=== PATIENT | male | born 1980 | race Caucasian/White ===

== ENCOUNTER 2019-08-25 11:15 | Outpatient (RCR) | payer BC, SELFPAY ==
--- NOTE | 2017-10-22 15:09 | PT.OTN ---
On October 22, 2017 our therapy services consisting of Speech, Occupational, and Physical therapy transitioned from [employer] electronic documentation system to a new [employer] electronic system. All documentation prior to October 22 can be found under [employer] saved data. From October 22 forward, all medical record documentation will be in [employer] 6[employer]1.
--- NOTE | 2017-10-22 15:48 | PT.OTN ---
Physical Therapy Treatment Note PT-OP-A Visit Information Start: 10/22/17 15:21 Freq: Status: Active Protocol: Activity Type Activity Date Activity User E-Sign Co-Sign Detail Recorded Client Recorded Date Recorded By Document 10/22/17 15:23 AMB [email or web address] 10/22/17 15:48 AMB 10/22/17 15:23 Out-Patient Physical Therapy Visit Information [Visit Information] -Visit Type Treatment Note -Visit Note POC ends 11/27/17 -Visit Start Time 14:45 -Visit Stop Time 15:15 -Total Visit Minutes 30 -Visit Number 25 [Evaluation Information] -Evaluation Date 06/25/17 PT-OP-C Subjective Start: 10/22/17 15:21 Freq: Status: Active Protocol: Activity Type Activity Date Activity User E-Sign Co-Sign Detail Recorded Client Recorded Date Recorded By Document 10/22/17 15:23 AMB [email or web address] 10/22/17 15:48 AMB 10/22/17 15:23 OP-PT Subjective [Patient Comments] -Patient Comments Pt reports he noted burning during iontophoresis, so he had his take it off when he got home. He has been using his elliptical at home but has been stopping at 24 minutes because of pain in his left scapula. PT-OP-Q Treatments Start: 10/22/17 15:21 Freq: Status: Active Protocol: Activity Type Activity Date Activity User E-Sign Co-Sign Detail Recorded Client Recorded Date Recorded By Document 10/22/17 15:23 AMB [email or web address] 10/22/17 15:48 AMB 10/22/17 15:23 Therapeutic Exercises [Prone Exercises] 2 -Prone Exercise Name jerry pose -Reps/Minutes 30 sec x 2 1 -Prone Exercise Name I, Y, T -Side left -Resistance AROM -Reps/Minutes 1x10 each direction [Standing Exercises] 2 -Standing Exercise Name Cross body stretch -Side left -Reps/Minutes 30 sec x 2 1 -Standing Exercise Name Wall posture -Side bilateral -Reps/Minutes 5 minutes Manual Therapy Treatment [Soft Tissue Mobilization] 1 -Body Location Left scapula -Mobilization Type Myofascial Release Rolling -Intensity/Depth Moderate -Body Position Prone [Joint Mobilizations] 1 -Joint T1-5 -Direction PA -Grade III -Body Position Prone -Reps/Duration 5 minutes PT-OP-T Assessment and Plan Start: 10/22/17 15:21 Freq: Status: Active Protocol: Activity Type Activity Date Activity User E-Sign Co-Sign Detail Recorded Client Recorded Date Recorded By Document 10/22/17 15:23 AMB [email or web address] 10/22/17 15:48 AMB 10/22/17 15:23 Physical Therapy Assessment [Assessment Summary] -Assessment The patient continues to use upper traps to substitute for scapular muscles. Fatigues quickly with wall posture and Is/Ts/Ys. Physical Therapy Plan [Next Visit Focus/Plan] -Next Visit Plan Progress posture and resistance exercises. Current Diagnoses Pain in left shoulder (10/22/17) Low back pain (10/22/17)
--- NOTE | 2017-11-06 08:02 | PT.OTN ---
Current Diagnoses Pain in left shoulder (11/05/17) Low back pain (11/05/17) Physical Therapy Treatment Note PT-OP-A Visit Information Start: 10/22/17 15:21 Freq: Status: Active Protocol: Document 11/05/17 14:30 AMB (Rec: 11/06/17 08:01 AMB [email or web address]) Out-Patient Physical Therapy Visit Information Visit Information Visit Type Treatment Note Visit Note POC ends 11/27/17 Visit Start Time 14:35 Visit Stop Time 15:15 Total Visit Minutes 45 Visit Number 26 PT-OP-C Subjective Start: 10/22/17 15:21 Freq: Status: Active Protocol: Document 11/05/17 14:30 AMB (Rec: 11/06/17 08:01 AMB [email or web address]) OP-PT Subjective Patient Comments Patient Comments Pt notes overall he has been feeling better. Although he strained to catch ball in T ball practice last Saturday and has been feeling increased pain from his scapula into his neck since then. PT-OP-Q Treatments Start: 10/22/17 15:21 Freq: Status: Active Protocol: Document 11/05/17 14:30 AMB (Rec: 11/06/17 08:01 AMB [email or web address]) Therapeutic Exercises Prone Exercises 2 Prone Exercise Name jerry pose Reps/Minutes 30 sec x 2 Standing Exercises 1 Standing Exercise Name Wall posture Side bilateral Reps/Minutes 5 minutes Manual Therapy Treatment Soft Tissue Mobilization 3 Body Location Levator scap Mobilization Type Strumming Intensity/Depth Moderate Body Position Prone 2 Body Location Left paraspinals Mobilization Type Strumming Intensity/Depth Moderate Body Position Prone 1 Body Location Left scapula Mobilization Type Myofascial Release Rolling Intensity/Depth Moderate Body Position Prone Joint Mobilizations 1 Joint T1-5 Direction PA Grade III Body Position Prone Reps/Duration 5 minutes PT-OP-T Assessment and Plan Start: 10/22/17 15:21 Freq: Status: Active Protocol: Document 11/05/17 14:30 AMB (Rec: 11/06/17 08:01 AMB [email or web address]) Physical Therapy Assessment Assessment Summary Assessment Pt continues with impaired posture, need to work more on postural stabilization Physical Therapy Plan Next Visit Focus/Plan Next Visit Plan Progress scapular stabilization
--- NOTE | 2017-11-12 15:39 | PT.OTN ---
Current Diagnoses Pain in left shoulder (11/12/17) Low back pain (11/12/17) Physical Therapy Treatment Note PT-OP-A Visit Information Start: 10/22/17 15:21 Freq: Status: Active Protocol: Document 11/12/17 15:30 AMB (Rec: 11/12/17 15:38 AMB [email or web address]) Out-Patient Physical Therapy Visit Information Visit Information Visit Type Treatment Note Visit Note POC ends 11/27/17 Visit Start Time 14:30 Visit Stop Time 15:15 Total Visit Minutes 45 Visit Number 27 Evaluation Information Evaluation Date 06/25/17 PT-OP-C Subjective Start: 10/22/17 15:21 Freq: Status: Active Protocol: Document 11/12/17 15:30 AMB (Rec: 11/12/17 15:38 AMB [email or web address]) OP-PT Subjective Patient Comments Patient Comments Pt has been practicing [employer] with his son and felt better after his last appointment, but after yesterday's practice he is more flared up. He has been stretching and that helped his low back, but he has a headache and scapular pain still. PT-OP-Q Treatments Start: 10/22/17 15:21 Freq: Status: Active Protocol: Document 11/12/17 15:30 AMB (Rec: 11/12/17 15:38 AMB [email or web address]) Manual Therapy Treatment Soft Tissue Mobilization 3 Body Location TrP release with shoulder abd. Mobilization Type Trigger Point Release Intensity/Depth Moderate Body Position Prone 2 Body Location Left paraspinals Mobilization Type Strumming Intensity/Depth Moderate Body Position Prone 1 Body Location Left scapula Mobilization Type Myofascial Release Rolling Intensity/Depth Moderate Body Position Prone Joint Mobilizations 1 Joint T1-5 Direction PA Grade III Body Position Prone Reps/Duration 5 minutes Manual Traction Cervical Body Position Supine PT-OP-T Assessment and Plan Start: 10/22/17 15:21 Freq: Status: Active Protocol: Document 11/12/17 15:30 AMB (Rec: 11/12/17 15:38 AMB [email or web address]) Physical Therapy Assessment Assessment Summary Assessment Difficult to progress pt's postural stabilization today due to headache, forward head continues. Physical Therapy Plan Next Visit Focus/Plan Next Visit Plan Progress postural awareness. Please Sign and Return: I have reviewed this Plan of Care and certify that the skilled therapy services above are required to meet the patient???s needs. Physician Signature Date Printed Name and Credentials Clinical Instructor Signature Printed Name and Credentials
--- NOTE | 2017-11-21 15:57 | PT.OTN ---
Current Diagnoses Pain in left shoulder (11/21/17) Low back pain (11/21/17) Physical Therapy Treatment Note PT-OP-A Visit Information Start: 10/22/17 15:21 Freq: Status: Active Protocol: Document 11/21/17 14:30 AMB (Rec: 11/21/17 14:34 AMB [id number]) Out-Patient Physical Therapy Visit Information Visit Information Visit Type Treatment Note Visit Note POC ends 11/27/17 Visit Start Time 14:30 Visit Stop Time 15:15 Total Visit Minutes 45 Visit Number 28 Evaluation Information Evaluation Date 06/25/17 PT-OP-C Subjective Start: 10/22/17 15:21 Freq: Status: Active Protocol: Document 11/21/17 14:30 AMB (Rec: 11/21/17 15:49 AMB [email or web address]) OP-PT Subjective Patient Comments Patient Comments Pt over extended his arm yesterday during T ball practice and has been feeling pain since then. PT-OP-Q Treatments Start: 10/22/17 15:21 Freq: Status: Active Protocol: Document 11/21/17 14:30 AMB (Rec: 11/21/17 15:49 AMB [email or web address]) Therapeutic Exercises Prone Exercises 5 Prone Exercise Name plank Comments kneeling and on forearms 4 Prone Exercise Name cat/cow Reps/Minutes 15 3 Prone Exercise Name rows Side left Resistance 5# Reps/Minutes 1 x 10 2 Prone Exercise Name jerry pose Reps/Minutes 30 sec x 2 1 Prone Exercise Name I, Y, T Side left Resistance 5# Reps/Minutes 1x10 each direction Comments 5# Manual Therapy Treatment Soft Tissue Mobilization 2 Body Location Left paraspinals Mobilization Type Strumming Intensity/Depth Moderate Body Position Prone 1 Body Location Left scapula Mobilization Type Myofascial Release Rolling Intensity/Depth Moderate Body Position Prone PT-OP-R Modalities Start: 11/21/17 15:49 Freq: Status: Active Protocol: Document 11/21/17 14:30 AMB (Rec: 11/21/17 15:56 AMB [email or web address]) Ultrasound Therapy Treatment Left Upper Back Treatment Duration (minutes) 7 Patient Position Prone Coupling Medium Ultrasound Gel Frequency Setting (mHz) 1 Mode Setting Continuous Intensity Setting (w/cm2) 1.5 PT-OP-T Assessment and Plan Start: 10/22/17 15:21 Freq: Status: Active Protocol: Document 11/21/17 14:30 AMB (Rec: 11/21/17 15:56 AMB [email or web address]) Physical Therapy Assessment Assessment Summary Assessment Pt presents with continued L thoracic/ scapular pain. Less tightness in infraspinatus, but more soreness in lats and rhomboids. Physical Therapy Plan Next Visit Focus/Plan Next Note Type Progress Note Next Visit Plan Progress scapular stabilization Please Sign and Return: I have reviewed this Plan of Care and certify that the skilled therapy services above are required to meet the patient?s needs. Physician Signature Date Printed Name and Credentials Clinical Instructor Signature Printed Name and Credentials
--- NOTE | 2017-12-03 07:52 | PT.OTN ---
Current Diagnoses Pain in left shoulder (12/02/17) Low back pain (12/02/17) Physical Therapy Treatment Note PT-OP-A Visit Information Start: 10/22/17 15:21 Freq: Status: Active Protocol: Document 12/02/17 13:45 AMB (Rec: 12/03/17 07:49 AMB [email or web address]) Out-Patient Physical Therapy Visit Information Visit Information Visit Type Treatment Note Visit Start Time 14:00 Visit Stop Time 14:30 Total Visit Minutes 30 Visit Number 29 Evaluation Information Evaluation Date 06/25/17 PT-OP-C Subjective Start: 10/22/17 15:21 Freq: Status: Active Protocol: Document 12/02/17 13:45 AMB (Rec: 12/03/17 07:49 AMB [email or web address]) OP-PT Subjective Patient Comments Patient Comments Pt reports flare up of sx over the past 3 days. Patient Questionnaires Oswestry Low Back Index Oswestry Score 44 Oswestry Impairment 40 to 59% Impaired (Score 40- 59) PT-OP-K Range of Motion Start: 12/03/17 07:05 Freq: Status: Active Protocol: Document 12/02/17 13:45 AMB (Rec: 12/03/17 07:47 AMB [email or web address]) Cervical Spine Range of Motion Cervical Spine Active Degrees Testing Position Sitting Flexion 60 Extension 50 Rotation Left 60 Rotation Right 55 ROM Limitations Soft Tissue Tightness Lumbar Spine Range of Motion Lumbar Spine Active Degrees Testing Position standing Flexion 10 Extension 35 Lateral Flexion Left 15 Lateral Flexion Right 15 ROM Limitations Pain PT-OP-M Strength Start: 12/03/17 07:05 Freq: Status: Active Protocol: Document 12/02/17 13:45 AMB (Rec: 12/03/17 07:47 AMB [email or web address]) Scapula Strength Scapula Manual Muscle Testing Left Comments Scapular protraction 3+/5 with pain Shoulder Strength Shoulder Manual Muscle Testing Right Reason Not Measured WFL Left Flexion 4+ Good+ Abduction (C5) 4 Good External Rotation 4 Good Internal Rotation 4+ Good+ PT-OP-Q Treatments Start: 10/22/17 15:21 Freq: Status: Active Protocol: Document 12/02/17 13:45 AMB (Rec: 12/03/17 07:51 AMB [email or web address]) Therapeutic Exercises Standing Exercises 2 Standing Exercise Name Cross body stretch Side left Reps/Minutes 30 sec x 2 Manual Therapy Treatment Soft Tissue Mobilization 3 Body Location TrP release with shoulder abd. Mobilization Type Trigger Point Release Intensity/Depth Moderate Body Position Prone 1 Body Location Left scapula Mobilization Type Myofascial Release Rolling Intensity/Depth Moderate Body Position Prone PT-OP-R Modalities Start: 11/21/17 15:49 Freq: Status: Active Protocol: Document 11/21/17 14:30 AMB (Rec: 11/21/17 15:56 AMB [email or web address]) Ultrasound Therapy Treatment Left Upper Back Treatment Duration (minutes) 7 Patient Position Prone Coupling Medium Ultrasound Gel Frequency Setting (mHz) 1 Mode Setting Continuous Intensity Setting (w/cm2) 1.5 PT-OP-T Assessment and Plan Start: 10/22/17 15:21 Freq: Status: Active Protocol: Document 12/02/17 13:45 AMB (Rec: 12/03/17 07:30 AMB [email or web address]) Physical Therapy Assessment Rehab Potential Rehabilitation Potential Good Impairments Impairments Activity Tolerance Pain Posture ROM Soft Tissue Mobility Strength Goals 4 Impairment Sleep Short Term Goal (STG) The patient will sleep for 5 hours using pillow props. STG Duration 6 weeks Office Support Goal (LTG) The patient will be independent with a core and scapular stabilization HEP to reduce his pain overall. LTG Duration 12 weeks 3 Impairment Lifting/carrying Short Term Goal (STG) The patient will lift his youngest child into her carseat with good body mechanics and pain of 2/10 or less. STG Duration 6 weeks Retirement Goal (LTG) The patient will lift dishes overhead to put them in a tall cabinet without an increase in pain. LTG Duration 12 weeks 2 Impairment Posture Short Term Goal (STG) The patient will sit with appropriate posture for 45 minutes with 2/10 pain. STG Duration 6 weeks Office Support Goal (LTG) The patient will stand for 10 minutes with good posture without an increase in baseline pain. 1 Impairment ROM Short Term Goal (STG) The patient will improve his lumbar AROM to Extension: 20 degrees, Flexion 50 derees, Sidebending bilateral: 25 degrees without an increase in pain. STG Duration 6 weeks Office Support Goal (LTG) The patient will increase his left shoulder AROM to abduction 160 degrees of flexion and abduction. LTG Duration 12 weeks Assessment Summary Assessment The patient states that about 3 days ago his pain worsened significantly. He is unsure why. The pain continues to be the worst at the medial border of his left scapula. He continues to have poor posture, and poor strength. Stretching does help the pain. He has attended 28 visits of PT over the last 6 months. Previous to this most recent flare, he felt that he was about 40% improved, but now he is not sure. He is hoping to be able to be consistent with PT over the next few months while his kids are on summer break, so that we can really work hard to improve his scapular stability. 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 He will benefit from continued PT to promote good posture, strength, and reduce his pain. Physical Therapy Plan Frequency and Duration Frequency of Treatment 3x/Week Duration of Treatment 12 weeks Plan of Care Start Date 12/02/17 Plan of Care End Date 02/24/18 Therapeutic Interventions Therapeutic Interventions Aquatic Therapy Home Exercise Program Joint Mobilizations Manual Therapy Neuromuscular Re-education Self-Care/Home Management Soft Tissue Mobilization Taping Therapeutic Activities Therapeutic Exercises Modalities Cold Pack/Ice Massage Electric Stimulation Hot Packs Iontophoresis Ultrasound Next Visit Focus/Plan Next Note Type Treatment Note Next Visit Plan Reassess pain flare Please Sign and Return: I have reviewed this Plan of Care and certify that the skilled therapy services above are required to meet the patient?s needs. Physician Signature Date Printed Name and Credentials Clinical Instructor Signature Printed Name and Credentials
--- NOTE | 2017-12-06 14:47 | PT.OTN ---
Current Diagnoses Pain in left shoulder (12/06/17) Low back pain (12/06/17) Physical Therapy Treatment Note PT-OP-A Visit Information Start: 10/22/17 15:21 Freq: Status: Active Protocol: Document 12/06/17 13:45 AMB (Rec: 12/06/17 14:33 AMB [email or web address]) Out-Patient Physical Therapy Visit Information Visit Information Visit Type Treatment Note Visit Note POC ends 02/24 Visit Start Time 13:50 Visit Stop Time 14:30 Total Visit Minutes 40 Visit Number 30 Evaluation Information Evaluation Date 06/25/17 PT-OP-C Subjective Start: 10/22/17 15:21 Freq: Status: Active Protocol: Document 12/06/17 13:45 AMB (Rec: 12/06/17 14:33 AMB [id number]) OP-PT Subjective Patient Comments Patient Comments Pt reports he is doing better than last week. PT-OP-K Range of Motion Start: 12/03/17 07:05 Freq: Status: Active Protocol: Document 12/02/17 13:45 AMB (Rec: 12/03/17 07:47 AMB [email or web address]) Cervical Spine Range of Motion Cervical Spine Active Degrees Testing Position Sitting Flexion 60 Extension 50 Rotation Left 60 Rotation Right 55 ROM Limitations Soft Tissue Tightness Lumbar Spine Range of Motion Lumbar Spine Active Degrees Testing Position standing Flexion 10 Extension 35 Lateral Flexion Left 15 Lateral Flexion Right 15 ROM Limitations Pain PT-OP-M Strength Start: 12/03/17 07:05 Freq: Status: Active Protocol: Document 12/02/17 13:45 AMB (Rec: 12/03/17 07:47 AMB [email or web address]) Scapula Strength Scapula Manual Muscle Testing Left Comments Scapular protraction 3+/5 with pain Shoulder Strength Shoulder Manual Muscle Testing Right Reason Not Measured WFL Left Flexion 4+ Good+ Abduction (C5) 4 Good External Rotation 4 Good Internal Rotation 4+ Good+ PT-OP-Q Treatments Start: 10/22/17 15:21 Freq: Status: Active Protocol: Document 12/06/17 14:30 AMB (Rec: 12/06/17 14:46 AMB [email or web address]) Gym Equipment Cable Column (Body Solid) Lat Pull Down Resistance 2 plates Reps/Time 3x10 Therapeutic Exercises Prone Exercises 1 Prone Exercise Name I, Y, T Side left Resistance #3 Reps/Minutes 1x10 each direction Comments 3# Standing Exercises 4 Standing Exercise Name rows Resistance #2 t band 3 Standing Exercise Name GH ER Resistance #2 tband Manual Therapy Treatment Soft Tissue Mobilization 3 Body Location TrP release with shoulder abd. Mobilization Type Trigger Point Release Intensity/Depth Moderate Body Position Prone 1 Body Location Left scapula Mobilization Type Myofascial Release Rolling Intensity/Depth Moderate Body Position Prone Joint Mobilizations 1 Joint T1-5 Direction PA Grade III Body Position Prone Reps/Duration 5 minutes PT-OP-R Modalities Start: 11/21/17 15:49 Freq: Status: Active Protocol: Document 11/21/17 14:30 AMB (Rec: 11/21/17 15:56 AMB [email or web address]) Ultrasound Therapy Treatment Left Upper Back Treatment Duration (minutes) 7 Patient Position Prone Coupling Medium Ultrasound Gel Frequency Setting (mHz) 1 Mode Setting Continuous Intensity Setting (w/cm2) 1.5 PT-OP-T Assessment and Plan Start: 10/22/17 15:21 Freq: Status: Active Protocol: Document 12/06/17 13:45 AMB (Rec: 12/06/17 14:33 AMB [id number]) Physical Therapy Assessment Assessment Summary Assessment The patient continues to have medial border scapular winging at midrange shoulder flexion. Physical Therapy Plan Next Visit Focus/Plan Next Note Type Treatment Note Next Visit Plan Progress scapular stability Please Sign and Return: I have reviewed this Plan of Care and certify that the skilled therapy services above are required to meet the patient?s needs. Physician Signature Date Printed Name and Credentials Clinical Instructor Signature Printed Name and Credentials
--- NOTE | 2017-12-11 08:47 | PT.OTN ---
Current Diagnoses Pain in left shoulder (12/10/17) Low back pain (12/10/17) Physical Therapy Treatment Note PT-OP-A Visit Information Start: 10/22/17 15:21 Freq: Status: Active Protocol: Document 12/10/17 13:45 AMB (Rec: 12/11/17 07:31 AMB [email or web address]) Out-Patient Physical Therapy Visit Information Visit Information Visit Type Treatment Note Visit Note POC ends 02/24 Visit Start Time 13:50 Visit Stop Time 14:30 Total Visit Minutes 40 Visit Number 31 Evaluation Information Evaluation Date 06/25/17 PT-OP-C Subjective Start: 10/22/17 15:21 Freq: Status: Active Protocol: Document 12/10/17 13:45 AMB (Rec: 12/11/17 07:31 AMB [email or web address]) OP-PT Subjective Patient Comments Patient Comments Pt was quite sore yesterday after unpacking boxes. PT-OP-K Range of Motion Start: 12/03/17 07:05 Freq: Status: Active Protocol: Document 12/02/17 13:45 AMB (Rec: 12/03/17 07:47 AMB [email or web address]) Cervical Spine Range of Motion Cervical Spine Active Degrees Testing Position Sitting Flexion 60 Extension 50 Rotation Left 60 Rotation Right 55 ROM Limitations Soft Tissue Tightness Lumbar Spine Range of Motion Lumbar Spine Active Degrees Testing Position standing Flexion 10 Extension 35 Lateral Flexion Left 15 Lateral Flexion Right 15 ROM Limitations Pain PT-OP-M Strength Start: 12/03/17 07:05 Freq: Status: Active Protocol: Document 12/02/17 13:45 AMB (Rec: 12/03/17 07:47 AMB [email or web address]) Scapula Strength Scapula Manual Muscle Testing Left Comments Scapular protraction 3+/5 with pain Shoulder Strength Shoulder Manual Muscle Testing Right Reason Not Measured WFL Left Flexion 4+ Good+ Abduction (C5) 4 Good External Rotation 4 Good Internal Rotation 4+ Good+ PT-OP-Q Treatments Start: 10/22/17 15:21 Freq: Status: Active Protocol: Document 12/10/17 13:45 AMB (Rec: 12/11/17 08:46 AMB [email or web address]) Gym Equipment Cable Column (Body Solid) Lat Pull Down Resistance 2 plates Reps/Time 3x10 Therapeutic Exercises Standing Exercises 4 Standing Exercise Name rows Resistance #2 t band 3 Standing Exercise Name GH ER Resistance #2 tband Manual Therapy Treatment Soft Tissue Mobilization 3 Body Location TrP release with shoulder abd. Mobilization Type Trigger Point Release Intensity/Depth Moderate Body Position Prone 1 Body Location Left scapula Mobilization Type Myofascial Release Rolling Intensity/Depth Moderate Body Position Prone PT-OP-R Modalities Start: 11/21/17 15:49 Freq: Status: Active Protocol: Document 11/21/17 14:30 AMB (Rec: 11/21/17 15:56 AMB [email or web address]) Ultrasound Therapy Treatment Left Upper Back Treatment Duration (minutes) 7 Patient Position Prone Coupling Medium Ultrasound Gel Frequency Setting (mHz) 1 Mode Setting Continuous Intensity Setting (w/cm2) 1.5 PT-OP-T Assessment and Plan Start: 10/22/17 15:21 Freq: Status: Active Protocol: Document 12/10/17 13:45 AMB (Rec: 12/11/17 08:46 AMB [email or web address]) Physical Therapy Assessment Goals 4 Impairment Sleep Short Term Goal (STG) The patient will sleep for 5 hours using pillow props. STG Duration 6 weeks Farm Hand Goal (LTG) The patient will be independent with a core and scapular stabilization HEP to reduce his pain overall. LTG Duration 12 weeks 3 Impairment Lifting/carrying Short Term Goal (STG) The patient will lift his youngest child into her carseat with good body mechanics and pain of 2/10 or less. STG Duration 6 weeks Farm Hand Goal (LTG) The patient will lift dishes overhead to put them in a tall cabinet without an increase in pain. LTG Duration 12 weeks 2 Impairment Posture Short Term Goal (STG) The patient will sit with appropriate posture for 45 minutes with 2/10 pain. STG Duration 6 weeks Farm Hand Goal (LTG) The patient will stand for 10 minutes with good posture without an increase in baseline pain. 1 Impairment ROM Short Term Goal (STG) The patient will improve his lumbar AROM to Extension: 20 degrees, Flexion 50 derees, Sidebending bilateral: 25 degrees without an increase in pain. STG Duration 6 weeks Group Home Goal (LTG) The patient will increase his left shoulder AROM to abduction 160 degrees of flexion and abduction. LTG Duration 12 weeks Assessment Summary Assessment pain increases with strengthening exercises but improves with manual therapy Physical Therapy Plan Frequency and Duration Frequency of Treatment 3x/Week Duration of Treatment 12 weeks Plan of Care Start Date 12/02/17 Plan of Care End Date 02/24/18 Next Visit Focus/Plan Next Note Type Treatment Note Next Visit Plan Progress scapular stability, reassess GH joint
--- NOTE | 2017-12-12 14:56 | PT.OTN ---
Current Diagnoses Pain in left shoulder (12/12/17) Low back pain (12/12/17) Physical Therapy Treatment Note PT-OP-A Visit Information Start: 10/22/17 15:21 Freq: Status: Active Protocol: Document 12/12/17 13:45 AMB (Rec: 12/12/17 14:55 AMB [email or web address]) Out-Patient Physical Therapy Visit Information Visit Information Visit Type Treatment Note Visit Note POC ends 02/24 Visit Start Time 13:50 Visit Stop Time 14:30 Total Visit Minutes 40 Visit Number 32 Evaluation Information Evaluation Date 06/25/17 PT-OP-C Subjective Start: 10/22/17 15:21 Freq: Status: Active Protocol: Document 12/12/17 13:45 AMB (Rec: 12/12/17 14:55 AMB [email or web address]) OP-PT Subjective Patient Comments Patient Comments Pt reports he felt better after last appointment, that lasted the rest of the day, but then the pain returned 7-8 /10 pain currently. PT-OP-K Range of Motion Start: 12/03/17 07:05 Freq: Status: Active Protocol: Document 12/02/17 13:45 AMB (Rec: 12/03/17 07:47 AMB [email or web address]) Cervical Spine Range of Motion Cervical Spine Active Degrees Testing Position Sitting Flexion 60 Extension 50 Rotation Left 60 Rotation Right 55 ROM Limitations Soft Tissue Tightness Lumbar Spine Range of Motion Lumbar Spine Active Degrees Testing Position standing Flexion 10 Extension 35 Lateral Flexion Left 15 Lateral Flexion Right 15 ROM Limitations Pain PT-OP-M Strength Start: 12/03/17 07:05 Freq: Status: Active Protocol: Document 12/02/17 13:45 AMB (Rec: 12/03/17 07:47 AMB [email or web address]) Scapula Strength Scapula Manual Muscle Testing Left Comments Scapular protraction 3+/5 with pain Shoulder Strength Shoulder Manual Muscle Testing Right Reason Not Measured WFL Left Flexion 4+ Good+ Abduction (C5) 4 Good External Rotation 4 Good Internal Rotation 4+ Good+ PT-OP-Q Treatments Start: 10/22/17 15:21 Freq: Status: Active Protocol: Document 12/12/17 13:45 AMB (Rec: 12/12/17 14:55 AMB [email or web address]) Therapeutic Exercises Supine Exercises 1 Supine Exercise Name passive lat stretch Reps/Minutes 30x2 Sitting Exercises 2 Sitting Exercise Name shoulder IR isometric Side left Reps/Minutes 5x5 1 Sitting Exercise Name GH IR AROM Side left Resistance #1 t band Reps/Minutes 2x10 Manual Therapy Treatment Soft Tissue Mobilization 3 Body Location TrP release with shoulder abd. Mobilization Type Trigger Point Release Intensity/Depth Moderate Body Position Prone 1 Body Location Left scapula Mobilization Type Myofascial Release Rolling Intensity/Depth Moderate Body Position Sidelying Comments focus on infraspinatus PT-OP-R Modalities Start: 11/21/17 15:49 Freq: Status: Active Protocol: Document 11/21/17 14:30 AMB (Rec: 11/21/17 15:56 AMB [email or web address]) Ultrasound Therapy Treatment Left Upper Back Treatment Duration (minutes) 7 Patient Position Prone Coupling Medium Ultrasound Gel Frequency Setting (mHz) 1 Mode Setting Continuous Intensity Setting (w/cm2) 1.5 PT-OP-T Assessment and Plan Start: 10/22/17 15:21 Freq: Status: Active Protocol: Document 12/12/17 13:45 AMB (Rec: 12/12/17 14:55 AMB [email or web address]) Physical Therapy Assessment Assessment Summary Assessment Pt with continued pain flare interfering with sleep. Encouraged in isometrics, strengthening. Resisted internal rotation exacerbates pain. Physical Therapy Plan Frequency and Duration Frequency of Treatment 3x/Week Duration of Treatment 12 weeks Plan of Care Start Date 12/02/17 Plan of Care End Date 02/24/18 Next Visit Focus/Plan Next Note Type Treatment Note Next Visit Plan Progress GH ROM
--- NOTE | 2017-12-16 14:30 | PT.OTN ---
Current Diagnoses Pain in left shoulder (12/16/17) Low back pain (12/16/17) Physical Therapy Treatment Note PT-OP-A Visit Information Start: 10/22/17 15:21 Freq: Status: Active Protocol: Document 12/16/17 14:30 AMB (Rec: 12/17/17 16:32 AMB [email or web address]) Out-Patient Physical Therapy Visit Information Visit Information Visit Type Treatment Note Visit Note POC ends 02/24 Visit Start Time 14:45 Visit Stop Time 15:15 Total Visit Minutes 30 Visit Number 33 Number of COAT OPERATOR Visits 0 Evaluation Information Evaluation Date 06/25/17 PT-OP-C Subjective Start: 10/22/17 15:21 Freq: Status: Active Protocol: Document 12/16/17 14:30 AMB (Rec: 12/17/17 16:32 AMB [email or web address]) OP-PT Subjective Patient Comments Patient Comments Pt has continued unpacking boxes, so his pain continues in the left scap. PT-OP-K Range of Motion Start: 12/03/17 07:05 Freq: Status: Active Protocol: Document 12/02/17 13:45 AMB (Rec: 12/03/17 07:47 AMB [email or web address]) Cervical Spine Range of Motion Cervical Spine Active Degrees Testing Position Sitting Flexion 60 Extension 50 Rotation Left 60 Rotation Right 55 ROM Limitations Soft Tissue Tightness Lumbar Spine Range of Motion Lumbar Spine Active Degrees Testing Position standing Flexion 10 Extension 35 Lateral Flexion Left 15 Lateral Flexion Right 15 ROM Limitations Pain PT-OP-M Strength Start: 12/03/17 07:05 Freq: Status: Active Protocol: Document 12/02/17 13:45 AMB (Rec: 12/03/17 07:47 AMB [email or web address]) Scapula Strength Scapula Manual Muscle Testing Left Comments Scapular protraction 3+/5 with pain Shoulder Strength Shoulder Manual Muscle Testing Right Reason Not Measured WFL Left Flexion 4+ Good+ Abduction (C5) 4 Good External Rotation 4 Good Internal Rotation 4+ Good+ PT-OP-Q Treatments Start: 10/22/17 15:21 Freq: Status: Active Protocol: Document 12/16/17 14:30 AMB (Rec: 12/17/17 16:32 AMB [email or web address]) Therapeutic Exercises Sitting Exercises 3 Sitting Exercise Name GH ER tband Resistance #2 t band Reps/Minutes 2x10 2 Sitting Exercise Name shoulder IR isometric Side left Reps/Minutes 5x5 1 Sitting Exercise Name GH IR tband Side left Resistance #1 t band Reps/Minutes 2x10 Manual Therapy Treatment Soft Tissue Mobilization 3 Body Location TrP release with shoulder abd. Mobilization Type Trigger Point Release Intensity/Depth Moderate Body Position Prone 1 Body Location Left scapula Mobilization Type Myofascial Release Rolling Intensity/Depth Moderate Body Position Sidelying Comments focus on infraspinatus PT-OP-R Modalities Start: 11/21/17 15:49 Freq: Status: Active Protocol: Document 11/21/17 14:30 AMB (Rec: 11/21/17 15:56 AMB [email or web address]) Ultrasound Therapy Treatment Left Upper Back Treatment Duration (minutes) 7 Patient Position Prone Coupling Medium Ultrasound Gel Frequency Setting (mHz) 1 Mode Setting Continuous Intensity Setting (w/cm2) 1.5 PT-OP-T Assessment and Plan Start: 10/22/17 15:21 Freq: Status: Active Protocol: Document 12/16/17 14:30 AMB (Rec: 12/17/17 16:32 AMB [email or web address]) Physical Therapy Assessment Assessment Summary Assessment The patient continued to have pain more with lower trap today. Physical Therapy Plan Next Visit Focus/Plan Next Note Type Treatment Note Next Visit Plan Progress GH ROM
--- NOTE | 2017-12-19 15:45 | PT.OTN ---
Current Diagnoses Pain in left shoulder (12/19/17) Low back pain (12/19/17) Physical Therapy Treatment Note PT-OP-A Visit Information Start: 10/22/17 15:21 Freq: Status: Active Protocol: Document 12/19/17 13:45 AMB (Rec: 12/19/17 14:07 AMB [email or web address]) Out-Patient Physical Therapy Visit Information Visit Information Visit Type Treatment Note Visit Note POC ends 02/24 Visit Start Time 13:55 Visit Stop Time 14:30 Total Visit Minutes 35 Visit Number 34 Number of BUSINESS SUPERVISOR Visits 0 Evaluation Information Evaluation Date 06/25/17 PT-OP-C Subjective Start: 10/22/17 15:21 Freq: Status: Active Protocol: Document 12/19/17 13:45 AMB (Rec: 12/19/17 14:07 AMB [id number]) OP-PT Subjective Patient Comments Patient Comments Pt reports he has been feeling more low back pain with the unpacking of boxes. PT-OP-K Range of Motion Start: 12/03/17 07:05 Freq: Status: Active Protocol: Document 12/02/17 13:45 AMB (Rec: 12/03/17 07:47 AMB [email or web address]) Cervical Spine Range of Motion Cervical Spine Active Degrees Testing Position Sitting Flexion 60 Extension 50 Rotation Left 60 Rotation Right 55 ROM Limitations Soft Tissue Tightness Lumbar Spine Range of Motion Lumbar Spine Active Degrees Testing Position standing Flexion 10 Extension 35 Lateral Flexion Left 15 Lateral Flexion Right 15 ROM Limitations Pain PT-OP-M Strength Start: 12/03/17 07:05 Freq: Status: Active Protocol: Document 12/02/17 13:45 AMB (Rec: 12/03/17 07:47 AMB [email or web address]) Scapula Strength Scapula Manual Muscle Testing Left Comments Scapular protraction 3+/5 with pain Shoulder Strength Shoulder Manual Muscle Testing Right Reason Not Measured WFL Left Flexion 4+ Good+ Abduction (C5) 4 Good External Rotation 4 Good Internal Rotation 4+ Good+ PT-OP-Q Treatments Start: 10/22/17 15:21 Freq: Status: Active Protocol: Document 12/19/17 13:45 AMB (Rec: 12/19/17 15:44 AMB [email or web address]) Therapeutic Exercises Supine Exercises 2 Supine Exercise Name shoulder IR Resistance 2# Reps/Minutes 10 Sidelying Exercises 1 Sidelying Exercise Name glenohumeral ER Resistance 2# Comments 2x10 Manual Therapy Treatment Soft Tissue Mobilization 2 Body Location Left lateral shoulder Mobilization Type Cross-Friction Body Position Sidelying 1 Body Location Left scapula Mobilization Type Myofascial Release Rolling Intensity/Depth Moderate Body Position Sidelying Comments focus on infraspinatus PT-OP-R Modalities Start: 11/21/17 15:49 Freq: Status: Active Protocol: Document 11/21/17 14:30 AMB (Rec: 11/21/17 15:56 AMB [email or web address]) Ultrasound Therapy Treatment Left Upper Back Treatment Duration (minutes) 7 Patient Position Prone Coupling Medium Ultrasound Gel Frequency Setting (mHz) 1 Mode Setting Continuous Intensity Setting (w/cm2) 1.5 PT-OP-T Assessment and Plan Start: 10/22/17 15:21 Freq: Status: Active Protocol: Document 12/19/17 13:45 AMB (Rec: 12/19/17 15:44 AMB [email or web address]) Physical Therapy Assessment Goals 4 Impairment Sleep Short Term Goal (STG) The patient will sleep for 5 hours using pillow props. STG Duration 6 weeks Assisted Goal (LTG) The patient will be independent with a core and scapular stabilization HEP to reduce his pain overall. LTG Duration 12 weeks 3 Impairment Lifting/carrying Short Term Goal (STG) The patient will lift his youngest child into her carseat with good body mechanics and pain of 2/10 or less. STG Duration 6 weeks Sox Analyst Goal (LTG) The patient will lift dishes overhead to put them in a tall cabinet without an increase in pain. LTG Duration 12 weeks 2 Impairment Posture Short Term Goal (STG) The patient will sit with appropriate posture for 45 minutes with 2/10 pain. STG Duration 6 weeks Assisted Goal (LTG) The patient will stand for 10 minutes with good posture without an increase in baseline pain. 1 Impairment ROM Short Term Goal (STG) The patient will improve his lumbar AROM to Extension: 20 degrees, Flexion 50 derees, Sidebending bilateral: 25 degrees without an increase in pain. STG Duration 6 weeks Assisted Goal (LTG) The patient will increase his left shoulder AROM to abduction 160 degrees of flexion and abduction. LTG Duration 12 weeks Assessment Summary Assessment The patient states he has always had the habit of leaning on his left arm when sitting. Physical Therapy Plan Frequency and Duration Frequency of Treatment 3x/Week Duration of Treatment 12 weeks Plan of Care Start Date 12/02/17 Plan of Care End Date 02/24/18 Next Visit Focus/Plan Next Note Type Treatment Note Next Visit Plan Progress scapular stability, GH stability
--- NOTE | 2017-12-23 15:54 | PT.OTN ---
Current Diagnoses Pain in left shoulder (12/23/17) Low back pain (12/23/17) Physical Therapy Treatment Note PT-OP-A Visit Information Start: 10/22/17 15:21 Freq: Status: Active Protocol: Document 12/23/17 14:35 AMB (Rec: 12/23/17 15:53 AMB [email or web address]) Out-Patient Physical Therapy Visit Information Visit Information Visit Type Treatment Note Visit Note POC ends 02/24 Visit Start Time 14:35 Visit Stop Time 15:20 Total Visit Minutes 45 Visit Number 35 Number of TRUCK DRIVER HEAVY Visits 0 Evaluation Information Evaluation Date 06/25/17 PT-OP-C Subjective Start: 10/22/17 15:21 Freq: Status: Active Protocol: Document 12/23/17 14:35 AMB (Rec: 12/23/17 15:53 AMB [email or web address]) OP-PT Subjective Patient Comments Patient Comments Laundry increasing mid back pain PT-OP-K Range of Motion Start: 12/03/17 07:05 Freq: Status: Active Protocol: Document 12/02/17 13:45 AMB (Rec: 12/03/17 07:47 AMB [email or web address]) Cervical Spine Range of Motion Cervical Spine Active Degrees Testing Position Sitting Flexion 60 Extension 50 Rotation Left 60 Rotation Right 55 ROM Limitations Soft Tissue Tightness Lumbar Spine Range of Motion Lumbar Spine Active Degrees Testing Position standing Flexion 10 Extension 35 Lateral Flexion Left 15 Lateral Flexion Right 15 ROM Limitations Pain PT-OP-M Strength Start: 12/03/17 07:05 Freq: Status: Active Protocol: Document 12/02/17 13:45 AMB (Rec: 12/03/17 07:47 AMB [email or web address]) Scapula Strength Scapula Manual Muscle Testing Left Comments Scapular protraction 3+/5 with pain Shoulder Strength Shoulder Manual Muscle Testing Right Reason Not Measured WFL Left Flexion 4+ Good+ Abduction (C5) 4 Good External Rotation 4 Good Internal Rotation 4+ Good+ PT-OP-Q Treatments Start: 10/22/17 15:21 Freq: Status: Active Protocol: Document 12/23/17 14:35 AMB (Rec: 12/23/17 15:53 AMB [email or web address]) Manual Therapy Treatment Soft Tissue Mobilization 3 Body Location TrP release with shoulder abd. Mobilization Type Trigger Point Release Intensity/Depth Moderate Body Position Prone 1 Body Location Left scapula Mobilization Type Myofascial Release Rolling Intensity/Depth Moderate Body Position Sidelying Comments focus on infraspinatus Joint Mobilizations 2 Joint scapulothoracic Direction all planes 1 Joint T1-5 Direction PA Grade III Body Position Prone Reps/Duration 5 minutes PT-OP-R Modalities Start: 11/21/17 15:49 Freq: Status: Active Protocol: Document 11/21/17 14:30 AMB (Rec: 11/21/17 15:56 AMB [email or web address]) Ultrasound Therapy Treatment Left Upper Back Treatment Duration (minutes) 7 Patient Position Prone Coupling Medium Ultrasound Gel Frequency Setting (mHz) 1 Mode Setting Continuous Intensity Setting (w/cm2) 1.5 PT-OP-T Assessment and Plan Start: 10/22/17 15:21 Freq: Status: Active Protocol: Document 12/23/17 14:35 AMB (Rec: 12/23/17 15:53 AMB [email or web address]) Physical Therapy Assessment Assessment Summary Assessment pt continues to have pain at rhomboids, but with palpation, pain is more severe at infraspinatus. Physical Therapy Plan Frequency and Duration Frequency of Treatment 3x/Week Duration of Treatment 12 weeks Plan of Care Start Date 12/02/17 Plan of Care End Date 02/24/18 Next Visit Focus/Plan Next Note Type Treatment Note Next Visit Plan Progress scapular stability, GH stability
--- NOTE | 2017-12-26 16:02 | PT.OTN ---
Current Diagnoses Pain in left shoulder (12/26/17) Low back pain (12/26/17) Physical Therapy Treatment Note PT-OP-A Visit Information Start: 10/22/17 15:21 Freq: Status: Active Protocol: Document 12/26/17 14:30 AMB (Rec: 12/26/17 16:01 AMB [email or web address]) Out-Patient Physical Therapy Visit Information Visit Information Visit Type Treatment Note Visit Note POC ends 02/24 Visit Start Time 14:35 Visit Stop Time 15:15 Total Visit Minutes 40 Visit Number 36 Number of ELECTRONIC COMMERCE SPECIALIST Visits 0 Evaluation Information Evaluation Date 06/25/17 PT-OP-C Subjective Start: 10/22/17 15:21 Freq: Status: Active Protocol: Document 12/26/17 14:30 AMB (Rec: 12/26/17 16:01 AMB [email or web address]) OP-PT Subjective Patient Comments Patient Comments Pt continues to feel pain in his scapula that radiates into his back by the end of the day. PT-OP-K Range of Motion Start: 12/03/17 07:05 Freq: Status: Active Protocol: Document 12/02/17 13:45 AMB (Rec: 12/03/17 07:47 AMB [email or web address]) Cervical Spine Range of Motion Cervical Spine Active Degrees Testing Position Sitting Flexion 60 Extension 50 Rotation Left 60 Rotation Right 55 ROM Limitations Soft Tissue Tightness Lumbar Spine Range of Motion Lumbar Spine Active Degrees Testing Position standing Flexion 10 Extension 35 Lateral Flexion Left 15 Lateral Flexion Right 15 ROM Limitations Pain PT-OP-M Strength Start: 12/03/17 07:05 Freq: Status: Active Protocol: Document 12/02/17 13:45 AMB (Rec: 12/03/17 07:47 AMB [email or web address]) Scapula Strength Scapula Manual Muscle Testing Left Comments Scapular protraction 3+/5 with pain Shoulder Strength Shoulder Manual Muscle Testing Right Reason Not Measured WFL Left Flexion 4+ Good+ Abduction (C5) 4 Good External Rotation 4 Good Internal Rotation 4+ Good+ PT-OP-Q Treatments Start: 10/22/17 15:21 Freq: Status: Active Protocol: Document 12/26/17 14:30 AMB (Rec: 12/26/17 16:01 AMB [email or web address]) Therapeutic Exercises Supine Exercises 2 Supine Exercise Name shoulder IR Resistance 2# Reps/Minutes 2x10 Sidelying Exercises 1 Sidelying Exercise Name glenohumeral ER Resistance 2# Comments 2x10 Manual Therapy Treatment Soft Tissue Mobilization 3 Body Location TrP release with shoulder abd. Mobilization Type Trigger Point Release Intensity/Depth Moderate Body Position Prone 1 Body Location Left scapula Mobilization Type Myofascial Release Rolling Intensity/Depth Moderate Body Position Sidelying Comments focus on infraspinatus, subscapularis Joint Mobilizations 2 Joint scapulothoracic Direction all planes PT-OP-R Modalities Start: 11/21/17 15:49 Freq: Status: Active Protocol: Document 11/21/17 14:30 AMB (Rec: 11/21/17 15:56 AMB [email or web address]) Ultrasound Therapy Treatment Left Upper Back Treatment Duration (minutes) 7 Patient Position Prone Coupling Medium Ultrasound Gel Frequency Setting (mHz) 1 Mode Setting Continuous Intensity Setting (w/cm2) 1.5 PT-OP-T Assessment and Plan Start: 10/22/17 15:21 Freq: Status: Active Protocol: Document 12/26/17 14:30 AMB (Rec: 12/26/17 16:01 AMB [email or web address]) Physical Therapy Assessment Assessment Summary Assessment Pt with continued weakness and pain in scapula, denies painful arc (pain increases at end range) Physical Therapy Plan Frequency and Duration Frequency of Treatment 3x/Week Duration of Treatment 12 weeks Plan of Care Start Date 12/02/17 Plan of Care End Date 02/24/18 Next Visit Focus/Plan Next Note Type Treatment Note Next Visit Plan Progress scapular stability, GH stability
--- NOTE | 2018-01-02 16:42 | PT.OTN ---
Current Diagnoses Pain in left shoulder (01/02/18) Low back pain (01/02/18) Physical Therapy Treatment Note PT-OP-A Visit Information Start: 10/22/17 15:21 Freq: Status: Active Protocol: Document 01/02/18 11:15 AMB (Rec: 01/02/18 12:59 AMB [email or web address]) Out-Patient Physical Therapy Visit Information Visit Information Visit Type Treatment Note Visit Start Time 11:25 Visit Stop Time 12:00 Total Visit Minutes 35 Visit Number 37 Evaluation Information Evaluation Date 06/25/17 PT-OP-C Subjective Start: 10/22/17 15:21 Freq: Status: Active Protocol: Document 01/02/18 11:15 AMB (Rec: 01/02/18 12:59 AMB [email or web address]) OP-PT Subjective Patient Comments Patient Comments Pt notes pain has been radiating into his armpit more lately, he feels the pain is worst with movement. PT-OP-K Range of Motion Start: 12/03/17 07:05 Freq: Status: Active Protocol: Document 12/02/17 13:45 AMB (Rec: 12/03/17 07:47 AMB [email or web address]) Cervical Spine Range of Motion Cervical Spine Active Degrees Testing Position Sitting Flexion 60 Extension 50 Rotation Left 60 Rotation Right 55 ROM Limitations Soft Tissue Tightness Lumbar Spine Range of Motion Lumbar Spine Active Degrees Testing Position standing Flexion 10 Extension 35 Lateral Flexion Left 15 Lateral Flexion Right 15 ROM Limitations Pain PT-OP-M Strength Start: 12/03/17 07:05 Freq: Status: Active Protocol: Document 12/02/17 13:45 AMB (Rec: 12/03/17 07:47 AMB [email or web address]) Scapula Strength Scapula Manual Muscle Testing Left Comments Scapular protraction 3+/5 with pain Shoulder Strength Shoulder Manual Muscle Testing Right Reason Not Measured WFL Left Flexion 4+ Good+ Abduction (C5) 4 Good External Rotation 4 Good Internal Rotation 4+ Good+ PT-OP-Q Treatments Start: 10/22/17 15:21 Freq: Status: Active Protocol: Document 01/02/18 11:15 AMB (Rec: 01/02/18 16:41 AMB [email or web address]) Therapeutic Exercises Supine Exercises 1 Supine Exercise Name scap protract Reps/Minutes 2# Sitting Exercises 3 Sitting Exercise Name GH ER tband Resistance #2 t band Reps/Minutes 2x10 Manual Therapy Treatment Soft Tissue Mobilization 3 Body Location TrP release with shoulder abd. Mobilization Type Trigger Point Release Intensity/Depth Moderate Body Position Prone 2 Body Location Left lateral shoulder Mobilization Type Cross-Friction Body Position Sidelying 1 Body Location Left scapula Mobilization Type Myofascial Release Rolling Intensity/Depth Moderate Body Position Sidelying Comments focus on infraspinatus, subscapularis Joint Mobilizations 2 Joint scapulothoracic Direction all planes PT-OP-R Modalities Start: 11/21/17 15:49 Freq: Status: Active Protocol: Document 11/21/17 14:30 AMB (Rec: 11/21/17 15:56 AMB [email or web address]) Ultrasound Therapy Treatment Left Upper Back Treatment Duration (minutes) 7 Patient Position Prone Coupling Medium Ultrasound Gel Frequency Setting (mHz) 1 Mode Setting Continuous Intensity Setting (w/cm2) 1.5 PT-OP-T Assessment and Plan Start: 10/22/17 15:21 Freq: Status: Active Protocol: Document 01/02/18 11:15 AMB (Rec: 01/02/18 12:59 AMB [email or web address]) Physical Therapy Assessment Assessment Summary Assessment Pt continues to have pain with GH and scapular movement. Physical Therapy Plan Next Visit Focus/Plan Next Note Type Treatment Note Next Visit Plan Reassess pain at subscap
--- NOTE | 2018-01-06 17:34 | PT.OTN ---
Current Diagnoses Pain in left shoulder (01/06/18) Low back pain (01/06/18) Physical Therapy Treatment Note PT-OP-A Visit Information Start: 10/22/17 15:21 Freq: Status: Active Protocol: Document 01/06/18 15:30 AMB (Rec: 01/06/18 15:40 AMB [id number]) Out-Patient Physical Therapy Visit Information Visit Information Visit Type Treatment Note Visit Start Time 11:25 Visit Stop Time 12:00 Total Visit Minutes 40 Visit Number 38 Evaluation Information Evaluation Date 06/25/17 PT-OP-C Subjective Start: 10/22/17 15:21 Freq: Status: Active Protocol: Document 01/06/18 15:30 AMB (Rec: 01/06/18 15:40 AMB [id number]) OP-PT Subjective Patient Comments Patient Comments Pt feels pain may be improving slightly PT-OP-K Range of Motion Start: 12/03/17 07:05 Freq: Status: Active Protocol: Document 12/02/17 13:45 AMB (Rec: 12/03/17 07:47 AMB [email or web address]) Cervical Spine Range of Motion Cervical Spine Active Degrees Testing Position Sitting Flexion 60 Extension 50 Rotation Left 60 Rotation Right 55 ROM Limitations Soft Tissue Tightness Lumbar Spine Range of Motion Lumbar Spine Active Degrees Testing Position standing Flexion 10 Extension 35 Lateral Flexion Left 15 Lateral Flexion Right 15 ROM Limitations Pain PT-OP-M Strength Start: 12/03/17 07:05 Freq: Status: Active Protocol: Document 12/02/17 13:45 AMB (Rec: 12/03/17 07:47 AMB [email or web address]) Scapula Strength Scapula Manual Muscle Testing Left Comments Scapular protraction 3+/5 with pain Shoulder Strength Shoulder Manual Muscle Testing Right Reason Not Measured WFL Left Flexion 4+ Good+ Abduction (C5) 4 Good External Rotation 4 Good Internal Rotation 4+ Good+ PT-OP-Q Treatments Start: 10/22/17 15:21 Freq: Status: Active Protocol: Document 01/06/18 15:30 AMB (Rec: 01/06/18 17:33 AMB [email or web address]) Therapeutic Exercises Sitting Exercises 2 Sitting Exercise Name isometrics Reps/Minutes 5 min Comments ER and IR Manual Therapy Treatment Soft Tissue Mobilization 3 Body Location TrP release with shoulder abd. Mobilization Type Trigger Point Release Intensity/Depth Moderate Body Position Prone 2 Body Location Left lateral shoulder Mobilization Type Cross-Friction Body Position Sidelying 1 Body Location Left scapula Mobilization Type Myofascial Release Rolling Intensity/Depth Moderate Body Position Sidelying Comments focus on infraspinatus, subscapularis Joint Mobilizations 2 Joint scapulothoracic Direction all planes PT-OP-R Modalities Start: 11/21/17 15:49 Freq: Status: Active Protocol: Document 11/21/17 14:30 AMB (Rec: 11/21/17 15:56 AMB [email or web address]) Ultrasound Therapy Treatment Left Upper Back Treatment Duration (minutes) 7 Patient Position Prone Coupling Medium Ultrasound Gel Frequency Setting (mHz) 1 Mode Setting Continuous Intensity Setting (w/cm2) 1.5 PT-OP-T Assessment and Plan Start: 10/22/17 15:21 Freq: Status: Active Protocol: Document 01/06/18 15:30 AMB (Rec: 01/06/18 17:33 AMB [email or web address]) Physical Therapy Assessment Assessment Summary Assessment Pt tolerated isometrics well. Physical Therapy Plan Next Visit Focus/Plan Next Note Type Treatment Note Next Visit Plan Progress isometric tolerance
--- NOTE | 2018-01-08 16:32 | PT.OTN ---
Current Diagnoses Pain in left shoulder (01/08/18) Low back pain (01/08/18) Physical Therapy Treatment Note PT-OP-A Visit Information Start: 10/22/17 15:21 Freq: Status: Active Protocol: Document 01/08/18 15:30 AMB (Rec: 01/08/18 15:49 AMB [id number]) Out-Patient Physical Therapy Visit Information Visit Information Visit Type Treatment Note Visit Start Time 15:40 Visit Stop Time 16:15 Total Visit Minutes 35 Visit Number 39 Evaluation Information Evaluation Date 06/25/17 PT-OP-C Subjective Start: 10/22/17 15:21 Freq: Status: Active Protocol: Document 01/08/18 15:30 AMB (Rec: 01/08/18 15:49 AMB [email or web address]) OP-PT Subjective Patient Comments Patient Comments Pain flare is getting better but continues to be worse than his baseline. PT-OP-K Range of Motion Start: 12/03/17 07:05 Freq: Status: Active Protocol: Document 12/02/17 13:45 AMB (Rec: 12/03/17 07:47 AMB [email or web address]) Cervical Spine Range of Motion Cervical Spine Active Degrees Testing Position Sitting Flexion 60 Extension 50 Rotation Left 60 Rotation Right 55 ROM Limitations Soft Tissue Tightness Lumbar Spine Range of Motion Lumbar Spine Active Degrees Testing Position standing Flexion 10 Extension 35 Lateral Flexion Left 15 Lateral Flexion Right 15 ROM Limitations Pain PT-OP-M Strength Start: 12/03/17 07:05 Freq: Status: Active Protocol: Document 12/02/17 13:45 AMB (Rec: 12/03/17 07:47 AMB [email or web address]) Scapula Strength Scapula Manual Muscle Testing Left Comments Scapular protraction 3+/5 with pain Shoulder Strength Shoulder Manual Muscle Testing Right Reason Not Measured WFL Left Flexion 4+ Good+ Abduction (C5) 4 Good External Rotation 4 Good Internal Rotation 4+ Good+ PT-OP-Q Treatments Start: 10/22/17 15:21 Freq: Status: Active Protocol: Document 01/08/18 15:30 AMB (Rec: 01/08/18 16:31 AMB [id number]) Therapeutic Exercises Sitting Exercises 2 Sitting Exercise Name isometrics Reps/Minutes 5 min Comments ER and IR 1 Sitting Exercise Name ER/IR AROM with 90 flex Reps/Minutes 10 Manual Therapy Treatment Soft Tissue Mobilization 3 Body Location TrP release with shoulder abd. Mobilization Type Trigger Point Release Intensity/Depth Moderate Body Position Prone 2 Body Location Left lateral shoulder Mobilization Type Cross-Friction Body Position Sidelying Joint Mobilizations 2 Joint scapulothoracic Direction all planes PT-OP-R Modalities Start: 11/21/17 15:49 Freq: Status: Active Protocol: Document 11/21/17 14:30 AMB (Rec: 11/21/17 15:56 AMB [email or web address]) Ultrasound Therapy Treatment Left Upper Back Treatment Duration (minutes) 7 Patient Position Prone Coupling Medium Ultrasound Gel Frequency Setting (mHz) 1 Mode Setting Continuous Intensity Setting (w/cm2) 1.5 PT-OP-T Assessment and Plan Start: 10/22/17 15:21 Freq: Status: Active Protocol: Document 01/08/18 15:30 AMB (Rec: 01/08/18 16:31 AMB [id number]) Physical Therapy Assessment Assessment Summary Assessment Pt continues to have pain over medial and inferior border of scapula, no significant pain over lateral aspect of shoulder. Physical Therapy Plan Next Visit Focus/Plan Next Note Type Treatment Note Next Visit Plan Progress rotation AROM
--- NOTE | 2018-01-10 16:42 | PT.OTN ---
Current Diagnoses Pain in left shoulder (01/10/18) Low back pain (01/10/18) Physical Therapy Treatment Note PT-OP-A Visit Information Start: 10/22/17 15:21 Freq: Status: Active Protocol: Document 01/10/18 14:30 AMB (Rec: 01/10/18 16:41 AMB [email or web address]) Out-Patient Physical Therapy Visit Information Visit Information Visit Type Treatment Note Visit Start Time 14:30 Visit Stop Time 15:15 Total Visit Minutes 35 Visit Number 40 Evaluation Information Evaluation Date 06/25/17 PT-OP-C Subjective Start: 10/22/17 15:21 Freq: Status: Active Protocol: Document 01/10/18 14:30 AMB (Rec: 01/10/18 16:41 AMB [email or web address]) OP-PT Subjective Patient Comments Patient Comments Pt states he is very fatigued from the pain, but the pain may be a bit better. PT-OP-K Range of Motion Start: 12/03/17 07:05 Freq: Status: Active Protocol: Document 12/02/17 13:45 AMB (Rec: 12/03/17 07:47 AMB [email or web address]) Cervical Spine Range of Motion Cervical Spine Active Degrees Testing Position Sitting Flexion 60 Extension 50 Rotation Left 60 Rotation Right 55 ROM Limitations Soft Tissue Tightness Lumbar Spine Range of Motion Lumbar Spine Active Degrees Testing Position standing Flexion 10 Extension 35 Lateral Flexion Left 15 Lateral Flexion Right 15 ROM Limitations Pain PT-OP-M Strength Start: 12/03/17 07:05 Freq: Status: Active Protocol: Document 12/02/17 13:45 AMB (Rec: 12/03/17 07:47 AMB [email or web address]) Scapula Strength Scapula Manual Muscle Testing Left Comments Scapular protraction 3+/5 with pain Shoulder Strength Shoulder Manual Muscle Testing Right Reason Not Measured WFL Left Flexion 4+ Good+ Abduction (C5) 4 Good External Rotation 4 Good Internal Rotation 4+ Good+ PT-OP-Q Treatments Start: 10/22/17 15:21 Freq: Status: Active Protocol: Document 01/10/18 14:30 AMB (Rec: 01/10/18 16:41 AMB [email or web address]) Therapeutic Exercises Sitting Exercises 2 Sitting Exercise Name isometrics Reps/Minutes 5 min Comments ER and IR 1 Sitting Exercise Name ER/IR AROM with 90 flex Reps/Minutes 10 Standing Exercises 1 Standing Exercise Name pelvic tilt Comments difficult Manual Therapy Treatment Soft Tissue Mobilization 3 Body Location TrP release with shoulder abd. Mobilization Type Trigger Point Release Intensity/Depth Moderate Body Position Prone 2 Body Location Left lateral shoulder Mobilization Type Cross-Friction Body Position Sidelying Joint Mobilizations 2 Joint scapulothoracic Direction all planes PT-OP-R Modalities Start: 11/21/17 15:49 Freq: Status: Active Protocol: Document 11/21/17 14:30 AMB (Rec: 11/21/17 15:56 AMB [email or web address]) Ultrasound Therapy Treatment Left Upper Back Treatment Duration (minutes) 7 Patient Position Prone Coupling Medium Ultrasound Gel Frequency Setting (mHz) 1 Mode Setting Continuous Intensity Setting (w/cm2) 1.5 PT-OP-T Assessment and Plan Start: 10/22/17 15:21 Freq: Status: Active Protocol: Document 01/10/18 14:30 AMB (Rec: 01/10/18 16:41 AMB [email or web address]) Physical Therapy Assessment Assessment Summary Assessment lateral scapular pain improving, but posture and medial scapular pain remain poor. Physical Therapy Plan Frequency and Duration Frequency of Treatment 3x/Week Duration of Treatment 12 weeks Plan of Care Start Date 12/02/17 Plan of Care End Date 02/24/18 Next Visit Focus/Plan Next Note Type Treatment Note Next Visit Plan Progress posture, reassess pelvic tilt
--- NOTE | 2018-01-14 15:39 | PT.OTN ---
Current Diagnoses Pain in left shoulder (01/14/18) Low back pain (01/14/18) Physical Therapy Treatment Note PT-OP-A Visit Information Start: 10/22/17 15:21 Freq: Status: Active Protocol: Document 01/14/18 14:30 AMB (Rec: 01/14/18 15:36 AMB [email or web address]) Out-Patient Physical Therapy Visit Information Visit Information Visit Type Treatment Note Visit Start Time 14:30 Visit Stop Time 15:15 Total Visit Minutes 35 Visit Number 41 Evaluation Information Evaluation Date 06/25/17 PT-OP-C Subjective Start: 10/22/17 15:21 Freq: Status: Active Protocol: Document 01/14/18 14:30 AMB (Rec: 01/14/18 15:36 AMB [email or web address]) OP-PT Subjective Patient Comments Patient Comments Pt states his pain is getting better, he has been doing his stretches more (a bit more sore over t-spine today). PT-OP-K Range of Motion Start: 12/03/17 07:05 Freq: Status: Active Protocol: Document 12/02/17 13:45 AMB (Rec: 12/03/17 07:47 AMB [email or web address]) Cervical Spine Range of Motion Cervical Spine Active Degrees Testing Position Sitting Flexion 60 Extension 50 Rotation Left 60 Rotation Right 55 ROM Limitations Soft Tissue Tightness Lumbar Spine Range of Motion Lumbar Spine Active Degrees Testing Position standing Flexion 10 Extension 35 Lateral Flexion Left 15 Lateral Flexion Right 15 ROM Limitations Pain PT-OP-M Strength Start: 12/03/17 07:05 Freq: Status: Active Protocol: Document 12/02/17 13:45 AMB (Rec: 12/03/17 07:47 AMB [email or web address]) Scapula Strength Scapula Manual Muscle Testing Left Comments Scapular protraction 3+/5 with pain Shoulder Strength Shoulder Manual Muscle Testing Right Reason Not Measured WFL Left Flexion 4+ Good+ Abduction (C5) 4 Good External Rotation 4 Good Internal Rotation 4+ Good+ PT-OP-Q Treatments Start: 10/22/17 15:21 Freq: Status: Active Protocol: Document 01/14/18 14:30 AMB (Rec: 01/14/18 15:36 AMB [email or web address]) Therapeutic Exercises Sitting Exercises 2 Sitting Exercise Name isometrics Reps/Minutes 5 min Comments ER and IR 1 Sitting Exercise Name ER/IR AROM with 90 flex Reps/Minutes 10 Manual Therapy Treatment Soft Tissue Mobilization 3 Body Location TrP release with shoulder abd. Mobilization Type Trigger Point Release Intensity/Depth Moderate Body Position Prone 1 Body Location Left scapula Mobilization Type Myofascial Release Rolling Intensity/Depth Moderate Body Position Sidelying Comments focus on infraspinatus, subscapularis Joint Mobilizations 2 Joint scapulothoracic Direction all planes Manual Techniques 1 Type UE distraction Comments with shoulder flexion in prone PT-OP-R Modalities Start: 11/21/17 15:49 Freq: Status: Active Protocol: Document 11/21/17 14:30 AMB (Rec: 11/21/17 15:56 AMB [email or web address]) Ultrasound Therapy Treatment Left Upper Back Treatment Duration (minutes) 7 Patient Position Prone Coupling Medium Ultrasound Gel Frequency Setting (mHz) 1 Mode Setting Continuous Intensity Setting (w/cm2) 1.5 PT-OP-T Assessment and Plan Start: 10/22/17 15:21 Freq: Status: Active Protocol: Document 01/14/18 14:30 AMB (Rec: 01/14/18 15:36 AMB [email or web address]) Physical Therapy Assessment Assessment Summary Assessment Pt tolerated exercises more today, although extrenal rotation continues to be painful. Physical Therapy Plan Next Visit Focus/Plan Next Note Type Treatment Note Next Visit Plan Progress posture, reassess pelvic tilt
--- NOTE | 2018-01-16 16:08 | PT.OTN ---
Current Diagnoses Pain in left shoulder (01/16/18) Low back pain (01/16/18) Physical Therapy Treatment Note PT-OP-A Visit Information Start: 10/22/17 15:21 Freq: Status: Active Protocol: Document 01/16/18 14:30 AMB (Rec: 01/16/18 16:06 AMB [email or web address]) Out-Patient Physical Therapy Visit Information Visit Information Visit Type Treatment Note Visit Start Time 14:45 Visit Stop Time 15:15 Total Visit Minutes 30 Visit Number 42 Evaluation Information Evaluation Date 06/25/17 PT-OP-C Subjective Start: 10/22/17 15:21 Freq: Status: Active Protocol: Document 01/16/18 14:30 AMB (Rec: 01/16/18 16:06 AMB [email or web address]) OP-PT Subjective Patient Comments Patient Comments Pt lifted a heavy desk for his son into his van yesterday and his right side is hurting today similar to his left. (1 -3/10 pain on right, 5/10 on left). PT-OP-K Range of Motion Start: 12/03/17 07:05 Freq: Status: Active Protocol: Document 12/02/17 13:45 AMB (Rec: 12/03/17 07:47 AMB [email or web address]) Cervical Spine Range of Motion Cervical Spine Active Degrees Testing Position Sitting Flexion 60 Extension 50 Rotation Left 60 Rotation Right 55 ROM Limitations Soft Tissue Tightness Lumbar Spine Range of Motion Lumbar Spine Active Degrees Testing Position standing Flexion 10 Extension 35 Lateral Flexion Left 15 Lateral Flexion Right 15 ROM Limitations Pain PT-OP-M Strength Start: 12/03/17 07:05 Freq: Status: Active Protocol: Document 12/02/17 13:45 AMB (Rec: 12/03/17 07:47 AMB [email or web address]) Scapula Strength Scapula Manual Muscle Testing Left Comments Scapular protraction 3+/5 with pain Shoulder Strength Shoulder Manual Muscle Testing Right Reason Not Measured WFL Left Flexion 4+ Good+ Abduction (C5) 4 Good External Rotation 4 Good Internal Rotation 4+ Good+ PT-OP-Q Treatments Start: 10/22/17 15:21 Freq: Status: Active Protocol: Document 01/16/18 14:30 AMB (Rec: 01/16/18 16:06 AMB [email or web address]) Therapeutic Exercises Prone Exercises 5 Prone Exercise Name jerry pose 4 Prone Exercise Name scap protract Comments in quadruped Manual Therapy Treatment Soft Tissue Mobilization 3 Body Location TrP release with shoulder abd. Mobilization Type Trigger Point Release Intensity/Depth Moderate Body Position Prone 1 Body Location Bilat scapula Mobilization Type Myofascial Release Rolling Intensity/Depth Moderate Body Position Sidelying Comments focus on infraspinatus, subscapularis Joint Mobilizations 2 Joint scapulothoracic Direction all planes Manual Techniques 2 Type Foam roll PT-OP-R Modalities Start: 11/21/17 15:49 Freq: Status: Active Protocol: Document 11/21/17 14:30 AMB (Rec: 11/21/17 15:56 AMB [email or web address]) Ultrasound Therapy Treatment Left Upper Back Treatment Duration (minutes) 7 Patient Position Prone Coupling Medium Ultrasound Gel Frequency Setting (mHz) 1 Mode Setting Continuous Intensity Setting (w/cm2) 1.5 PT-OP-T Assessment and Plan Start: 10/22/17 15:21 Freq: Status: Active Protocol: Document 01/16/18 14:30 AMB (Rec: 01/16/18 16:07 AMB [email or web address]) Physical Therapy Assessment Assessment Summary Assessment The patient had increased pain on the right today, but that should heal quickly. Would recommend continued foam roll use. Physical Therapy Plan Next Visit Focus/Plan Next Visit Plan Follow up on posture, pelvic tilt.
--- NOTE | 2018-01-20 13:01 | PT.OTN ---
Current Diagnoses Pain in left shoulder (01/20/18) Low back pain (01/20/18) Physical Therapy Treatment Note PT-OP-A Visit Information Start: 10/22/17 15:21 Freq: Status: Active Protocol: Document 01/20/18 11:30 AMB (Rec: 01/20/18 13:00 AMB [email or web address]) Out-Patient Physical Therapy Visit Information Visit Information Visit Type Treatment Note Visit Note Pt arrived 15 min late Visit Start Time 11:30 Visit Stop Time 12:00 Total Visit Minutes 30 Visit Number 43 Evaluation Information Evaluation Date 06/25/17 PT-OP-C Subjective Start: 10/22/17 15:21 Freq: Status: Active Protocol: Document 01/20/18 11:30 AMB (Rec: 01/20/18 13:00 AMB [email or web address]) OP-PT Subjective Patient Comments Patient Comments Pt continues to be flared up after lifting desk. R sided pain is improving, but L is not. PT-OP-K Range of Motion Start: 12/03/17 07:05 Freq: Status: Active Protocol: Document 12/02/17 13:45 AMB (Rec: 12/03/17 07:47 AMB [email or web address]) Cervical Spine Range of Motion Cervical Spine Active Degrees Testing Position Sitting Flexion 60 Extension 50 Rotation Left 60 Rotation Right 55 ROM Limitations Soft Tissue Tightness Lumbar Spine Range of Motion Lumbar Spine Active Degrees Testing Position standing Flexion 10 Extension 35 Lateral Flexion Left 15 Lateral Flexion Right 15 ROM Limitations Pain PT-OP-M Strength Start: 12/03/17 07:05 Freq: Status: Active Protocol: Document 12/02/17 13:45 AMB (Rec: 12/03/17 07:47 AMB [email or web address]) Scapula Strength Scapula Manual Muscle Testing Left Comments Scapular protraction 3+/5 with pain Shoulder Strength Shoulder Manual Muscle Testing Right Reason Not Measured WFL Left Flexion 4+ Good+ Abduction (C5) 4 Good External Rotation 4 Good Internal Rotation 4+ Good+ PT-OP-Q Treatments Start: 10/22/17 15:21 Freq: Status: Active Protocol: Document 01/20/18 11:30 AMB (Rec: 01/20/18 13:00 AMB [email or web address]) Gym Equipment Cable Column (Body Solid) Rows Resistance 2 plates Reps/Time 1 x 15 Lat Pull Down Resistance 2 plates Reps/Time 2 x10 Therapeutic Exercises Sitting Exercises 4 Sitting Exercise Name cross body stretch Reps/Minutes with manual scap stabilization Comments 30x4 Manual Therapy Treatment Soft Tissue Mobilization 3 Body Location TrP release with shoulder abd. Mobilization Type Trigger Point Release Intensity/Depth Moderate Body Position Prone 1 Body Location Bilat scapula Mobilization Type Myofascial Release Rolling Intensity/Depth Moderate Body Position Sidelying Comments focus on infraspinatus, subscapularis Manual Techniques 2 Type Foam roll PT-OP-R Modalities Start: 11/21/17 15:49 Freq: Status: Active Protocol: Document 11/21/17 14:30 AMB (Rec: 11/21/17 15:56 AMB [email or web address]) Ultrasound Therapy Treatment Left Upper Back Treatment Duration (minutes) 7 Patient Position Prone Coupling Medium Ultrasound Gel Frequency Setting (mHz) 1 Mode Setting Continuous Intensity Setting (w/cm2) 1.5 PT-OP-T Assessment and Plan Start: 10/22/17 15:21 Freq: Status: Active Protocol: Document 01/20/18 11:30 AMB (Rec: 01/20/18 13:00 AMB [email or web address]) Physical Therapy Assessment Assessment Summary Assessment R sided pain is healing appropriately, encouraged cross body stretching. L medial scapular border pain continues. Physical Therapy Plan Next Visit Focus/Plan Next Note Type Treatment Note Next Visit Plan Follow up on posture, pelvic tilt.
--- NOTE | 2018-01-22 16:09 | PT.OTN ---
Current Diagnoses Pain in left shoulder (01/22/18) Low back pain (01/22/18) Physical Therapy Treatment Note PT-OP-A Visit Information Start: 10/22/17 15:21 Freq: Status: Active Protocol: Document 01/22/18 11:30 AMB (Rec: 01/22/18 11:41 AMB [email or web address]) Out-Patient Physical Therapy Visit Information Visit Information Visit Type Treatment Note Visit Note Pt arrived 15 min late Visit Start Time 11:30 Visit Stop Time 12:00 Total Visit Minutes 30 Visit Number 44 Evaluation Information Evaluation Date 06/25/17 PT-OP-C Subjective Start: 10/22/17 15:21 Freq: Status: Active Protocol: Document 01/22/18 11:30 AMB (Rec: 01/22/18 11:41 AMB [id number]) OP-PT Subjective Patient Comments Patient Comments Pt was working on a ladder yesterday and felt like he over did it. PT-OP-K Range of Motion Start: 12/03/17 07:05 Freq: Status: Active Protocol: Document 12/02/17 13:45 AMB (Rec: 12/03/17 07:47 AMB [email or web address]) Cervical Spine Range of Motion Cervical Spine Active Degrees Testing Position Sitting Flexion 60 Extension 50 Rotation Left 60 Rotation Right 55 ROM Limitations Soft Tissue Tightness Lumbar Spine Range of Motion Lumbar Spine Active Degrees Testing Position standing Flexion 10 Extension 35 Lateral Flexion Left 15 Lateral Flexion Right 15 ROM Limitations Pain PT-OP-M Strength Start: 12/03/17 07:05 Freq: Status: Active Protocol: Document 12/02/17 13:45 AMB (Rec: 12/03/17 07:47 AMB [email or web address]) Scapula Strength Scapula Manual Muscle Testing Left Comments Scapular protraction 3+/5 with pain Shoulder Strength Shoulder Manual Muscle Testing Right Reason Not Measured WFL Left Flexion 4+ Good+ Abduction (C5) 4 Good External Rotation 4 Good Internal Rotation 4+ Good+ PT-OP-Q Treatments Start: 10/22/17 15:21 Freq: Status: Active Protocol: Document 01/22/18 11:15 AMB (Rec: 01/22/18 16:09 AMB [email or web address]) Therapeutic Exercises Supine Exercises 2 Supine Exercise Name 90 degrees flexion circles Resistance 2# Sitting Exercises 3 Sitting Exercise Name pelvic tilt on ball Comments 65cm ball 2 Sitting Exercise Name ER isometric Reps/Minutes 5X10 1 Sitting Exercise Name IR isometric Reps/Minutes 5x10 Manual Therapy Treatment Soft Tissue Mobilization 3 Body Location TrP release with shoulder abd. Mobilization Type Trigger Point Release Intensity/Depth Moderate Body Position Prone 1 Body Location Bilat scapula Mobilization Type Myofascial Release Rolling Intensity/Depth Moderate Body Position Sidelying Comments focus on infraspinatus, subscapularis PT-OP-R Modalities Start: 11/21/17 15:49 Freq: Status: Active Protocol: Document 11/21/17 14:30 AMB (Rec: 11/21/17 15:56 AMB [email or web address]) Ultrasound Therapy Treatment Left Upper Back Treatment Duration (minutes) 7 Patient Position Prone Coupling Medium Ultrasound Gel Frequency Setting (mHz) 1 Mode Setting Continuous Intensity Setting (w/cm2) 1.5 PT-OP-T Assessment and Plan Start: 10/22/17 15:21 Freq: Status: Active Protocol: Document 01/22/18 11:15 AMB (Rec: 01/22/18 16:09 AMB [email or web address]) Physical Therapy Assessment Assessment Summary Assessment 4/10 pain in L scapula after manual. Pt able to get into better posture, but difficult to maintain Physical Therapy Plan Next Visit Focus/Plan Next Note Type Treatment Note Next Visit Plan Follow up on posture, pelvic tilt.
--- NOTE | 2018-01-24 16:11 | PT.OTN ---
Current Diagnoses Pain in left shoulder (01/24/18) Low back pain (01/24/18) Physical Therapy Treatment Note PT-OP-A Visit Information Start: 10/22/17 15:21 Freq: Status: Active Protocol: Document 01/24/18 13:45 AMB (Rec: 01/24/18 16:09 AMB [email or web address]) Out-Patient Physical Therapy Visit Information Visit Information Visit Type Treatment Note Visit Start Time 13:45 Visit Stop Time 14:30 Total Visit Minutes 45 Visit Number 45 Evaluation Information Evaluation Date 06/25/17 PT-OP-C Subjective Start: 10/22/17 15:21 Freq: Status: Active Protocol: Document 01/24/18 13:45 AMB (Rec: 01/24/18 16:09 AMB [email or web address]) OP-PT Subjective Patient Comments Patient Comments Pt is feeling antonio,r but the right side is still lingering on. PT-OP-K Range of Motion Start: 12/03/17 07:05 Freq: Status: Active Protocol: Document 12/02/17 13:45 AMB (Rec: 12/03/17 07:47 AMB [email or web address]) Cervical Spine Range of Motion Cervical Spine Active Degrees Testing Position Sitting Flexion 60 Extension 50 Rotation Left 60 Rotation Right 55 ROM Limitations Soft Tissue Tightness Lumbar Spine Range of Motion Lumbar Spine Active Degrees Testing Position standing Flexion 10 Extension 35 Lateral Flexion Left 15 Lateral Flexion Right 15 ROM Limitations Pain PT-OP-M Strength Start: 12/03/17 07:05 Freq: Status: Active Protocol: Document 12/02/17 13:45 AMB (Rec: 12/03/17 07:47 AMB [email or web address]) Scapula Strength Scapula Manual Muscle Testing Left Comments Scapular protraction 3+/5 with pain Shoulder Strength Shoulder Manual Muscle Testing Right Reason Not Measured WFL Left Flexion 4+ Good+ Abduction (C5) 4 Good External Rotation 4 Good Internal Rotation 4+ Good+ PT-OP-Q Treatments Start: 10/22/17 15:21 Freq: Status: Active Protocol: Document 01/24/18 13:45 AMB (Rec: 01/24/18 16:09 AMB [email or web address]) Gym Equipment Cable Column (Body Solid) Rows Resistance 2 plates Reps/Time 2x15 Lat Pull Down Resistance 2 plates Reps/Time 2x10 Therapeutic Exercises Sitting Exercises 4 Sitting Exercise Name cross body stretch Reps/Minutes with manual scap stabilization Comments 30x4 Manual Therapy Treatment Soft Tissue Mobilization 3 Body Location TrP release with shoulder abd. Mobilization Type Trigger Point Release Intensity/Depth Moderate Body Position Prone 1 Body Location Bilat scapula Mobilization Type Myofascial Release Rolling Intensity/Depth Moderate Body Position Sidelying Comments focus on infraspinatus, subscapularis PT-OP-R Modalities Start: 11/21/17 15:49 Freq: Status: Active Protocol: Document 11/21/17 14:30 AMB (Rec: 11/21/17 15:56 AMB [email or web address]) Ultrasound Therapy Treatment Left Upper Back Treatment Duration (minutes) 7 Patient Position Prone Coupling Medium Ultrasound Gel Frequency Setting (mHz) 1 Mode Setting Continuous Intensity Setting (w/cm2) 1.5 PT-OP-T Assessment and Plan Start: 10/22/17 15:21 Freq: Status: Active Protocol: Document 01/24/18 13:45 AMB (Rec: 01/24/18 16:09 AMB [email or web address]) Physical Therapy Assessment Assessment Summary Assessment Pt's R shoulder pain is improving, but posture remains problematic Physical Therapy Plan Next Visit Focus/Plan Next Note Type Treatment Note Next Visit Plan Follow up on HEP.
--- NOTE | 2018-01-29 15:38 | PT.OTN ---
Current Diagnoses Pain in left shoulder (01/29/18) Low back pain (01/29/18) Physical Therapy Treatment Note PT-OP-A Visit Information Start: 10/22/17 15:21 Freq: Status: Active Protocol: Document 01/29/18 14:30 AMB (Rec: 01/29/18 15:37 AMB [email or web address]) Out-Patient Physical Therapy Visit Information Visit Information Visit Type Treatment Note Visit Start Time 14:45 Visit Stop Time 15:15 Total Visit Minutes 30 Visit Number 46 Evaluation Information Evaluation Date 06/25/17 PT-OP-C Subjective Start: 10/22/17 15:21 Freq: Status: Active Protocol: Document 01/29/18 14:30 AMB (Rec: 01/29/18 15:37 AMB [email or web address]) OP-PT Subjective Patient Comments Patient Comments Right side is much better, L side 5-6/10 pain at beginning of session PT-OP-K Range of Motion Start: 12/03/17 07:05 Freq: Status: Active Protocol: Document 12/02/17 13:45 AMB (Rec: 12/03/17 07:47 AMB [email or web address]) Cervical Spine Range of Motion Cervical Spine Active Degrees Testing Position Sitting Flexion 60 Extension 50 Rotation Left 60 Rotation Right 55 ROM Limitations Soft Tissue Tightness Lumbar Spine Range of Motion Lumbar Spine Active Degrees Testing Position standing Flexion 10 Extension 35 Lateral Flexion Left 15 Lateral Flexion Right 15 ROM Limitations Pain PT-OP-M Strength Start: 12/03/17 07:05 Freq: Status: Active Protocol: Document 12/02/17 13:45 AMB (Rec: 12/03/17 07:47 AMB [email or web address]) Scapula Strength Scapula Manual Muscle Testing Left Comments Scapular protraction 3+/5 with pain Shoulder Strength Shoulder Manual Muscle Testing Right Reason Not Measured WFL Left Flexion 4+ Good+ Abduction (C5) 4 Good External Rotation 4 Good Internal Rotation 4+ Good+ PT-OP-Q Treatments Start: 10/22/17 15:21 Freq: Status: Active Protocol: Document 01/29/18 14:30 AMB (Rec: 01/29/18 15:37 AMB [email or web address]) Therapeutic Exercises Standing Exercises 4 Standing Exercise Name shoulder ER Resistance #2 t band Reps/Minutes 1x10 ea side 3 Standing Exercise Name shoulder IR Resistance #2 t band Reps/Minutes 1x10 each side 2 Standing Exercise Name UT stretch Reps/Minutes 30x2 Manual Therapy Treatment Soft Tissue Mobilization 3 Body Location TrP release with shoulder abd. Mobilization Type Trigger Point Release Intensity/Depth Moderate Body Position Prone Comments levator scap, infraspinatus 1 Body Location Bilat scapula Mobilization Type Myofascial Release Rolling Intensity/Depth Moderate Body Position Sidelying Comments focus on infraspinatus, subscapularis PT-OP-R Modalities Start: 11/21/17 15:49 Freq: Status: Active Protocol: Document 11/21/17 14:30 AMB (Rec: 11/21/17 15:56 AMB [email or web address]) Ultrasound Therapy Treatment Left Upper Back Treatment Duration (minutes) 7 Patient Position Prone Coupling Medium Ultrasound Gel Frequency Setting (mHz) 1 Mode Setting Continuous Intensity Setting (w/cm2) 1.5 PT-OP-T Assessment and Plan Start: 10/22/17 15:21 Freq: Status: Active Protocol: Document 01/29/18 14:30 AMB (Rec: 01/29/18 15:37 AMB [email or web address]) Physical Therapy Assessment Assessment Summary Assessment Good improvement in R shoulder pain, L shoulder responded well (3/10 pain at end of session) Physical Therapy Plan Next Visit Focus/Plan Next Note Type Treatment Note Next Visit Plan Progress scap stability, posture
--- NOTE | 2018-01-31 16:13 | PT.OTN ---
Current Diagnoses Pain in left shoulder (01/31/18) Low back pain (01/31/18) Physical Therapy Treatment Note PT-OP-A Visit Information Start: 10/22/17 15:21 Freq: Status: Active Protocol: Document 01/31/18 14:30 AMB (Rec: 01/31/18 16:12 AMB [email or web address]) Out-Patient Physical Therapy Visit Information Visit Information Visit Type Treatment Note Visit Start Time 14:30 Visit Stop Time 15:15 Total Visit Minutes 45 Visit Number 47 Evaluation Information Evaluation Date 06/25/17 PT-OP-C Subjective Start: 10/22/17 15:21 Freq: Status: Active Protocol: Document 01/31/18 14:30 AMB (Rec: 01/31/18 16:12 AMB [email or web address]) OP-PT Subjective Patient Comments Patient Comments L side is painful, but better than earlier in the week PT-OP-K Range of Motion Start: 12/03/17 07:05 Freq: Status: Active Protocol: Document 12/02/17 13:45 AMB (Rec: 12/03/17 07:47 AMB [email or web address]) Cervical Spine Range of Motion Cervical Spine Active Degrees Testing Position Sitting Flexion 60 Extension 50 Rotation Left 60 Rotation Right 55 ROM Limitations Soft Tissue Tightness Lumbar Spine Range of Motion Lumbar Spine Active Degrees Testing Position standing Flexion 10 Extension 35 Lateral Flexion Left 15 Lateral Flexion Right 15 ROM Limitations Pain PT-OP-M Strength Start: 12/03/17 07:05 Freq: Status: Active Protocol: Document 12/02/17 13:45 AMB (Rec: 12/03/17 07:47 AMB [email or web address]) Scapula Strength Scapula Manual Muscle Testing Left Comments Scapular protraction 3+/5 with pain Shoulder Strength Shoulder Manual Muscle Testing Right Reason Not Measured WFL Left Flexion 4+ Good+ Abduction (C5) 4 Good External Rotation 4 Good Internal Rotation 4+ Good+ PT-OP-Q Treatments Start: 10/22/17 15:21 Freq: Status: Active Protocol: Document 01/31/18 14:30 AMB (Rec: 01/31/18 16:12 AMB [email or web address]) Gym Equipment Cable Column (Body Solid) Rows Resistance 2 plates Reps/Time 2x15 Lat Pull Down Resistance 3 plates Reps/Time 2x10 Therapeutic Exercises Standing Exercises 4 Standing Exercise Name shoulder ER Resistance #2 t band Reps/Minutes 1x10 ea side 3 Standing Exercise Name shoulder IR Resistance #2 t band Reps/Minutes 1x10 each side 2 Standing Exercise Name UT stretch Reps/Minutes 30x2 Manual Therapy Treatment Soft Tissue Mobilization 3 Body Location TrP release with shoulder abd. Mobilization Type Trigger Point Release Intensity/Depth Moderate Body Position Prone Comments levator scap, infraspinatus 1 Body Location Bilat scapula Mobilization Type Myofascial Release Rolling Intensity/Depth Moderate Body Position Sidelying Comments focus on infraspinatus, subscapularis PT-OP-R Modalities Start: 11/21/17 15:49 Freq: Status: Active Protocol: Document 11/21/17 14:30 AMB (Rec: 11/21/17 15:56 AMB [email or web address]) Ultrasound Therapy Treatment Left Upper Back Treatment Duration (minutes) 7 Patient Position Prone Coupling Medium Ultrasound Gel Frequency Setting (mHz) 1 Mode Setting Continuous Intensity Setting (w/cm2) 1.5 PT-OP-T Assessment and Plan Start: 10/22/17 15:21 Freq: Status: Active Protocol: Document 01/31/18 14:30 AMB (Rec: 01/31/18 16:12 AMB [email or web address]) Physical Therapy Assessment Assessment Summary Assessment Pain at L scapula appears to be centralizing, but pt continues to need vc for postural stability. Physical Therapy Plan Next Visit Focus/Plan Next Note Type Treatment Note Next Visit Plan Progress scap stability, posture
--- NOTE | 2018-02-03 15:32 | PT.OTN ---
Current Diagnoses Pain in left shoulder (02/03/18) Low back pain (02/03/18) Physical Therapy Treatment Note PT-OP-A Visit Information Start: 10/22/17 15:21 Freq: Status: Active Protocol: Document 02/03/18 14:30 AMB (Rec: 02/03/18 15:30 AMB [id number]) Out-Patient Physical Therapy Visit Information Visit Information Visit Type Treatment Note Visit Start Time 14:40 Visit Stop Time 15:20 Total Visit Minutes 40 Visit Number 48 Evaluation Information Evaluation Date 06/25/17 PT-OP-C Subjective Start: 10/22/17 15:21 Freq: Status: Active Protocol: Document 02/03/18 14:30 AMB (Rec: 02/03/18 15:30 AMB [id number]) OP-PT Subjective Patient Comments Patient Comments 4/10 pain today PT-OP-K Range of Motion Start: 12/03/17 07:05 Freq: Status: Active Protocol: Document 12/02/17 13:45 AMB (Rec: 12/03/17 07:47 AMB [email or web address]) Cervical Spine Range of Motion Cervical Spine Active Degrees Testing Position Sitting Flexion 60 Extension 50 Rotation Left 60 Rotation Right 55 ROM Limitations Soft Tissue Tightness Lumbar Spine Range of Motion Lumbar Spine Active Degrees Testing Position standing Flexion 10 Extension 35 Lateral Flexion Left 15 Lateral Flexion Right 15 ROM Limitations Pain PT-OP-M Strength Start: 12/03/17 07:05 Freq: Status: Active Protocol: Document 12/02/17 13:45 AMB (Rec: 12/03/17 07:47 AMB [email or web address]) Scapula Strength Scapula Manual Muscle Testing Left Comments Scapular protraction 3+/5 with pain Shoulder Strength Shoulder Manual Muscle Testing Right Reason Not Measured WFL Left Flexion 4+ Good+ Abduction (C5) 4 Good External Rotation 4 Good Internal Rotation 4+ Good+ PT-OP-Q Treatments Start: 10/22/17 15:21 Freq: Status: Active Protocol: Document 02/03/18 14:30 AMB (Rec: 02/03/18 15:30 AMB [id number]) Gym Equipment Cable Column (Body Solid) Rows Resistance 3 plates Reps/Time 2x15 Lat Pull Down Resistance 3 plates Reps/Time 2x10 Manual Therapy Treatment Soft Tissue Mobilization 3 Body Location TrP release with shoulder abd. Mobilization Type Trigger Point Release Intensity/Depth Moderate Body Position Prone Comments levator scap, infraspinatus 1 Body Location Bilat scapula Mobilization Type Myofascial Release Rolling Intensity/Depth Moderate Body Position Sidelying Comments focus on infraspinatus, subscapularis PT-OP-R Modalities Start: 11/21/17 15:49 Freq: Status: Active Protocol: Document 11/21/17 14:30 AMB (Rec: 11/21/17 15:56 AMB [email or web address]) Ultrasound Therapy Treatment Left Upper Back Treatment Duration (minutes) 7 Patient Position Prone Coupling Medium Ultrasound Gel Frequency Setting (mHz) 1 Mode Setting Continuous Intensity Setting (w/cm2) 1.5 PT-OP-T Assessment and Plan Start: 10/22/17 15:21 Freq: Status: Active Protocol: Document 02/03/18 14:30 AMB (Rec: 02/03/18 15:30 AMB [id number]) Physical Therapy Assessment Assessment Summary Assessment Pain at infraspinatus today. Physical Therapy Plan Next Visit Focus/Plan Next Note Type Treatment Note Next Visit Plan Progress scap stability, posture
--- NOTE | 2018-02-07 16:52 | PT.OTN ---
Current Diagnoses Pain in left shoulder (02/07/18) Low back pain (02/07/18) Physical Therapy Treatment Note PT-OP-A Visit Information Start: 10/22/17 15:21 Freq: Status: Active Protocol: Document 02/07/18 14:30 AMB (Rec: 02/07/18 16:52 AMB [email or web address]) Out-Patient Physical Therapy Visit Information Visit Information Visit Type Treatment Note Visit Start Time 14:40 Visit Stop Time 15:20 Total Visit Minutes 40 Visit Number 49 Evaluation Information Evaluation Date 06/25/17 PT-OP-C Subjective Start: 10/22/17 15:21 Freq: Status: Active Protocol: Document 02/07/18 14:30 AMB (Rec: 02/07/18 16:52 AMB [email or web address]) OP-PT Subjective Patient Comments Patient Comments Pt overextended his right arm while reaching yesterday and has increased right sided pain . PT-OP-K Range of Motion Start: 12/03/17 07:05 Freq: Status: Active Protocol: Document 12/02/17 13:45 AMB (Rec: 12/03/17 07:47 AMB [email or web address]) Cervical Spine Range of Motion Cervical Spine Active Degrees Testing Position Sitting Flexion 60 Extension 50 Rotation Left 60 Rotation Right 55 ROM Limitations Soft Tissue Tightness Lumbar Spine Range of Motion Lumbar Spine Active Degrees Testing Position standing Flexion 10 Extension 35 Lateral Flexion Left 15 Lateral Flexion Right 15 ROM Limitations Pain PT-OP-M Strength Start: 12/03/17 07:05 Freq: Status: Active Protocol: Document 12/02/17 13:45 AMB (Rec: 12/03/17 07:47 AMB [email or web address]) Scapula Strength Scapula Manual Muscle Testing Left Comments Scapular protraction 3+/5 with pain Shoulder Strength Shoulder Manual Muscle Testing Right Reason Not Measured WFL Left Flexion 4+ Good+ Abduction (C5) 4 Good External Rotation 4 Good Internal Rotation 4+ Good+ PT-OP-Q Treatments Start: 10/22/17 15:21 Freq: Status: Active Protocol: Document 02/07/18 14:30 AMB (Rec: 02/07/18 16:52 AMB [email or web address]) Manual Therapy Treatment Soft Tissue Mobilization 3 Body Location TrP release with shoulder abd. Mobilization Type Trigger Point Release Intensity/Depth Moderate Body Position Prone Comments levator scap, infraspinatus 1 Body Location Bilat scapula Mobilization Type Myofascial Release Rolling Intensity/Depth Moderate Body Position Sidelying Comments focus on infraspinatus, subscapularis PT-OP-R Modalities Start: 11/21/17 15:49 Freq: Status: Active Protocol: Document 11/21/17 14:30 AMB (Rec: 11/21/17 15:56 AMB [email or web address]) Ultrasound Therapy Treatment Left Upper Back Treatment Duration (minutes) 7 Patient Position Prone Coupling Medium Ultrasound Gel Frequency Setting (mHz) 1 Mode Setting Continuous Intensity Setting (w/cm2) 1.5 PT-OP-T Assessment and Plan Start: 10/22/17 15:21 Freq: Status: Active Protocol: Document 02/07/18 14:30 AMB (Rec: 02/07/18 16:52 AMB [email or web address]) Physical Therapy Assessment Assessment Summary Assessment Pain 0/10 at right, 3/10 at left after treatment. Physical Therapy Plan Next Visit Focus/Plan Next Note Type Treatment Note Next Visit Plan Progress scap stability, posture
--- NOTE | 2018-02-10 16:05 | PT.OTN ---
Current Diagnoses Pain in left shoulder (02/10/18) Low back pain (02/10/18) Physical Therapy Treatment Note PT-OP-A Visit Information Start: 10/22/17 15:21 Freq: Status: Active Protocol: Document 02/10/18 14:30 AMB (Rec: 02/10/18 16:05 AMB [email or web address]) Out-Patient Physical Therapy Visit Information Visit Information Visit Type Treatment Note Visit Start Time 14:35 Visit Stop Time 15:20 Total Visit Minutes 45 Visit Number 50 Evaluation Information Evaluation Date 06/25/17 PT-OP-C Subjective Start: 10/22/17 15:21 Freq: Status: Active Protocol: Document 02/10/18 14:30 AMB (Rec: 02/10/18 16:05 AMB [email or web address]) OP-PT Subjective Patient Comments Patient Comments Pt reports his right side is feeling weird, he had a busy weekend with his kids . PT-OP-K Range of Motion Start: 12/03/17 07:05 Freq: Status: Active Protocol: Document 12/02/17 13:45 AMB (Rec: 12/03/17 07:47 AMB [email or web address]) Cervical Spine Range of Motion Cervical Spine Active Degrees Testing Position Sitting Flexion 60 Extension 50 Rotation Left 60 Rotation Right 55 ROM Limitations Soft Tissue Tightness Lumbar Spine Range of Motion Lumbar Spine Active Degrees Testing Position standing Flexion 10 Extension 35 Lateral Flexion Left 15 Lateral Flexion Right 15 ROM Limitations Pain PT-OP-M Strength Start: 12/03/17 07:05 Freq: Status: Active Protocol: Document 12/02/17 13:45 AMB (Rec: 12/03/17 07:47 AMB [email or web address]) Scapula Strength Scapula Manual Muscle Testing Left Comments Scapular protraction 3+/5 with pain Shoulder Strength Shoulder Manual Muscle Testing Right Reason Not Measured WFL Left Flexion 4+ Good+ Abduction (C5) 4 Good External Rotation 4 Good Internal Rotation 4+ Good+ PT-OP-Q Treatments Start: 10/22/17 15:21 Freq: Status: Active Protocol: Document 02/10/18 14:30 AMB (Rec: 02/10/18 16:05 AMB [email or web address]) Therapeutic Exercises Supine Exercises 1 Supine Exercise Name supine pec stretch Reps/Minutes 30x2 Standing Exercises 1 Standing Exercise Name doorway pec stretch Reps/Minutes modified to 30 deg abduction Manual Therapy Treatment Soft Tissue Mobilization 3 Body Location TrP release with shoulder abd. Mobilization Type Trigger Point Release Intensity/Depth Moderate Body Position Prone Comments levator scap, infraspinatus 1 Body Location Bilat scapula Mobilization Type Myofascial Release Rolling Intensity/Depth Moderate Body Position Sidelying Comments focus on infraspinatus, subscapularis Joint Mobilizations 2 Joint GH Direction AP Grade IV Body Position Supine Reps/Duration 30x2 PT-OP-R Modalities Start: 11/21/17 15:49 Freq: Status: Active Protocol: Document 11/21/17 14:30 AMB (Rec: 11/21/17 15:56 AMB [email or web address]) Ultrasound Therapy Treatment Left Upper Back Treatment Duration (minutes) 7 Patient Position Prone Coupling Medium Ultrasound Gel Frequency Setting (mHz) 1 Mode Setting Continuous Intensity Setting (w/cm2) 1.5 PT-OP-T Assessment and Plan Start: 10/22/17 15:21 Freq: Status: Active Protocol: Document 02/10/18 14:30 AMB (Rec: 02/10/18 16:05 AMB [email or web address]) Physical Therapy Assessment Assessment Summary Assessment Pain increased discomfort at R infraspinatus today. Physical Therapy Plan Next Visit Focus/Plan Next Note Type Treatment Note Next Visit Plan Progress scap stability, posture
--- NOTE | 2018-02-17 15:35 | PT.OTN ---
Current Diagnoses Pain in left shoulder (02/17/18) Low back pain (02/17/18) Physical Therapy Treatment Note PT-OP-A Visit Information Start: 10/22/17 15:21 Freq: Status: Active Protocol: Document 02/17/18 14:30 AMB (Rec: 02/17/18 15:34 AMB [email or web address]) Out-Patient Physical Therapy Visit Information Visit Information Visit Type Treatment Note Visit Start Time 14:35 Visit Stop Time 15:20 Total Visit Minutes 45 Visit Number 51 Evaluation Information Evaluation Date 06/25/17 PT-OP-C Subjective Start: 10/22/17 15:21 Freq: Status: Active Protocol: Document 02/17/18 14:30 AMB (Rec: 02/17/18 15:34 AMB [email or web address]) OP-PT Subjective Patient Comments Patient Comments Pt is reporting L sided pain with walking today. R side is tight, but not necessarily painful. PT-OP-K Range of Motion Start: 12/03/17 07:05 Freq: Status: Active Protocol: Document 12/02/17 13:45 AMB (Rec: 12/03/17 07:47 AMB [email or web address]) Cervical Spine Range of Motion Cervical Spine Active Degrees Testing Position Sitting Flexion 60 Extension 50 Rotation Left 60 Rotation Right 55 ROM Limitations Soft Tissue Tightness Lumbar Spine Range of Motion Lumbar Spine Active Degrees Testing Position standing Flexion 10 Extension 35 Lateral Flexion Left 15 Lateral Flexion Right 15 ROM Limitations Pain PT-OP-M Strength Start: 12/03/17 07:05 Freq: Status: Active Protocol: Document 12/02/17 13:45 AMB (Rec: 12/03/17 07:47 AMB [email or web address]) Scapula Strength Scapula Manual Muscle Testing Left Comments Scapular protraction 3+/5 with pain Shoulder Strength Shoulder Manual Muscle Testing Right Reason Not Measured WFL Left Flexion 4+ Good+ Abduction (C5) 4 Good External Rotation 4 Good Internal Rotation 4+ Good+ PT-OP-Q Treatments Start: 10/22/17 15:21 Freq: Status: Active Protocol: Document 02/17/18 14:30 AMB (Rec: 02/17/18 15:34 AMB [email or web address]) Gym Equipment Cable Column (Body Solid) Rows Resistance 3 plates Reps/Time 2x15 Therapeutic Exercises Standing Exercises 4 Standing Exercise Name shoulder ER Resistance #2 t band Reps/Minutes 1x10 ea side Manual Therapy Treatment Soft Tissue Mobilization 3 Body Location TrP release with shoulder abd. Mobilization Type Trigger Point Release Intensity/Depth Moderate Body Position Prone Comments levator scap, infraspinatus 1 Body Location Bilat scapula Mobilization Type Myofascial Release Rolling Intensity/Depth Moderate Body Position Sidelying Comments focus on infraspinatus, subscapularis Joint Mobilizations 1 Joint T-spine Direction PA Grade IV Body Position Prone PT-OP-R Modalities Start: 11/21/17 15:49 Freq: Status: Active Protocol: Document 11/21/17 14:30 AMB (Rec: 11/21/17 15:56 AMB [email or web address]) Ultrasound Therapy Treatment Left Upper Back Treatment Duration (minutes) 7 Patient Position Prone Coupling Medium Ultrasound Gel Frequency Setting (mHz) 1 Mode Setting Continuous Intensity Setting (w/cm2) 1.5 PT-OP-T Assessment and Plan Start: 10/22/17 15:21 Freq: Status: Active Protocol: Document 02/17/18 14:30 AMB (Rec: 02/17/18 15:34 AMB [email or web address]) Physical Therapy Assessment Assessment Summary Assessment 10/01 at end of session, increased pain with ther ex today. Physical Therapy Plan Next Visit Focus/Plan Next Note Type Treatment Note Next Visit Plan Progress scap stability, posture
--- NOTE | 2018-06-19 15:53 | PT.OTRE ---
Current Diagnoses Pain in left shoulder (06/19/18) Low back pain (06/19/18) Past Medical History (Last Updated 12/31/17 @ 10:50 by Reny Jung) IBS (irritable bowel syndrome) (Chronic 2005) Chicken pox (Resolved 1985) Hemorrhoids (Resolved 2002) Surgical History (Last Updated 12/31/17 @ 10:50 by Reny Jung) Anesthesia (Resolved) Status post appendectomy (Resolved 2000) Provider Visit Care Team Role Provider Type Dorina Jin MD Attending Provider Physician Family Provider Primary Care Provider Specialty: Family Practice Address: [address] [place] [address] Email: [email or web address] Physical Therapy Re-Evaluation PT-OP-A Visit Information Start: 10/22/17 15:21 Freq: Status: Active Protocol: Document 06/19/18 11:15 AMB (Rec: 06/20/18 07:28 AMB [email or web address]) Out-Patient Physical Therapy Visit Information Visit Information Visit Type Re-Evaluation Visit Start Time 11:15 Visit Stop Time 12:00 Total Visit Minutes 45 Visit Number 52 Evaluation Information Evaluation Date 06/25/17 PT-OP-B Current Condition Start: 06/19/18 16:23 Freq: Status: Active Protocol: Document 06/19/18 11:15 AMB (Rec: 06/20/18 07:28 AMB [email or web address]) Current Condition History of Current Condition Onset Date chronic Current Complaints L scapular pain, neck pain, back pain History of Current Condition The patient reports years of pain, worse with caring for his 3 young children. 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 He returns to physical therapy with a new script from his PCP for the above impairments. 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 PT-OP-F Manual Assessment Start: 06/19/18 16:23 Freq: Status: Active Protocol: Document 06/19/18 11:15 AMB (Rec: 06/20/18 07:28 AMB [email or web address]) Manual Assessments Joint Mobility Assessment Joint Mobility Assessment Stiffness with PAs throughout thoracic spine, more mobility in lumbar spine. Stiffness in scapulothoracic joint L>R. Stiffness at GH joint at end range flexion. PT-OP-J Posture/Palpation/Skin Start: 06/19/18 16:23 Freq: Status: Active Protocol: Document 06/19/18 11:15 AMB (Rec: 06/20/18 07:28 AMB [email or web address]) Posture Evaluation Comments Posture Comments Pt stands with excessive lumbar lordosis, increased thoracic kyphosis with forward shoulders, tends to stand on one leg or the other and hang on Y ligaments. Palpation Assessment Location One Palpation Findings Soft Tissue Tightness Spasm Muscle Guarding Tenderness Trigger Point Palpation Details lower trapezius, subscapularis , infraspinatus all with active trigger points. PT-OP-K Range of Motion Start: 12/03/17 07:05 Freq: Status: Active Protocol: Document 06/19/18 11:15 AMB (Rec: 06/20/18 12:57 AMB [email or web address]) Lumbar Spine Range of Motion Lumbar Spine Active Degrees Testing Position Standing Flexion 50 Extension 10 PT-OP-M Strength Start: 12/03/17 07:05 Freq: Status: Active Protocol: Document 06/19/18 11:15 AMB (Rec: 06/20/18 15:52 AMB [email or web address]) Shoulder Strength Shoulder Manual Muscle Testing Right Flexion 4 Good Extension 4 Good Abduction (C5) 4+ Good+ External Rotation 4+ Good+ Internal Rotation 4+ Good+ Left Flexion 4 Good Extension 3 Fair Abduction (C5) 4 Good External Rotation 4 Good Internal Rotation 4 Good PT-OP-Q Treatments Start: 10/22/17 15:21 Freq: Status: Active Protocol: Document 06/19/18 11:15 AMB (Rec: 06/20/18 15:52 AMB [email or web address]) Manual Therapy Treatment Soft Tissue Mobilization 3 Body Location TrP release with shoulder abd. Mobilization Type Trigger Point Release Intensity/Depth Moderate Body Position Prone Comments lower trap, infraspinatus 1 Body Location Left scapula Mobilization Type Myofascial Release Rolling Intensity/Depth Moderate Body Position Sidelying Comments focus on infraspinatus, subscapularis Joint Mobilizations 1 Joint T-spine Direction PA Grade IV Body Position Prone PT-OP-R Modalities Start: 11/21/17 15:49 Freq: Status: Active Protocol: Document 11/21/17 14:30 AMB (Rec: 11/21/17 15:56 AMB [email or web address]) Ultrasound Therapy Treatment Left Upper Back Treatment Duration (minutes) 7 Patient Position Prone Coupling Medium Ultrasound Gel Frequency Setting (mHz) 1 Mode Setting Continuous Intensity Setting (w/cm2) 1.5 PT-OP-T Assessment and Plan Start: 10/22/17 15:21 Freq: Status: Active Protocol: Document 06/19/18 11:15 AMB (Rec: 06/20/18 15:52 AMB [email or web address]) Physical Therapy Assessment Goals 4 Impairment Sleep Short Term Goal (STG) The patient will sleep for 5 hours using pillow props. NOT MET STG Duration 6 weeks Coal Dumping Equipment Operator Goal (LTG) The patient will be independent with a core and scapular stabilization HEP to reduce his pain overall. NOT MET LTG Duration 12 weeks 3 Impairment Lifting/carrying Short Term Goal (STG) The patient will lift his youngest child into her carseat with good body mechanics and pain of 2/10 or less. NOT MET STG Duration 6 weeks Shelter Goal (LTG) The patient will lift dishes overhead to put them in a tall cabinet without an increase in pain. INTERMITENTLY MET LTG Duration 12 weeks 2 Impairment Posture Short Term Goal (STG) The patient will sit with appropriate posture for 45 minutes with 2/10 pain. NOT MET STG Duration 6 weeks Shelter Goal (LTG) The patient will stand for 10 minutes with good posture without an increase in baseline pain. NOT MET LTG Duration 12 weeks 1 Impairment ROM Short Term Goal (STG) The patient will improve his lumbar AROM to Extension: 20 degrees, Flexion 50 derees, Sidebending bilateral: 25 degrees without an increase in pain. 06/20: NOT MET STG Duration 6 weeks Coal Dumping Equipment Operator Goal (LTG) The patient will increase his left shoulder AROM to 160 degrees of flexion and abduction. 06/20 MET but with pain LTG Duration 12 weeks Assessment Summary Assessment The patient returns to PT after 4 months off. Overall his pain is slightly better. Rated at 3/10 currently, 8/10 at worst. His posture continues to be a major contributing factor to his pain and dysfunction. He does continue to have pain at his scapular muscles that makes it difficult for him to be active, stand, sleep. He has kept up with his stretching exercises well but has not kept up with his strengthening exercises. He will benefit from PT to improve his form with and consistency with both scapular stabilization and postural re-education. Physical Therapy Plan Frequency and Duration Frequency of Treatment 2x/Week Duration of Treatment 12 weeks Plan of Care Start Date 06/19/18 Plan of Care End Date 09/11/18 Therapeutic Interventions Therapeutic Interventions Aquatic Therapy Home Exercise Program Joint Mobilizations Manual Therapy Neuromuscular Re-education Self-Care/Home Management Soft Tissue Mobilization Taping Therapeutic Activities Therapeutic Exercises Modalities Cold Pack/Ice Massage Electric Stimulation Hot Packs Iontophoresis Ultrasound Next Visit Focus/Plan Next Note Type Treatment Note Next Visit Plan Progress lower trap strength, scapulothoracic mobility.
--- NOTE | 2018-06-20 15:54 | PT.OPPOC ---
Current Diagnoses Pain in left shoulder (06/19/18) Low back pain (06/19/18) Provider Visit Care Team Role Provider Type Dorina Jin MD Attending Provider Physician Family Provider Primary Care Provider Specialty: Family Practice Address: [address] [place] [address], [facility] Email: [email or web address] Plan Of Care PT-OP-T Assessment and Plan Start: 10/22/17 15:21 Freq: Status: Active Protocol: Document 06/19/18 11:15 AMB (Rec: 06/20/18 15:52 AMB [email or web address]) Physical Therapy Assessment Goals 4 Impairment Sleep Short Term Goal (STG) The patient will sleep for 5 hours using pillow props. NOT MET STG Duration 6 weeks Rock Worker Goal (LTG) The patient will be independent with a core and scapular stabilization HEP to reduce his pain overall. NOT MET LTG Duration 12 weeks 3 Impairment Lifting/carrying Short Term Goal (STG) The patient will lift his youngest child into her carseat with good body mechanics and pain of 2/10 or less. NOT MET STG Duration 6 weeks Fdc Goal (LTG) The patient will lift dishes overhead to put them in a tall cabinet without an increase in pain. INTERMITENTLY MET LTG Duration 12 weeks 2 Impairment Posture Short Term Goal (STG) The patient will sit with appropriate posture for 45 minutes with 2/10 pain. NOT MET STG Duration 6 weeks Fdc Goal (LTG) The patient will stand for 10 minutes with good posture without an increase in baseline pain. NOT MET LTG Duration 12 weeks 1 Impairment ROM Short Term Goal (STG) The patient will improve his lumbar AROM to Extension: 20 degrees, Flexion 50 derees, Sidebending bilateral: 25 degrees without an increase in pain. 06/20: NOT MET STG Duration 6 weeks Rock Worker Goal (LTG) The patient will increase his left shoulder AROM to 160 degrees of flexion and abduction. 06/20 MET but with pain LTG Duration 12 weeks Assessment Summary Assessment The patient returns to PT after 4 months off. Overall his pain is slightly better. Rated at 3/10 currently, 8/10 at worst. His posture contintues to be a major contributing factor to his pain and dysfunction. He does continue to have pain at his scapular muscles that makes it difficult for him to be active, stand, sleep. He has kept up with his stretching exercises well but has not kept up with his strengthening exercises. He will benefit from PT to improve his form with and consistency with both scapular stabilization and postural re-education. Physical Therapy Plan Frequency and Duration Frequency of Treatment 2x/Week Duration of Treatment 12 weeks Plan of Care Start Date 06/19/18 Plan of Care End Date 09/11/18 Therapeutic Interventions Therapeutic Interventions Aquatic Therapy Home Exercise Program Joint Mobilizations Manual Therapy Neuromuscular Re-education Self-Care/Home Management Soft Tissue Mobilization Taping Therapeutic Activities Therapeutic Exercises Modalities Cold Pack/Ice Massage Electric Stimulation Hot Packs Iontophoresis Ultrasound Next Visit Focus/Plan Next Note Type Treatment Note Next Visit Plan Progress lower trap strength, scapulothoracic mobility. Plan of Care Dates Plan of Care Start Date 06/19/18 Plan of Care End Date 09/11/18 Please Sign and Return: I have reviewed this Plan of Care and certify that the skilled therapy services above are required to meet the patient?s needs. Physician Signature Date Printed Name and Credentials Clinical Instructor Signature Printed Name and Credentials
--- NOTE | 2018-06-23 16:57 | PT.OTN ---
Current Diagnoses Pain in left shoulder (06/23/18) Low back pain (06/23/18) Physical Therapy Treatment Note PT-OP-A Visit Information Start: 10/22/17 15:21 Freq: Status: Active Protocol: Document 06/23/18 13:00 AMB (Rec: 06/23/18 13:15 AMB [email or web address]) Out-Patient Physical Therapy Visit Information Visit Information Visit Type Treatment Note Visit Start Time 13:00 Visit Stop Time 13:45 Total Visit Minutes 45 Visit Number 53 PT-OP-B Current Condition Start: 06/19/18 16:23 Freq: Status: Active Protocol: Document 06/19/18 11:15 AMB (Rec: 06/20/18 07:28 AMB [email or web address]) Current Condition History of Current Condition Onset Date chronic Current Complaints L scapular pain, neck pain, back pain History of Current Condition The patient reports years of pain, worse with caring for his 3 young children. 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 He returns to physical therapy with a new script from his PCP for the above impairments. 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 PT-OP-F Manual Assessment Start: 06/19/18 16:23 Freq: Status: Active Protocol: Document 06/19/18 11:15 AMB (Rec: 06/20/18 07:28 AMB [email or web address]) Manual Assessments Joint Mobility Assessment Joint Mobility Assessment Stiffness with PAs throughout thoracic spine, more mobility in lumbar spine. Stiffness in scapulothoracic joint L>R. Stiffness at GH joint at end range flexion. PT-OP-J Posture/Palpation/Skin Start: 06/19/18 16:23 Freq: Status: Active Protocol: Document 06/19/18 11:15 AMB (Rec: 06/20/18 07:28 AMB [email or web address]) Posture Evaluation Comments Posture Comments Pt stands with excessive lumbar lordosis, increased thoracic kyphosis with forward shoulders, tends to stand on one leg or the other and hang on Y ligaments. Palpation Assessment Location One Palpation Findings Soft Tissue Tightness Spasm Muscle Guarding Tenderness Trigger Point Palpation Details lower trapezius, subscapularis , infraspinatus all with active trigger points. PT-OP-K Range of Motion Start: 12/03/17 07:05 Freq: Status: Active Protocol: Document 06/19/18 11:15 AMB (Rec: 06/20/18 12:57 AMB [email or web address]) Lumbar Spine Range of Motion Lumbar Spine Active Degrees Testing Position Standing Flexion 50 Extension 10 PT-OP-M Strength Start: 12/03/17 07:05 Freq: Status: Active Protocol: Document 06/19/18 11:15 AMB (Rec: 06/20/18 15:52 AMB [email or web address]) Shoulder Strength Shoulder Manual Muscle Testing Right Flexion 4 Good Extension 4 Good Abduction (C5) 4+ Good+ External Rotation 4+ Good+ Internal Rotation 4+ Good+ Left Flexion 4 Good Extension 3 Fair Abduction (C5) 4 Good External Rotation 4 Good Internal Rotation 4 Good PT-OP-Q Treatments Start: 10/22/17 15:21 Freq: Status: Active Protocol: Document 06/23/18 13:00 AMB (Rec: 06/23/18 16:57 AMB [email or web address]) Therapeutic Exercises Standing Exercises 4 Standing Exercise Name shoulder ER Resistance #2 t band Reps/Minutes 1x10 ea side 3 Standing Exercise Name shoulder scaption Equipment Used 10 Reps/Minutes #2 Comments shoulder height only 2 Standing Exercise Name low rows Resistance #3 tband Reps/Minutes 2x10 Manual Therapy Treatment Soft Tissue Mobilization 1 Body Location Bilat scapula Mobilization Type Myofascial Release Rolling Intensity/Depth Moderate Body Position Sidelying Comments focus on infraspinatus, subscapularis Joint Mobilizations 1 Joint T-spine Direction PA Grade IV Body Position Prone PT-OP-R Modalities Start: 11/21/17 15:49 Freq: Status: Active Protocol: Document 11/21/17 14:30 AMB (Rec: 11/21/17 15:56 AMB [email or web address]) Ultrasound Therapy Treatment Left Upper Back Treatment Duration (minutes) 7 Patient Position Prone Coupling Medium Ultrasound Gel Frequency Setting (mHz) 1 Mode Setting Continuous Intensity Setting (w/cm2) 1.5 PT-OP-T Assessment and Plan Start: 10/22/17 15:21 Freq: Status: Active Protocol: Document 06/23/18 13:00 AMB (Rec: 06/23/18 16:57 AMB [email or web address]) Physical Therapy Assessment Assessment Summary Assessment Pt with soreness with even low levels of repetitions, continue to work on lower trap strengthening. Physical Therapy Plan Next Visit Focus/Plan Next Note Type Treatment Note Next Visit Plan Progress lower trap strength, scapulothoracic mobility.
--- NOTE | 2018-07-01 15:56 | PT.OTN ---
Current Diagnoses Pain in left shoulder (07/01/18) Low back pain (07/01/18) Physical Therapy Treatment Note PT-OP-A Visit Information Start: 10/22/17 15:21 Freq: Status: Active Protocol: Document 07/01/18 13:00 AMB (Rec: 07/01/18 13:46 AMB [email or web address]) Out-Patient Physical Therapy Visit Information Visit Information Visit Type Treatment Note Visit Start Time 13:00 Visit Stop Time 13:45 Total Visit Minutes 45 Visit Number 4 PT-OP-B Current Condition Start: 06/19/18 16:23 Freq: Status: Active Protocol: Document 06/19/18 11:15 AMB (Rec: 06/20/18 07:28 AMB [email or web address]) Current Condition History of Current Condition Onset Date chronic Current Complaints L scapular pain, neck pain, back pain History of Current Condition The patient reports years of pain, worse with caring for his 3 young children. 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 He returns to physical therapy with a new script from his PCP for the above impairments. 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 He was trying to push a 75# object with his left arm only and now he has UT and lower trap/ rhomboid pain 01/31. PT-OP-F Manual Assessment Start: 06/19/18 16:23 Freq: Status: Active Protocol: Document 06/19/18 11:15 AMB (Rec: 06/20/18 07:28 AMB [email or web address]) Manual Assessments Joint Mobility Assessment Joint Mobility Assessment Stiffness with PAs throughout thoracic spine, more mobility in lumbar spine. Stiffness in scapulothoracic joint L>R. Stiffness at GH joint at end range flexion. PT-OP-J Posture/Palpation/Skin Start: 06/19/18 16:23 Freq: Status: Active Protocol: Document 06/19/18 11:15 AMB (Rec: 06/20/18 07:28 AMB [email or web address]) Posture Evaluation Comments Posture Comments Pt stands with excessive lumbar lordosis, increased thoracic kyphosis with forward shoulders, tends to stand on one leg or the other and hang on Y ligaments. Palpation Assessment Location One Palpation Findings Soft Tissue Tightness Spasm Muscle Guarding Tenderness Trigger Point Palpation Details lower trapezius, subscapularis , infraspinatus all with active trigger points. PT-OP-K Range of Motion Start: 12/03/17 07:05 Freq: Status: Active Protocol: Document 06/19/18 11:15 AMB (Rec: 06/20/18 12:57 AMB [email or web address]) Lumbar Spine Range of Motion Lumbar Spine Active Degrees Testing Position Standing Flexion 50 Extension 10 PT-OP-M Strength Start: 12/03/17 07:05 Freq: Status: Active Protocol: Document 06/19/18 11:15 AMB (Rec: 06/20/18 15:52 AMB [email or web address]) Shoulder Strength Shoulder Manual Muscle Testing Right Flexion 4 Good Extension 4 Good Abduction (C5) 4+ Good+ External Rotation 4+ Good+ Internal Rotation 4+ Good+ Left Flexion 4 Good Extension 3 Fair Abduction (C5) 4 Good External Rotation 4 Good Internal Rotation 4 Good PT-OP-Q Treatments Start: 10/22/17 15:21 Freq: Status: Active Protocol: Document 07/01/18 13:00 AMB (Rec: 07/01/18 15:56 AMB [email or web address]) Manual Therapy Treatment Soft Tissue Mobilization 3 Body Location TrP release with shoulder abd. Mobilization Type Trigger Point Release Intensity/Depth Moderate Body Position Prone Comments lower trap, infraspinatus 1 Body Location Left scapula Mobilization Type Myofascial Release Rolling Intensity/Depth Moderate Body Position Sidelying Comments focus on infraspinatus, subscapularis Joint Mobilizations 3 Joint scapulothoracic Direction all planes Grade II PT-OP-R Modalities Start: 11/21/17 15:49 Freq: Status: Active Protocol: Document 11/21/17 14:30 AMB (Rec: 11/21/17 15:56 AMB [email or web address]) Ultrasound Therapy Treatment Left Upper Back Treatment Duration (minutes) 7 Patient Position Prone Coupling Medium Ultrasound Gel Frequency Setting (mHz) 1 Mode Setting Continuous Intensity Setting (w/cm2) 1.5 PT-OP-T Assessment and Plan Start: 10/22/17 15:21 Freq: Status: Active Protocol: Document 07/01/18 13:00 AMB (Rec: 07/01/18 15:56 AMB [email or web address]) Physical Therapy Assessment Assessment Summary Assessment Pt with increased soreness today after improper lifting technique just before PT. Decreased pain following manual but continued, postural , body mechanics, and strengthening to prevent future injury. Physical Therapy Plan Next Visit Focus/Plan Next Note Type Treatment Note Next Visit Plan Progress lower trap strength, scapulothoracic mobility.
--- NOTE | 2018-07-08 16:02 | PT.OTN ---
Current Diagnoses Pain in left shoulder (07/08/18) Low back pain (07/08/18) Physical Therapy Treatment Note PT-OP-A Visit Information Start: 10/22/17 15:21 Freq: Status: Active Protocol: Document 07/08/18 13:00 AMB (Rec: 07/08/18 13:07 AMB [email or web address]) Out-Patient Physical Therapy Visit Information Visit Information Visit Type Treatment Note Visit Start Time 13:00 Visit Stop Time 13:45 Total Visit Minutes 45 Visit Number 55 PT-OP-B Current Condition Start: 06/19/18 16:23 Freq: Status: Active Protocol: Document 06/19/18 11:15 AMB (Rec: 06/20/18 07:28 AMB [email or web address]) Current Condition History of Current Condition Onset Date chronic Current Complaints L scapular pain, neck pain, back pain History of Current Condition The patient reports years of pain, worse with caring for his 3 young children. 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 He returns to physical therapy with a new script from his PCP for the above impairments. 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 PT-OP-F Manual Assessment Start: 06/19/18 16:23 Freq: Status: Active Protocol: Document 06/19/18 11:15 AMB (Rec: 06/20/18 07:28 AMB [email or web address]) Manual Assessments Joint Mobility Assessment Joint Mobility Assessment Stiffness with PAs throughout thoracic spine, more mobility in lumbar spine. Stiffness in scapulothoracic joint L>R. Stiffness at GH joint at end range flexion. PT-OP-J Posture/Palpation/Skin Start: 06/19/18 16:23 Freq: Status: Active Protocol: Document 06/19/18 11:15 AMB (Rec: 06/20/18 07:28 AMB [email or web address]) Posture Evaluation Comments Posture Comments Pt stands with excessive lumbar lordosis, increased thoracic kyphosis with forward shoulders, tends to stand on one leg or the other and hang on Y ligaments. Palpation Assessment Location One Palpation Findings Soft Tissue Tightness Spasm Muscle Guarding Tenderness Trigger Point Palpation Details lower trapezius, subscapularis , infraspinatus all with active trigger points. PT-OP-K Range of Motion Start: 12/03/17 07:05 Freq: Status: Active Protocol: Document 06/19/18 11:15 AMB (Rec: 06/20/18 12:57 AMB [email or web address]) Lumbar Spine Range of Motion Lumbar Spine Active Degrees Testing Position Standing Flexion 50 Extension 10 PT-OP-M Strength Start: 12/03/17 07:05 Freq: Status: Active Protocol: Document 06/19/18 11:15 AMB (Rec: 06/20/18 15:52 AMB [email or web address]) Shoulder Strength Shoulder Manual Muscle Testing Right Flexion 4 Good Extension 4 Good Abduction (C5) 4+ Good+ External Rotation 4+ Good+ Internal Rotation 4+ Good+ Left Flexion 4 Good Extension 3 Fair Abduction (C5) 4 Good External Rotation 4 Good Internal Rotation 4 Good PT-OP-Q Treatments Start: 10/22/17 15:21 Freq: Status: Active Protocol: Document 07/08/18 13:45 AMB (Rec: 07/08/18 16:02 AMB [email or web address]) Therapeutic Exercises Other Exercises 2 Other Exercise Name jerry pose Comments 30x2 1 Other Exercise Name cat cow Comments 10 Manual Therapy Treatment Soft Tissue Mobilization 3 Body Location TrP release with shoulder abd. Mobilization Type Trigger Point Release Intensity/Depth Moderate Body Position Prone Comments lower trap, infraspinatus 1 Body Location Bilat scapula Mobilization Type Myofascial Release Rolling Intensity/Depth Moderate Body Position Sidelying Comments focus on infraspinatus, subscapularis Joint Mobilizations 3 Joint scapulothoracic Direction all planes Grade II Comments sidelying 1 Joint T-spine Direction PA Grade IV Body Position Prone PT-OP-R Modalities Start: 11/21/17 15:49 Freq: Status: Active Protocol: Document 11/21/17 14:30 AMB (Rec: 11/21/17 15:56 AMB [email or web address]) Ultrasound Therapy Treatment Left Upper Back Treatment Duration (minutes) 7 Patient Position Prone Coupling Medium Ultrasound Gel Frequency Setting (mHz) 1 Mode Setting Continuous Intensity Setting (w/cm2) 1.5 PT-OP-T Assessment and Plan Start: 10/22/17 15:21 Freq: Status: Active Protocol: Document 07/08/18 13:45 AMB (Rec: 07/08/18 16:02 AMB [email or web address]) Physical Therapy Assessment Assessment Summary Assessment Pt with more R sided scapular pain today. Physical Therapy Plan Next Visit Focus/Plan Next Note Type Treatment Note Next Visit Plan Progress lower trap strength, scapulothoracic mobility.
--- NOTE | 2018-07-10 15:34 | PT.OTN ---
Current Diagnoses Pain in left shoulder (07/10/18) Low back pain (07/10/18) Physical Therapy Treatment Note PT-OP-A Visit Information Start: 10/22/17 15:21 Freq: Status: Active Protocol: Document 07/10/18 13:00 AMB (Rec: 07/10/18 15:34 AMB [email or web address]) Out-Patient Physical Therapy Visit Information Visit Information Visit Type Treatment Note Visit Start Time 13:00 Visit Stop Time 13:45 Total Visit Minutes 45 Visit Number 56 PT-OP-B Current Condition Start: 06/19/18 16:23 Freq: Status: Active Protocol: Document 06/19/18 11:15 AMB (Rec: 06/20/18 07:28 AMB [email or web address]) Current Condition History of Current Condition Onset Date chronic Current Complaints L scapular pain, neck pain, back pain History of Current Condition The patient reports years of pain, worse with caring for his 3 young children. 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 He returns to physical therapy with a new script from his PCP for the above impairments. 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 PT-OP-F Manual Assessment Start: 06/19/18 16:23 Freq: Status: Active Protocol: Document 06/19/18 11:15 AMB (Rec: 06/20/18 07:28 AMB [email or web address]) Manual Assessments Joint Mobility Assessment Joint Mobility Assessment Stiffness with PAs throughout thoracic spine, more mobility in lumbar spine. Stiffness in scapulothoracic joint L>R. Stiffness at GH joint at end range flexion. PT-OP-J Posture/Palpation/Skin Start: 06/19/18 16:23 Freq: Status: Active Protocol: Document 06/19/18 11:15 AMB (Rec: 06/20/18 07:28 AMB [email or web address]) Posture Evaluation Comments Posture Comments Pt stands with excessive lumbar lordosis, increased thoracic kyphosis with forward shoulders, tends to stand on one leg or the other and hang on Y ligaments. Palpation Assessment Location One Palpation Findings Soft Tissue Tightness Spasm Muscle Guarding Tenderness Trigger Point Palpation Details lower trapezius, subscapularis , infraspinatus all with active trigger points. PT-OP-K Range of Motion Start: 12/03/17 07:05 Freq: Status: Active Protocol: Document 06/19/18 11:15 AMB (Rec: 06/20/18 12:57 AMB [email or web address]) Lumbar Spine Range of Motion Lumbar Spine Active Degrees Testing Position Standing Flexion 50 Extension 10 PT-OP-M Strength Start: 12/03/17 07:05 Freq: Status: Active Protocol: Document 06/19/18 11:15 AMB (Rec: 06/20/18 15:52 AMB [email or web address]) Shoulder Strength Shoulder Manual Muscle Testing Right Flexion 4 Good Extension 4 Good Abduction (C5) 4+ Good+ External Rotation 4+ Good+ Internal Rotation 4+ Good+ Left Flexion 4 Good Extension 3 Fair Abduction (C5) 4 Good External Rotation 4 Good Internal Rotation 4 Good PT-OP-Q Treatments Start: 10/22/17 15:21 Freq: Status: Active Protocol: Document 07/10/18 13:00 AMB (Rec: 07/10/18 15:34 AMB [email or web address]) Therapeutic Exercises Standing Exercises 5 Standing Exercise Name body blade Comments 0-90 flexion 4 Standing Exercise Name shoulder ER Resistance #2 t band Reps/Minutes 1x10 ea side 1 Standing Exercise Name abduction Side bilateral Comments with back against wall Manual Therapy Treatment Soft Tissue Mobilization 3 Body Location TrP release with shoulder abd. Mobilization Type Trigger Point Release Intensity/Depth Moderate Body Position Prone Comments lower trap, infraspinatus Joint Mobilizations 4 Joint GH into ER Comments with scapular stabilization 3 Joint scapulothoracic Direction all planes Grade II Comments sidelying PT-OP-R Modalities Start: 11/21/17 15:49 Freq: Status: Active Protocol: Document 11/21/17 14:30 AMB (Rec: 11/21/17 15:56 AMB [email or web address]) Ultrasound Therapy Treatment Left Upper Back Treatment Duration (minutes) 7 Patient Position Prone Coupling Medium Ultrasound Gel Frequency Setting (mHz) 1 Mode Setting Continuous Intensity Setting (w/cm2) 1.5 PT-OP-T Assessment and Plan Start: 10/22/17 15:21 Freq: Status: Active Protocol: Document 07/10/18 13:00 AMB (Rec: 07/10/18 15:34 AMB [email or web address]) Physical Therapy Assessment Assessment Summary Assessment Pt's posture continues to be poor. Discussed posture at his desk at home and encouraged to use back rest to avoid forward shoulder sitting. ER restricted L>R. Physical Therapy Plan Next Visit Focus/Plan Next Note Type Treatment Note Next Visit Plan Progress lower trap strength, scapulothoracic mobility.
--- NOTE | 2018-07-15 15:45 | PT.OTN ---
Current Diagnoses Pain in left shoulder (07/15/18) Low back pain (07/15/18) Physical Therapy Treatment Note PT-OP-A Visit Information Start: 10/22/17 15:21 Freq: Status: Active Protocol: Document 07/15/18 13:00 AMB (Rec: 07/15/18 13:09 AMB [id number]) Out-Patient Physical Therapy Visit Information Visit Information Visit Type Treatment Note Visit Start Time 13:00 Visit Stop Time 13:45 Total Visit Minutes 45 Visit Number 57 PT-OP-B Current Condition Start: 06/19/18 16:23 Freq: Status: Active Protocol: Document 06/19/18 11:15 AMB (Rec: 06/20/18 07:28 AMB [email or web address]) Current Condition History of Current Condition Onset Date chronic Current Complaints L scapular pain, neck pain, back pain History of Current Condition The patient reports years of pain, worse with caring for his 3 young children. 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 He returns to physical therapy with a new script from his PCP for the above impairments. 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 PT-OP-F Manual Assessment Start: 06/19/18 16:23 Freq: Status: Active Protocol: Document 06/19/18 11:15 AMB (Rec: 06/20/18 07:28 AMB [email or web address]) Manual Assessments Joint Mobility Assessment Joint Mobility Assessment Stiffness with PAs throughout thoracic spine, more mobility in lumbar spine. Stiffness in scapulothoracic joint L>R. Stiffness at GH joint at end range flexion. PT-OP-J Posture/Palpation/Skin Start: 06/19/18 16:23 Freq: Status: Active Protocol: Document 06/19/18 11:15 AMB (Rec: 06/20/18 07:28 AMB [email or web address]) Posture Evaluation Comments Posture Comments Pt stands with excessive lumbar lordosis, increased thoracic kyphosis with forward shoulders, tends to stand on one leg or the other and hang on Y ligaments. Palpation Assessment Location One Palpation Findings Soft Tissue Tightness Spasm Muscle Guarding Tenderness Trigger Point Palpation Details lower trapezius, subscapularis , infraspinatus all with active trigger points. PT-OP-K Range of Motion Start: 12/03/17 07:05 Freq: Status: Active Protocol: Document 06/19/18 11:15 AMB (Rec: 06/20/18 12:57 AMB [email or web address]) Lumbar Spine Range of Motion Lumbar Spine Active Degrees Testing Position Standing Flexion 50 Extension 10 PT-OP-M Strength Start: 12/03/17 07:05 Freq: Status: Active Protocol: Document 06/19/18 11:15 AMB (Rec: 06/20/18 15:52 AMB [email or web address]) Shoulder Strength Shoulder Manual Muscle Testing Right Flexion 4 Good Extension 4 Good Abduction (C5) 4+ Good+ External Rotation 4+ Good+ Internal Rotation 4+ Good+ Left Flexion 4 Good Extension 3 Fair Abduction (C5) 4 Good External Rotation 4 Good Internal Rotation 4 Good PT-OP-Q Treatments Start: 10/22/17 15:21 Freq: Status: Active Protocol: Document 07/15/18 15:36 AMB (Rec: 07/15/18 15:42 AMB [email or web address]) Gym Equipment Cable Column (Body Solid) Lat Pull Down Resistance 10 Reps/Time 2x10 Therapeutic Exercises Supine Exercises 2 Supine Exercise Name half foam roll Comments shoulder flexion, horiz abduct Manual Therapy Treatment Soft Tissue Mobilization 3 Body Location TrP release with shoulder abd. Mobilization Type Trigger Point Release Intensity/Depth Moderate Body Position Prone Comments lower trap, infraspinatus 1 Body Location Bilat scapula Mobilization Type Myofascial Release Rolling Intensity/Depth Moderate Body Position Sidelying Comments focus on infraspinatus, subscapularis Joint Mobilizations 3 Joint scapulothoracic Direction all planes Grade II Comments sidelying 1 Joint T-spine Direction PA Grade IV Body Position Prone PT-OP-R Modalities Start: 11/21/17 15:49 Freq: Status: Active Protocol: Document 11/21/17 14:30 AMB (Rec: 11/21/17 15:56 AMB [email or web address]) Ultrasound Therapy Treatment Left Upper Back Treatment Duration (minutes) 7 Patient Position Prone Coupling Medium Ultrasound Gel Frequency Setting (mHz) 1 Mode Setting Continuous Intensity Setting (w/cm2) 1.5 PT-OP-T Assessment and Plan Start: 10/22/17 15:21 Freq: Status: Active Protocol: Document 07/15/18 15:36 AMB (Rec: 07/15/18 15:42 AMB [email or web address]) Physical Therapy Assessment Assessment Summary Assessment T-spine and R levator scap more of an issue. Problem solved getting kids into car and out of car, avoiding twisting to get seatbelts on. Physical Therapy Plan Next Visit Focus/Plan Next Note Type Treatment Note Next Visit Plan Progress lower trap strength, scapulothoracic mobility.
--- NOTE | 2018-07-22 15:20 | PT.OTN ---
Current Diagnoses Pain in left shoulder (07/22/18) Low back pain (07/22/18) Physical Therapy Treatment Note PT-OP-A Visit Information Start: 10/22/17 15:21 Freq: Status: Active Protocol: Document 07/22/18 13:00 AMB (Rec: 07/22/18 13:13 AMB [id number]) Out-Patient Physical Therapy Visit Information Visit Information Visit Type Treatment Note Visit Start Time 13:00 Visit Stop Time 13:45 Total Visit Minutes 45 Visit Number 58 PT-OP-B Current Condition Start: 06/19/18 16:23 Freq: Status: Active Protocol: Document 06/19/18 11:15 AMB (Rec: 06/20/18 07:28 AMB [email or web address]) Current Condition History of Current Condition Onset Date chronic Current Complaints L scapular pain, neck pain, back pain History of Current Condition The patient reports years of pain, worse with caring for his 3 young children. 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 He returns to physical therapy with a new script from his PCP for the above impairments. 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 PT-OP-F Manual Assessment Start: 06/19/18 16:23 Freq: Status: Active Protocol: Document 06/19/18 11:15 AMB (Rec: 06/20/18 07:28 AMB [email or web address]) Manual Assessments Joint Mobility Assessment Joint Mobility Assessment Stiffness with PAs throughout thoracic spine, more mobility in lumbar spine. Stiffness in scapulothoracic joint L>R. Stiffness at GH joint at end range flexion. PT-OP-J Posture/Palpation/Skin Start: 06/19/18 16:23 Freq: Status: Active Protocol: Document 06/19/18 11:15 AMB (Rec: 06/20/18 07:28 AMB [email or web address]) Posture Evaluation Comments Posture Comments Pt stands with excessive lumbar lordosis, increased thoracic kyphosis with forward shoulders, tends to stand on one leg or the other and hang on Y ligaments. Palpation Assessment Location One Palpation Findings Soft Tissue Tightness Spasm Muscle Guarding Tenderness Trigger Point Palpation Details lower trapezius, subscapularis , infraspinatus all with active trigger points. PT-OP-K Range of Motion Start: 12/03/17 07:05 Freq: Status: Active Protocol: Document 06/19/18 11:15 AMB (Rec: 06/20/18 12:57 AMB [email or web address]) Lumbar Spine Range of Motion Lumbar Spine Active Degrees Testing Position Standing Flexion 50 Extension 10 PT-OP-M Strength Start: 12/03/17 07:05 Freq: Status: Active Protocol: Document 06/19/18 11:15 AMB (Rec: 06/20/18 15:52 AMB [email or web address]) Shoulder Strength Shoulder Manual Muscle Testing Right Flexion 4 Good Extension 4 Good Abduction (C5) 4+ Good+ External Rotation 4+ Good+ Internal Rotation 4+ Good+ Left Flexion 4 Good Extension 3 Fair Abduction (C5) 4 Good External Rotation 4 Good Internal Rotation 4 Good PT-OP-Q Treatments Start: 10/22/17 15:21 Freq: Status: Active Protocol: Document 07/22/18 13:00 AMB (Rec: 07/22/18 15:20 AMB [email or web address]) Gym Equipment Cable Column (Body Solid) Lat Pull Down Resistance 10 Reps/Time 2x10 Therapeutic Exercises Supine Exercises 2 Supine Exercise Name half foam roll Comments shoulder flexion, horiz abduct Standing Exercises 4 Standing Exercise Name shoulder ER Resistance #2 t band Reps/Minutes 1x10 ea side 1 Standing Exercise Name abduction Side bilateral Comments with back against wall Other Exercises 2 Other Exercise Name jerry pose Reps/Minutes 30x2 Comments with adduction (thread needle) 1 Other Exercise Name cat cow Comments 10 Manual Therapy Treatment Soft Tissue Mobilization 3 Body Location TrP release with shoulder abd. Mobilization Type Trigger Point Release Intensity/Depth Moderate Body Position Prone Comments lower trap, infraspinatus 1 Body Location Bilat scapula Mobilization Type Myofascial Release Rolling Intensity/Depth Moderate Body Position Sidelying Comments focus on infraspinatus, subscapularis Joint Mobilizations 4 Joint GH into ER Comments with scapular stabilization 3 Joint scapulothoracic Direction all planes Grade II Comments sidelying 1 Joint T-spine Direction PA Grade IV Body Position Prone PT-OP-R Modalities Start: 11/21/17 15:49 Freq: Status: Active Protocol: Document 11/21/17 14:30 AMB (Rec: 11/21/17 15:56 AMB [email or web address]) Ultrasound Therapy Treatment Left Upper Back Treatment Duration (minutes) 7 Patient Position Prone Coupling Medium Ultrasound Gel Frequency Setting (mHz) 1 Mode Setting Continuous Intensity Setting (w/cm2) 1.5 PT-OP-T Assessment and Plan Start: 10/22/17 15:21 Freq: Status: Active Protocol: Document 07/22/18 13:00 AMB (Rec: 07/22/18 15:20 AMB [email or web address]) Physical Therapy Assessment Assessment Summary Assessment R scap and T spine better today, but L scap remained painful and weak. Physical Therapy Plan Next Visit Focus/Plan Next Note Type Treatment Note Next Visit Plan Progress lower trap strength, scapulothoracic mobility, try to increase lat pull down resistance.
--- NOTE | 2018-07-24 14:51 | PT.OTN ---
Current Diagnoses Pain in left shoulder (07/24/18) Low back pain (07/24/18) Physical Therapy Treatment Note PT-OP-A Visit Information Start: 10/22/17 15:21 Freq: Status: Active Protocol: Document 07/24/18 13:00 AMB (Rec: 07/24/18 13:23 AMB [id number]) Out-Patient Physical Therapy Visit Information Visit Information Visit Type Treatment Note Visit Start Time 13:00 Visit Stop Time 13:45 Total Visit Minutes 45 Visit Number 59 PT-OP-B Current Condition Start: 06/19/18 16:23 Freq: Status: Active Protocol: Document 06/19/18 11:15 AMB (Rec: 06/20/18 07:28 AMB [email or web address]) Current Condition History of Current Condition Onset Date chronic Current Complaints L scapular pain, neck pain, back pain History of Current Condition The patient reports years of pain, worse with caring for his 3 young children. 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 He returns to physical therapy with a new script from his PCP for the above impairments. 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 PT-OP-F Manual Assessment Start: 06/19/18 16:23 Freq: Status: Active Protocol: Document 06/19/18 11:15 AMB (Rec: 06/20/18 07:28 AMB [email or web address]) Manual Assessments Joint Mobility Assessment Joint Mobility Assessment Stiffness with PAs throughout thoracic spine, more mobility in lumbar spine. Stiffness in scapulothoracic joint L>R. Stiffness at GH joint at end range flexion. PT-OP-J Posture/Palpation/Skin Start: 06/19/18 16:23 Freq: Status: Active Protocol: Document 06/19/18 11:15 AMB (Rec: 06/20/18 07:28 AMB [email or web address]) Posture Evaluation Comments Posture Comments Pt stands with excessive lumbar lordosis, increased thoracic kyphosis with forward shoulders, tends to stand on one leg or the other and hang on Y ligaments. Palpation Assessment Location One Palpation Findings Soft Tissue Tightness Spasm Muscle Guarding Tenderness Trigger Point Palpation Details lower trapezius, subscapularis , infraspinatus all with active trigger points. PT-OP-K Range of Motion Start: 12/03/17 07:05 Freq: Status: Active Protocol: Document 06/19/18 11:15 AMB (Rec: 06/20/18 12:57 AMB [email or web address]) Lumbar Spine Range of Motion Lumbar Spine Active Degrees Testing Position Standing Flexion 50 Extension 10 PT-OP-M Strength Start: 12/03/17 07:05 Freq: Status: Active Protocol: Document 06/19/18 11:15 AMB (Rec: 06/20/18 15:52 AMB [email or web address]) Shoulder Strength Shoulder Manual Muscle Testing Right Flexion 4 Good Extension 4 Good Abduction (C5) 4+ Good+ External Rotation 4+ Good+ Internal Rotation 4+ Good+ Left Flexion 4 Good Extension 3 Fair Abduction (C5) 4 Good External Rotation 4 Good Internal Rotation 4 Good PT-OP-Q Treatments Start: 10/22/17 15:21 Freq: Status: Active Protocol: Document 07/24/18 13:00 AMB (Rec: 07/24/18 14:51 AMB [email or web address]) Gym Equipment Cable Column (Body Solid) Lat Pull Down Resistance 20 Reps/Time 2x10 Therapeutic Exercises Supine Exercises 1 Supine Exercise Name shoulder flexion stretch Comments passive Prone Exercises 1 Prone Exercise Name Ws Resistance AROM only Standing Exercises 3 Standing Exercise Name wall walk on forearms Resistance yellow tband Manual Therapy Treatment Soft Tissue Mobilization 3 Body Location TrP release with shoulder abd. Mobilization Type Trigger Point Release Intensity/Depth Moderate Body Position Prone Comments lower trap, infraspinatus 1 Body Location Bilat scapula Mobilization Type Myofascial Release Rolling Intensity/Depth Moderate Body Position Sidelying Comments focus on infraspinatus, subscapularis Joint Mobilizations 3 Joint scapulothoracic Direction all planes Grade II Comments sidelying PT-OP-R Modalities Start: 11/21/17 15:49 Freq: Status: Active Protocol: Document 11/21/17 14:30 AMB (Rec: 05/31/18 15:56 AMB [email or web address]) Ultrasound Therapy Treatment Left Upper Back Treatment Duration (minutes) 7 Patient Position Prone Coupling Medium Ultrasound Gel Frequency Setting (mHz) 1 Mode Setting Continuous Intensity Setting (w/cm2) 1.5 PT-OP-T Assessment and Plan Start: 10/22/17 15:21 Freq: Status: Active Protocol: Document 07/24/18 13:00 AMB (Rec: 07/24/18 14:51 AMB [email or web address]) Physical Therapy Assessment Assessment Summary Assessment Pt continue to have weak lower trap, but is tolerating increased resistance. Physical Therapy Plan Next Visit Focus/Plan Next Note Type Treatment Note Next Visit Plan Progress lower trap strength, scapulothoracic mobility, try to increase lat pull down resistance.
--- NOTE | 2018-07-29 15:56 | PT.OTN ---
Current Diagnoses Pain in left shoulder (07/29/18) Low back pain (07/29/18) Physical Therapy Treatment Note PT-OP-A Visit Information Start: 10/22/17 15:21 Freq: Status: Active Protocol: Document 07/29/18 13:00 AMB (Rec: 07/29/18 15:55 AMB [email or web address]) Out-Patient Physical Therapy Visit Information Visit Information Visit Type Treatment Note Visit Start Time 13:00 Visit Stop Time 13:45 Total Visit Minutes 45 Visit Number 60 PT-OP-B Current Condition Start: 06/19/18 16:23 Freq: Status: Active Protocol: Document 06/19/18 11:15 AMB (Rec: 06/20/18 07:28 AMB [email or web address]) Current Condition History of Current Condition Onset Date chronic Current Complaints L scapular pain, neck pain, back pain History of Current Condition The patient reports years of pain, worse with caring for his 3 young children. 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 He returns to physical therapy with a new script from his PCP for the above impairments. 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 12/01 currently. PT-OP-F Manual Assessment Start: 06/19/18 16:23 Freq: Status: Active Protocol: Document 06/19/18 11:15 AMB (Rec: 06/20/18 07:28 AMB [email or web address]) Manual Assessments Joint Mobility Assessment Joint Mobility Assessment Stiffness with PAs throughout thoracic spine, more mobility in lumbar spine. Stiffness in scapulothoracic joint L>R. Stiffness at GH joint at end range flexion. PT-OP-J Posture/Palpation/Skin Start: 06/19/18 16:23 Freq: Status: Active Protocol: Document 06/19/18 11:15 AMB (Rec: 06/20/18 07:28 AMB [email or web address]) Posture Evaluation Comments Posture Comments Pt stands with excessive lumbar lordosis, increased thoracic kyphosis with forward shoulders, tends to stand on one leg or the other and hang on Y ligaments. Palpation Assessment Location One Palpation Findings Soft Tissue Tightness Spasm Muscle Guarding Tenderness Trigger Point Palpation Details lower trapezius, subscapularis , infraspinatus all with active trigger points. PT-OP-K Range of Motion Start: 12/03/17 07:05 Freq: Status: Active Protocol: Document 06/19/18 11:15 AMB (Rec: 06/20/18 12:57 AMB [email or web address]) Lumbar Spine Range of Motion Lumbar Spine Active Degrees Testing Position Standing Flexion 50 Extension 10 PT-OP-M Strength Start: 12/03/17 07:05 Freq: Status: Active Protocol: Document 06/19/18 11:15 AMB (Rec: 06/20/18 15:52 AMB [email or web address]) Shoulder Strength Shoulder Manual Muscle Testing Right Flexion 4 Good Extension 4 Good Abduction (C5) 4+ Good+ External Rotation 4+ Good+ Internal Rotation 4+ Good+ Left Flexion 4 Good Extension 3 Fair Abduction (C5) 4 Good External Rotation 4 Good Internal Rotation 4 Good PT-OP-Q Treatments Start: 10/22/17 15:21 Freq: Status: Active Protocol: Document 07/29/18 13:00 AMB (Rec: 07/29/18 15:55 AMB [email or web address]) Therapeutic Exercises Supine Exercises 2 Supine Exercise Name half foam roll Comments shoulder flexion, horiz abduct 1 Supine Exercise Name shoulder flexion stretch Comments passive Manual Therapy Treatment Soft Tissue Mobilization 2 Body Location pectoralis major Comments intercostals, subclavius (R) Joint Mobilizations 3 Joint scapulothoracic Direction all planes Grade II Comments sidelying PT-OP-R Modalities Start: 11/21/17 15:49 Freq: Status: Active Protocol: Document 11/21/17 14:30 AMB (Rec: 11/21/17 15:56 AMB [email or web address]) Ultrasound Therapy Treatment Left Upper Back Treatment Duration (minutes) 7 Patient Position Prone Coupling Medium Ultrasound Gel Frequency Setting (mHz) 1 Mode Setting Continuous Intensity Setting (w/cm2) 1.5 PT-OP-T Assessment and Plan Start: 10/22/17 15:21 Freq: Status: Active Protocol: Document 07/29/18 13:00 AMB (Rec: 07/29/18 15:55 AMB [email or web address]) Physical Therapy Assessment Assessment Summary Assessment Pt with more rihgt sided pain today. [place] that pain was likely from resisted ER against wall, but not sure how he was compensating to use pecs to do that exercise. after manual therapy. Physical Therapy Plan Next Visit Focus/Plan Next Note Type Treatment Note Next Visit Plan Progress lower trap strength, scapulothoracic mobility, try to increase lat pull down resistance.
--- NOTE | 2018-07-31 16:10 | PT.OTN ---
Current Diagnoses Pain in left shoulder (07/31/18) Low back pain (07/31/18) Physical Therapy Treatment Note PT-OP-A Visit Information Start: 10/22/17 15:21 Freq: Status: Active Protocol: Document 07/31/18 13:00 AMB (Rec: 07/31/18 13:11 AMB [id number]) Out-Patient Physical Therapy Visit Information Visit Information Visit Type Treatment Note Visit Start Time 13:00 Visit Stop Time 13:45 Total Visit Minutes 45 Visit Number 61 PT-OP-B Current Condition Start: 06/19/18 16:23 Freq: Status: Active Protocol: Document 06/19/18 11:15 AMB (Rec: 06/20/18 07:28 AMB [email or web address]) Current Condition History of Current Condition Onset Date chronic Current Complaints L scapular pain, neck pain, back pain History of Current Condition The patient reports years of pain, worse with caring for his 3 young children. 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 He returns to physical therapy with a new script from his PCP for the above impairments. 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 PT-OP-F Manual Assessment Start: 06/19/18 16:23 Freq: Status: Active Protocol: Document 06/19/18 11:15 AMB (Rec: 06/20/18 07:28 AMB [email or web address]) Manual Assessments Joint Mobility Assessment Joint Mobility Assessment Stiffness with PAs throughout thoracic spine, more mobility in lumbar spine. Stiffness in scapulothoracic joint L>R. Stiffness at GH joint at end range flexion. PT-OP-J Posture/Palpation/Skin Start: 06/19/18 16:23 Freq: Status: Active Protocol: Document 06/19/18 11:15 AMB (Rec: 06/20/18 07:28 AMB [email or web address]) Posture Evaluation Comments Posture Comments Pt stands with excessive lumbar lordosis, increased thoracic kyphosis with forward shoulders, tends to stand on one leg or the other and hang on Y ligaments. Palpation Assessment Location One Palpation Findings Soft Tissue Tightness Spasm Muscle Guarding Tenderness Trigger Point Palpation Details lower trapezius, subscapularis , infraspinatus all with active trigger points. PT-OP-K Range of Motion Start: 12/03/17 07:05 Freq: Status: Active Protocol: Document 06/19/18 11:15 AMB (Rec: 06/20/18 12:57 AMB [email or web address]) Lumbar Spine Range of Motion Lumbar Spine Active Degrees Testing Position Standing Flexion 50 Extension 10 PT-OP-M Strength Start: 12/03/17 07:05 Freq: Status: Active Protocol: Document 06/19/18 11:15 AMB (Rec: 06/20/18 15:52 AMB [email or web address]) Shoulder Strength Shoulder Manual Muscle Testing Right Flexion 4 Good Extension 4 Good Abduction (C5) 4+ Good+ External Rotation 4+ Good+ Internal Rotation 4+ Good+ Left Flexion 4 Good Extension 3 Fair Abduction (C5) 4 Good External Rotation 4 Good Internal Rotation 4 Good PT-OP-Q Treatments Start: 10/22/17 15:21 Freq: Status: Active Protocol: Document 07/31/18 13:00 AMB (Rec: 07/31/18 16:09 AMB [email or web address]) Therapeutic Exercises Supine Exercises 2 Supine Exercise Name half foam roll Comments shoulder flexion, horiz abduct 1 Supine Exercise Name shoulder flexion stretch Comments passive Manual Therapy Treatment Soft Tissue Mobilization 3 Body Location TrP release with shoulder abd. Mobilization Type Trigger Point Release Intensity/Depth Moderate Body Position Prone Comments lower trap, infraspinatus 1 Body Location Bilat scapula Mobilization Type Myofascial Release Rolling Intensity/Depth Moderate Body Position Sidelying Comments focus on infraspinatus, subscapularis Joint Mobilizations 3 Joint scapulothoracic Direction all planes Grade II Comments sidelying PT-OP-R Modalities Start: 11/21/17 15:49 Freq: Status: Active Protocol: Document 11/21/17 14:30 AMB (Rec: 11/21/17 15:56 AMB [email or web address]) Ultrasound Therapy Treatment Left Upper Back Treatment Duration (minutes) 7 Patient Position Prone Coupling Medium Ultrasound Gel Frequency Setting (mHz) 1 Mode Setting Continuous Intensity Setting (w/cm2) 1.5 PT-OP-T Assessment and Plan Start: 10/22/17 15:21 Freq: Status: Active Protocol: Document 07/31/18 13:00 AMB (Rec: 07/31/18 16:09 AMB [email or web address]) Physical Therapy Assessment Assessment Summary Assessment levator scap and UT overactive on L today. Pt's posture continues to exacerbate pain symptoms. Physical Therapy Plan Next Visit Focus/Plan Next Note Type Treatment Note Next Visit Plan Progress lower trap strength, scapulothoracic mobility, try to increase lat pull down resistance.
--- NOTE | 2018-08-07 14:00 | PT.OTN ---
Current Diagnoses Pain in left shoulder (08/07/18) Low back pain (08/07/18) Physical Therapy Treatment Note PT-OP-A Visit Information Start: 10/22/17 15:21 Freq: Status: Active Protocol: Document 08/07/18 13:45 AMB (Rec: 08/07/18 13:59 AMB [id number]) Out-Patient Physical Therapy Visit Information Visit Information Visit Type Treatment Note Visit Start Time 13:00 Visit Stop Time 13:45 Total Visit Minutes 45 Visit Number 62 PT-OP-B Current Condition Start: 06/19/18 16:23 Freq: Status: Active Protocol: Document 06/19/18 11:15 AMB (Rec: 06/20/18 07:28 AMB [email or web address]) Current Condition History of Current Condition Onset Date chronic Current Complaints L scapular pain, neck pain, back pain History of Current Condition The patient reports years of pain, worse with caring for his 3 young children. 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 He returns to physical therapy with a new script from his PCP for the above impairments. 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 PT-OP-F Manual Assessment Start: 06/19/18 16:23 Freq: Status: Active Protocol: Document 06/19/18 11:15 AMB (Rec: 06/20/18 07:28 AMB [email or web address]) Manual Assessments Joint Mobility Assessment Joint Mobility Assessment Stiffness with PAs throughout thoracic spine, more mobility in lumbar spine. Stiffness in scapulothoracic joint L>R. Stiffness at GH joint at end range flexion. PT-OP-J Posture/Palpation/Skin Start: 06/19/18 16:23 Freq: Status: Active Protocol: Document 06/19/18 11:15 AMB (Rec: 06/20/18 07:28 AMB [email or web address]) Posture Evaluation Comments Posture Comments Pt stands with excessive lumbar lordosis, increased thoracic kyphosis with forward shoulders, tends to stand on one leg or the other and hang on Y ligaments. Palpation Assessment Location One Palpation Findings Soft Tissue Tightness Spasm Muscle Guarding Tenderness Trigger Point Palpation Details lower trapezius, subscapularis , infraspinatus all with active trigger points. PT-OP-K Range of Motion Start: 12/03/17 07:05 Freq: Status: Active Protocol: Document 06/19/18 11:15 AMB (Rec: 06/20/18 12:57 AMB [email or web address]) Lumbar Spine Range of Motion Lumbar Spine Active Degrees Testing Position Standing Flexion 50 Extension 10 PT-OP-M Strength Start: 12/03/17 07:05 Freq: Status: Active Protocol: Document 06/19/18 11:15 AMB (Rec: 06/20/18 15:52 AMB [email or web address]) Shoulder Strength Shoulder Manual Muscle Testing Right Flexion 4 Good Extension 4 Good Abduction (C5) 4+ Good+ External Rotation 4+ Good+ Internal Rotation 4+ Good+ Left Flexion 4 Good Extension 3 Fair Abduction (C5) 4 Good External Rotation 4 Good Internal Rotation 4 Good PT-OP-Q Treatments Start: 10/22/17 15:21 Freq: Status: Active Protocol: Document 08/07/18 13:45 AMB (Rec: 08/07/18 13:59 AMB [id number]) Manual Therapy Treatment Soft Tissue Mobilization 3 Body Location TrP release with shoulder abd. Mobilization Type Trigger Point Release Intensity/Depth Moderate Body Position Prone Comments lower trap, infraspinatus 1 Body Location Bilat scapula Mobilization Type Myofascial Release Rolling Intensity/Depth Moderate Body Position Sidelying Comments focus on infraspinatus, subscapularis Joint Mobilizations 3 Joint scapulothoracic Direction all planes Grade II Comments sidelying 1 Joint T-spine Direction PA Grade IV Body Position Prone PT-OP-R Modalities Start: 11/21/17 15:49 Freq: Status: Active Protocol: Document 11/21/17 14:30 AMB (Rec: 11/21/17 15:56 AMB [email or web address]) Ultrasound Therapy Treatment Left Upper Back Treatment Duration (minutes) 7 Patient Position Prone Coupling Medium Ultrasound Gel Frequency Setting (mHz) 1 Mode Setting Continuous Intensity Setting (w/cm2) 1.5 PT-OP-T Assessment and Plan Start: 10/22/17 15:21 Freq: Status: Active Protocol: Document 08/07/18 13:45 AMB (Rec: 08/07/18 13:59 AMB [id number]) Physical Therapy Assessment Assessment Summary Assessment Pt with pain in R paraspinals today, likely due to his extended shoveling. Overall pt continues to feel much better than he used to, where the left parascapular muscles are the main issues instead of everything from his low back to his neck, as it used to be. Physical Therapy Plan Next Visit Focus/Plan Next Note Type Treatment Note Next Visit Plan Progress lower trap strength, scapulothoracic mobility, try to increase lat pull down resistance.
--- NOTE | 2018-08-13 10:03 | PT.OTN ---
Current Diagnoses Pain in left shoulder (08/12/18) Low back pain (08/12/18) Physical Therapy Treatment Note PT-OP-A Visit Information Start: 10/22/17 15:21 Freq: Status: Active Protocol: Document 08/12/18 13:00 AMB (Rec: 08/13/18 10:03 AMB [email or web address]) Out-Patient Physical Therapy Visit Information Visit Information Visit Type Treatment Note Visit Start Time 13:00 Visit Stop Time 13:45 Total Visit Minutes 45 Visit Number 63 PT-OP-B Current Condition Start: 06/19/18 16:23 Freq: Status: Active Protocol: Document 06/19/18 11:15 AMB (Rec: 06/20/18 07:28 AMB [email or web address]) Current Condition History of Current Condition Onset Date chronic Current Complaints L scapular pain, neck pain, back pain History of Current Condition The patient reports years of pain, worse with caring for his 3 young children. 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 He returns to physical therapy with a new script from his PCP for the above impairments. 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 PT-OP-F Manual Assessment Start: 06/19/18 16:23 Freq: Status: Active Protocol: Document 06/19/18 11:15 AMB (Rec: 06/20/18 07:28 AMB [email or web address]) Manual Assessments Joint Mobility Assessment Joint Mobility Assessment Stiffness with PAs throughout thoracic spine, more mobility in lumbar spine. Stiffness in scapulothoracic joint L>R. Stiffness at GH joint at end range flexion. PT-OP-J Posture/Palpation/Skin Start: 06/19/18 16:23 Freq: Status: Active Protocol: Document 06/19/18 11:15 AMB (Rec: 06/20/18 07:28 AMB [email or web address]) Posture Evaluation Comments Posture Comments Pt stands with excessive lumbar lordosis, increased thoracic kyphosis with forward shoulders, tends to stand on one leg or the other and hang on Y ligaments. Palpation Assessment Location One Palpation Findings Soft Tissue Tightness Spasm Muscle Guarding Tenderness Trigger Point Palpation Details lower trapezius, subscapularis , infraspinatus all with active trigger points. PT-OP-K Range of Motion Start: 12/03/17 07:05 Freq: Status: Active Protocol: Document 06/19/18 11:15 AMB (Rec: 06/20/18 12:57 AMB [email or web address]) Lumbar Spine Range of Motion Lumbar Spine Active Degrees Testing Position Standing Flexion 50 Extension 10 PT-OP-M Strength Start: 12/03/17 07:05 Freq: Status: Active Protocol: Document 06/19/18 11:15 AMB (Rec: 06/20/18 15:52 AMB [email or web address]) Shoulder Strength Shoulder Manual Muscle Testing Right Flexion 4 Good Extension 4 Good Abduction (C5) 4+ Good+ External Rotation 4+ Good+ Internal Rotation 4+ Good+ Left Flexion 4 Good Extension 3 Fair Abduction (C5) 4 Good External Rotation 4 Good Internal Rotation 4 Good PT-OP-Q Treatments Start: 10/22/17 15:21 Freq: Status: Active Protocol: Document 08/12/18 13:00 AMB (Rec: 08/13/18 10:03 AMB [email or web address]) Gym Equipment Cable Column (Body Solid) Rows Resistance 20 Reps/Time 2x10 Lat Pull Down Resistance 20 Reps/Time 2x10 Therapeutic Exercises Supine Exercises 2 Supine Exercise Name half foam roll Comments shoulder flexion, horiz abduct 1 Supine Exercise Name shoulder flexion stretch Comments passive Manual Therapy Treatment Soft Tissue Mobilization 3 Body Location TrP release with shoulder abd. Mobilization Type Trigger Point Release Intensity/Depth Moderate Body Position Prone Comments lower trap, infraspinatus 1 Body Location Bilat scapula Mobilization Type Myofascial Release Rolling Intensity/Depth Moderate Body Position Sidelying Comments focus on infraspinatus, subscapularis Joint Mobilizations 3 Joint scapulothoracic Direction all planes Grade II Comments sidelying 1 Joint T-spine Direction PA Grade IV Body Position Prone PT-OP-R Modalities Start: 11/21/17 15:49 Freq: Status: Active Protocol: Document 11/21/17 14:30 AMB (Rec: 11/21/17 15:56 AMB [email or web address]) Ultrasound Therapy Treatment Left Upper Back Treatment Duration (minutes) 7 Patient Position Prone Coupling Medium Ultrasound Gel Frequency Setting (mHz) 1 Mode Setting Continuous Intensity Setting (w/cm2) 1.5 PT-OP-T Assessment and Plan Start: 10/22/17 15:21 Freq: Status: Active Protocol: Document 08/12/18 13:00 AMB (Rec: 08/13/18 10:03 AMB [email or web address]) Physical Therapy Assessment Assessment Summary Assessment Pt tolerated increased reps well. 3/10 pain after manual. Physical Therapy Plan Next Visit Focus/Plan Next Note Type Treatment Note Next Visit Plan Progress lower trap strength, scapulothoracic mobility, try to increase lat pull down resistance.
--- NOTE | 2018-08-14 15:55 | PT.OTN ---
Current Diagnoses Pain in left shoulder (08/14/18) Low back pain (08/14/18) Physical Therapy Treatment Note PT-OP-A Visit Information Start: 10/22/17 15:21 Freq: Status: Active Protocol: Document 08/14/18 13:00 AMB (Rec: 08/14/18 13:46 AMB [id number]) Out-Patient Physical Therapy Visit Information Visit Information Visit Type Treatment Note Visit Start Time 13:00 Visit Stop Time 13:45 Total Visit Minutes 45 Visit Number 64 PT-OP-B Current Condition Start: 06/19/18 16:23 Freq: Status: Active Protocol: Document 06/19/18 11:15 AMB (Rec: 06/20/18 07:28 AMB [email or web address]) Current Condition History of Current Condition Onset Date chronic Current Complaints L scapular pain, neck pain, back pain History of Current Condition The patient reports years of pain, worse with caring for his 3 young children. 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 He returns to physical therapy with a new script from his PCP for the above impairments. 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 [employer] tryouts are tonight. PT-OP-F Manual Assessment Start: 06/19/18 16:23 Freq: Status: Active Protocol: Document 06/19/18 11:15 AMB (Rec: 06/20/18 07:28 AMB [email or web address]) Manual Assessments Joint Mobility Assessment Joint Mobility Assessment Stiffness with PAs throughout thoracic spine, more mobility in lumbar spine. Stiffness in scapulothoracic joint L>R. Stiffness at GH joint at end range flexion. PT-OP-J Posture/Palpation/Skin Start: 06/19/18 16:23 Freq: Status: Active Protocol: Document 06/19/18 11:15 AMB (Rec: 06/20/18 07:28 AMB [email or web address]) Posture Evaluation Comments Posture Comments Pt stands with excessive lumbar lordosis, increased thoracic kyphosis with forward shoulders, tends to stand on one leg or the other and hang on Y ligaments. Palpation Assessment Location One Palpation Findings Soft Tissue Tightness Spasm Muscle Guarding Tenderness Trigger Point Palpation Details lower trapezius, subscapularis , infraspinatus all with active trigger points. PT-OP-K Range of Motion Start: 12/03/17 07:05 Freq: Status: Active Protocol: Document 06/19/18 11:15 AMB (Rec: 06/20/18 12:57 AMB [email or web address]) Lumbar Spine Range of Motion Lumbar Spine Active Degrees Testing Position Standing Flexion 50 Extension 10 PT-OP-M Strength Start: 12/03/17 07:05 Freq: Status: Active Protocol: Document 06/19/18 11:15 AMB (Rec: 06/20/18 15:52 AMB [email or web address]) Shoulder Strength Shoulder Manual Muscle Testing Right Flexion 4 Good Extension 4 Good Abduction (C5) 4+ Good+ External Rotation 4+ Good+ Internal Rotation 4+ Good+ Left Flexion 4 Good Extension 3 Fair Abduction (C5) 4 Good External Rotation 4 Good Internal Rotation 4 Good PT-OP-Q Treatments Start: 10/22/17 15:21 Freq: Status: Active Protocol: Document 08/14/18 13:00 AMB (Rec: 08/14/18 15:53 AMB [email or web address]) Gym Equipment Cable Column (Body Solid) Rows Resistance 20 Reps/Time 1x10 Lat Pull Down Resistance 20 Reps/Time 2x10 Therapeutic Exercises Supine Exercises 2 Supine Exercise Name full foam roll Comments shoulder flexion, horiz abduct 1 Supine Exercise Name shoulder flexion stretch Comments passive Sidelying Exercises 2 Sidelying Exercise Name [id number] with manual resistance 1 Sidelying Exercise Name ER with manual resistance Manual Therapy Treatment Soft Tissue Mobilization 3 Body Location TrP release with shoulder abd. Mobilization Type Trigger Point Release Intensity/Depth Moderate Body Position Prone Comments lower trap, infraspinatus 1 Body Location Bilat scapula Mobilization Type Myofascial Release Rolling Intensity/Depth Moderate Body Position Sidelying Comments focus on infraspinatus, subscapularis Joint Mobilizations 3 Joint scapulothoracic Direction all planes Grade II Comments sidelying PT-OP-R Modalities Start: 11/21/17 15:49 Freq: Status: Active Protocol: Document 11/21/17 14:30 AMB (Rec: 11/21/17 15:56 AMB [email or web address]) Ultrasound Therapy Treatment Left Upper Back Treatment Duration (minutes) 7 Patient Position Prone Coupling Medium Ultrasound Gel Frequency Setting (mHz) 1 Mode Setting Continuous Intensity Setting (w/cm2) 1.5 PT-OP-T Assessment and Plan Start: 10/22/17 15:21 Freq: Status: Active Protocol: Document 08/14/18 13:00 AMB (Rec: 08/14/18 15:54 AMB [email or web address]) Physical Therapy Assessment Assessment Summary Assessment Pt is tolerating exercises well, although will have to recheck after [employer] tryouts. Physical Therapy Plan Next Visit Focus/Plan Next Note Type Treatment Note Next Visit Plan Progress lower trap strength, scapulothoracic mobility, try to increase lat pull down resistance.
--- NOTE | 2018-08-20 15:34 | PT.OTN ---
Current Diagnoses Pain in left shoulder (08/19/18) Low back pain (08/19/18) Physical Therapy Treatment Note PT-OP-A Visit Information Start: 10/22/17 15:21 Freq: Status: Active Protocol: Document 08/19/18 13:00 AMB (Rec: 08/19/18 13:13 AMB [id number]) Out-Patient Physical Therapy Visit Information Visit Information Visit Type Treatment Note Visit Start Time 13:00 Visit Stop Time 13:45 Total Visit Minutes 45 Visit Number 65 PT-OP-B Current Condition Start: 06/19/18 16:23 Freq: Status: Active Protocol: Document 06/19/18 11:15 AMB (Rec: 06/20/18 07:28 AMB [email or web address]) Current Condition History of Current Condition Onset Date chronic Current Complaints L scapular pain, neck pain, back pain History of Current Condition The patient reports years of pain, worse with caring for his 3 young children. 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 He returns to physical therapy with a new script from his PCP for the above impairments. 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 PT-OP-F Manual Assessment Start: 06/19/18 16:23 Freq: Status: Active Protocol: Document 06/19/18 11:15 AMB (Rec: 06/20/18 07:28 AMB [email or web address]) Manual Assessments Joint Mobility Assessment Joint Mobility Assessment Stiffness with PAs throughout thoracic spine, more mobility in lumbar spine. Stiffness in scapulothoracic joint L>R. Stiffness at GH joint at end range flexion. PT-OP-J Posture/Palpation/Skin Start: 06/19/18 16:23 Freq: Status: Active Protocol: Document 06/19/18 11:15 AMB (Rec: 06/20/18 07:28 AMB [email or web address]) Posture Evaluation Comments Posture Comments Pt stands with excessive lumbar lordosis, increased thoracic kyphosis with forward shoulders, tends to stand on one leg or the other and hang on Y ligaments. Palpation Assessment Location One Palpation Findings Soft Tissue Tightness Spasm Muscle Guarding Tenderness Trigger Point Palpation Details lower trapezius, subscapularis , infraspinatus all with active trigger points. PT-OP-K Range of Motion Start: 12/03/17 07:05 Freq: Status: Active Protocol: Document 06/19/18 11:15 AMB (Rec: 06/20/18 12:57 AMB [email or web address]) Lumbar Spine Range of Motion Lumbar Spine Active Degrees Testing Position Standing Flexion 50 Extension 10 PT-OP-M Strength Start: 12/03/17 07:05 Freq: Status: Active Protocol: Document 06/19/18 11:15 AMB (Rec: 06/20/18 15:52 AMB [email or web address]) Shoulder Strength Shoulder Manual Muscle Testing Right Flexion 4 Good Extension 4 Good Abduction (C5) 4+ Good+ External Rotation 4+ Good+ Internal Rotation 4+ Good+ Left Flexion 4 Good Extension 3 Fair Abduction (C5) 4 Good External Rotation 4 Good Internal Rotation 4 Good PT-OP-Q Treatments Start: 10/22/17 15:21 Freq: Status: Active Protocol: Document 08/19/18 13:00 AMB (Rec: 08/20/18 15:32 AMB [email or web address]) Gym Equipment Cable Column (Body Solid) Rows Resistance 20 Reps/Time 1x10 Lat Pull Down Resistance 20 Reps/Time 2x10 Therapeutic Exercises Supine Exercises 1 Supine Exercise Name shoulder flexion stretch Comments passive Sidelying Exercises 2 Sidelying Exercise Name [id number] with manual resistance 1 Sidelying Exercise Name ER with manual resistance Manual Therapy Treatment Soft Tissue Mobilization 3 Body Location TrP release with shoulder abd. Mobilization Type Trigger Point Release Intensity/Depth Moderate Body Position Prone Comments lower trap, infraspinatus 1 Body Location Bilat scapula Mobilization Type Myofascial Release Rolling Intensity/Depth Moderate Body Position Sidelying Comments focus on infraspinatus, subscapularis Joint Mobilizations 3 Joint scapulothoracic Direction all planes Grade II Comments sidelying 1 Joint T-spine Direction PA Grade IV Body Position Prone PT-OP-R Modalities Start: 11/21/17 15:49 Freq: Status: Active Protocol: Document 11/21/17 14:30 AMB (Rec: 11/21/17 15:56 AMB [email or web address]) Ultrasound Therapy Treatment Left Upper Back Treatment Duration (minutes) 7 Patient Position Prone Coupling Medium Ultrasound Gel Frequency Setting (mHz) 1 Mode Setting Continuous Intensity Setting (w/cm2) 1.5 PT-OP-T Assessment and Plan Start: 10/22/17 15:21 Freq: Status: Active Protocol: Document 08/19/18 13:00 AMB (Rec: 08/20/18 15:32 AMB [email or web address]) Physical Therapy Assessment Assessment Summary Assessment Pt tolerated exercises well today. Physical Therapy Plan Next Visit Focus/Plan Next Note Type Treatment Note Next Visit Plan Progress lower trap strength, scapulothoracic mobility, try to increase lat pull down resistance.
--- NOTE | 2018-08-26 16:19 | PT.OTN ---
Current Diagnoses Pain in left shoulder (08/26/18) Low back pain (08/26/18) Physical Therapy Treatment Note PT-OP-A Visit Information Start: 10/22/17 15:21 Freq: Status: Active Protocol: Document 08/26/18 13:00 AMB (Rec: 08/26/18 16:19 AMB [email or web address]) Out-Patient Physical Therapy Visit Information Visit Information Visit Type Treatment Note Visit Start Time 13:00 Visit Stop Time 13:45 Total Visit Minutes 45 Visit Number 66 PT-OP-B Current Condition Start: 06/19/18 16:23 Freq: Status: Active Protocol: Document 06/19/18 11:15 AMB (Rec: 06/20/18 07:28 AMB [email or web address]) Current Condition History of Current Condition Onset Date chronic Current Complaints L scapular pain, neck pain, back pain History of Current Condition The patient reports years of pain, worse with caring for his 3 young children. 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 He returns to physical therapy with a new script from his PCP for the above impairments. 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 He is doing about the same. PT-OP-F Manual Assessment Start: 06/19/18 16:23 Freq: Status: Active Protocol: Document 06/19/18 11:15 AMB (Rec: 06/20/18 07:28 AMB [email or web address]) Manual Assessments Joint Mobility Assessment Joint Mobility Assessment Stiffness with PAs throughout thoracic spine, more mobility in lumbar spine. Stiffness in scapulothoracic joint L>R. Stiffness at GH joint at end range flexion. PT-OP-J Posture/Palpation/Skin Start: 06/19/18 16:23 Freq: Status: Active Protocol: Document 06/19/18 11:15 AMB (Rec: 06/20/18 07:28 AMB [email or web address]) Posture Evaluation Comments Posture Comments Pt stands with excessive lumbar lordosis, increased thoracic kyphosis with forward shoulders, tends to stand on one leg or the other and hang on Y ligaments. Palpation Assessment Location One Palpation Findings Soft Tissue Tightness Spasm Muscle Guarding Tenderness Trigger Point Palpation Details lower trapezius, subscapularis , infraspinatus all with active trigger points. PT-OP-K Range of Motion Start: 12/03/17 07:05 Freq: Status: Active Protocol: Document 06/19/18 11:15 AMB (Rec: 06/20/18 12:57 AMB [email or web address]) Lumbar Spine Range of Motion Lumbar Spine Active Degrees Testing Position Standing Flexion 50 Extension 10 PT-OP-M Strength Start: 12/03/17 07:05 Freq: Status: Active Protocol: Document 06/19/18 11:15 AMB (Rec: 06/20/18 15:52 AMB [email or web address]) Shoulder Strength Shoulder Manual Muscle Testing Right Flexion 4 Good Extension 4 Good Abduction (C5) 4+ Good+ External Rotation 4+ Good+ Internal Rotation 4+ Good+ Left Flexion 4 Good Extension 3 Fair Abduction (C5) 4 Good External Rotation 4 Good Internal Rotation 4 Good PT-OP-Q Treatments Start: 10/22/17 15:21 Freq: Status: Active Protocol: Document 08/26/18 13:00 AMB (Rec: 08/26/18 16:19 AMB [email or web address]) Therapeutic Exercises Supine Exercises 2 Supine Exercise Name full foam roll Comments shoulder flexion, horiz abduct Prone Exercises 5 Prone Exercise Name W, Y Reps/Minutes 10 ea Sidelying Exercises 3 Sidelying Exercise Name scap protract/retract with manual resistance 1 Sidelying Exercise Name ER with manual resistance Manual Therapy Treatment Soft Tissue Mobilization 3 Body Location TrP release with shoulder abd. Mobilization Type Trigger Point Release Intensity/Depth Moderate Body Position Prone Comments lower trap, infraspinatus 1 Body Location Bilat scapula Mobilization Type Myofascial Release Rolling Intensity/Depth Moderate Body Position Sidelying Comments focus on infraspinatus, subscapularis Joint Mobilizations 3 Joint scapulothoracic Direction all planes Grade II Comments sidelying PT-OP-R Modalities Start: 11/21/17 15:49 Freq: Status: Active Protocol: Document 11/21/17 14:30 AMB (Rec: 11/21/17 15:56 AMB [email or web address]) Ultrasound Therapy Treatment Left Upper Back Treatment Duration (minutes) 7 Patient Position Prone Coupling Medium Ultrasound Gel Frequency Setting (mHz) 1 Mode Setting Continuous Intensity Setting (w/cm2) 1.5 PT-OP-T Assessment and Plan Start: 10/22/17 15:21 Freq: Status: Active Protocol: Document 08/26/18 13:00 AMB (Rec: 08/26/18 16:19 AMB [email or web address]) Physical Therapy Assessment Assessment Summary Assessment Posture continues to show increased kyphosis, but pt with better awareness. Physical Therapy Plan Next Visit Focus/Plan Next Note Type Treatment Note Next Visit Plan Progress lower trap strength, scapulothoracic mobility, try to increase lat pull down resistance.
--- NOTE | 2018-08-28 15:04 | PT.OTN ---
Current Diagnoses Pain in left shoulder (08/28/18) Low back pain (08/28/18) Physical Therapy Treatment Note PT-OP-A Visit Information Start: 10/22/17 15:21 Freq: Status: Active Protocol: Document 08/28/18 13:00 AMB (Rec: 08/28/18 13:46 AMB [email or web address]) Out-Patient Physical Therapy Visit Information Visit Information Visit Type Treatment Note Visit Start Time 13:10 Visit Stop Time 13:45 Total Visit Minutes 35 Visit Number [id number] PT-OP-B Current Condition Start: 06/19/18 16:23 Freq: Status: Active Protocol: Document 06/19/18 11:15 AMB (Rec: 06/20/18 07:28 AMB [email or web address]) Current Condition History of Current Condition Onset Date chronic Current Complaints L scapular pain, neck pain, back pain History of Current Condition The patient reports years of pain, worse with caring for his 3 young children. 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 He returns to physical therapy with a new script from his PCP for the above impairments. 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 PT-OP-F Manual Assessment Start: 06/19/18 16:23 Freq: Status: Active Protocol: Document 06/19/18 11:15 AMB (Rec: 06/20/18 07:28 AMB [email or web address]) Manual Assessments Joint Mobility Assessment Joint Mobility Assessment Stiffness with PAs throughout thoracic spine, more mobility in lumbar spine. Stiffness in scapulothoracic joint L>R. Stiffness at GH joint at end range flexion. PT-OP-J Posture/Palpation/Skin Start: 06/19/18 16:23 Freq: Status: Active Protocol: Document 06/19/18 11:15 AMB (Rec: 06/20/18 07:28 AMB [email or web address]) Posture Evaluation Comments Posture Comments Pt stands with excessive lumbar lordosis, increased thoracic kyphosis with forward shoulders, tends to stand on one leg or the other and hang on Y ligaments. Palpation Assessment Location One Palpation Findings Soft Tissue Tightness Spasm Muscle Guarding Tenderness Trigger Point Palpation Details lower trapezius, subscapularis , infraspinatus all with active trigger points. PT-OP-K Range of Motion Start: 12/03/17 07:05 Freq: Status: Active Protocol: Document 06/19/18 11:15 AMB (Rec: 06/20/18 12:57 AMB [email or web address]) Lumbar Spine Range of Motion Lumbar Spine Active Degrees Testing Position Standing Flexion 50 Extension 10 PT-OP-M Strength Start: 12/03/17 07:05 Freq: Status: Active Protocol: Document 06/19/18 11:15 AMB (Rec: 06/20/18 15:52 AMB [email or web address]) Shoulder Strength Shoulder Manual Muscle Testing Right Flexion 4 Good Extension 4 Good Abduction (C5) 4+ Good+ External Rotation 4+ Good+ Internal Rotation 4+ Good+ Left Flexion 4 Good Extension 3 Fair Abduction (C5) 4 Good External Rotation 4 Good Internal Rotation 4 Good PT-OP-Q Treatments Start: 10/22/17 15:21 Freq: Status: Active Protocol: Document 08/28/18 13:00 AMB (Rec: 08/28/18 15:04 AMB [email or web address]) Gym Equipment Cable Column (Body Solid) Rows Resistance 20 Reps/Time 2x10 Lat Pull Down Resistance 20 Reps/Time 2x10 Therapeutic Exercises Sidelying Exercises 4 Sidelying Exercise Name shoulder abd Resistance AROM Reps/Minutes 1x10 1 Sidelying Exercise Name ER with manual resistance Reps/Minutes 2x10 Manual Therapy Treatment Soft Tissue Mobilization 3 Body Location TrP release with shoulder abd. Mobilization Type Trigger Point Release Intensity/Depth Moderate Body Position Prone Comments lower trap, infraspinatus 1 Body Location Bilat scapula Mobilization Type Myofascial Release Rolling Intensity/Depth Moderate Body Position Sidelying Comments focus on infraspinatus, subscapularis Joint Mobilizations 3 Joint scapulothoracic Direction all planes Grade II Comments sidelying PT-OP-R Modalities Start: 11/21/17 15:49 Freq: Status: Active Protocol: Document 11/21/17 14:30 AMB (Rec: 11/21/17 15:56 AMB [email or web address]) Ultrasound Therapy Treatment Left Upper Back Treatment Duration (minutes) 7 Patient Position Prone Coupling Medium Ultrasound Gel Frequency Setting (mHz) 1 Mode Setting Continuous Intensity Setting (w/cm2) 1.5 PT-OP-T Assessment and Plan Start: 10/22/17 15:21 Freq: Status: Active Protocol: Document 08/28/18 13:00 AMB (Rec: 08/28/18 15:04 AMB [email or web address]) Physical Therapy Assessment Assessment Summary Assessment Pt's overall pain is improving , but continues to over utilize upper trap with lifting Physical Therapy Plan Next Visit Focus/Plan Next Note Type Treatment Note Next Visit Plan Progress lower trap strength, scapulothoracic mobility, try to increase lat pull down resistance.
--- NOTE | 2018-09-04 15:16 | PT.OTN ---
Current Diagnoses Pain in left shoulder (09/04/18) Low back pain (09/04/18) Physical Therapy Treatment Note PT-OP-A Visit Information Start: 10/22/17 15:21 Freq: Status: Active Protocol: Document 09/04/18 13:00 AMB (Rec: 09/04/18 15:12 AMB [email or web address]) Out-Patient Physical Therapy Visit Information Visit Information Visit Type Treatment Note Visit Start Time 13:00 Visit Stop Time 13:45 Total Visit Minutes 45 Visit Number 68 PT-OP-B Current Condition Start: 06/19/18 16:23 Freq: Status: Active Protocol: Document 06/19/18 11:15 AMB (Rec: 06/20/18 07:28 AMB [email or web address]) Current Condition History of Current Condition Onset Date chronic Current Complaints L scapular pain, neck pain, back pain History of Current Condition The patient reports years of pain, worse with caring for his 3 young children. 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 He returns to physical therapy with a new script from his PCP for the above impairments. 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 PT-OP-F Manual Assessment Start: 06/19/18 16:23 Freq: Status: Active Protocol: Document 06/19/18 11:15 AMB (Rec: 06/20/18 07:28 AMB [email or web address]) Manual Assessments Joint Mobility Assessment Joint Mobility Assessment Stiffness with PAs throughout thoracic spine, more mobility in lumbar spine. Stiffness in scapulothoracic joint L>R. Stiffness at GH joint at end range flexion. PT-OP-J Posture/Palpation/Skin Start: 06/19/18 16:23 Freq: Status: Active Protocol: Document 06/19/18 11:15 AMB (Rec: 06/20/18 07:28 AMB [email or web address]) Posture Evaluation Comments Posture Comments Pt stands with excessive lumbar lordosis, increased thoracic kyphosis with forward shoulders, tends to stand on one leg or the other and hang on Y ligaments. Palpation Assessment Location One Palpation Findings Soft Tissue Tightness Spasm Muscle Guarding Tenderness Trigger Point Palpation Details lower trapezius, subscapularis , infraspinatus all with active trigger points. PT-OP-K Range of Motion Start: 12/03/17 07:05 Freq: Status: Active Protocol: Document 06/19/18 11:15 AMB (Rec: 06/20/18 12:57 AMB [email or web address]) Lumbar Spine Range of Motion Lumbar Spine Active Degrees Testing Position Standing Flexion 50 Extension 10 PT-OP-M Strength Start: 12/03/17 07:05 Freq: Status: Active Protocol: Document 06/19/18 11:15 AMB (Rec: 06/20/18 15:52 AMB [email or web address]) Shoulder Strength Shoulder Manual Muscle Testing Right Flexion 4 Good Extension 4 Good Abduction (C5) 4+ Good+ External Rotation 4+ Good+ Internal Rotation 4+ Good+ Left Flexion 4 Good Extension 3 Fair Abduction (C5) 4 Good External Rotation 4 Good Internal Rotation 4 Good PT-OP-Q Treatments Start: 10/22/17 15:21 Freq: Status: Active Protocol: Document 09/04/18 13:00 AMB (Rec: 09/04/18 15:12 AMB [email or web address]) Therapeutic Exercises Supine Exercises 2 Supine Exercise Name full foam roll Comments shoulder flexion, horiz abduct Sidelying Exercises 4 Sidelying Exercise Name shoulder abd Resistance AROM Reps/Minutes 1x10 1 Sidelying Exercise Name ER with manual resistance Reps/Minutes 2x10 Manual Therapy Treatment Soft Tissue Mobilization 3 Body Location TrP release with shoulder abd. Mobilization Type Trigger Point Release Intensity/Depth Moderate Body Position Prone Comments lower trap, infraspinatus 1 Body Location Bilat scapula Mobilization Type Myofascial Release Rolling Intensity/Depth Moderate Body Position Sidelying Comments focus on infraspinatus, subscapularis Joint Mobilizations 3 Joint scapulothoracic Direction all planes Grade II Comments sidelying PT-OP-R Modalities Start: 11/21/17 15:49 Freq: Status: Active Protocol: Document 11/21/17 14:30 AMB (Rec: 11/21/17 15:56 AMB [email or web address]) Ultrasound Therapy Treatment Left Upper Back Treatment Duration (minutes) 7 Patient Position Prone Coupling Medium Ultrasound Gel Frequency Setting (mHz) 1 Mode Setting Continuous Intensity Setting (w/cm2) 1.5 PT-OP-T Assessment and Plan Start: 10/22/17 15:21 Freq: Status: Active Protocol: Document 09/04/18 13:00 AMB (Rec: 09/04/18 15:12 AMB [email or web address]) Physical Therapy Assessment Assessment Summary Assessment Pt's pain continues to improve , but postural habits tend to flare pain between visits. Physical Therapy Plan Next Visit Focus/Plan Next Note Type Progress Note Next Visit Plan Progress lower trap strength, scapulothoracic mobility, try to increase lat pull down resistance.
--- NOTE | 2018-09-09 15:13 | PT.OPPOC ---
Current Diagnoses Pain in left shoulder (09/09/18) Low back pain (09/09/18) Provider Visit Care Team Role Provider Type Dorina Jin MD Attending Provider Physician Family Provider Primary Care Provider Specialty: Family Practice Address: [address] [place] [address], [facility] Email: [email or web address] Plan Of Care PT-OP-T Assessment and Plan Start: 10/22/17 15:21 Freq: Status: Active Protocol: Document 09/09/18 13:13 BS (Rec: 09/09/18 14:43 BS [email or web address]) Physical Therapy Assessment Goals 4 Impairment Sleep Short Term Goal (STG) The patient will sleep for 5 hours using pillow props. NOT MET STG Duration 6 weeks Guidance Adviser Goal (LTG) The patient will be independent with a core and scapular stabilization HEP to reduce his pain overall. Progressing Toward. LTG Duration 12 weeks 3 Impairment Lifting/carrying Short Term Goal (STG) The patient will lift his youngest child into her carseat with good body mechanics and pain of 2/10 or less. Progressing toward. STG Duration 6 weeks Residential Goal (LTG) The patient will lift dishes overhead to put them in a tall cabinet without an increase in pain. INTERMITENTLY MET LTG Duration 12 weeks 2 Impairment Posture Short Term Goal (STG) The patient will sit with appropriate posture for 45 minutes with 2/10 pain. NOT MET STG Duration 6 weeks Guidance Adviser Goal (LTG) The patient will stand for 10 minutes with good posture without an increase in baseline pain. NOT MET LTG Duration 12 weeks 1 Impairment ROM Short Term Goal (STG) The patient will improve his lumbar AROM to Extension: 20 degrees, Flexion 50 derees, Sidebending bilateral: 25 degrees without an increase in pain. Not assessed. STG Duration 6 weeks Residential Goal (LTG) The patient will increase his left shoulder AROM to 160 degrees of flexion and abduction. Intermittently Met. LTG Duration 12 weeks Assessment Summary Assessment Pt continues to report slight improvements in L periscapular pain. Pt notes increased symptoms following prolonged time typing on computer. Educated pt on ergonomics and avoiding leaning on L shoulder when sitting at desk. Physical Therapy Plan Frequency and Duration Frequency of Treatment 2x/Week Duration of Treatment 8 weeks Plan of Care Start Date 09/09/18 Plan of Care End Date 11/05/18 Therapeutic Interventions Therapeutic Interventions Aquatic Therapy Home Exercise Program Joint Mobilizations Manual Therapy Neuromuscular Re-education Self-Care/Home Management Soft Tissue Mobilization Taping Therapeutic Activities Therapeutic Exercises Modalities Cold Pack/Ice Massage Hot Packs Next Visit Focus/Plan Next Visit Plan Progress scapular strengthening and scapulothoracic mechanics as tolerated. Continue to work on correct form with prone Gloria RiosT . Plan of Care Dates Plan of Care Start Date 09/09/18 Plan of Care End Date 11/05/18 Please Sign and Return: I have reviewed this Plan of Care and certify that the skilled therapy services above are required to meet the patient?s needs. Physician Signature Date Printed Name and Credentials Clinical Instructor Signature Printed Name and Credentials
--- NOTE | 2018-09-09 15:14 | PT.OTN ---
Current Diagnoses Pain in left shoulder (09/09/18) Low back pain (09/09/18) Physical Therapy Treatment Note PT-OP-A Visit Information Start: 10/22/17 15:21 Freq: Status: Active Protocol: Document 09/09/18 13:13 BS (Rec: 09/09/18 14:43 BS [email or web address]) Out-Patient Physical Therapy Visit Information Visit Information Visit Start Time 13:00 Visit Stop Time 13:43 Total Visit Minutes 43 Visit Number 69 PT-OP-B Current Condition Start: 06/19/18 16:23 Freq: Status: Active Protocol: Document 06/19/18 11:15 AMB (Rec: 06/20/18 07:28 AMB [email or web address]) Current Condition History of Current Condition Onset Date chronic Current Complaints L scapular pain, neck pain, back pain History of Current Condition The patient reports years of pain, worse with caring for his 3 young children. 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 He returns to physical therapy with a new script from his PCP for the above impairments. 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 Has spent more time on the computer recently which has contributed to more L shoulder blade pain. PT-OP-F Manual Assessment Start: 06/19/18 16:23 Freq: Status: Active Protocol: Document 06/19/18 11:15 AMB (Rec: 06/20/18 07:28 AMB [email or web address]) Manual Assessments Joint Mobility Assessment Joint Mobility Assessment Stiffness with PAs throughout thoracic spine, more mobility in lumbar spine. Stiffness in scapulothoracic joint L>R. Stiffness at GH joint at end range flexion. PT-OP-J Posture/Palpation/Skin Start: 06/19/18 16:23 Freq: Status: Active Protocol: Document 06/19/18 11:15 AMB (Rec: 06/20/18 07:28 AMB [email or web address]) Posture Evaluation Comments Posture Comments Pt stands with excessive lumbar lordosis, increased thoracic kyphosis with forward shoulders, tends to stand on one leg or the other and hang on Y ligaments. Palpation Assessment Location One Palpation Findings Soft Tissue Tightness Spasm Muscle Guarding Tenderness Trigger Point Palpation Details lower trapezius, subscapularis , infraspinatus all with active trigger points. PT-OP-K Range of Motion Start: 12/03/17 07:05 Freq: Status: Active Protocol: Document 09/09/18 13:13 AMB (Rec: 09/09/18 13:15 AMB [id number]) Shoulder Goniometric Range of Motion Shoulder Measured in Degrees Right Shoulder ROM WFL Yes Flexion 160 External Rotation at 90 degrees 55 Abduction Left Active Flexion 145 External Rotation at 0 degrees Abduction 60 PT-OP-M Strength Start: 12/03/17 07:05 Freq: Status: Active Protocol: Document 09/09/18 13:13 AMB (Rec: 09/09/18 13:17 AMB [id number]) Shoulder Strength Shoulder Manual Muscle Testing Left Flexion 4+ Good+ Extension 5 Normal Abduction (C5) 4 Good External Rotation 4- Good- Internal Rotation 4+ Good+ Comments L pericscapular pain with L ER MMT PT-OP-Q Treatments Start: 10/22/17 15:21 Freq: Status: Active Protocol: Document 09/09/18 13:13 BS (Rec: 09/09/18 14:43 BS [email or web address]) Gym Equipment Cable Column (Body Solid) Rows Resistance 20 Reps/Time 2x10 Lat Pull Down Resistance 20 Reps/Time 2x10 Therapeutic Exercises Supine Exercises 1 Supine Exercise Name Rythmic Stabilization, flexion /abd/add Side left Resistance manual Reps/Minutes x20 each Prone Exercises 1 Prone Exercise Name I, Y, T Side left Reps/Minutes x10 each Comments poor scapular mechanics Sidelying Exercises 4 Sidelying Exercise Name shoulder abd Resistance AROM Reps/Minutes 1x10 1 Sidelying Exercise Name ER with manual resistance Reps/Minutes x10 Manual Therapy Treatment Soft Tissue Mobilization 3 Body Location Trigger point release Mobilization Type Trigger Point Release Intensity/Depth Moderate Body Position Prone Comments infraspinatus 1 Body Location L Periscapula Mobilization Type Myofascial Release Intensity/Depth Moderate Body Position Prone Comments subscapularis, infraspinatus Joint Mobilizations 1 Joint Scapulothoracic mobilization with movement Direction upward rotation, retraction Grade III Body Position R sidelyin Comments Scapular mobilizations/upward rotation with sidelying L shoulder abduction, ER PT-OP-R Modalities Start: 11/21/17 15:49 Freq: Status: Active Protocol: Document 11/21/17 14:30 AMB (Rec: 11/21/17 15:56 AMB [email or web address]) Ultrasound Therapy Treatment Left Upper Back Treatment Duration (minutes) 7 Patient Position Prone Coupling Medium Ultrasound Gel Frequency Setting (mHz) 1 Mode Setting Continuous Intensity Setting (w/cm2) 1.5 PT-OP-T Assessment and Plan Start: 10/22/17 15:21 Freq: Status: Active Protocol: Document 09/09/18 13:13 BS (Rec: 09/09/18 14:43 BS [email or web address]) Physical Therapy Assessment Goals 4 Impairment Sleep Short Term Goal (STG) The patient will sleep for 5 hours using pillow props. NOT MET STG Duration 6 weeks Skilled Nursing Goal (LTG) The patient will be independent with a core and scapular stabilization HEP to reduce his pain overall. Progressing Toward. LTG Duration 12 weeks 3 Impairment Lifting/carrying Short Term Goal (STG) The patient will lift his youngest child into her carseat with good body mechanics and pain of 2/10 or less. Progressing toward. STG Duration 6 weeks Skilled Nursing Goal (LTG) The patient will lift dishes overhead to put them in a tall cabinet without an increase in pain. INTERMITENTLY MET LTG Duration 12 weeks 2 Impairment Posture Short Term Goal (STG) The patient will sit with appropriate posture for 45 minutes with 2/10 pain. NOT MET STG Duration 6 weeks Skilled Nursing Goal (LTG) The patient will stand for 10 minutes with good posture without an increase in baseline pain. NOT MET LTG Duration 12 weeks 1 Impairment ROM Short Term Goal (STG) The patient will improve his lumbar AROM to Extension: 20 degrees, Flexion 50 derees, Sidebending bilateral: 25 degrees without an increase in pain. Not assessed. STG Duration 6 weeks Skilled Nursing Goal (LTG) The patient will increase his left shoulder AROM to 160 degrees of flexion and abduction. Intermittently Met. LTG Duration 12 weeks Assessment Summary Assessment Pt continues to report slight improvements in L periscapular pain. Pt notes increased symptoms following prolonged time typing on computer. Educated pt on ergonomics and avoiding leaning on L shoulder when sitting at desk. Physical Therapy Plan Frequency and Duration Frequency of Treatment 2x/Week Duration of Treatment 8 weeks Plan of Care Start Date 09/09/18 Plan of Care End Date 11/05/18 Therapeutic Interventions Therapeutic Interventions Aquatic Therapy Home Exercise Program Joint Mobilizations Manual Therapy Neuromuscular Re-education Self-Care/Home Management Soft Tissue Mobilization Taping Therapeutic Activities Therapeutic Exercises Modalities Cold Pack/Ice Massage Hot Packs Next Visit Focus/Plan Next Visit Plan Progress scapular strengthening and scapulothoracic mechanics as tolerated. Continue to work on correct form with prone IY,T .
--- NOTE | 2018-09-16 16:00 | PT.OTN ---
Current Diagnoses Pain in left shoulder (09/16/18) Low back pain (09/16/18) Physical Therapy Treatment Note PT-OP-A Visit Information Start: 10/22/17 15:21 Freq: Status: Active Protocol: Document 09/16/18 13:00 AMB (Rec: 09/16/18 16:44 AMB [email or web address]) Out-Patient Physical Therapy Visit Information Visit Information Visit Type Treatment Note Visit Start Time 13:00 Visit Stop Time 13:45 Total Visit Minutes 45 Visit Number 70 PT-OP-B Current Condition Start: 06/19/18 16:23 Freq: Status: Active Protocol: Document 06/19/18 11:15 AMB (Rec: 06/20/18 07:28 AMB [email or web address]) Current Condition History of Current Condition Onset Date chronic Current Complaints L scapular pain, neck pain, back pain History of Current Condition The patient reports years of pain, worse with caring for his 3 young children. 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 He returns to physical therapy with a new script from his PCP for the above impairments. 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 PT-OP-F Manual Assessment Start: 06/19/18 16:23 Freq: Status: Active Protocol: Document 06/19/18 11:15 AMB (Rec: 06/20/18 07:28 AMB [email or web address]) Manual Assessments Joint Mobility Assessment Joint Mobility Assessment Stiffness with PAs throughout thoracic spine, more mobility in lumbar spine. Stiffness in scapulothoracic joint L>R. Stiffness at GH joint at end range flexion. PT-OP-J Posture/Palpation/Skin Start: 06/19/18 16:23 Freq: Status: Active Protocol: Document 06/19/18 11:15 AMB (Rec: 06/20/18 07:28 AMB [email or web address]) Posture Evaluation Comments Posture Comments Pt stands with excessive lumbar lordosis, increased thoracic kyphosis with forward shoulders, tends to stand on one leg or the other and hang on Y ligaments. Palpation Assessment Location One Palpation Findings Soft Tissue Tightness Spasm Muscle Guarding Tenderness Trigger Point Palpation Details lower trapezius, subscapularis , infraspinatus all with active trigger points. PT-OP-K Range of Motion Start: 12/03/17 07:05 Freq: Status: Active Protocol: Document 09/09/18 13:13 AMB (Rec: 09/09/18 13:15 AMB [id number]) Shoulder Goniometric Range of Motion Shoulder Measured in Degrees Right Shoulder ROM WFL Yes Flexion 160 External Rotation at 90 degrees 55 Abduction Left Active Flexion 145 External Rotation at 0 degrees Abduction 60 PT-OP-M Strength Start: 12/03/17 07:05 Freq: Status: Active Protocol: Document 09/09/18 13:13 AMB (Rec: 09/09/18 13:17 AMB [id number]) Shoulder Strength Shoulder Manual Muscle Testing Left Flexion 4+ Good+ Extension 5 Normal Abduction (C5) 4 Good External Rotation 4- Good- Internal Rotation 4+ Good+ Comments L pericscapular pain with L ER MMT PT-OP-Q Treatments Start: 10/22/17 15:21 Freq: Status: Active Protocol: Document 09/16/18 13:00 AMB (Rec: 09/17/18 07:29 AMB [email or web address]) Gym Equipment Cable Column (Body Solid) Rows Resistance 20 Reps/Time 2x10 Lat Pull Down Resistance 20 Reps/Time 2x10 Therapeutic Exercises Supine Exercises 2 Supine Exercise Name full foam roll Comments shoulder flexion, horiz abduct Sidelying Exercises 4 Sidelying Exercise Name shoulder abd Resistance AROM Reps/Minutes 1x10 Manual Therapy Treatment Soft Tissue Mobilization 3 Body Location Trigger point release Mobilization Type Trigger Point Release Intensity/Depth Moderate Body Position Prone Comments infraspinatus 1 Body Location L Periscapula Mobilization Type Myofascial Release Intensity/Depth Moderate Body Position Prone Comments subscapularis, infraspinatus Joint Mobilizations 1 Joint Scapulothoracic mobilization with movement Direction upward rotation, retraction Grade III Body Position R sidelyin Comments Scapular mobilizations/upward rotation with sidelying L shoulder abduction, ER PT-OP-R Modalities Start: 11/21/17 15:49 Freq: Status: Active Protocol: Document 11/21/17 14:30 AMB (Rec: 11/21/17 15:56 AMB [email or web address]) Ultrasound Therapy Treatment Left Upper Back Treatment Duration (minutes) 7 Patient Position Prone Coupling Medium Ultrasound Gel Frequency Setting (mHz) 1 Mode Setting Continuous Intensity Setting (w/cm2) 1.5 PT-OP-T Assessment and Plan Start: 10/22/17 15:21 Freq: Status: Active Protocol: Document 09/16/18 13:00 AMB (Rec: 09/17/18 07:29 AMB [email or web address]) Physical Therapy Assessment Assessment Summary Assessment Pt more painful today due to poor posture while working at computer for extended period of time, despite extensive education in ways to avoid this. Physical Therapy Plan Next Visit Focus/Plan Next Note Type Treatment Note Next Visit Plan Progress scapular strengthening and scapulothoracic mechanics as tolerated. Continue to work on correct form with prone I,Y,T .
--- NOTE | 2018-09-18 15:57 | PT.OTN ---
Current Diagnoses Pain in left shoulder (09/18/18) Low back pain (09/18/18) Physical Therapy Treatment Note PT-OP-A Visit Information Start: 10/22/17 15:21 Freq: Status: Active Protocol: Document 09/18/18 12:59 BS (Rec: 09/18/18 13:49 BS [id number]) Out-Patient Physical Therapy Visit Information Visit Information Visit Type Treatment Note Visit Start Time 13:00 Visit Stop Time 13:38 Total Visit Minutes 38 Visit Number 71 PT-OP-B Current Condition Start: 06/19/18 16:23 Freq: Status: Active Protocol: Document 06/19/18 11:15 AMB (Rec: 06/20/18 07:28 AMB [email or web address]) Current Condition History of Current Condition Onset Date chronic Current Complaints L scapular pain, neck pain, back pain History of Current Condition The patient reports years of pain, worse with caring for his 3 young children. 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 He returns to physical therapy with a new script from his PCP for the above impairments. 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 He will be moving boxes this upcoming . PT-OP-F Manual Assessment Start: 06/19/18 16:23 Freq: Status: Active Protocol: Document 06/19/18 11:15 AMB (Rec: 06/20/18 07:28 AMB [email or web address]) Manual Assessments Joint Mobility Assessment Joint Mobility Assessment Stiffness with PAs throughout thoracic spine, more mobility in lumbar spine. Stiffness in scapulothoracic joint L>R. Stiffness at GH joint at end range flexion. PT-OP-J Posture/Palpation/Skin Start: 06/19/18 16:23 Freq: Status: Active Protocol: Document 06/19/18 11:15 AMB (Rec: 06/20/18 07:28 AMB [email or web address]) Posture Evaluation Comments Posture Comments Pt stands with excessive lumbar lordosis, increased thoracic kyphosis with forward shoulders, tends to stand on one leg or the other and hang on Y ligaments. Palpation Assessment Location One Palpation Findings Soft Tissue Tightness Spasm Muscle Guarding Tenderness Trigger Point Palpation Details lower trapezius, subscapularis , infraspinatus all with active trigger points. PT-OP-K Range of Motion Start: 12/03/17 07:05 Freq: Status: Active Protocol: Document 09/09/18 13:13 AMB (Rec: 09/09/18 13:15 AMB [id number]) Shoulder Goniometric Range of Motion Shoulder Measured in Degrees Right Shoulder ROM WFL Yes Flexion 160 External Rotation at 90 degrees 55 Abduction Left Active Flexion 145 External Rotation at 0 degrees Abduction 60 PT-OP-M Strength Start: 12/03/17 07:05 Freq: Status: Active Protocol: Document 09/09/18 13:13 AMB (Rec: 09/09/18 13:17 AMB [id number]) Shoulder Strength Shoulder Manual Muscle Testing Left Flexion 4+ Good+ Extension 5 Normal Abduction (C5) 4 Good External Rotation 4- Good- Internal Rotation 4+ Good+ Comments L pericscapular pain with L ER MMT PT-OP-Q Treatments Start: 10/22/17 15:21 Freq: Status: Active Protocol: Document 09/18/18 12:59 BS (Rec: 09/18/18 13:49 BS [id number]) Gym Equipment Cable Column (Body Solid) Rows Resistance 20 Reps/Time x25 Lat Pull Down Resistance 20 Reps/Time x25 Therapeutic Exercises Supine Exercises 2 Supine Exercise Name full foam roll Reps/Minutes 2x45 stretch, x10 reps Comments pec stretch, B shoulder abduction Prone Exercises 5 Prone Exercise Name Cat/Cow Reps/Minutes x15 Comments VCs thoracic extension 4 Prone Exercise Name Thread the needle Side bilateral Reps/Minutes x12 each Comments L scapular pain w/ LUE weightbearing 2 Prone Exercise Name prone rows Side bilateral Resistance 3# Reps/Minutes 2x8 Comments VCs for form 1 Prone Exercise Name I, Y, T Side bilateral Reps/Minutes x12 each Comments VCs for scapular activation Sidelying Exercises 4 Sidelying Exercise Name shoulder abd Side left Resistance AROM Reps/Minutes 2x8 Standing Exercises 1 Standing Exercise Name wall pushups Reps/Minutes 2x8 Comments 2nd set w/ pushup plus Manual Therapy Treatment Soft Tissue Mobilization 3 Body Location Trigger point release Mobilization Type Trigger Point Release Intensity/Depth Moderate Body Position Prone Comments infraspinatus, subscapularis 1 Body Location L Periscapula Mobilization Type Myofascial Release Intensity/Depth Moderate Body Position R Sidelying Comments teres major/minor Joint Mobilizations 1 Joint Scapulothoracic mobilization with movement Direction upward rotation Grade III Body Position RSidelying Comments Scapular mobilizations/upward rotation with sidelying L shoulder abduction PT-OP-R Modalities Start: 11/21/17 15:49 Freq: Status: Active Protocol: Document 11/21/17 14:30 AMB (Rec: 11/21/17 15:56 AMB [email or web address]) Ultrasound Therapy Treatment Left Upper Back Treatment Duration (minutes) 7 Patient Position Prone Coupling Medium Ultrasound Gel Frequency Setting (mHz) 1 Mode Setting Continuous Intensity Setting (w/cm2) 1.5 PT-OP-T Assessment and Plan Start: 10/22/17 15:21 Freq: Status: Active Protocol: Document 09/18/18 12:59 BS (Rec: 09/18/18 15:35 BS [email or web address]) Physical Therapy Assessment Assessment Summary Assessment Slight progression of scapular strengthening today, which was tolerated well by pt. Physical Therapy Plan Next Visit Focus/Plan Next Note Type Treatment Note Next Visit Plan Progress scapular strengthening as tolerated by pt. Trial scapular clocks with tband.
--- NOTE | 2018-09-23 14:11 | PT.OTN ---
Current Diagnoses Pain in left shoulder (09/23/18) Low back pain (09/23/18) Physical Therapy Treatment Note PT-OP-A Visit Information Start: 10/22/17 15:21 Freq: Status: Active Protocol: Document 09/23/18 13:48 BS (Rec: 09/23/18 13:53 BS [email or web address]) Out-Patient Physical Therapy Visit Information Visit Information Visit Type Treatment Note Visit Start Time 13:00 Visit Stop Time 13:43 Total Visit Minutes 43 Visit Number 72 PT-OP-B Current Condition Start: 06/19/18 16:23 Freq: Status: Active Protocol: Document 06/19/18 11:15 AMB (Rec: 06/20/18 07:28 AMB [email or web address]) Current Condition History of Current Condition Onset Date chronic Current Complaints L scapular pain, neck pain, back pain History of Current Condition The patient reports years of pain, worse with caring for his 3 young children. 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 He returns to physical therapy with a new script from his PCP for the above impairments. 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 PT-OP-F Manual Assessment Start: 06/19/18 16:23 Freq: Status: Active Protocol: Document 06/19/18 11:15 AMB (Rec: 06/20/18 07:28 AMB [email or web address]) Manual Assessments Joint Mobility Assessment Joint Mobility Assessment Stiffness with PAs throughout thoracic spine, more mobility in lumbar spine. Stiffness in scapulothoracic joint L>R. Stiffness at GH joint at end range flexion. PT-OP-J Posture/Palpation/Skin Start: 06/19/18 16:23 Freq: Status: Active Protocol: Document 06/19/18 11:15 AMB (Rec: 06/20/18 07:28 AMB [email or web address]) Posture Evaluation Comments Posture Comments Pt stands with excessive lumbar lordosis, increased thoracic kyphosis with forward shoulders, tends to stand on one leg or the other and hang on Y ligaments. Palpation Assessment Location One Palpation Findings Soft Tissue Tightness Spasm Muscle Guarding Tenderness Trigger Point Palpation Details lower trapezius, subscapularis , infraspinatus all with active trigger points. PT-OP-K Range of Motion Start: 12/03/17 07:05 Freq: Status: Active Protocol: Document 09/09/18 13:13 AMB (Rec: 09/09/18 13:15 AMB [id number]) Shoulder Goniometric Range of Motion Shoulder Measured in Degrees Right Shoulder ROM WFL Yes Flexion 160 External Rotation at 90 degrees 55 Abduction Left Active Flexion 145 External Rotation at 0 degrees Abduction 60 PT-OP-M Strength Start: 12/03/17 07:05 Freq: Status: Active Protocol: Document 09/09/18 13:13 AMB (Rec: 09/09/18 13:17 AMB [id number]) Shoulder Strength Shoulder Manual Muscle Testing Left Flexion 4+ Good+ Extension 5 Normal Abduction (C5) 4 Good External Rotation 4- Good- Internal Rotation 4+ Good+ Comments L pericscapular pain with L ER MMT PT-OP-Q Treatments Start: 10/22/17 15:21 Freq: Status: Active Protocol: Document 09/23/18 13:48 BS (Rec: 09/23/18 13:53 BS [email or web address]) Gym Equipment Cable Column (Body Solid) Rows Resistance 30 Reps/Time 2x10 Lat Pull Down Resistance 30 Reps/Time 2x10 Therapeutic Exercises Supine Exercises 2 Supine Exercise Name full foam roll vertical Reps/Minutes 2x45 stretch, x10 reps Comments pec stretch, B shoulder abduction Prone Exercises 5 Prone Exercise Name Cat/Cow Reps/Minutes x10 Comments TCs for thoracic extension 2 Prone Exercise Name prone rows Side bilateral Resistance 5# Reps/Minutes x12 each 1 Prone Exercise Name I, Y Side bilateral Reps/Minutes x15 each Comments poor scapular mechanics L>R Sidelying Exercises 4 Sidelying Exercise Name shoulder abd Side left Resistance AROM Reps/Minutes x12 Comments with scapular upward rotation mobilization 3 Sidelying Exercise Name Thoracic Rotation Side bilateral Reps/Minutes x12 each direction Manual Therapy Treatment Soft Tissue Mobilization 3 Body Location Trigger point release Mobilization Type Cross-Friction Trigger Point Release Intensity/Depth Moderate Body Position Prone Comments infraspinatus, rhomboids, subscapularis 1 Body Location L Periscapula Mobilization Type Myofascial Release Intensity/Depth Moderate Body Position R Sidelying Comments teres major/minor Joint Mobilizations 5 Joint Thoracic Mobilizations Direction Central PAs Grade III Body Position RSidelying Comments T1-T7 hypomobility noted. 1 Joint Scapulothoracic mobilization with movement Direction upward rotation Grade III Body Position RSidelying Comments Scapular mobilizations/upward rotation with sidelying L shoulder abd PT-OP-R Modalities Start: 11/21/17 15:49 Freq: Status: Active Protocol: Document 11/21/17 14:30 AMB (Rec: 11/21/17 15:56 AMB [email or web address]) Ultrasound Therapy Treatment Left Upper Back Treatment Duration (minutes) 7 Patient Position Prone Coupling Medium Ultrasound Gel Frequency Setting (mHz) 1 Mode Setting Continuous Intensity Setting (w/cm2) 1.5 PT-OP-T Assessment and Plan Start: 10/22/17 15:21 Freq: Status: Active Protocol: Document 09/23/18 13:48 BS (Rec: 09/23/18 13:53 BS [email or web address]) Physical Therapy Assessment Assessment Summary Assessment Pt tolerated increased resistance with lat pulldowns and rows but continues to demo poor posture and periscapular weakness. Physical Therapy Plan Next Visit Focus/Plan Next Note Type Treatment Note Next Visit Plan Trial scapular clocks with Tband if pt is not flared up. Thoracic mobilizations with horizontal foam roller.
--- NOTE | 2018-09-30 15:37 | PT.OTN ---
Current Diagnoses Pain in left shoulder (09/30/18) Low back pain (09/30/18) Physical Therapy Treatment Note PT-OP-A Visit Information Start: 10/22/17 15:21 Freq: Status: Active Protocol: Document 09/30/18 13:00 AMB (Rec: 09/30/18 13:06 AMB [id number]) Out-Patient Physical Therapy Visit Information Visit Information Visit Type Treatment Note Visit Start Time 13:00 Visit Stop Time 13:43 Total Visit Minutes 43 Visit Number 74 PT-OP-B Current Condition Start: 06/19/18 16:23 Freq: Status: Active Protocol: Document 06/19/18 11:15 AMB (Rec: 06/20/18 07:28 AMB [email or web address]) Current Condition History of Current Condition Onset Date chronic Current Complaints L scapular pain, neck pain, back pain History of Current Condition The patient reports years of pain, worse with caring for his 3 young children. 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 He returns to physical therapy with a new script from his PCP for the above impairments. 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 PT-OP-F Manual Assessment Start: 06/19/18 16:23 Freq: Status: Active Protocol: Document 06/19/18 11:15 AMB (Rec: 06/20/18 07:28 AMB [email or web address]) Manual Assessments Joint Mobility Assessment Joint Mobility Assessment Stiffness with PAs throughout thoracic spine, more mobility in lumbar spine. Stiffness in scapulothoracic joint L>R. Stiffness at GH joint at end range flexion. PT-OP-J Posture/Palpation/Skin Start: 06/19/18 16:23 Freq: Status: Active Protocol: Document 06/19/18 11:15 AMB (Rec: 06/20/18 07:28 AMB [email or web address]) Posture Evaluation Comments Posture Comments Pt stands with excessive lumbar lordosis, increased thoracic kyphosis with forward shoulders, tends to stand on one leg or the other and hang on Y ligaments. Palpation Assessment Location One Palpation Findings Soft Tissue Tightness Spasm Muscle Guarding Tenderness Trigger Point Palpation Details lower trapezius, subscapularis , infraspinatus all with active trigger points. PT-OP-K Range of Motion Start: 12/03/17 07:05 Freq: Status: Active Protocol: Document 09/09/18 13:13 AMB (Rec: 09/09/18 13:15 AMB [id number]) Shoulder Goniometric Range of Motion Shoulder Measured in Degrees Right Shoulder ROM WFL Yes Flexion 160 External Rotation at 90 degrees 55 Abduction Left Active Flexion 145 External Rotation at 0 degrees Abduction 60 PT-OP-M Strength Start: 12/03/17 07:05 Freq: Status: Active Protocol: Document 09/09/18 13:13 AMB (Rec: 09/09/18 13:17 AMB [id number]) Shoulder Strength Shoulder Manual Muscle Testing Left Flexion 4+ Good+ Extension 5 Normal Abduction (C5) 4 Good External Rotation 4- Good- Internal Rotation 4+ Good+ Comments L pericscapular pain with L ER MMT PT-OP-Q Treatments Start: 10/22/17 15:21 Freq: Status: Active Protocol: Document 09/30/18 13:00 AMB (Rec: 09/30/18 15:36 AMB [id number]) Gym Equipment Cable Column (Body Solid) Rows Resistance 30 Reps/Time 2x10 Lat Pull Down Resistance 30 Reps/Time 2x10 Therapeutic Exercises Supine Exercises 2 Supine Exercise Name full foam roll vertical Reps/Minutes 2x45 stretch, x10 reps Comments pec stretch, B shoulder abduction Prone Exercises 1 Prone Exercise Name I, Y Side bilateral Reps/Minutes x15 each Comments poor scapular mechanics L>R Sidelying Exercises 4 Sidelying Exercise Name shoulder abd Side left Resistance 2# Reps/Minutes x12 Comments with scapular upward rotation mobilization 2 Sidelying Exercise Name ER Side left Resistance 2# Manual Therapy Treatment Soft Tissue Mobilization 3 Body Location Trigger point release Mobilization Type Cross-Friction Trigger Point Release Intensity/Depth Moderate Body Position Prone Comments infraspinatus, rhomboids, subscapularis 1 Body Location L Periscapula Mobilization Type Myofascial Release Intensity/Depth Moderate Body Position R Sidelying Comments rhomboids Joint Mobilizations 5 Joint Thoracic Mobilizations Direction Central PAs Grade IV Body Position Prone Comments T1-T7 hypomobility noted. 1 Joint Scapulothoracic mobilization with movement Direction upward rotation Grade III Body Position RSidelying Comments Scapular mobilizations/upward rotation with sidelying L shoulder abd PT-OP-R Modalities Start: 11/21/17 15:49 Freq: Status: Active Protocol: Document 11/21/17 14:30 AMB (Rec: 11/21/17 15:56 AMB [email or web address]) Ultrasound Therapy Treatment Left Upper Back Treatment Duration (minutes) 7 Patient Position Prone Coupling Medium Ultrasound Gel Frequency Setting (mHz) 1 Mode Setting Continuous Intensity Setting (w/cm2) 1.5 PT-OP-T Assessment and Plan Start: 10/22/17 15:21 Freq: Status: Active Protocol: Document 09/30/18 13:00 AMB (Rec: 09/30/18 15:36 AMB [id number]) Physical Therapy Assessment Assessment Summary Assessment Pt with weakness into ER today , will need to continue to work on scap stabilization with GH strengthening. Physical Therapy Plan Next Visit Focus/Plan Next Note Type Treatment Note Next Visit Plan Can try scapular clocks with manual resistance, progressing to tband resistance
--- NOTE | 2018-10-09 15:04 | PT.OTN ---
Current Diagnoses Pain in left shoulder (10/09/18) Low back pain (10/09/18) Physical Therapy Treatment Note PT-OP-A Visit Information Start: 10/22/17 15:21 Freq: Status: Active Protocol: Document 10/09/18 13:00 AMB (Rec: 10/09/18 15:04 AMB [id number]) Out-Patient Physical Therapy Visit Information Visit Information Visit Type Treatment Note Visit Start Time 13:00 Visit Stop Time 13:43 Total Visit Minutes 43 Visit Number 75 PT-OP-B Current Condition Start: 06/19/18 16:23 Freq: Status: Active Protocol: Document 06/19/18 11:15 AMB (Rec: 06/20/18 07:28 AMB [email or web address]) Current Condition History of Current Condition Onset Date chronic Current Complaints L scapular pain, neck pain, back pain History of Current Condition The patient reports years of pain, worse with caring for his 3 young children. 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 He returns to physical therapy with a new script from his PCP for the above impairments. 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 Has been busy with tball. PT-OP-F Manual Assessment Start: 06/19/18 16:23 Freq: Status: Active Protocol: Document 06/19/18 11:15 AMB (Rec: 06/20/18 07:28 AMB [email or web address]) Manual Assessments Joint Mobility Assessment Joint Mobility Assessment Stiffness with PAs throughout thoracic spine, more mobility in lumbar spine. Stiffness in scapulothoracic joint L>R. Stiffness at GH joint at end range flexion. PT-OP-J Posture/Palpation/Skin Start: 06/19/18 16:23 Freq: Status: Active Protocol: Document 06/19/18 11:15 AMB (Rec: 06/20/18 07:28 AMB [email or web address]) Posture Evaluation Comments Posture Comments Pt stands with excessive lumbar lordosis, increased thoracic kyphosis with forward shoulders, tends to stand on one leg or the other and hang on Y ligaments. Palpation Assessment Location One Palpation Findings Soft Tissue Tightness Spasm Muscle Guarding Tenderness Trigger Point Palpation Details lower trapezius, subscapularis , infraspinatus all with active trigger points. PT-OP-K Range of Motion Start: 12/03/17 07:05 Freq: Status: Active Protocol: Document 09/09/18 13:13 AMB (Rec: 09/09/18 13:15 AMB [id number]) Shoulder Goniometric Range of Motion Shoulder Measured in Degrees Right Shoulder ROM WFL Yes Flexion 160 External Rotation at 90 degrees 55 Abduction Left Active Flexion 145 External Rotation at 0 degrees Abduction 60 PT-OP-M Strength Start: 12/03/17 07:05 Freq: Status: Active Protocol: Document 09/09/18 13:13 AMB (Rec: 09/09/18 13:17 AMB [id number]) Shoulder Strength Shoulder Manual Muscle Testing Left Flexion 4+ Good+ Extension 5 Normal Abduction (C5) 4 Good External Rotation 4- Good- Internal Rotation 4+ Good+ Comments L pericscapular pain with L ER MMT PT-OP-Q Treatments Start: 10/22/17 15:21 Freq: Status: Active Protocol: Document 10/09/18 13:00 AMB (Rec: 10/09/18 15:04 AMB [id number]) Gym Equipment Cable Column (Body Solid) Rows Resistance 30 Reps/Time 2x10 Lat Pull Down Resistance 30 Reps/Time 2x10 Therapeutic Exercises Supine Exercises 2 Supine Exercise Name full foam roll vertical Reps/Minutes 2x10 Comments 2# flexion/ aduction Sidelying Exercises 4 Sidelying Exercise Name shoulder abd Side left Resistance AROM Reps/Minutes x12 Comments with scapular upward rotation mobilization Manual Therapy Treatment Soft Tissue Mobilization 3 Body Location Trigger point release Mobilization Type Cross-Friction Trigger Point Release Intensity/Depth Moderate Body Position Prone Comments infraspinatus, rhomboids, subscapularis 1 Body Location L Periscapula Mobilization Type Myofascial Release Intensity/Depth Moderate Body Position R Sidelying Comments rhomboids Joint Mobilizations 5 Joint Thoracic Mobilizations Direction Central PAs Grade IV Body Position Prone Comments T1-T7 hypomobility noted. 1 Joint Scapulothoracic mobilization with movement Direction upward rotation Grade III Body Position RSidelying Comments Scapular mobilizations/upward rotation with sidelying L shoulder abd PT-OP-R Modalities Start: 11/21/17 15:49 Freq: Status: Active Protocol: Document 11/21/17 14:30 AMB (Rec: 11/21/17 15:56 AMB [email or web address]) Ultrasound Therapy Treatment Left Upper Back Treatment Duration (minutes) 7 Patient Position Prone Coupling Medium Ultrasound Gel Frequency Setting (mHz) 1 Mode Setting Continuous Intensity Setting (w/cm2) 1.5 PT-OP-T Assessment and Plan Start: 10/22/17 15:21 Freq: Status: Active Protocol: Document 10/09/18 13:00 AMB (Rec: 10/09/18 15:04 AMB [id number]) Physical Therapy Assessment Assessment Summary Assessment Pt continues to have weakness into ER, tolerateing lat pull downs more, with better form. Physical Therapy Plan Next Visit Focus/Plan Next Note Type Treatment Note Next Visit Plan Can try scapular clocks with manual resistance, progressing to tband resistance
--- NOTE | 2018-10-14 13:54 | PT.OTN ---
Current Diagnoses Pain in left shoulder (10/14/18) Low back pain (10/14/18) Physical Therapy Treatment Note PT-OP-A Visit Information Start: 10/22/17 15:21 Freq: Status: Active Protocol: Document 10/14/18 13:00 AMB (Rec: 10/14/18 13:54 AMB [email or web address]) Out-Patient Physical Therapy Visit Information Visit Information Visit Type Treatment Note Visit Start Time 13:00 Visit Stop Time 13:43 Total Visit Minutes 43 Visit Number 76 PT-OP-B Current Condition Start: 06/19/18 16:23 Freq: Status: Active Protocol: Document 06/19/18 11:15 AMB (Rec: 06/20/18 07:28 AMB [email or web address]) Current Condition History of Current Condition Onset Date chronic Current Complaints L scapular pain, neck pain, back pain History of Current Condition The patient reports years of pain, worse with caring for his 3 young children. 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 He returns to physical therapy with a new script from his PCP for the above impairments. 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 PT-OP-F Manual Assessment Start: 06/19/18 16:23 Freq: Status: Active Protocol: Document 06/19/18 11:15 AMB (Rec: 06/20/18 07:28 AMB [email or web address]) Manual Assessments Joint Mobility Assessment Joint Mobility Assessment Stiffness with PAs throughout thoracic spine, more mobility in lumbar spine. Stiffness in scapulothoracic joint L>R. Stiffness at GH joint at end range flexion. PT-OP-J Posture/Palpation/Skin Start: 06/19/18 16:23 Freq: Status: Active Protocol: Document 06/19/18 11:15 AMB (Rec: 06/20/18 07:28 AMB [email or web address]) Posture Evaluation Comments Posture Comments Pt stands with excessive lumbar lordosis, increased thoracic kyphosis with forward shoulders, tends to stand on one leg or the other and hang on Y ligaments. Palpation Assessment Location One Palpation Findings Soft Tissue Tightness Spasm Muscle Guarding Tenderness Trigger Point Palpation Details lower trapezius, subscapularis , infraspinatus all with active trigger points. PT-OP-K Range of Motion Start: 12/03/17 07:05 Freq: Status: Active Protocol: Document 09/09/18 13:13 AMB (Rec: 09/09/18 13:15 AMB [id number]) Shoulder Goniometric Range of Motion Shoulder Measured in Degrees Right Shoulder ROM WFL Yes Flexion 160 External Rotation at 90 degrees 55 Abduction Left Active Flexion 145 External Rotation at 0 degrees Abduction 60 PT-OP-M Strength Start: 12/03/17 07:05 Freq: Status: Active Protocol: Document 09/09/18 13:13 AMB (Rec: 09/09/18 13:17 AMB [id number]) Shoulder Strength Shoulder Manual Muscle Testing Left Flexion 4+ Good+ Extension 5 Normal Abduction (C5) 4 Good External Rotation 4- Good- Internal Rotation 4+ Good+ Comments L pericscapular pain with L ER MMT PT-OP-Q Treatments Start: 10/22/17 15:21 Freq: Status: Active Protocol: Document 10/14/18 13:00 AMB (Rec: 10/14/18 13:54 AMB [email or web address]) Gym Equipment Cable Column (Body Solid) Rows Resistance 30 Reps/Time 1x10 Lat Pull Down Resistance 30 Reps/Time 1x10 Therapeutic Exercises Sidelying Exercises 4 Sidelying Exercise Name shoulder abd Side left Resistance AROM Reps/Minutes x12 Comments with scapular upward rotation mobilization 2 Sidelying Exercise Name ER Side left Resistance 2# Manual Therapy Treatment Soft Tissue Mobilization 3 Body Location Trigger point release Mobilization Type Cross-Friction Trigger Point Release Intensity/Depth Moderate Body Position Prone Comments infraspinatus, rhomboids, subscapularis 1 Body Location L Periscapula Mobilization Type Myofascial Release Intensity/Depth Moderate Body Position R Sidelying Comments rhomboids Joint Mobilizations 1 Joint Scapulothoracic mobilization with movement Direction upward rotation Grade III Body Position RSidelying Comments Scapular mobilizations/upward rotation with sidelying L shoulder abd PT-OP-R Modalities Start: 11/21/17 15:49 Freq: Status: Active Protocol: Document 11/21/17 14:30 AMB (Rec: 11/21/17 15:56 AMB [email or web address]) Ultrasound Therapy Treatment Left Upper Back Treatment Duration (minutes) 7 Patient Position Prone Coupling Medium Ultrasound Gel Frequency Setting (mHz) 1 Mode Setting Continuous Intensity Setting (w/cm2) 1.5 PT-OP-T Assessment and Plan Start: 10/22/17 15:21 Freq: Status: Active Protocol: Document 10/14/18 13:00 AMB (Rec: 10/14/18 13:54 AMB [email or web address]) Physical Therapy Assessment Assessment Summary Assessment Pt continues to have tenderness and weakness in scapular stabilizers. Physical Therapy Plan Next Visit Focus/Plan Next Note Type Treatment Note Next Visit Plan Can try scapular clocks with manual resistance, progressing to tband resistance
--- NOTE | 2018-10-16 15:22 | PT.OTN ---
Current Diagnoses Pain in left shoulder (10/16/18) Low back pain (10/16/18) Physical Therapy Treatment Note PT-OP-A Visit Information Start: 10/22/17 15:21 Freq: Status: Active Protocol: Document 10/16/18 13:00 AMB (Rec: 10/16/18 15:17 AMB [email or web address]) Out-Patient Physical Therapy Visit Information Visit Information Visit Type Treatment Note Visit Start Time 13:00 Visit Stop Time 13:45 Total Visit Minutes 45 Visit Number 77 PT-OP-B Current Condition Start: 06/19/18 16:23 Freq: Status: Active Protocol: Document 06/19/18 11:15 AMB (Rec: 06/20/18 07:28 AMB [email or web address]) Current Condition History of Current Condition Onset Date chronic Current Complaints L scapular pain, neck pain, back pain History of Current Condition The patient reports years of pain, worse with caring for his 3 young children. 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 He returns to physical therapy with a new script from his PCP for the above impairments. 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 PT-OP-F Manual Assessment Start: 06/19/18 16:23 Freq: Status: Active Protocol: Document 06/19/18 11:15 AMB (Rec: 06/20/18 07:28 AMB [email or web address]) Manual Assessments Joint Mobility Assessment Joint Mobility Assessment Stiffness with PAs throughout thoracic spine, more mobility in lumbar spine. Stiffness in scapulothoracic joint L>R. Stiffness at GH joint at end range flexion. PT-OP-J Posture/Palpation/Skin Start: 06/19/18 16:23 Freq: Status: Active Protocol: Document 10/16/18 13:00 AMB (Rec: 10/16/18 15:22 AMB [email or web address]) Posture Evaluation Comments Posture Comments Pt stands with excessive lumbar lordosis, increased thoracic kyphosis with forward shoulders, tends to stand on one leg or the other and hang on Y ligaments. PT-OP-K Range of Motion Start: 12/03/17 07:05 Freq: Status: Active Protocol: Document 10/16/18 13:00 AMB (Rec: 10/16/18 15:22 AMB [email or web address]) Shoulder Goniometric Range of Motion Shoulder Measured in Degrees Left Active Flexion 140 Abduction 160 Shoulder ROM Limitations Comments Pain begins at 110 degrees of flexion, and 100 degrees of abduction, gets worse with more ROM, no painful arc. PT-OP-M Strength Start: 12/03/17 07:05 Freq: Status: Active Protocol: Document 10/16/18 13:00 AMB (Rec: 10/16/18 15:22 AMB [email or web address]) Shoulder Strength Shoulder Manual Muscle Testing Left Flexion 4 Good Extension 4 Good Abduction (C5) 4 Good External Rotation 4- Good- Internal Rotation 4+ Good+ PT-OP-Q Treatments Start: 10/22/17 15:21 Freq: Status: Active Protocol: Document 10/16/18 13:00 AMB (Rec: 10/16/18 15:17 AMB [email or web address]) Therapeutic Exercises Supine Exercises 1 Supine Exercise Name shoulder flexion stretch Reps/Minutes 30x2 Sidelying Exercises 4 Sidelying Exercise Name shoulder abd Side left Resistance AROM Reps/Minutes x12 Comments with scapular upward rotation mobilization 2 Sidelying Exercise Name ER Side left Resistance 2# Manual Therapy Treatment Soft Tissue Mobilization 3 Body Location Trigger point release Mobilization Type Cross-Friction Trigger Point Release Intensity/Depth Moderate Body Position Prone Comments infraspinatus, rhomboids, subscapularis 1 Body Location L Periscapula Mobilization Type Myofascial Release Intensity/Depth Moderate Body Position R Sidelying Comments rhomboids Joint Mobilizations 1 Joint Scapulothoracic mobilization with movement Direction upward rotation Grade III Body Position RSidelying Comments Scapular mobilizations/upward rotation with sidelying L shoulder abd PT-OP-R Modalities Start: 11/21/17 15:49 Freq: Status: Active Protocol: Document 11/21/17 14:30 AMB (Rec: 11/21/17 15:56 AMB [email or web address]) Ultrasound Therapy Treatment Left Upper Back Treatment Duration (minutes) 7 Patient Position Prone Coupling Medium Ultrasound Gel Frequency Setting (mHz) 1 Mode Setting Continuous Intensity Setting (w/cm2) 1.5 PT-OP-T Assessment and Plan Start: 10/22/17 15:21 Freq: Status: Active Protocol: Document 10/16/18 13:00 AMB (Rec: 10/16/18 15:17 AMB [email or web address]) Physical Therapy Assessment Goals 4 Impairment Sleep Short Term Goal (STG) The patient will sleep for 5 hours using pillow props. NOT MET STG Duration 6 weeks Half-Way Goal (LTG) The patient will be independent with a core and scapular stabilization HEP to reduce his pain overall. Progressing Toward. LTG Duration 12 weeks 3 Impairment Lifting/carrying Short Term Goal (STG) The patient will lift his youngest child into her carseat with good body mechanics and pain of 2/10 or less. Progressing toward. STG Duration 6 weeks Half-Way Goal (LTG) The patient will lift dishes overhead to put them in a tall cabinet without an increase in pain. INTERMITENTLY MET LTG Duration 12 weeks 2 Impairment Posture Short Term Goal (STG) The patient will sit with appropriate posture for 45 minutes with 2/10 pain. NOT MET STG Duration 6 weeks Half-Way Goal (LTG) The patient will stand for 10 minutes with good posture without an increase in baseline pain. NOT MET LTG Duration 12 weeks 1 Impairment ROM Short Term Goal (STG) The patient will improve his lumbar AROM to Extension: 20 degrees, Flexion 50 derees, Sidebending bilateral: 25 degrees without an increase in pain. Not assessed. STG Duration 6 weeks Half-Way Goal (LTG) The patient will increase his left shoulder AROM to 160 degrees of flexion and abduction. 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 He continues to need to strengthen his scapular muscles more for a seo specialist improvement in his symptoms. He is hopeful that continued PT will help. He will need to be more consistent with a strengthening program, but we are willing to work on it. Physical Therapy Plan Frequency and Duration Frequency of Treatment 2x/Week Duration of Treatment 12 weeks Plan of Care Start Date 10/16/18 Plan of Care End Date 01/09/19 Therapeutic Interventions Therapeutic Interventions Aquatic Therapy Home Exercise Program Joint Mobilizations Manual Therapy Neuromuscular Re-education Self-Care/Home Management Soft Tissue Mobilization Taping Therapeutic Activities Therapeutic Exercises Modalities Cold Pack/Ice Massage Hot Packs Next Visit Focus/Plan Next Note Type Treatment Note Next Visit Plan Focus on scapular stabilization
--- NOTE | 2018-10-16 15:29 | PT.OPPOC ---
Current Diagnoses Pain in left shoulder (10/16/18) Low back pain (10/16/18) Provider Visit Care Team Role Provider Type Dorina Jin MD Attending Provider Physician Family Provider Primary Care Provider Specialty: Family Practice Address: [address] [place] [address], [id number] Email: [email or web address] Plan Of Care PT-OP-T Assessment and Plan Start: 10/22/17 15:21 Freq: Status: Active Protocol: Document 10/16/18 13:00 AMB (Rec: 10/16/18 15:17 AMB [email or web address]) Physical Therapy Assessment Goals 4 Impairment Sleep Short Term Goal (STG) The patient will sleep for 5 hours using pillow props. NOT MET STG Duration 6 weeks Field Cane Scaler Goal (LTG) The patient will be independent with a core and scapular stabilization HEP to reduce his pain overall. Progressing Toward. LTG Duration 12 weeks 3 Impairment Lifting/carrying Short Term Goal (STG) The patient will lift his youngest child into her carseat with good body mechanics and pain of 2/10 or less. Progressing toward. STG Duration 6 weeks Shelter Goal (LTG) The patient will lift dishes overhead to put them in a tall cabinet without an increase in pain. INTERMITENTLY MET LTG Duration 12 weeks 2 Impairment Posture Short Term Goal (STG) The patient will sit with appropriate posture for 45 minutes with 2/10 pain. NOT MET STG Duration 6 weeks Shelter Goal (LTG) The patient will stand for 10 minutes with good posture without an increase in baseline pain. NOT MET LTG Duration 12 weeks 1 Impairment ROM Short Term Goal (STG) The patient will improve his lumbar AROM to Extension: 20 degrees, Flexion 50 derees, Sidebending bilateral: 25 degrees without an increase in pain. Not assessed. STG Duration 6 weeks Field Cane Scaler Goal (LTG) The patient will increase his left shoulder AROM to 160 degrees of flexion and abduction. 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 He continues to need to strengthen his scapular muscles more for a long-term improvement in his symptoms. He is hopeful that continued PT will help. He will need to be more consistent with a strengthening program, but we are willing to work on it. Physical Therapy Plan Frequency and Duration Frequency of Treatment 2x/Week Duration of Treatment 12 weeks Plan of Care Start Date 10/16/18 Plan of Care End Date 01/09/19 Therapeutic Interventions Therapeutic Interventions Aquatic Therapy Home Exercise Program Joint Mobilizations Manual Therapy Neuromuscular Re-education Self-Care/Home Management Soft Tissue Mobilization Taping Therapeutic Activities Therapeutic Exercises Modalities Cold Pack/Ice Massage Hot Packs Next Visit Focus/Plan Next Note Type Treatment Note Next Visit Plan Focus on scapular stabilization Plan of Care Dates Plan of Care Start Date 10/16/18 Plan of Care End Date 01/09/19 Please Sign and Return: I have reviewed this Plan of Care and certify that the skilled therapy services above are required to meet the patient?s needs. Physician Signature Date Printed Name and Credentials Clinical Instructor Signature Printed Name and Credentials
--- NOTE | 2018-10-21 16:13 | PT.OTN ---
Current Diagnoses Pain in left shoulder (10/21/18) Low back pain (10/21/18) Physical Therapy Treatment Note PT-OP-A Visit Information Start: 10/22/17 15:21 Freq: Status: Active Protocol: Document 10/21/18 13:00 AMB (Rec: 10/21/18 16:13 AMB [email or web address]) Out-Patient Physical Therapy Visit Information Visit Information Visit Type Treatment Note Visit Start Time 13:00 Visit Stop Time 13:45 Total Visit Minutes 45 Visit Number [id number] PT-OP-B Current Condition Start: 06/19/18 16:23 Freq: Status: Active Protocol: Document 06/19/18 11:15 AMB (Rec: 06/20/18 07:28 AMB [email or web address]) Current Condition History of Current Condition Onset Date chronic Current Complaints L scapular pain, neck pain, back pain History of Current Condition The patient reports years of pain, worse with caring for his 3 young children. 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 He returns to physical therapy with a new script from his PCP for the above impairments. 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 PT-OP-F Manual Assessment Start: 06/19/18 16:23 Freq: Status: Active Protocol: Document 06/19/18 11:15 AMB (Rec: 06/20/18 07:28 AMB [email or web address]) Manual Assessments Joint Mobility Assessment Joint Mobility Assessment Stiffness with PAs throughout thoracic spine, more mobility in lumbar spine. Stiffness in scapulothoracic joint L>R. Stiffness at GH joint at end range flexion. PT-OP-J Posture/Palpation/Skin Start: 06/19/18 16:23 Freq: Status: Active Protocol: Document 10/16/18 13:00 AMB (Rec: 10/16/18 15:22 AMB [email or web address]) Posture Evaluation Comments Posture Comments Pt stands with excessive lumbar lordosis, increased thoracic kyphosis with forward shoulders, tends to stand on one leg or the other and hang on Y ligaments. PT-OP-K Range of Motion Start: 12/03/17 07:05 Freq: Status: Active Protocol: Document 10/16/18 13:00 AMB (Rec: 10/16/18 15:22 AMB [email or web address]) Shoulder Goniometric Range of Motion Shoulder Measured in Degrees Left Active Flexion 140 Abduction 160 Shoulder ROM Limitations Comments Pain begins at 110 degrees of flexion, and 100 degrees of abduction, gets worse with more ROM, no painful arc. PT-OP-M Strength Start: 12/03/17 07:05 Freq: Status: Active Protocol: Document 10/16/18 13:00 AMB (Rec: 10/16/18 15:22 AMB [email or web address]) Shoulder Strength Shoulder Manual Muscle Testing Left Flexion 4 Good Extension 4 Good Abduction (C5) 4 Good External Rotation 4- Good- Internal Rotation 4+ Good+ PT-OP-Q Treatments Start: 10/22/17 15:21 Freq: Status: Active Protocol: Document 10/21/18 13:00 AMB (Rec: 10/21/18 16:13 AMB [email or web address]) Gym Equipment Cable Column (Body Solid) Rows Resistance 30 Reps/Time 2x10 Lat Pull Down Resistance 30 Reps/Time 2x10 Therapeutic Exercises Supine Exercises 3 Supine Exercise Name foam roll march with TrA stab Reps/Minutes 10 2 Supine Exercise Name full foam roll vertical Reps/Minutes 2x10 Comments 2# flexion/ aduction 1 Supine Exercise Name shoulder flexion stretch Reps/Minutes 30x2 Sidelying Exercises 4 Sidelying Exercise Name shoulder abd Side left Resistance AROM Reps/Minutes x12 Comments with scapular upward rotation mobilization 3 Sidelying Exercise Name scapular clock isometric Comments against manual resistance 2 Sidelying Exercise Name ER Side left Resistance AROM Manual Therapy Treatment Soft Tissue Mobilization 3 Body Location Trigger point release Mobilization Type Cross-Friction Trigger Point Release Intensity/Depth Moderate Body Position Prone Comments infraspinatus, rhomboids, subscapularis 1 Body Location L Periscapula Mobilization Type Myofascial Release Intensity/Depth Moderate Body Position R Sidelying Comments rhomboids Joint Mobilizations 1 Joint Scapulothoracic mobilization with movement Direction upward rotation Grade III Body Position RSidelying Comments Scapular mobilizations/upward rotation with sidelying L shoulder abd PT-OP-R Modalities Start: 11/21/17 15:49 Freq: Status: Active Protocol: Document 11/21/17 14:30 AMB (Rec: 11/21/17 15:56 AMB [email or web address]) Ultrasound Therapy Treatment Left Upper Back Treatment Duration (minutes) 7 Patient Position Prone Coupling Medium Ultrasound Gel Frequency Setting (mHz) 1 Mode Setting Continuous Intensity Setting (w/cm2) 1.5 PT-OP-T Assessment and Plan Start: 10/22/17 15:21 Freq: Status: Active Protocol: Document 10/21/18 13:00 AMB (Rec: 10/21/18 16:13 AMB [email or web address]) Physical Therapy Assessment Assessment Summary Assessment Pt continues to have pain flare from throwing. Added in core stabilization. May look at mechanics of throwing/ catching. Physical Therapy Plan Next Visit Focus/Plan Next Note Type Treatment Note Next Visit Plan Focus on scapular stabilization
--- NOTE | 2018-10-23 14:22 | PT.OTN ---
Current Diagnoses Pain in left shoulder (10/23/18) Low back pain (10/23/18) Physical Therapy Treatment Note PT-OP-A Visit Information Start: 10/22/17 15:21 Freq: Status: Active Protocol: Document 10/23/18 13:00 AMB (Rec: 10/23/18 14:21 AMB [email or web address]) Out-Patient Physical Therapy Visit Information Visit Information Visit Type Treatment Note Visit Start Time 13:00 Visit Stop Time 13:45 Total Visit Minutes 45 Visit Number 79 PT-OP-B Current Condition Start: 06/19/18 16:23 Freq: Status: Active Protocol: Document 06/19/18 11:15 AMB (Rec: 06/20/18 07:28 AMB [email or web address]) Current Condition History of Current Condition Onset Date chronic Current Complaints L scapular pain, neck pain, back pain History of Current Condition The patient reports years of pain, worse with caring for his 3 young children. 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 He returns to physical therapy with a new script from his PCP for the above impairments. 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 PT-OP-F Manual Assessment Start: 06/19/18 16:23 Freq: Status: Active Protocol: Document 06/19/18 11:15 AMB (Rec: 06/20/18 07:28 AMB [email or web address]) Manual Assessments Joint Mobility Assessment Joint Mobility Assessment Stiffness with PAs throughout thoracic spine, more mobility in lumbar spine. Stiffness in scapulothoracic joint L>R. Stiffness at GH joint at end range flexion. PT-OP-J Posture/Palpation/Skin Start: 06/19/18 16:23 Freq: Status: Active Protocol: Document 10/16/18 13:00 AMB (Rec: 10/16/18 15:22 AMB [email or web address]) Posture Evaluation Comments Posture Comments Pt stands with excessive lumbar lordosis, increased thoracic kyphosis with forward shoulders, tends to stand on one leg or the other and hang on Y ligaments. PT-OP-K Range of Motion Start: 12/03/17 07:05 Freq: Status: Active Protocol: Document 10/16/18 13:00 AMB (Rec: 10/16/18 15:22 AMB [email or web address]) Shoulder Goniometric Range of Motion Shoulder Measured in Degrees Left Active Flexion 140 Abduction 160 Shoulder ROM Limitations Comments Pain begins at 110 degrees of flexion, and 100 degrees of abduction, gets worse with more ROM, no painful arc. PT-OP-M Strength Start: 12/03/17 07:05 Freq: Status: Active Protocol: Document 10/16/18 13:00 AMB (Rec: 10/16/18 15:22 AMB [email or web address]) Shoulder Strength Shoulder Manual Muscle Testing Left Flexion 4 Good Extension 4 Good Abduction (C5) 4 Good External Rotation 4- Good- Internal Rotation 4+ Good+ PT-OP-Q Treatments Start: 10/22/17 15:21 Freq: Status: Active Protocol: Document 10/23/18 13:00 AMB (Rec: 10/23/18 14:21 AMB [email or web address]) Therapeutic Exercises Supine Exercises 2 Supine Exercise Name full foam roll vertical Reps/Minutes 2x10 Comments 2# flexion/ aduction 1 Supine Exercise Name shoulder flexion stretch Reps/Minutes 30x2 Sidelying Exercises 2 Sidelying Exercise Name ER Side left Resistance AROM Reps/Minutes 2x12 1 Sidelying Exercise Name D2 flexion Resistance manual resistance Reps/Minutes 2x8 Standing Exercises 1 Standing Exercise Name PNF D2 flexion Resistance AROM Manual Therapy Treatment Soft Tissue Mobilization 3 Body Location Trigger point release Mobilization Type Cross-Friction Trigger Point Release Intensity/Depth Moderate Body Position Prone Comments infraspinatus, rhomboids, subscapularis 1 Body Location L Periscapula Mobilization Type Myofascial Release Intensity/Depth Moderate Body Position R Sidelying Comments rhomboids Joint Mobilizations 1 Joint Scapulothoracic mobilization with movement Direction upward rotation Grade III Body Position RSidelying Comments Scapular mobilizations/upward rotation with sidelying L shoulder abd PT-OP-R Modalities Start: 11/21/17 15:49 Freq: Status: Active Protocol: Document 11/21/17 14:30 AMB (Rec: 11/21/17 15:56 AMB [email or web address]) Ultrasound Therapy Treatment Left Upper Back Treatment Duration (minutes) 7 Patient Position Prone Coupling Medium Ultrasound Gel Frequency Setting (mHz) 1 Mode Setting Continuous Intensity Setting (w/cm2) 1.5 PT-OP-T Assessment and Plan Start: 10/22/17 15:21 Freq: Status: Active Protocol: Document 10/23/18 13:00 AMB (Rec: 10/23/18 14:21 AMB [email or web address]) Physical Therapy Assessment Assessment Summary Assessment Pt continues to over utilize upper trap due to weakness at lower trap. Began discussion of throwing/catching mechanics . Physical Therapy Plan Next Visit Focus/Plan Next Note Type Treatment Note Next Visit Plan Focus on scapular stabilization, address mechanics of throw/catching for coaching
--- NOTE | 2018-10-27 14:18 | PT.OTN ---
Current Diagnoses Pain in left shoulder (10/27/18) Low back pain (10/27/18) Physical Therapy Treatment Note PT-OP-A Visit Information Start: 10/22/17 15:21 Freq: Status: Active Protocol: Document 10/27/18 13:00 AMB (Rec: 10/27/18 14:18 AMB [email or web address]) Out-Patient Physical Therapy Visit Information Visit Information Visit Type Treatment Note Visit Start Time 13:00 Visit Stop Time 13:45 Total Visit Minutes 45 Visit Number 80 PT-OP-B Current Condition Start: 06/19/18 16:23 Freq: Status: Active Protocol: Document 06/19/18 11:15 AMB (Rec: 06/20/18 07:28 AMB [email or web address]) Current Condition History of Current Condition Onset Date chronic Current Complaints L scapular pain, neck pain, back pain History of Current Condition The patient reports years of pain, worse with caring for his 3 young children. 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 He returns to physical therapy with a new script from his PCP for the above impairments. 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 Started last Saturday, has been trying to stretch it out. PT-OP-F Manual Assessment Start: 06/19/18 16:23 Freq: Status: Active Protocol: Document 06/19/18 11:15 AMB (Rec: 06/20/18 07:28 AMB [email or web address]) Manual Assessments Joint Mobility Assessment Joint Mobility Assessment Stiffness with PAs throughout thoracic spine, more mobility in lumbar spine. Stiffness in scapulothoracic joint L>R. Stiffness at GH joint at end range flexion. PT-OP-J Posture/Palpation/Skin Start: 06/19/18 16:23 Freq: Status: Active Protocol: Document 10/16/18 13:00 AMB (Rec: 10/16/18 15:22 AMB [email or web address]) Posture Evaluation Comments Posture Comments Pt stands with excessive lumbar lordosis, increased thoracic kyphosis with forward shoulders, tends to stand on one leg or the other and hang on Y ligaments. PT-OP-K Range of Motion Start: 12/03/17 07:05 Freq: Status: Active Protocol: Document 10/16/18 13:00 AMB (Rec: 10/16/18 15:22 AMB [email or web address]) Shoulder Goniometric Range of Motion Shoulder Measured in Degrees Left Active Flexion 140 Abduction 160 Shoulder ROM Limitations Comments Pain begins at 110 degrees of flexion, and 100 degrees of abduction, gets worse with more ROM, no painful arc. PT-OP-M Strength Start: 12/03/17 07:05 Freq: Status: Active Protocol: Document 10/16/18 13:00 AMB (Rec: 10/16/18 15:22 AMB [email or web address]) Shoulder Strength Shoulder Manual Muscle Testing Left Flexion 4 Good Extension 4 Good Abduction (C5) 4 Good External Rotation 4- Good- Internal Rotation 4+ Good+ PT-OP-Q Treatments Start: 10/22/17 15:21 Freq: Status: Active Protocol: Document 10/27/18 13:00 AMB (Rec: 10/27/18 14:18 AMB [email or web address]) Gym Equipment Cable Column (Body Solid) Rows Resistance 20 Reps/Time 10 Lat Pull Down Resistance 20 Reps/Time 2x10 Therapeutic Exercises Supine Exercises 4 Supine Exercise Name pec stretches Reps/Minutes 30x2 2 Supine Exercise Name full foam roll vertical Reps/Minutes 2x10 Comments AROM 1 Supine Exercise Name shoulder flexion stretch Reps/Minutes 30x2 Manual Therapy Treatment Soft Tissue Mobilization 3 Body Location Trigger point release Mobilization Type Cross-Friction Trigger Point Release Intensity/Depth Moderate Body Position Prone Comments infraspinatus, rhomboids, subscapularis 2 Body Location L QL Mobilization Type Myofascial Release Intensity/Depth Deep Body Position Sidelying 1 Body Location L/R Periscapula Mobilization Type Myofascial Release Intensity/Depth Moderate Body Position R Sidelying Comments rhomboids Joint Mobilizations 1 Joint Scapulothoracic mobilization with movement Direction upward rotation Grade III Body Position RSidelying Comments Scapular mobilizations/upward rotation with sidelying L shoulder abd PT-OP-R Modalities Start: 11/21/17 15:49 Freq: Status: Active Protocol: Document 11/21/17 14:30 AMB (Rec: 11/21/17 15:56 AMB [email or web address]) Ultrasound Therapy Treatment Left Upper Back Treatment Duration (minutes) 7 Patient Position Prone Coupling Medium Ultrasound Gel Frequency Setting (mHz) 1 Mode Setting Continuous Intensity Setting (w/cm2) 1.5 PT-OP-T Assessment and Plan Start: 10/22/17 15:21 Freq: Status: Active Protocol: Document 10/27/18 13:00 AMB (Rec: 10/27/18 14:18 AMB [email or web address]) Physical Therapy Assessment Assessment Summary Assessment Pt with radiating sx into R UE today, exacerbated by pec minor and subclavius palpation , not cervical ROM or scalenes . Educated on continued postural changes. Physical Therapy Plan Next Visit Focus/Plan Next Note Type Treatment Note Next Visit Plan Progress pec stretches as tolerated for R UE, scap stabilization on L.
--- NOTE | 2018-11-03 15:23 | PT.OTN ---
Current Diagnoses Pain in left shoulder (10/27/18) Low back pain (10/27/18) Physical Therapy Treatment Note PT-OP-A Visit Information Start: 10/22/17 15:21 Freq: Status: Active Protocol: Document 11/03/18 13:00 AMB (Rec: 11/03/18 14:31 AMB [email or web address]) Out-Patient Physical Therapy Visit Information Visit Information Visit Type Treatment Note Visit Start Time 13:00 Visit Stop Time 13:45 Total Visit Minutes 45 Visit Number 81 PT-OP-B Current Condition Start: 06/19/18 16:23 Freq: Status: Active Protocol: Document 06/19/18 11:15 AMB (Rec: 06/20/18 07:28 AMB [email or web address]) Current Condition History of Current Condition Onset Date chronic Current Complaints L scapular pain, neck pain, back pain History of Current Condition The patient reports years of pain, worse with caring for his 3 young children. 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 He returns to physical therapy with a new script from his PCP for the above impairments. 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 PT-OP-F Manual Assessment Start: 06/19/18 16:23 Freq: Status: Active Protocol: Document 06/19/18 11:15 AMB (Rec: 06/20/18 07:28 AMB [email or web address]) Manual Assessments Joint Mobility Assessment Joint Mobility Assessment Stiffness with PAs throughout thoracic spine, more mobility in lumbar spine. Stiffness in scapulothoracic joint L>R. Stiffness at GH joint at end range flexion. PT-OP-J Posture/Palpation/Skin Start: 06/19/18 16:23 Freq: Status: Active Protocol: Document 10/16/18 13:00 AMB (Rec: 10/16/18 15:22 AMB [email or web address]) Posture Evaluation Comments Posture Comments Pt stands with excessive lumbar lordosis, increased thoracic kyphosis with forward shoulders, tends to stand on one leg or the other and hang on Y ligaments. PT-OP-K Range of Motion Start: 12/03/17 07:05 Freq: Status: Active Protocol: Document 10/16/18 13:00 AMB (Rec: 10/16/18 15:22 AMB [email or web address]) Shoulder Goniometric Range of Motion Shoulder Measured in Degrees Left Active Flexion 140 Abduction 160 Shoulder ROM Limitations Comments Pain begins at 110 degrees of flexion, and 100 degrees of abduction, gets worse with more ROM, no painful arc. PT-OP-M Strength Start: 12/03/17 07:05 Freq: Status: Active Protocol: Document 10/16/18 13:00 AMB (Rec: 10/16/18 15:22 AMB [email or web address]) Shoulder Strength Shoulder Manual Muscle Testing Left Flexion 4 Good Extension 4 Good Abduction (C5) 4 Good External Rotation 4- Good- Internal Rotation 4+ Good+ PT-OP-Q Treatments Start: 10/22/17 15:21 Freq: Status: Active Protocol: Document 11/03/18 13:00 AMB (Rec: 11/03/18 15:22 AMB [email or web address]) Therapeutic Exercises Supine Exercises 4 Supine Exercise Name pec stretches Reps/Minutes 30x2 2 Supine Exercise Name full foam roll vertical Reps/Minutes 2x10 Comments 2# flexion/ abduction 1 Supine Exercise Name shoulder flexion stretch Reps/Minutes 30x2 Sidelying Exercises 2 Sidelying Exercise Name ER Side left Resistance AROM Reps/Minutes 2x12 Manual Therapy Treatment Soft Tissue Mobilization 3 Body Location Trigger point release Mobilization Type Cross-Friction Trigger Point Release Intensity/Depth Moderate Body Position Prone Comments infraspinatus, rhomboids, subscapularis 1 Body Location L/R Periscapula Mobilization Type Myofascial Release Intensity/Depth Moderate Body Position R Sidelying Comments rhomboids Joint Mobilizations 1 Joint Scapulothoracic mobilization with movement Direction upward rotation Grade III Body Position RSidelying Comments Scapular mobilizations/upward rotation with sidelying L shoulder abd PT-OP-R Modalities Start: 11/21/17 15:49 Freq: Status: Active Protocol: Document 11/21/17 14:30 AMB (Rec: 05/31/18 15:56 AMB [email or web address]) Ultrasound Therapy Treatment Left Upper Back Treatment Duration (minutes) 7 Patient Position Prone Coupling Medium Ultrasound Gel Frequency Setting (mHz) 1 Mode Setting Continuous Intensity Setting (w/cm2) 1.5 PT-OP-T Assessment and Plan Start: 10/22/17 15:21 Freq: Status: Active Protocol: Document 11/03/18 13:00 AMB (Rec: 11/03/18 14:31 AMB [email or web address]) Physical Therapy Assessment Assessment Summary Assessment Pt continues to have weakness/ pain with shoulder ER bilaterally. Continue to work on scapular stabilization, but more difficulty with pt's pain flare up. Elbow pain consistent with tennis elbow, encouraged pt to ice, and get brace if necessary. Physical Therapy Plan Next Visit Focus/Plan Next Note Type Treatment Note Next Visit Plan Reinforce gentle strengthening as tolerated.
--- NOTE | 2018-11-25 16:03 | PT.OTN ---
Current Diagnoses Pain in left shoulder (11/25/18) Low back pain (11/25/18) Physical Therapy Treatment Note PT-OP-A Visit Information Start: 10/22/17 15:21 Freq: Status: Active Protocol: Document 11/25/18 13:00 AMB (Rec: 11/25/18 16:03 AMB [email or web address]) Out-Patient Physical Therapy Visit Information Visit Information Visit Type Treatment Note Visit Start Time 13:00 Visit Stop Time 13:45 Total Visit Minutes 45 Visit Number 82 PT-OP-B Current Condition Start: 06/19/18 16:23 Freq: Status: Active Protocol: Document 06/19/18 11:15 AMB (Rec: 06/20/18 07:28 AMB [email or web address]) Current Condition History of Current Condition Onset Date chronic Current Complaints L scapular pain, neck pain, back pain History of Current Condition The patient reports years of pain, worse with caring for his 3 young children. 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 He returns to physical therapy with a new script from his PCP for the above impairments. 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 He has not really been doing his strengthening exercises, but has been stretching. PT-OP-F Manual Assessment Start: 06/19/18 16:23 Freq: Status: Active Protocol: Document 06/19/18 11:15 AMB (Rec: 06/20/18 07:28 AMB [email or web address]) Manual Assessments Joint Mobility Assessment Joint Mobility Assessment Stiffness with PAs throughout thoracic spine, more mobility in lumbar spine. Stiffness in scapulothoracic joint L>R. Stiffness at GH joint at end range flexion. PT-OP-J Posture/Palpation/Skin Start: 06/19/18 16:23 Freq: Status: Active Protocol: Document 10/16/18 13:00 AMB (Rec: 10/16/18 15:22 AMB [email or web address]) Posture Evaluation Comments Posture Comments Pt stands with excessive lumbar lordosis, increased thoracic kyphosis with forward shoulders, tends to stand on one leg or the other and hang on Y ligaments. PT-OP-K Range of Motion Start: 12/03/17 07:05 Freq: Status: Active Protocol: Document 10/16/18 13:00 AMB (Rec: 10/16/18 15:22 AMB [email or web address]) Shoulder Goniometric Range of Motion Shoulder Measured in Degrees Left Active Flexion 140 Abduction 160 Shoulder ROM Limitations Comments Pain begins at 110 degrees of flexion, and 100 degrees of abduction, gets worse with more ROM, no painful arc. PT-OP-M Strength Start: 12/03/17 07:05 Freq: Status: Active Protocol: Document 10/16/18 13:00 AMB (Rec: 10/16/18 15:22 AMB [email or web address]) Shoulder Strength Shoulder Manual Muscle Testing Left Flexion 4 Good Extension 4 Good Abduction (C5) 4 Good External Rotation 4- Good- Internal Rotation 4+ Good+ PT-OP-Q Treatments Start: 10/22/17 15:21 Freq: Status: Active Protocol: Document 11/25/18 13:00 AMB (Rec: 11/25/18 16:03 AMB [email or web address]) Therapeutic Exercises Supine Exercises 4 Supine Exercise Name pec stretches Reps/Minutes 30x2 1 Supine Exercise Name shoulder flexion stretch Reps/Minutes 30x2 Sidelying Exercises 2 Sidelying Exercise Name ER Side left Resistance AROM Reps/Minutes 2x12 Manual Therapy Treatment Soft Tissue Mobilization 3 Body Location Trigger point release Mobilization Type Cross-Friction Trigger Point Release Intensity/Depth Moderate Body Position Prone Comments infraspinatus, rhomboids, subscapularis 1 Body Location L/R Periscapula Mobilization Type Myofascial Release Intensity/Depth Moderate Body Position R Sidelying Comments rhomboids Joint Mobilizations 1 Joint Scapulothoracic mobilization with movement Direction upward rotation Grade III Body Position RSidelying Comments Scapular mobilizations/upward rotation with sidelying L shoulder abd PT-OP-R Modalities Start: 11/21/17 15:49 Freq: Status: Active Protocol: Document 11/21/17 14:30 AMB (Rec: 11/21/17 15:56 AMB [email or web address]) Ultrasound Therapy Treatment Left Upper Back Treatment Duration (minutes) 7 Patient Position Prone Coupling Medium Ultrasound Gel Frequency Setting (mHz) 1 Mode Setting Continuous Intensity Setting (w/cm2) 1.5 PT-OP-T Assessment and Plan Start: 10/22/17 15:21 Freq: Status: Active Protocol: Document 11/25/18 13:00 AMB (Rec: 11/25/18 16:03 AMB [email or web address]) Physical Therapy Assessment Assessment Summary Assessment Pt with pain throughout L scapula today, will need to continue to strengthen. Physical Therapy Plan Next Visit Focus/Plan Next Note Type Treatment Note Next Visit Plan Reinforce gentle strengthening as tolerated.
--- NOTE | 2018-11-27 13:54 | PT.OTN ---
Current Diagnoses Pain in left shoulder (11/27/18) Low back pain (11/27/18) Physical Therapy Treatment Note PT-OP-A Visit Information Start: 10/22/17 15:21 Freq: Status: Active Protocol: Document 11/27/18 13:00 AMB (Rec: 11/27/18 13:46 AMB [email or web address]) Out-Patient Physical Therapy Visit Information Visit Information Visit Type Treatment Note Visit Start Time 13:00 Visit Stop Time 13:45 Total Visit Minutes 45 Visit Number 83 PT-OP-B Current Condition Start: 06/19/18 16:23 Freq: Status: Active Protocol: Document 06/19/18 11:15 AMB (Rec: 06/20/18 07:28 AMB [email or web address]) Current Condition History of Current Condition Onset Date chronic Current Complaints L scapular pain, neck pain, back pain History of Current Condition The patient reports years of pain, worse with caring for his 3 young children. 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 He returns to physical therapy with a new script from his PCP for the above impairments. 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 He then woke up the next day and felt that he was stuck in forward flexion. PT-OP-F Manual Assessment Start: 06/19/18 16:23 Freq: Status: Active Protocol: Document 06/19/18 11:15 AMB (Rec: 06/20/18 07:28 AMB [email or web address]) Manual Assessments Joint Mobility Assessment Joint Mobility Assessment Stiffness with PAs throughout thoracic spine, more mobility in lumbar spine. Stiffness in scapulothoracic joint L>R. Stiffness at GH joint at end range flexion. PT-OP-J Posture/Palpation/Skin Start: 06/19/18 16:23 Freq: Status: Active Protocol: Document 10/16/18 13:00 AMB (Rec: 10/16/18 15:22 AMB [email or web address]) Posture Evaluation Comments Posture Comments Pt stands with excessive lumbar lordosis, increased thoracic kyphosis with forward shoulders, tends to stand on one leg or the other and hang on Y ligaments. PT-OP-K Range of Motion Start: 12/03/17 07:05 Freq: Status: Active Protocol: Document 10/16/18 13:00 AMB (Rec: 10/16/18 15:22 AMB [email or web address]) Shoulder Goniometric Range of Motion Shoulder Measured in Degrees Left Active Flexion 140 Abduction 160 Shoulder ROM Limitations Comments Pain begins at 110 degrees of flexion, and 100 degrees of abduction, gets worse with more ROM, no painful arc. PT-OP-M Strength Start: 12/03/17 07:05 Freq: Status: Active Protocol: Document 10/16/18 13:00 AMB (Rec: 10/16/18 15:22 AMB [email or web address]) Shoulder Strength Shoulder Manual Muscle Testing Left Flexion 4 Good Extension 4 Good Abduction (C5) 4 Good External Rotation 4- Good- Internal Rotation 4+ Good+ PT-OP-Q Treatments Start: 10/22/17 15:21 Freq: Status: Active Protocol: Document 11/27/18 13:00 AMB (Rec: 11/27/18 13:54 AMB [email or web address]) Therapeutic Exercises Supine Exercises 4 Supine Exercise Name pec stretches Reps/Minutes 30x2 Prone Exercises 5 Prone Exercise Name prone press up Reps/Minutes 10 Comments forearms Manual Therapy Treatment Soft Tissue Mobilization 3 Body Location Trigger point release Mobilization Type Cross-Friction Trigger Point Release Intensity/Depth Moderate Body Position Prone Comments infraspinatus, rhomboids, subscapularis Joint Mobilizations 5 Joint lumbar/ thoracic Direction PAs Comments prone PT-OP-R Modalities Start: 11/21/17 15:49 Freq: Status: Active Protocol: Document 11/21/17 14:30 AMB (Rec: 11/21/17 15:56 AMB [email or web address]) Ultrasound Therapy Treatment Left Upper Back Treatment Duration (minutes) 7 Patient Position Prone Coupling Medium Ultrasound Gel Frequency Setting (mHz) 1 Mode Setting Continuous Intensity Setting (w/cm2) 1.5 PT-OP-T Assessment and Plan Start: 10/22/17 15:21 Freq: Status: Active Protocol: Document 11/27/18 13:00 AMB (Rec: 11/27/18 13:48 AMB [email or web address]) Physical Therapy Assessment Assessment Summary Assessment Pt had difficulty with prone on elbows with L scapular winging, but did improve in lumbar extension after manual therapy. Physical Therapy Plan Next Visit Focus/Plan Next Note Type Treatment Note Next Visit Plan Reinforce gentle strengthening as tolerated.
--- NOTE | 2018-12-02 15:34 | PT.OTN ---
Current Diagnoses Pain in left shoulder (12/02/18) Low back pain (12/02/18) Physical Therapy Treatment Note PT-OP-A Visit Information Start: 10/22/17 15:21 Freq: Status: Active Protocol: Document 12/02/18 13:45 AMB (Rec: 12/02/18 13:48 AMB [email or web address]) Out-Patient Physical Therapy Visit Information Visit Information Visit Type Treatment Note Visit Start Time 13:00 Visit Stop Time 13:45 Total Visit Minutes 45 Visit Number 84 PT-OP-B Current Condition Start: 06/19/18 16:23 Freq: Status: Active Protocol: Document 06/19/18 11:15 AMB (Rec: 06/20/18 07:28 AMB [email or web address]) Current Condition History of Current Condition Onset Date chronic Current Complaints L scapular pain, neck pain, back pain History of Current Condition The patient reports years of pain, worse with caring for his 3 young children. 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 He returns to physical therapy with a new script from his PCP for the above impairments. 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 PT-OP-F Manual Assessment Start: 06/19/18 16:23 Freq: Status: Active Protocol: Document 06/19/18 11:15 AMB (Rec: 06/20/18 07:28 AMB [email or web address]) Manual Assessments Joint Mobility Assessment Joint Mobility Assessment Stiffness with PAs throughout thoracic spine, more mobility in lumbar spine. Stiffness in scapulothoracic joint L>R. Stiffness at GH joint at end range flexion. PT-OP-J Posture/Palpation/Skin Start: 06/19/18 16:23 Freq: Status: Active Protocol: Document 10/16/18 13:00 AMB (Rec: 10/16/18 15:22 AMB [email or web address]) Posture Evaluation Comments Posture Comments Pt stands with excessive lumbar lordosis, increased thoracic kyphosis with forward shoulders, tends to stand on one leg or the other and hang on Y ligaments. PT-OP-K Range of Motion Start: 12/03/17 07:05 Freq: Status: Active Protocol: Document 10/16/18 13:00 AMB (Rec: 10/16/18 15:22 AMB [email or web address]) Shoulder Goniometric Range of Motion Shoulder Measured in Degrees Left Active Flexion 140 Abduction 160 Shoulder ROM Limitations Comments Pain begins at 110 degrees of flexion, and 100 degrees of abduction, gets worse with more ROM, no painful arc. PT-OP-M Strength Start: 12/03/17 07:05 Freq: Status: Active Protocol: Document 10/16/18 13:00 AMB (Rec: 10/16/18 15:22 AMB [email or web address]) Shoulder Strength Shoulder Manual Muscle Testing Left Flexion 4 Good Extension 4 Good Abduction (C5) 4 Good External Rotation 4- Good- Internal Rotation 4+ Good+ PT-OP-Q Treatments Start: 10/22/17 15:21 Freq: Status: Active Protocol: Document 12/02/18 13:00 AMB (Rec: 12/02/18 15:34 AMB [email or web address]) Gym Equipment Cable Column (Body Solid) Rows Resistance 20 Reps/Time 2x10 Lat Pull Down Resistance 20 Reps/Time 2x10 Therapeutic Exercises Supine Exercises 4 Supine Exercise Name pec stretches Reps/Minutes 30x2 2 Supine Exercise Name full foam roll vertical Reps/Minutes 2x10 Comments 2# flexion/ abduction 1 Supine Exercise Name shoulder flexion stretch Reps/Minutes 30x2 Prone Exercises 5 Prone Exercise Name prone press up Reps/Minutes 10 Comments forearms Sidelying Exercises 2 Sidelying Exercise Name ER Side left Resistance AROM Reps/Minutes 2x12 Manual Therapy Treatment Soft Tissue Mobilization 3 Body Location Trigger point release Mobilization Type Cross-Friction Trigger Point Release Intensity/Depth Moderate Body Position Prone Comments infraspinatus, rhomboids, subscapularis 1 Body Location L/R Periscapula Mobilization Type Myofascial Release Intensity/Depth Moderate Body Position R Sidelying Comments rhomboids Joint Mobilizations 1 Joint Scapulothoracic mobilization with movement Direction upward rotation Grade III Body Position RSidelying Comments Scapular mobilizations/upward rotation with sidelying L shoulder abd PT-OP-R Modalities Start: 11/21/17 15:49 Freq: Status: Active Protocol: Document 11/21/17 14:30 AMB (Rec: 11/21/17 15:56 AMB [email or web address]) Ultrasound Therapy Treatment Left Upper Back Treatment Duration (minutes) 7 Patient Position Prone Coupling Medium Ultrasound Gel Frequency Setting (mHz) 1 Mode Setting Continuous Intensity Setting (w/cm2) 1.5 PT-OP-T Assessment and Plan Start: 10/22/17 15:21 Freq: Status: Active Protocol: Document 12/02/18 13:00 AMB (Rec: 12/02/18 15:34 AMB [email or web address]) Physical Therapy Assessment Assessment Summary Assessment Pt is continuing to display poor posture increased kyphosis but can move into good posture for shorter periods of time with physical cueing. Physical Therapy Plan Next Visit Focus/Plan Next Note Type Treatment Note Next Visit Plan Reinforce gentle strengthening as tolerated.
--- NOTE | 2018-12-30 16:00 | PT.OTN ---
Current Diagnoses Pain in left shoulder (12/30/18) Low back pain (12/30/18) Physical Therapy Treatment Note PT-OP-A Visit Information Start: 10/22/17 15:21 Freq: Status: Active Protocol: Document 12/30/18 13:00 AMB (Rec: 12/31/18 06:58 AMB [email or web address]) Out-Patient Physical Therapy Visit Information Visit Information Visit Type Treatment Note Visit Start Time 13:00 Visit Stop Time 13:45 Total Visit Minutes 45 Visit Number 85 PT-OP-B Current Condition Start: 06/19/18 16:23 Freq: Status: Active Protocol: Document 06/19/18 11:15 AMB (Rec: 06/20/18 07:28 AMB [email or web address]) Current Condition History of Current Condition Onset Date chronic Current Complaints L scapular pain, neck pain, back pain History of Current Condition The patient reports years of pain, worse with caring for his 3 young children. 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 He returns to physical therapy with a new script from his PCP for the above impairments. 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 Overall feeling good except for L scapula. Lats have been difficult to stretch out. PT-OP-F Manual Assessment Start: 06/19/18 16:23 Freq: Status: Active Protocol: Document 06/19/18 11:15 AMB (Rec: 06/20/18 07:28 AMB [email or web address]) Manual Assessments Joint Mobility Assessment Joint Mobility Assessment Stiffness with PAs throughout thoracic spine, more mobility in lumbar spine. Stiffness in scapulothoracic joint L>R. Stiffness at GH joint at end range flexion. PT-OP-J Posture/Palpation/Skin Start: 06/19/18 16:23 Freq: Status: Active Protocol: Document 10/16/18 13:00 AMB (Rec: 10/16/18 15:22 AMB [email or web address]) Posture Evaluation Comments Posture Comments Pt stands with excessive lumbar lordosis, increased thoracic kyphosis with forward shoulders, tends to stand on one leg or the other and hang on Y ligaments. PT-OP-K Range of Motion Start: 12/03/17 07:05 Freq: Status: Active Protocol: Document 10/16/18 13:00 AMB (Rec: 10/16/18 15:22 AMB [email or web address]) Shoulder Goniometric Range of Motion Shoulder Left Active Flexion 140 Abduction 160 Shoulder ROM Limitations Comments Pain begins at 110 degrees of flexion, and 100 degrees of abduction, gets worse with more ROM, no painful arc. PT-OP-M Strength Start: 12/03/17 07:05 Freq: Status: Active Protocol: Document 10/16/18 13:00 AMB (Rec: 10/16/18 15:22 AMB [email or web address]) Shoulder Strength Shoulder Manual Muscle Testing Left Flexion 4 Good Extension 4 Good Abduction (C5) 4 Good External Rotation 4- Good- Internal Rotation 4+ Good+ PT-OP-Q Treatments Start: 10/22/17 15:21 Freq: Status: Active Protocol: Document 12/30/18 13:00 AMB (Rec: 12/31/18 06:58 AMB [email or web address]) Therapeutic Exercises Supine Exercises 4 Supine Exercise Name pec stretches Reps/Minutes 30x2 Sidelying Exercises 2 Sidelying Exercise Name ER Side left Resistance AROM Reps/Minutes 2x12 Sitting Exercises 4 Sitting Exercise Name shoulder rolls Reps/Minutes 10 Manual Therapy Treatment Soft Tissue Mobilization 3 Body Location Trigger point release Mobilization Type Cross-Friction Trigger Point Release Intensity/Depth Moderate Body Position Prone Comments infraspinatus, rhomboids, subscapularis 1 Body Location L/R Periscapula Mobilization Type Myofascial Release Intensity/Depth Moderate Body Position R Sidelying Comments rhomboids Joint Mobilizations 1 Joint Scapulothoracic mobilization with movement Direction upward rotation Grade III Body Position RSidelying Comments Scapular mobilizations/upward rotation with sidelying L shoulder abd PT-OP-R Modalities Start: 11/21/17 15:49 Freq: Status: Active Protocol: Document 11/21/17 14:30 AMB (Rec: 11/21/17 15:56 AMB [email or web address]) Ultrasound Therapy Treatment Left Upper Back Treatment Duration (minutes) 7 Patient Position Prone Coupling Medium Ultrasound Gel Frequency Setting (mHz) 1 Mode Setting Continuous Intensity Setting (w/cm2) 1.5 PT-OP-T Assessment and Plan Start: 10/22/17 15:21 Freq: Status: Active Protocol: Document 12/30/18 13:00 AMB (Rec: 12/31/18 06:58 AMB [email or web address]) Physical Therapy Assessment Assessment Summary Assessment Pt's posture continues to perpetuate trigger points in L scapula. Will consider more focuses core stabilization in addition to scapular stabilization. Physical Therapy Plan Next Visit Focus/Plan Next Note Type Treatment Note Next Visit Plan Reinforce gentle strengthening as tolerated.
--- NOTE | 2019-01-01 14:02 | PT.OTN ---
Current Diagnoses Pain in left shoulder (01/01/19) Low back pain (01/01/19) Physical Therapy Treatment Note PT-OP-A Visit Information Start: 10/22/17 15:21 Freq: Status: Active Protocol: Document 01/01/19 13:00 AMB (Rec: 01/01/19 14:01 AMB [id number]) Out-Patient Physical Therapy Visit Information Visit Information Visit Type Treatment Note Visit Start Time 13:00 Visit Stop Time 13:45 Total Visit Minutes 45 Visit Number [id number] PT-OP-B Current Condition Start: 06/19/18 16:23 Freq: Status: Active Protocol: Document 06/19/18 11:15 AMB (Rec: 06/20/18 07:28 AMB [email or web address]) Current Condition History of Current Condition Onset Date chronic Current Complaints L scapular pain, neck pain, back pain History of Current Condition The patient reports years of pain, worse with caring for his 3 young children. 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 He returns to physical therapy with a new script from his PCP for the above impairments. 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 PT-OP-F Manual Assessment Start: 06/19/18 16:23 Freq: Status: Active Protocol: Document 06/19/18 11:15 AMB (Rec: 06/20/18 07:28 AMB [email or web address]) Manual Assessments Joint Mobility Assessment Joint Mobility Assessment Stiffness with PAs throughout thoracic spine, more mobility in lumbar spine. Stiffness in scapulothoracic joint L>R. Stiffness at GH joint at end range flexion. PT-OP-J Posture/Palpation/Skin Start: 06/19/18 16:23 Freq: Status: Active Protocol: Document 10/16/18 13:00 AMB (Rec: 10/16/18 15:22 AMB [email or web address]) Posture Evaluation Comments Posture Comments Pt stands with excessive lumbar lordosis, increased thoracic kyphosis with forward shoulders, tends to stand on one leg or the other and hang on Y ligaments. PT-OP-K Range of Motion Start: 12/03/17 07:05 Freq: Status: Active Protocol: Document 10/16/18 13:00 AMB (Rec: 10/16/18 15:22 AMB [email or web address]) Shoulder Goniometric Range of Motion Shoulder Left Active Flexion 140 Abduction 160 Shoulder ROM Limitations Comments Pain begins at 110 degrees of flexion, and 100 degrees of abduction, gets worse with more ROM, no painful arc. PT-OP-M Strength Start: 12/03/17 07:05 Freq: Status: Active Protocol: Document 10/16/18 13:00 AMB (Rec: 10/16/18 15:22 AMB [email or web address]) Shoulder Strength Shoulder Manual Muscle Testing Left Flexion 4 Good Extension 4 Good Abduction (C5) 4 Good External Rotation 4- Good- Internal Rotation 4+ Good+ PT-OP-Q Treatments Start: 10/22/17 15:21 Freq: Status: Active Protocol: Document 01/01/19 13:00 AMB (Rec: 01/01/19 14:01 AMB [id number]) Gym Equipment Cable Column (Body Solid) Rows Resistance 20 Reps/Time 2x10 Lat Pull Down Resistance 20 Reps/Time 2x10 Manual Therapy Treatment Soft Tissue Mobilization 3 Body Location Trigger point release Mobilization Type Cross-Friction Trigger Point Release Intensity/Depth Moderate Body Position Prone Comments infraspinatus, rhomboids, subscapularis, pec minor, subclavius 1 Body Location L/R Periscapula Mobilization Type Myofascial Release Intensity/Depth Moderate Body Position R Sidelying Comments rhomboids Joint Mobilizations 1 Joint Scapulothoracic mobilization with movement Direction upward rotation Grade III Body Position RSidelying Comments Scapular mobilizations/upward rotation with sidelying L shoulder abd PT-OP-R Modalities Start: 11/21/17 15:49 Freq: Status: Active Protocol: Document 11/21/17 14:30 AMB (Rec: 11/21/17 15:56 AMB [email or web address]) Ultrasound Therapy Treatment Left Upper Back Treatment Duration (minutes) 7 Patient Position Prone Coupling Medium Ultrasound Gel Frequency Setting (mHz) 1 Mode Setting Continuous Intensity Setting (w/cm2) 1.5 PT-OP-T Assessment and Plan Start: 10/22/17 15:21 Freq: Status: Active Protocol: Document 01/01/19 13:00 LAURA (Rec: 01/01/19 14:01 [facility] [id number]) Physical Therapy Assessment Assessment Summary Assessment Pt with pec symptoms today, continued to educate on posture. Physical Therapy Plan Next Visit Focus/Plan Next Note Type Treatment Note Next Visit Plan Reinforce gentle strengthening as tolerated.
--- NOTE | 2019-01-06 15:02 | PT.OTN ---
Current Diagnoses Pain in left shoulder (01/06/19) Low back pain (01/06/19) Physical Therapy Treatment Note PT-OP-A Visit Information Start: 10/22/17 15:21 Freq: Status: Active Protocol: Document 01/06/19 13:00 AMB (Rec: 01/06/19 13:11 AMB [id number]) Out-Patient Physical Therapy Visit Information Visit Information Visit Type Treatment Note Visit Start Time 13:00 Visit Stop Time 13:45 Total Visit Minutes 45 Visit Number [id number] PT-OP-B Current Condition Start: 06/19/18 16:23 Freq: Status: Active Protocol: Document 06/19/18 11:15 AMB (Rec: 06/20/18 07:28 AMB [email or web address]) Current Condition History of Current Condition Onset Date chronic Current Complaints L scapular pain, neck pain, back pain History of Current Condition The patient reports years of pain, worse with caring for his 3 young children. 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 He returns to physical therapy with a new script from his PCP for the above impairments. 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 Stiffness in scapulothoracic joint L>R. Stiffness at GH joint at end range flexion. PT-OP-J Posture/Palpation/Skin Start: 06/19/18 16:23 Freq: Status: Active Protocol: Document 10/16/18 13:00 AMB (Rec: 10/16/18 15:22 AMB [email or web address]) Posture Evaluation Comments Posture Comments Pt stands with excessive lumbar lordosis, increased thoracic kyphosis with forward shoulders, tends to stand on one leg or the other and hang on Y ligaments. PT-OP-K Range of Motion Start: 12/03/17 07:05 Freq: Status: Active Protocol: Document 10/16/18 13:00 AMB (Rec: 10/16/18 15:22 AMB [email or web address]) Shoulder Goniometric Range of Motion Shoulder Left Active Flexion 140 Abduction 160 Shoulder ROM Limitations Comments Pain begins at 110 degrees of flexion, and 100 degrees of abduction, gets worse with more ROM, no painful arc. PT-OP-M Strength Start: 12/03/17 07:05 Freq: Status: Active Protocol: Document 10/16/18 13:00 AMB (Rec: 10/16/18 15:22 AMB [email or web address]) Shoulder Strength Shoulder Manual Muscle Testing Left Flexion 4 Good Extension 4 Good Abduction (C5) 4 Good External Rotation 4- Good- Internal Rotation 4+ Good+ PT-OP-Q Treatments Start: 10/22/17 15:21 Freq: Status: Active Protocol: Document 01/06/19 13:00 AMB (Rec: 01/06/19 15:02 AMB [email or web address]) Gym Equipment Cable Column (Body Solid) Rows Resistance 30 Reps/Time 2x10 Lat Pull Down Resistance 30 Reps/Time 2x10 Therapeutic Exercises Supine Exercises 4 Supine Exercise Name pec stretches Reps/Minutes 30x2 3 Supine Exercise Name foam roll thoracic extension Reps/Minutes 10 Therapeutic Activity Therapeutic Activity 1 Name sleep positioning Comments wedges and pillows. sleeping on side difficult, sleeping on back makes him snore, possible wedge under back and pillows under legs to elevate chest enough to prevent snoring. Manual Therapy Treatment Soft Tissue Mobilization 3 Body Location Trigger point release Mobilization Type Cross-Friction Trigger Point Release Intensity/Depth Moderate Body Position Prone Comments infraspinatus, rhomboids, subscapularis, pec minor, subclavius Joint Mobilizations 1 Joint Scapulothoracic mobilization with movement Direction upward rotation Grade III Body Position RSidelying Comments Scapular mobilizations/upward rotation with sidelying L shoulder abd PT-OP-R Modalities Start: 11/21/17 15:49 Freq: Status: Active Protocol: Document 11/21/17 14:30 AMB (Rec: 11/21/17 15:56 AMB [email or web address]) Ultrasound Therapy Treatment Left Upper Back Treatment Duration (minutes) 7 Patient Position Prone Coupling Medium Ultrasound Gel Frequency Setting (mHz) 1 Mode Setting Continuous Intensity Setting (w/cm2) 1.5 PT-OP-T Assessment and Plan Start: 10/22/17 15:21 Freq: Status: Active Protocol: Document 01/06/19 13:00 AMB (Rec: 01/06/19 15:02 AMB [email or web address]) Physical Therapy Assessment Assessment Summary Assessment Pt with less pain sx today, strengthening increases pain by about 2/10. Physical Therapy Plan Next Visit Focus/Plan Next Note Type Treatment Note Next Visit Plan Reinforce gentle strengthening as tolerated.
--- NOTE | 2019-01-08 15:28 | PT.OTN ---
Current Diagnoses Pain in left shoulder (01/08/19) Low back pain (01/08/19) Physical Therapy Treatment Note PT-OP-A Visit Information Start: 10/22/17 15:21 Freq: Status: Active Protocol: Document 01/08/19 13:00 AMB (Rec: 01/09/19 15:24 AMB [email or web address]) Out-Patient Physical Therapy Visit Information Visit Information Visit Type Treatment Note Visit Start Time 13:00 Visit Stop Time 13:45 Total Visit Minutes 45 Visit Number 88 PT-OP-B Current Condition Start: 06/19/18 16:23 Freq: Status: Active Protocol: Document 06/19/18 11:15 AMB (Rec: 06/20/18 07:28 AMB [email or web address]) Current Condition History of Current Condition Onset Date chronic Current Complaints L scapular pain, neck pain, back pain History of Current Condition The patient reports years of pain, worse with caring for his 3 young children. 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 He returns to physical therapy with a new script from his PCP for the above impairments. 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 He does feel more pain with activity, and has been finding sleeping challenging lately, but has incorporated some suggestions and has slept a bit better. PT-OP-F Manual Assessment Start: 06/19/18 16:23 Freq: Status: Active Protocol: Document 06/19/18 11:15 AMB (Rec: 06/20/18 07:28 AMB [email or web address]) Manual Assessments Joint Mobility Assessment Joint Mobility Assessment Stiffness with PAs throughout thoracic spine, more mobility in lumbar spine. Stiffness in scapulothoracic joint L>R. Stiffness at GH joint at end range flexion. PT-OP-J Posture/Palpation/Skin Start: 06/19/18 16:23 Freq: Status: Active Protocol: Document 10/16/18 13:00 AMB (Rec: 10/16/18 15:22 AMB [email or web address]) Posture Evaluation Comments Posture Comments Pt stands with excessive lumbar lordosis, increased thoracic kyphosis with forward shoulders, tends to stand on one leg or the other and hang on Y ligaments. PT-OP-K Range of Motion Start: 12/03/17 07:05 Freq: Status: Active Protocol: Document 01/08/19 13:14 AMB (Rec: 01/08/19 13:47 AMB [id number]) Lumbar Spine Range of Motion Lumbar Spine Active Degrees Testing Position Standing Flexion 50 Extension 15 Lateral Flexion Left 30 Lateral Flexion Right 30 ROM Limitations Pain Shoulder Goniometric Range of Motion Shoulder Right Testing Position 150 Left Active Flexion 150 PT-OP-M Strength Start: 12/03/17 07:05 Freq: Status: Active Protocol: Document 10/16/18 13:00 AMB (Rec: 10/16/18 15:22 AMB [email or web address]) Shoulder Strength Shoulder Manual Muscle Testing Left Flexion 4 Good Extension 4 Good Abduction (C5) 4 Good External Rotation 4- Good- Internal Rotation 4+ Good+ PT-OP-Q Treatments Start: 10/22/17 15:21 Freq: Status: Active Protocol: Document 01/08/19 13:00 AMB (Rec: 01/09/19 15:24 AMB [email or web address]) Therapeutic Exercises Supine Exercises 3 Supine Exercise Name foam roll thoracic extension Reps/Minutes 10 Sidelying Exercises 2 Sidelying Exercise Name ER Side left Resistance AROM Reps/Minutes 2x12 Sitting Exercises 4 Sitting Exercise Name shoulder rolls Reps/Minutes 10 Manual Therapy Treatment Soft Tissue Mobilization 3 Body Location Trigger point release Mobilization Type Cross-Friction Trigger Point Release Intensity/Depth Moderate Body Position Prone Comments infraspinatus, rhomboids, subscapularis, pec minor, subclavius 1 Body Location L/R Periscapula Mobilization Type Myofascial Release Intensity/Depth Moderate Body Position R Sidelying Comments rhomboids PT-OP-R Modalities Start: 11/21/17 15:49 Freq: Status: Active Protocol: Document 11/21/17 14:30 AMB (Rec: 11/21/17 15:56 AMB [email or web address]) Ultrasound Therapy Treatment Left Upper Back Treatment Duration (minutes) 7 Patient Position Prone Coupling Medium Ultrasound Gel Frequency Setting (mHz) 1 Mode Setting Continuous Intensity Setting (w/cm2) 1.5 PT-OP-T Assessment and Plan Start: 10/22/17 15:21 Freq: Status: Active Protocol: Document 01/08/19 13:00 AMB (Rec: 01/09/19 15:24 AMB [email or web address]) Physical Therapy Assessment Goals 4 Impairment Sleep Short Term Goal (STG) The patient will sleep for 5 hours using pillow props. STG Duration Intermittently met Care Home Goal (LTG) The patient will be independent with a core and scapular stabilization HEP to reduce his pain overall. Progressing Toward- pt is inconsistent with strengthening LTG Duration 12 weeks 3 Impairment Lifting/carrying Short Term Goal (STG) The patient will lift his youngest child into her carseat with good body mechanics and pain of 2/10 or less. Progressing toward. STG Duration 6 weeks Care Home Goal (LTG) The patient will lift dishes overhead to put them in a tall cabinet without an increase in pain. INTERMITENTLY MET LTG Duration 12 weeks 2 Impairment Posture Short Term Goal (STG) The patient will sit with appropriate posture for 45 minutes with 2/10 pain. NOT MET STG Duration 6 weeks Care Home Goal (LTG) The patient will stand for 10 minutes with good posture without an increase in baseline pain LTG Duration NOT MET 1 Impairment ROM Short Term Goal (STG) The patient will improve his lumbar AROM to Extension: 20 degrees, Flexion 50 derees, Sidebending bilateral: 25 degrees without an increase in pain. STG Duration PROGRESS MADE Lace Roller Operator Goal (LTG) The patient will increase his left shoulder AROM to 160 degrees of flexion and abduction. LTG Duration PROGRESS MADE Assessment Summary Assessment While Avery's ROM has improved , his posture and his ability to sit and stand for an extended period of time without increasing pain continue to be problematic. He is consistent with his stretches, but really does need to incorporate more strengthening into his daily routine. We will be taking about a month break due to the patient traveling out of state soon. Physical Therapy Plan Frequency and Duration Frequency of Treatment 2x/Week Duration of Treatment 12 weeks Plan of Care Start Date 01/08/19 Plan of Care End Date 04/02/19 Therapeutic Interventions Therapeutic Interventions Aquatic Therapy Home Exercise Program Joint Mobilizations Manual Therapy Neuromuscular Re-education Self-Care/Home Management Soft Tissue Mobilization Taping Therapeutic Activities Therapeutic Exercises Modalities Cold Pack/Ice Massage Hot Packs Next Visit Focus/Plan Next Note Type Treatment Note Next Visit Plan Reinforce gentle strengthening as tolerated.
--- NOTE | 2019-01-08 15:29 | PT.OPPOC ---
Current Diagnoses Pain in left shoulder (01/08/19) Low back pain (01/08/19) Provider Visit Care Team Role Provider Type Dorina Jin MD Attending Provider Physician Family Provider Primary Care Provider Specialty: Family Practice Address: [address] [place] [address], [phone] Email: [email or web address] Plan Of Care PT-OP-T Assessment and Plan Start: 10/22/17 15:21 Freq: Status: Active Protocol: Document 01/08/19 13:00 AMB (Rec: 01/09/19 15:24 AMB [email or web address]) Physical Therapy Assessment Goals 4 Impairment Sleep Short Term Goal (STG) The patient will sleep for 5 hours using pillow props. STG Duration Intermittently met Detention Goal (LTG) The patient will be independent with a core and scapular stabilization HEP to reduce his pain overall. Progressing Toward- pt is inconsistent with strengthening LTG Duration 12 weeks 3 Impairment Lifting/carrying Short Term Goal (STG) The patient will lift his youngest child into her carseat with good body mechanics and pain of 2/10 or less. Progressing toward. STG Duration 6 weeks Facepiece Line Supervisor Goal (LTG) The patient will lift dishes overhead to put them in a tall cabinet without an increase in pain. INTERMITENTLY MET LTG Duration 12 weeks 2 Impairment Posture Short Term Goal (STG) The patient will sit with appropriate posture for 45 minutes with 2/10 pain. NOT MET STG Duration 6 weeks Detention Goal (LTG) The patient will stand for 10 minutes with good posture without an increase in baseline pain LTG Duration NOT MET 1 Impairment ROM Short Term Goal (STG) The patient will improve his lumbar AROM to Extension: 20 degrees, Flexion 50 derees, Sidebending bilateral: 25 degrees without an increase in pain. STG Duration PROGRESS MADE Detention Goal (LTG) The patient will increase his left shoulder AROM to 160 degrees of flexion and abduction. LTG Duration PROGRESS MADE Assessment Summary Assessment While Avery's ROM has improved , his posture and his ability to sit and stand for an extended period of time without increasing pain continue to be problematic. He is consistent with his stretches, but really does need to incorporate more strengthening into his daily routine. We will be taking about a month break due to the patient traveling out of state soon. Physical Therapy Plan Frequency and Duration Frequency of Treatment 2x/Week Duration of Treatment 12 weeks Plan of Care Start Date 01/08/19 Plan of Care End Date 04/02/19 Therapeutic Interventions Therapeutic Interventions Aquatic Therapy Home Exercise Program Joint Mobilizations Manual Therapy Neuromuscular Re-education Self-Care/Home Management Soft Tissue Mobilization Taping Therapeutic Activities Therapeutic Exercises Modalities Cold Pack/Ice Massage Hot Packs Next Visit Focus/Plan Next Note Type Treatment Note Next Visit Plan Reinforce gentle strengthening as tolerated. Plan of Care Dates Plan of Care Start Date 01/08/19 Plan of Care End Date 04/02/19 Please Sign and Return: I have reviewed this Plan of Care and certify that the skilled therapy services above are required to meet the patient?s needs. Physician Signature Date Printed Name and Credentials Clinical Instructor Signature Printed Name and Credentials
--- NOTE | 2019-01-13 13:56 | PT.OTN ---
Current Diagnoses Pain in left shoulder (01/13/19) Low back pain (01/13/19) Physical Therapy Treatment Note PT-OP-A Visit Information Start: 10/22/17 15:21 Freq: Status: Active Protocol: Document 01/13/19 13:00 AMB (Rec: 01/13/19 13:13 AMB [id number]) Out-Patient Physical Therapy Visit Information Visit Information Visit Type Treatment Note Visit Start Time 13:00 Visit Stop Time 13:45 Total Visit Minutes 45 Visit Number 89 PT-OP-B Current Condition Start: 06/19/18 16:23 Freq: Status: Active Protocol: Document 06/19/18 11:15 AMB (Rec: 06/20/18 07:28 AMB [email or web address]) Current Condition History of Current Condition Onset Date chronic Current Complaints L scapular pain, neck pain, back pain History of Current Condition The patient reports years of pain, worse with caring for his 3 young children. 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 He returns to physical therapy with a new script from his PCP for the above impairments. 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 Stiffness in scapulothoracic joint L>R. Stiffness at GH joint at end range flexion. PT-OP-J Posture/Palpation/Skin Start: 06/19/18 16:23 Freq: Status: Active Protocol: Document 10/16/18 13:00 AMB (Rec: 10/16/18 15:22 AMB [email or web address]) Posture Evaluation Comments Posture Comments Pt stands with excessive lumbar lordosis, increased thoracic kyphosis with forward shoulders, tends to stand on one leg or the other and hang on Y ligaments. PT-OP-K Range of Motion Start: 12/03/17 07:05 Freq: Status: Active Protocol: Document 01/08/19 13:14 AMB (Rec: 01/08/19 13:47 AMB [id number]) Lumbar Spine Range of Motion Lumbar Spine Active Degrees Testing Position Standing Flexion 50 Extension 15 Lateral Flexion Left 30 Lateral Flexion Right 30 ROM Limitations Pain Shoulder Goniometric Range of Motion Shoulder Right Testing Position 150 Left Active Flexion 150 PT-OP-M Strength Start: 12/03/17 07:05 Freq: Status: Active Protocol: Document 10/16/18 13:00 AMB (Rec: 10/16/18 15:22 AMB [email or web address]) Shoulder Strength Shoulder Manual Muscle Testing Left Flexion 4 Good Extension 4 Good Abduction (C5) 4 Good External Rotation 4- Good- Internal Rotation 4+ Good+ PT-OP-Q Treatments Start: 10/22/17 15:21 Freq: Status: Active Protocol: Document 01/13/19 13:00 AMB (Rec: 01/13/19 13:56 AMB [email or web address]) Gym Equipment Cable Column (Body Solid) Rows Resistance 30 Reps/Time 1x10 Lat Pull Down Resistance 30 Reps/Time 2x10 Therapeutic Exercises Supine Exercises 3 Supine Exercise Name foam roll thoracic extension Reps/Minutes 10 Sidelying Exercises 2 Sidelying Exercise Name ER Side left Equipment Used 2# Reps/Minutes 2x12 Sitting Exercises 4 Sitting Exercise Name shoulder rolls Reps/Minutes 10 Manual Therapy Treatment Soft Tissue Mobilization 3 Body Location Trigger point release Mobilization Type Cross-Friction Trigger Point Release Intensity/Depth Moderate Body Position Prone Comments infraspinatus, rhomboids, subscapularis, pec minor, subclavius 1 Body Location L/R Periscapula Mobilization Type Myofascial Release Intensity/Depth Moderate Body Position R Sidelying Comments rhomboids PT-OP-R Modalities Start: 11/21/17 15:49 Freq: Status: Active Protocol: Document 11/21/17 14:30 AMB (Rec: 11/21/17 15:56 AMB [email or web address]) Ultrasound Therapy Treatment Left Upper Back Treatment Duration (minutes) 7 Patient Position Prone Coupling Medium Ultrasound Gel Frequency Setting (mHz) 1 Mode Setting Continuous Intensity Setting (w/cm2) 1.5 PT-OP-T Assessment and Plan Start: 10/22/17 15:21 Freq: Status: Active Protocol: Document 01/13/19 13:00 AMB (Rec: 01/13/19 13:56 AMB [email or web address]) Physical Therapy Assessment Assessment Summary Assessment Pain increases with rows, but overall pt tolerating more scapular stabilization Physical Therapy Plan Next Visit Focus/Plan Next Note Type Treatment Note Next Visit Plan Reinforce gentle strengthening as tolerated.
--- NOTE | 2019-01-23 16:00 | PT.OTN ---
Current Diagnoses Pain in left shoulder (01/22/19) Low back pain (01/22/19) Physical Therapy Treatment Note PT-OP-A Visit Information Start: 10/22/17 15:21 Freq: Status: Active Protocol: Document 01/22/19 13:00 AMB (Rec: 01/26/19 16:16 AMB [email or web address]) Out-Patient Physical Therapy Visit Information Visit Information Visit Type Treatment Note Visit Start Time 13:00 Visit Stop Time 13:45 Total Visit Minutes 45 Visit Number 90 PT-OP-B Current Condition Start: 06/19/18 16:23 Freq: Status: Active Protocol: Document 06/19/18 11:15 AMB (Rec: 06/20/18 07:28 AMB [email or web address]) Current Condition History of Current Condition Onset Date chronic Current Complaints L scapular pain, neck pain, back pain History of Current Condition The patient reports years of pain, worse with caring for his 3 young children. 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 He returns to physical therapy with a new script from his PCP for the above impairments. 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 PT-OP-F Manual Assessment Start: 06/19/18 16:23 Freq: Status: Active Protocol: Document 06/19/18 11:15 AMB (Rec: 06/20/18 07:28 AMB [email or web address]) Manual Assessments Joint Mobility Assessment Joint Mobility Assessment Stiffness with PAs throughout thoracic spine, more mobility in lumbar spine. Stiffness in scapulothoracic joint L>R. Stiffness at GH joint at end range flexion. PT-OP-J Posture/Palpation/Skin Start: 12/27/18 16:23 Freq: Status: Active Protocol: Document 10/16/18 13:00 AMB (Rec: 10/16/18 15:22 AMB [email or web address]) Posture Evaluation Comments Posture Comments Pt stands with excessive lumbar lordosis, increased thoracic kyphosis with forward shoulders, tends to stand on one leg or the other and hang on Y ligaments. PT-OP-K Range of Motion Start: 12/03/17 07:05 Freq: Status: Active Protocol: Document 01/08/19 13:14 AMB (Rec: 01/08/19 13:47 AMB [id number]) Lumbar Spine Range of Motion Lumbar Spine Active Degrees Testing Position Standing Flexion 50 Extension 15 Lateral Flexion Left 30 Lateral Flexion Right 30 ROM Limitations Pain Shoulder Goniometric Range of Motion Shoulder Right Testing Position 150 Left Active Flexion 150 PT-OP-M Strength Start: 12/03/17 07:05 Freq: Status: Active Protocol: Document 10/16/18 13:00 AMB (Rec: 10/16/18 15:22 AMB [email or web address]) Shoulder Strength Shoulder Manual Muscle Testing Left Flexion 4 Good Extension 4 Good Abduction (C5) 4 Good External Rotation 4- Good- Internal Rotation 4+ Good+ PT-OP-Q Treatments Start: 10/22/17 15:21 Freq: Status: Active Protocol: Document 01/23/19 13:00 AMB (Rec: 01/28/19 08:11 AMB [email or web address]) Therapeutic Exercises Sitting Exercises 4 Sitting Exercise Name shoulder rolls Reps/Minutes 10 Standing Exercises 5 Standing Exercise Name wall plank Reps/Minutes 30x2 4 Standing Exercise Name lat stretch against wall Reps/Minutes 30x2 Manual Therapy Treatment Soft Tissue Mobilization 3 Body Location Trigger point release Mobilization Type Cross-Friction Trigger Point Release Intensity/Depth Moderate Body Position Prone Comments infraspinatus, rhomboids, subscapularis, pec minor, subclavius 1 Body Location L/R Periscapula Mobilization Type Myofascial Release Intensity/Depth Moderate Body Position R Sidelying Comments rhomboids Joint Mobilizations 1 Joint Scapulothoracic mobilization with movement Direction upward rotation Grade III Body Position RSidelying Comments Scapular mobilizations/upward rotation with sidelying L shoulder abd PT-OP-R Modalities Start: 11/21/17 15:49 Freq: Status: Active Protocol: Document 11/21/17 14:30 AMB (Rec: 11/21/17 15:56 AMB [email or web address]) Ultrasound Therapy Treatment Left Upper Back Treatment Duration (minutes) 7 Patient Position Prone Coupling Medium Ultrasound Gel Frequency Setting (mHz) 1 Mode Setting Continuous Intensity Setting (w/cm2) 1.5 PT-OP-T Assessment and Plan Start: 10/22/17 15:21 Freq: Status: Active Protocol: Document 01/22/19 13:00 AMB (Rec: 01/26/19 16:16 AMB [email or web address]) Physical Therapy Assessment Assessment Summary Assessment Encouraged pt to continue with strengthening while on vacation. Pt continues to have increased pain with light strengthening and prefers stretching. Physical Therapy Plan Next Visit Focus/Plan Next Note Type Treatment Note Next Visit Plan Reinforce gentle strengthening as tolerated.
--- NOTE | 2019-02-24 15:45 | PT.OTN ---
Current Diagnoses Pain in left shoulder (02/24/19) Low back pain (02/24/19) Physical Therapy Treatment Note PT-OP-A Visit Information Start: 10/22/17 15:21 Freq: Status: Active Protocol: Document 02/24/19 13:00 AMB (Rec: 02/24/19 13:51 AMB [id number]) Out-Patient Physical Therapy Visit Information Visit Information Visit Type Treatment Note Visit Start Time 13:00 Visit Stop Time 13:45 Total Visit Minutes 45 Visit Number 91 PT-OP-B Current Condition Start: 06/19/18 16:23 Freq: Status: Active Protocol: Document 06/19/18 11:15 AMB (Rec: 06/20/18 07:28 AMB [email or web address]) Current Condition History of Current Condition Onset Date chronic Current Complaints L scapular pain, neck pain, back pain History of Current Condition The patient reports years of pain, worse with caring for his 3 young children. 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 He returns to physical therapy with a new script from his PCP for the above impairments. 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 PT-OP-F Manual Assessment Start: 06/19/18 16:23 Freq: Status: Active Protocol: Document 06/19/18 11:15 AMB (Rec: 06/20/18 07:28 AMB [email or web address]) Manual Assessments Joint Mobility Assessment Joint Mobility Assessment Stiffness with PAs throughout thoracic spine, more mobility in lumbar spine. Stiffness in scapulothoracic joint L>R. Stiffness at GH joint at end range flexion. PT-OP-J Posture/Palpation/Skin Start: 06/19/18 16:23 Freq: Status: Active Protocol: Document 10/16/18 13:00 AMB (Rec: 10/16/18 15:22 AMB [email or web address]) Posture Evaluation Comments Posture Comments Pt stands with excessive lumbar lordosis, increased thoracic kyphosis with forward shoulders, tends to stand on one leg or the other and hang on Y ligaments. PT-OP-K Range of Motion Start: 12/03/17 07:05 Freq: Status: Active Protocol: Document 01/08/19 13:14 AMB (Rec: 01/08/19 13:47 AMB [id number]) Lumbar Spine Range of Motion Lumbar Spine Active Degrees Testing Position Standing Flexion 50 Extension 15 Lateral Flexion Left 30 Lateral Flexion Right 30 ROM Limitations Pain Shoulder Goniometric Range of Motion Shoulder Right Testing Position 150 Left Active Flexion 150 PT-OP-M Strength Start: 12/03/17 07:05 Freq: Status: Active Protocol: Document 10/16/18 13:00 AMB (Rec: 10/16/18 15:22 AMB [email or web address]) Shoulder Strength Shoulder Manual Muscle Testing Left Flexion 4 Good Extension 4 Good Abduction (C5) 4 Good External Rotation 4- Good- Internal Rotation 4+ Good+ PT-OP-Q Treatments Start: 10/22/17 15:21 Freq: Status: Active Protocol: Document 02/24/19 13:00 AMB (Rec: 02/24/19 15:44 AMB [email or web address]) Gym Equipment Cable Column (Body Solid) Rows Resistance 20 Reps/Time 2x10 Lat Pull Down Resistance 20 Reps/Time 2x10 Therapeutic Exercises Supine Exercises 3 Supine Exercise Name foam roll thoracic extension Reps/Minutes 10 2 Supine Exercise Name foam roll pec/lat stretch Reps/Minutes 30x2 Sitting Exercises 4 Sitting Exercise Name shoulder rolls Reps/Minutes 10 Standing Exercises 4 Standing Exercise Name lat stretch against wall Reps/Minutes 30x2 3 Standing Exercise Name ER Resistance #2 tband Comments 2x10 Manual Therapy Treatment Soft Tissue Mobilization 3 Body Location Trigger point release Mobilization Type Cross-Friction,Trigger Point Release Intensity/Depth Moderate Body Position Prone Comments infraspinatus, rhomboids, subscapularis, pec minor, subclavius 1 Body Location L/R Periscapula Mobilization Type Myofascial Release Intensity/Depth Moderate Body Position R Sidelying Comments rhomboids Joint Mobilizations 1 Joint Scapulothoracic mobilization with movement Direction upward rotation Grade III Body Position RSidelying Comments Scapular mobilizations/upward rotation with sidelying L shoulder abd PT-OP-R Modalities Start: 11/21/17 15:49 Freq: Status: Active Protocol: Document 11/21/17 14:30 AMB (Rec: 11/21/17 15:56 AMB [email or web address]) Ultrasound Therapy Treatment Left Upper Back Treatment Duration (minutes) 7 Patient Position Prone Coupling Medium Ultrasound Gel Frequency Setting (mHz) 1 Mode Setting Continuous Intensity Setting (w/cm2) 1.5 PT-OP-T Assessment and Plan Start: 10/22/17 15:21 Freq: Status: Active Protocol: Document 02/24/19 13:00 AMB (Rec: 02/24/19 15:44 AMB [email or web address]) Physical Therapy Assessment Assessment Summary Assessment Pt tolerated exercises well, although did need decreased resistance since he did not keep up with his exercises while on vacation. Physical Therapy Plan Next Visit Focus/Plan Next Note Type Treatment Note Next Visit Plan Reinforce gentle strengthening as tolerated.
--- NOTE | 2019-02-26 15:10 | PT.OTN ---
Current Diagnoses Pain in left shoulder (02/26/19) Low back pain (02/26/19) Physical Therapy Treatment Note PT-OP-A Visit Information Start: 10/22/17 15:21 Freq: Status: Active Protocol: Document 02/26/19 13:00 AMB (Rec: 02/26/19 15:10 AMB [email or web address]) Out-Patient Physical Therapy Visit Information Visit Information Visit Type Treatment Note Visit Start Time 13:00 Visit Stop Time 13:45 Total Visit Minutes 45 Visit Number 92 PT-OP-B Current Condition Start: 06/19/18 16:23 Freq: Status: Active Protocol: Document 06/19/18 11:15 AMB (Rec: 06/20/18 07:28 AMB [email or web address]) Current Condition History of Current Condition Onset Date chronic Current Complaints L scapular pain, neck pain, back pain History of Current Condition The patient reports years of pain, worse with caring for his 3 young children. 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 He returns to physical therapy with a new script from his PCP for the above impairments. 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 PT-OP-F Manual Assessment Start: 06/19/18 16:23 Freq: Status: Active Protocol: Document 06/19/18 11:15 AMB (Rec: 06/20/18 07:28 AMB [email or web address]) Manual Assessments Joint Mobility Assessment Joint Mobility Assessment Stiffness with PAs throughout thoracic spine, more mobility in lumbar spine. Stiffness in scapulothoracic joint L>R. Stiffness at GH joint at end range flexion. PT-OP-J Posture/Palpation/Skin Start: 06/19/18 16:23 Freq: Status: Active Protocol: Document 10/16/18 13:00 AMB (Rec: 04/25/19 15:22 AMB [email or web address]) Posture Evaluation Comments Posture Comments Pt stands with excessive lumbar lordosis, increased thoracic kyphosis with forward shoulders, tends to stand on one leg or the other and hang on Y ligaments. PT-OP-K Range of Motion Start: 12/03/17 07:05 Freq: Status: Active Protocol: Document 01/08/19 13:14 AMB (Rec: 01/08/19 13:47 AMB [id number]) Lumbar Spine Range of Motion Lumbar Spine Active Degrees Testing Position Standing Flexion 50 Extension 15 Lateral Flexion Left 30 Lateral Flexion Right 30 ROM Limitations Pain Shoulder Goniometric Range of Motion Shoulder Right Testing Position 150 Left Active Flexion 150 PT-OP-M Strength Start: 12/03/17 07:05 Freq: Status: Active Protocol: Document 10/16/18 13:00 AMB (Rec: 10/16/18 15:22 AMB [email or web address]) Shoulder Strength Shoulder Manual Muscle Testing Left Flexion 4 Good Extension 4 Good Abduction (C5) 4 Good External Rotation 4- Good- Internal Rotation 4+ Good+ PT-OP-Q Treatments Start: 10/22/17 15:21 Freq: Status: Active Protocol: Document 02/26/19 13:00 AMB (Rec: 02/26/19 15:10 AMB [email or web address]) Therapeutic Exercises Supine Exercises 2 Supine Exercise Name foam roll pec/lat stretch Reps/Minutes 30x2 Sitting Exercises 4 Sitting Exercise Name shoulder rolls Reps/Minutes 10 Standing Exercises 4 Standing Exercise Name lat stretch against wall Reps/Minutes 30x2 3 Standing Exercise Name ER Resistance #2 tband Comments 2x10 Manual Therapy Treatment Soft Tissue Mobilization 3 Body Location Trigger point release Mobilization Type Cross-Friction,Trigger Point Release Intensity/Depth Moderate Body Position Prone Comments infraspinatus, rhomboids, subscapularis, pec minor, subclavius 1 Body Location L/R Periscapula Mobilization Type Myofascial Release Intensity/Depth Moderate Body Position R Sidelying Comments rhomboids Joint Mobilizations 1 Joint Scapulothoracic mobilization with movement Direction upward rotation Grade III Body Position RSidelying Comments Scapular mobilizations/upward rotation with sidelying L shoulder abd PT-OP-R Modalities Start: 11/21/17 15:49 Freq: Status: Active Protocol: Document 11/21/17 14:30 AMB (Rec: 11/21/17 15:56 AMB [email or web address]) Ultrasound Therapy Treatment Left Upper Back Treatment Duration (minutes) 7 Patient Position Prone Coupling Medium Ultrasound Gel Frequency Setting (mHz) 1 Mode Setting Continuous Intensity Setting (w/cm2) 1.5 PT-OP-T Assessment and Plan Start: 10/22/17 15:21 Freq: Status: Active Protocol: Document 02/26/19 13:00 AMB (Rec: 02/26/19 15:10 AMB [email or web address]) Physical Therapy Assessment Assessment Summary Assessment Pt was quite painful at infraspinatus today. Active TrP at supraspinatus. 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 Physical Therapy Plan Next Visit Focus/Plan Next Note Type Treatment Note Next Visit Plan Reinforce gentle strengthening as tolerated.
--- NOTE | 2019-03-03 13:57 | PT.OTN ---
Current Diagnoses Pain in left shoulder (03/03/19) Low back pain (03/03/19) Physical Therapy Treatment Note PT-OP-A Visit Information Start: 10/22/17 15:21 Freq: Status: Active Protocol: Document 03/03/19 13:00 AMB (Rec: 03/03/19 13:52 AMB [id number]) Out-Patient Physical Therapy Visit Information Visit Information Visit Type Treatment Note Visit Start Time 13:00 Visit Stop Time 13:45 Total Visit Minutes 45 Visit Number 93 PT-OP-B Current Condition Start: 06/19/18 16:23 Freq: Status: Active Protocol: Document 06/19/18 11:15 AMB (Rec: 06/20/18 07:28 AMB [email or web address]) Current Condition History of Current Condition Onset Date chronic Current Complaints L scapular pain, neck pain, back pain History of Current Condition The patient reports years of pain, worse with caring for his 3 young children. 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 He returns to physical therapy with a new script from his PCP for the above impairments. 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 PT-OP-F Manual Assessment Start: 06/19/18 16:23 Freq: Status: Active Protocol: Document 06/19/18 11:15 AMB (Rec: 06/20/18 07:28 AMB [email or web address]) Manual Assessments Joint Mobility Assessment Joint Mobility Assessment Stiffness with PAs throughout thoracic spine, more mobility in lumbar spine. Stiffness in scapulothoracic joint L>R. Stiffness at GH joint at end range flexion. PT-OP-J Posture/Palpation/Skin Start: 06/19/18 16:23 Freq: Status: Active Protocol: Document 10/16/18 13:00 AMB (Rec: 10/16/18 15:22 AMB [email or web address]) Posture Evaluation Comments Posture Comments Pt stands with excessive lumbar lordosis, increased thoracic kyphosis with forward shoulders, tends to stand on one leg or the other and hang on Y ligaments. PT-OP-K Range of Motion Start: 12/03/17 07:05 Freq: Status: Active Protocol: Document 01/08/19 13:14 AMB (Rec: 01/08/19 13:47 AMB [id number]) Lumbar Spine Range of Motion Lumbar Spine Active Degrees Testing Position Standing Flexion 50 Extension 15 Lateral Flexion Left 30 Lateral Flexion Right 30 ROM Limitations Pain Shoulder Goniometric Range of Motion Shoulder Right Testing Position 150 Left Active Flexion 150 PT-OP-M Strength Start: 12/03/17 07:05 Freq: Status: Active Protocol: Document 10/16/18 13:00 AMB (Rec: 10/16/18 15:22 AMB [email or web address]) Shoulder Strength Shoulder Manual Muscle Testing Left Flexion 4 Good Extension 4 Good Abduction (C5) 4 Good External Rotation 4- Good- Internal Rotation 4+ Good+ PT-OP-Q Treatments Start: 10/22/17 15:21 Freq: Status: Active Protocol: Document 03/03/19 13:00 AMB (Rec: 03/03/19 13:52 AMB [id number]) Gym Equipment Cable Column (Body Solid) Rows Resistance 30 Reps/Time 2x10 Lat Pull Down Resistance 30 Reps/Time 2x10 Therapeutic Exercises Supine Exercises 2 Supine Exercise Name foam roll pec/lat stretch Reps/Minutes 30x2 Sitting Exercises 4 Sitting Exercise Name shoulder rolls Reps/Minutes 10 Standing Exercises 4 Standing Exercise Name lat stretch against wall Reps/Minutes 30x2 3 Standing Exercise Name ER Resistance #2 tband Comments 2x10 Manual Therapy Treatment Soft Tissue Mobilization 3 Body Location Trigger point release Mobilization Type Cross-Friction,Trigger Point Release Intensity/Depth Moderate Body Position Prone Comments infraspinatus, rhomboids, subscapularis, pec minor, subclavius 1 Body Location L/R Periscapula Mobilization Type Myofascial Release Intensity/Depth Moderate Body Position R Sidelying Comments rhomboids Joint Mobilizations 1 Joint Scapulothoracic mobilization with movement Direction upward rotation Grade III Body Position RSidelying Comments Scapular mobilizations/upward rotation with sidelying L shoulder abd PT-OP-R Modalities Start: 11/21/17 15:49 Freq: Status: Active Protocol: Document 11/21/17 14:30 AMB (Rec: 11/21/17 15:56 AMB [email or web address]) Ultrasound Therapy Treatment Left Upper Back Treatment Duration (minutes) 7 Patient Position Prone Coupling Medium Ultrasound Gel Frequency Setting (mHz) 1 Mode Setting Continuous Intensity Setting (w/cm2) 1.5 PT-OP-T Assessment and Plan Start: 10/22/17 15:21 Freq: Status: Active Protocol: Document 03/03/19 13:00 AMB (Rec: 03/03/19 13:57 AMB [id number]) Physical Therapy Assessment Assessment Summary Assessment Pt continues to have increased L sided pain throughout his foot, back, and upper back. 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 Physical Therapy Plan Next Visit Focus/Plan Next Note Type Treatment Note Next Visit Plan Address whole L sided alignment postural issues.
--- NOTE | 2019-03-17 13:00 | PT.OTN ---
Current Diagnoses Pain in left shoulder (03/17/19) Low back pain (03/17/19) Physical Therapy Treatment Note PT-OP-A Visit Information Start: 10/22/17 15:21 Freq: Status: Active Protocol: Document 03/17/19 13:00 AMB (Rec: 03/18/19 10:32 AMB [email or web address]) Out-Patient Physical Therapy Visit Information Visit Information Visit Type Treatment Note Visit Start Time 13:00 Visit Stop Time 13:40 Total Visit Minutes 45 Visit Number 94 PT-OP-B Current Condition Start: 06/19/18 16:23 Freq: Status: Active Protocol: Document 06/19/18 11:15 AMB (Rec: 06/20/18 07:28 AMB [email or web address]) Current Condition History of Current Condition Onset Date chronic Current Complaints L scapular pain, neck pain, back pain History of Current Condition The patient reports years of pain, worse with caring for his 3 young children. 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 He returns to physical therapy with a new script from his PCP for the above impairments. 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 Brings his 3 year old daughter to appointment. PT-OP-F Manual Assessment Start: 06/19/18 16:23 Freq: Status: Active Protocol: Document 06/19/18 11:15 AMB (Rec: 06/20/18 07:28 AMB [email or web address]) Manual Assessments Joint Mobility Assessment Joint Mobility Assessment Stiffness with PAs throughout thoracic spine, more mobility in lumbar spine. Stiffness in scapulothoracic joint L>R. Stiffness at GH joint at end range flexion. PT-OP-J Posture/Palpation/Skin Start: 06/19/18 16:23 Freq: Status: Active Protocol: Document 10/16/18 13:00 AMB (Rec: 10/16/18 15:22 AMB [email or web address]) Posture Evaluation Comments Posture Comments Pt stands with excessive lumbar lordosis, increased thoracic kyphosis with forward shoulders, tends to stand on one leg or the other and hang on Y ligaments. PT-OP-K Range of Motion Start: 12/03/17 07:05 Freq: Status: Active Protocol: Document 01/08/19 13:14 AMB (Rec: 01/08/19 13:47 AMB [id number]) Lumbar Spine Range of Motion Lumbar Spine Active Degrees Testing Position Standing Flexion 50 Extension 15 Lateral Flexion Left 30 Lateral Flexion Right 30 ROM Limitations Pain Shoulder Goniometric Range of Motion Shoulder Right Testing Position 150 Left Active Flexion 150 PT-OP-M Strength Start: 12/03/17 07:05 Freq: Status: Active Protocol: Document 10/16/18 13:00 AMB (Rec: 10/16/18 15:22 AMB [email or web address]) Shoulder Strength Shoulder Manual Muscle Testing Left Flexion 4 Good Extension 4 Good Abduction (C5) 4 Good External Rotation 4- Good- Internal Rotation 4+ Good+ PT-OP-Q Treatments Start: 10/22/17 15:21 Freq: Status: Active Protocol: Document 03/17/19 13:00 AMB (Rec: 03/18/19 10:32 AMB [email or web address]) Therapeutic Exercises Supine Exercises 4 Supine Exercise Name QL stretch Reps/Minutes 30x2 Comments with over pressure Standing Exercises 4 Standing Exercise Name lat stretch against wall Reps/Minutes 30x2 3 Standing Exercise Name ER Resistance #2 tband Comments 2x10 Manual Therapy Treatment Soft Tissue Mobilization 2 Body Location L QL Intensity/Depth Deep Body Position Sidelying 1 Body Location L/R Periscapula Mobilization Type Myofascial Release Intensity/Depth Moderate Body Position R Sidelying Comments rhomboids Joint Mobilizations 1 Joint Scapulothoracic mobilization with movement Direction upward rotation Grade III Body Position RSidelying Comments Scapular mobilizations/upward rotation with sidelying L shoulder abd PT-OP-R Modalities Start: 11/21/17 15:49 Freq: Status: Active Protocol: Document 11/21/17 14:30 AMB (Rec: 11/21/17 15:56 AMB [email or web address]) Ultrasound Therapy Treatment Left Upper Back Treatment Duration (minutes) 7 Patient Position Prone Coupling Medium Ultrasound Gel Frequency Setting (mHz) 1 Mode Setting Continuous Intensity Setting (w/cm2) 1.5 PT-OP-T Assessment and Plan Start: 10/22/17 15:21 Freq: Status: Active Protocol: Document 03/17/19 13:00 AMB (Rec: 03/18/19 10:32 AMB [email or web address]) Physical Therapy Assessment Assessment Summary Assessment Pt with L leg high in supine, QL stretching increased pain. Difficulty staying in better alignment today, but at end of session better. Physical Therapy Plan Next Visit Focus/Plan Next Note Type Treatment Note Next Visit Plan Address whole L sided alignment postural issues.
--- NOTE | 2019-03-19 15:02 | PT.OTN ---
Current Diagnoses Pain in left shoulder (03/19/19) Low back pain (03/19/19) Physical Therapy Treatment Note PT-OP-A Visit Information Start: 10/22/17 15:21 Freq: Status: Active Protocol: Document 03/19/19 13:00 AMB (Rec: 03/19/19 15:02 AMB [email or web address]) Out-Patient Physical Therapy Visit Information Visit Information Visit Type Treatment Note Visit Start Time 13:00 Visit Stop Time 13:40 Total Visit Minutes 40 Visit Number 95 PT-OP-B Current Condition Start: 06/19/18 16:23 Freq: Status: Active Protocol: Document 06/19/18 11:15 AMB (Rec: 06/20/18 07:28 AMB [email or web address]) Current Condition History of Current Condition Onset Date chronic Current Complaints L scapular pain, neck pain, back pain History of Current Condition The patient reports years of pain, worse with caring for his 3 young children. 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 He returns to physical therapy with a new script from his PCP for the above impairments. 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 PT-OP-F Manual Assessment Start: 06/19/18 16:23 Freq: Status: Active Protocol: Document 06/19/18 11:15 AMB (Rec: 06/20/18 07:28 AMB [email or web address]) Manual Assessments Joint Mobility Assessment Joint Mobility Assessment Stiffness with PAs throughout thoracic spine, more mobility in lumbar spine. Stiffness in scapulothoracic joint L>R. Stiffness at GH joint at end range flexion. PT-OP-J Posture/Palpation/Skin Start: 06/19/18 16:23 Freq: Status: Active Protocol: Document 10/16/18 13:00 AMB (Rec: 10/16/18 15:22 AMB [email or web address]) Posture Evaluation Comments Posture Comments Pt stands with excessive lumbar lordosis, increased thoracic kyphosis with forward shoulders, tends to stand on one leg or the other and hang on Y ligaments. PT-OP-K Range of Motion Start: 12/03/17 07:05 Freq: Status: Active Protocol: Document 01/08/19 13:14 AMB (Rec: 01/08/19 13:47 AMB [id number]) Lumbar Spine Range of Motion Lumbar Spine Active Degrees Testing Position Standing Flexion 50 Extension 15 Lateral Flexion Left 30 Lateral Flexion Right 30 ROM Limitations Pain Shoulder Goniometric Range of Motion Shoulder Right Testing Position 150 Left Active Flexion 150 PT-OP-M Strength Start: 12/03/17 07:05 Freq: Status: Active Protocol: Document 10/16/18 13:00 AMB (Rec: 10/16/18 15:22 AMB [email or web address]) Shoulder Strength Shoulder Manual Muscle Testing Left Flexion 4 Good Extension 4 Good Abduction (C5) 4 Good External Rotation 4- Good- Internal Rotation 4+ Good+ PT-OP-Q Treatments Start: 10/22/17 15:21 Freq: Status: Active Protocol: Document 03/19/19 13:00 AMB (Rec: 03/19/19 15:02 AMB [email or web address]) Therapeutic Exercises Supine Exercises 4 Supine Exercise Name QL stretch Reps/Minutes 30x2 Comments with over pressure Standing Exercises 5 Standing Exercise Name crossbody stretch Reps/Minutes 30x2 Manual Therapy Treatment Soft Tissue Mobilization 3 Body Location Trigger point release Mobilization Type Cross-Friction,Trigger Point Release Intensity/Depth Moderate Body Position Prone Comments infraspinatus, rhomboids, subscapularis, pec minor, subclavius 2 Body Location L QL Intensity/Depth Deep Body Position Sidelying 1 Body Location L/R Periscapula Mobilization Type Myofascial Release Intensity/Depth Moderate Body Position R Sidelying Comments rhomboids PT-OP-R Modalities Start: 11/21/17 15:49 Freq: Status: Active Protocol: Document 11/21/17 14:30 AMB (Rec: 11/21/17 15:56 AMB [email or web address]) Ultrasound Therapy Treatment Left Upper Back Treatment Duration (minutes) 7 Patient Position Prone Coupling Medium Ultrasound Gel Frequency Setting (mHz) 1 Mode Setting Continuous Intensity Setting (w/cm2) 1.5 PT-OP-T Assessment and Plan Start: 10/22/17 15:21 Freq: Status: Active Protocol: Document 03/19/19 13:00 AMB (Rec: 03/19/19 15:02 AMB [email or web address]) Physical Therapy Assessment Assessment Summary Assessment Pt continues to have chronic postural changes that are exacerbating his pain. Pt states even at age 10 he had a hard time sitting upright for long periods of time, and doesn't think that is posture has been good ever. Continues to have difficulty mataining good posture for any amount of time. Physical Therapy Plan Next Visit Focus/Plan Next Note Type Treatment Note Next Visit Plan Address whole L sided alignment postural issues.
--- NOTE | 2019-03-24 15:13 | PT.OTN ---
Current Diagnoses Pain in left shoulder (03/24/19) Low back pain (03/24/19) Physical Therapy Treatment Note PT-OP-A Visit Information Start: 10/22/17 15:21 Freq: Status: Active Protocol: Document 03/24/19 13:00 AMB (Rec: 03/24/19 13:47 AMB [id number]) Out-Patient Physical Therapy Visit Information Visit Information Visit Type Treatment Note Visit Start Time 13:00 Visit Stop Time 13:45 Total Visit Minutes 45 Visit Number 96 PT-OP-B Current Condition Start: 06/19/18 16:23 Freq: Status: Active Protocol: Document 06/19/18 11:15 AMB (Rec: 06/20/18 07:28 AMB [email or web address]) Current Condition History of Current Condition Onset Date chronic Current Complaints L scapular pain, neck pain, back pain History of Current Condition The patient reports years of pain, worse with caring for his 3 young children. 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 He returns to physical therapy with a new script from his PCP for the above impairments. 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 PT-OP-F Manual Assessment Start: 06/19/18 16:23 Freq: Status: Active Protocol: Document 06/19/18 11:15 AMB (Rec: 06/20/18 07:28 AMB [email or web address]) Manual Assessments Joint Mobility Assessment Joint Mobility Assessment Stiffness with PAs throughout thoracic spine, more mobility in lumbar spine. Stiffness in scapulothoracic joint L>R. Stiffness at GH joint at end range flexion. PT-OP-J Posture/Palpation/Skin Start: 06/19/18 16:23 Freq: Status: Active Protocol: Document 10/16/18 13:00 AMB (Rec: 10/16/18 15:22 AMB [email or web address]) Posture Evaluation Comments Posture Comments Pt stands with excessive lumbar lordosis, increased thoracic kyphosis with forward shoulders, tends to stand on one leg or the other and hang on Y ligaments. PT-OP-K Range of Motion Start: 12/03/17 07:05 Freq: Status: Active Protocol: Document 01/08/19 13:14 AMB (Rec: 01/08/19 13:47 AMB [id number]) Lumbar Spine Range of Motion Lumbar Spine Active Degrees Testing Position Standing Flexion 50 Extension 15 Lateral Flexion Left 30 Lateral Flexion Right 30 ROM Limitations Pain Shoulder Goniometric Range of Motion Shoulder Right Testing Position 150 Left Active Flexion 150 PT-OP-M Strength Start: 12/03/17 07:05 Freq: Status: Active Protocol: Document 10/16/18 13:00 AMB (Rec: 10/16/18 15:22 AMB [email or web address]) Shoulder Strength Shoulder Manual Muscle Testing Left Flexion 4 Good Extension 4 Good Abduction (C5) 4 Good External Rotation 4- Good- Internal Rotation 4+ Good+ PT-OP-Q Treatments Start: 10/22/17 15:21 Freq: Status: Active Protocol: Document 03/24/19 13:00 AMB (Rec: 03/24/19 15:13 AMB [email or web address]) Therapeutic Exercises Supine Exercises 4 Supine Exercise Name QL stretch Reps/Minutes 30x2 Comments with over pressure Standing Exercises 5 Standing Exercise Name crossbody stretch Reps/Minutes 30x2 3 Standing Exercise Name ER Resistance #2 tband Comments 2x10 Manual Therapy Treatment Soft Tissue Mobilization 3 Body Location Trigger point release Mobilization Type Cross-Friction,Trigger Point Release Intensity/Depth Moderate Body Position Prone Comments infraspinatus, rhomboids, subscapularis, pec minor, subclavius 2 Body Location L QL Intensity/Depth Deep Body Position Sidelying 1 Body Location L/R Periscapula Mobilization Type Myofascial Release Intensity/Depth Moderate Body Position R Sidelying Comments rhomboids Joint Mobilizations 1 Joint Scapulothoracic mobilization with movement Direction upward rotation Grade III Body Position RSidelying Comments Scapular mobilizations/upward rotation with sidelying L shoulder abd PT-OP-R Modalities Start: 11/21/17 15:49 Freq: Status: Active Protocol: Document 11/21/17 14:30 AMB (Rec: 11/21/17 15:56 AMB [email or web address]) Ultrasound Therapy Treatment Left Upper Back Treatment Duration (minutes) 7 Patient Position Prone Coupling Medium Ultrasound Gel Frequency Setting (mHz) 1 Mode Setting Continuous Intensity Setting (w/cm2) 1.5 PT-OP-T Assessment and Plan Start: 10/22/17 15:21 Freq: Status: Active Protocol: Document 03/24/19 13:00 AMB (Rec: 03/24/19 15:13 [facility] [email or web address]) Physical Therapy Assessment Assessment Summary Assessment Pt with increased pain due to soccer this last week. Continues to have L side high in supine. Physical Therapy Plan Next Visit Focus/Plan Next Note Type Treatment Note Next Visit Plan Address whole L sided alignment postural issues.
--- NOTE | 2019-03-31 12:47 | PT.OTN ---
Current Diagnoses Pain in left shoulder (03/31/19) Low back pain (03/31/19) Physical Therapy Treatment Note PT-OP-A Visit Information Start: 10/22/17 15:21 Freq: Status: Active Protocol: Document 03/31/19 11:15 AMB (Rec: 03/31/19 12:47 AMB [email or web address]) Out-Patient Physical Therapy Visit Information Visit Information Visit Type Treatment Note Visit Start Time 11:15 Visit Stop Time 12:00 Total Visit Minutes 45 Visit Number 97 PT-OP-B Current Condition Start: 06/19/18 16:23 Freq: Status: Active Protocol: Document 06/19/18 11:15 AMB (Rec: 06/20/18 07:28 AMB [email or web address]) Current Condition History of Current Condition Onset Date chronic Current Complaints L scapular pain, neck pain, back pain History of Current Condition The patient reports years of pain, worse with caring for his 3 young children. 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 He returns to physical therapy with a new script from his PCP for the above impairments. 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 PT-OP-F Manual Assessment Start: 06/19/18 16:23 Freq: Status: Active Protocol: Document 06/19/18 11:15 AMB (Rec: 06/20/18 07:28 AMB [email or web address]) Manual Assessments Joint Mobility Assessment Joint Mobility Assessment Stiffness with PAs throughout thoracic spine, more mobility in lumbar spine. Stiffness in scapulothoracic joint L>R. Stiffness at GH joint at end range flexion. PT-OP-J Posture/Palpation/Skin Start: 06/19/18 16:23 Freq: Status: Active Protocol: Document 10/16/18 13:00 AMB (Rec: 10/16/18 15:22 AMB [email or web address]) Posture Evaluation Comments Posture Comments Pt stands with excessive lumbar lordosis, increased thoracic kyphosis with forward shoulders, tends to stand on one leg or the other and hang on Y ligaments. PT-OP-K Range of Motion Start: 12/03/17 07:05 Freq: Status: Active Protocol: Document 01/08/19 13:14 AMB (Rec: 01/08/19 13:47 AMB [id number]) Lumbar Spine Range of Motion Lumbar Spine Active Degrees Testing Position Standing Flexion 50 Extension 15 Lateral Flexion Left 30 Lateral Flexion Right 30 ROM Limitations Pain Shoulder Goniometric Range of Motion Shoulder Right Testing Position 150 Left Active Flexion 150 PT-OP-M Strength Start: 12/03/17 07:05 Freq: Status: Active Protocol: Document 10/16/18 13:00 AMB (Rec: 10/16/18 15:22 AMB [email or web address]) Shoulder Strength Shoulder Manual Muscle Testing Left Flexion 4 Good Extension 4 Good Abduction (C5) 4 Good External Rotation 4- Good- Internal Rotation 4+ Good+ PT-OP-Q Treatments Start: 10/22/17 15:21 Freq: Status: Active Protocol: Document 03/31/19 11:15 AMB (Rec: 03/31/19 12:47 AMB [email or web address]) Manual Therapy Treatment Soft Tissue Mobilization 2 Body Location L UT Intensity/Depth Deep Body Position Supine 1 Body Location L/R Periscapula Mobilization Type Myofascial Release Intensity/Depth Moderate Body Position R Sidelying Comments rhomboids Joint Mobilizations 1 Joint Scapulothoracic mobilization with movement Direction upward rotation Grade III Body Position RSidelying Comments Scapular mobilizations/upward rotation with sidelying L shoulder abd Manual Traction Cervical Body Position Hooklying Other Other Manual Treatments median n glide, supine PT-OP-R Modalities Start: 11/21/17 15:49 Freq: Status: Active Protocol: Document 11/21/17 14:30 AMB (Rec: 11/21/17 15:56 AMB [email or web address]) Ultrasound Therapy Treatment Left Upper Back Treatment Duration (minutes) 7 Patient Position Prone Coupling Medium Ultrasound Gel Frequency Setting (mHz) 1 Mode Setting Continuous Intensity Setting (w/cm2) 1.5 PT-OP-T Assessment and Plan Start: 10/22/17 15:21 Freq: Status: Active Protocol: Document 03/31/19 11:15 AMB (Rec: 03/31/19 12:47 AMB [email or web address]) Physical Therapy Assessment Assessment Summary Assessment Adrien with resolution of radiating pain into hand, but continued to have radiating pain into elbow at end of session. Posture continues to be a main factor in his pain. Physical Therapy Plan Next Visit Focus/Plan Next Note Type Progress Note Next Visit Plan Reassess ROM, strength, posture
--- NOTE | 2019-04-02 15:55 | PT.OTN ---
Current Diagnoses Pain in left shoulder (04/02/19) Low back pain (04/02/19) Physical Therapy Treatment Note PT-OP-A Visit Information Start: 10/22/17 15:21 Freq: Status: Active Protocol: Document 04/02/19 11:15 AMB (Rec: 04/02/19 12:54 AMB [email or web address]) Out-Patient Physical Therapy Visit Information Visit Information Visit Type Progress Note Visit Start Time 11:20 Visit Stop Time 12:00 Total Visit Minutes 40 Visit Number 98 PT-OP-B Current Condition Start: 06/19/18 16:23 Freq: Status: Active Protocol: Document 06/19/18 11:15 AMB (Rec: 06/20/18 07:28 AMB [email or web address]) Current Condition History of Current Condition Onset Date chronic Current Complaints L scapular pain, neck pain, back pain History of Current Condition The patient reports years of pain, worse with caring for his 3 young children. 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 He returns to physical therapy with a new script from his PCP for the above impairments. 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 Better than Saturday, can still feel some pain radiating down his arm but not as bad. PT-OP-F Manual Assessment Start: 06/19/18 16:23 Freq: Status: Active Protocol: Document 06/19/18 11:15 AMB (Rec: 06/20/18 07:28 AMB [email or web address]) Manual Assessments Joint Mobility Assessment Joint Mobility Assessment Stiffness with PAs throughout thoracic spine, more mobility in lumbar spine. Stiffness in scapulothoracic joint L>R. Stiffness at GH joint at end range flexion. PT-OP-J Posture/Palpation/Skin Start: 06/19/18 16:23 Freq: Status: Active Protocol: Document 10/16/18 13:00 AMB (Rec: 10/16/18 15:22 AMB [email or web address]) Posture Evaluation Comments Posture Comments Pt stands with excessive lumbar lordosis, increased thoracic kyphosis with forward shoulders, tends to stand on one leg or the other and hang on Y ligaments. PT-OP-K Range of Motion Start: 12/03/17 07:05 Freq: Status: Active Protocol: Document 04/02/19 11:15 AMB (Rec: 04/02/19 15:55 AMB [email or web address]) Shoulder Goniometric Range of Motion Shoulder Left Active Flexion 160 Abduction 170 PT-OP-M Strength Start: 12/03/17 07:05 Freq: Status: Active Protocol: Document 04/02/19 11:39 AMB (Rec: 04/02/19 11:41 AMB [id number]) Shoulder Strength Shoulder Manual Muscle Testing Left Flexion 4+ Good+ Extension 4+ Good+ Abduction (C5) 4- Good- External Rotation 4 Good Internal Rotation 4+ Good+ PT-OP-Q Treatments Start: 10/22/17 15:21 Freq: Status: Active Protocol: Document 04/02/19 11:15 AMB (Rec: 04/02/19 12:54 AMB [email or web address]) Therapeutic Exercises Supine Exercises 3 Supine Exercise Name pec stretch Reps/Minutes 30x2 Standing Exercises 3 Standing Exercise Name ER Resistance #2 tband Comments 2x10 2 Standing Exercise Name abduction Resistance #1 tband Reps/Minutes 10 Comments painful Manual Therapy Treatment Soft Tissue Mobilization 3 Body Location Trigger point release Mobilization Type Cross-Friction,Trigger Point Release Intensity/Depth Moderate Body Position Prone Comments infraspinatus, rhomboids, subscapularis, pec minor, subclavius 2 Body Location L UT Intensity/Depth Deep Body Position Supine 1 Body Location L/R Periscapula Mobilization Type Myofascial Release Intensity/Depth Moderate Body Position R Sidelying Comments rhomboids Joint Mobilizations 1 Joint Scapulothoracic mobilization with movement Direction upward rotation Grade III Body Position RSidelying Comments Scapular mobilizations/upward rotation with sidelying L shoulder abd Manual Traction Cervical Body Position Hooklying PT-OP-R Modalities Start: 11/21/17 15:49 Freq: Status: Active Protocol: Document 11/21/17 14:30 AMB (Rec: 11/21/17 15:56 AMB [email or web address]) Ultrasound Therapy Treatment Left Upper Back Treatment Duration (minutes) 7 Patient Position Prone Coupling Medium Ultrasound Gel Frequency Setting (mHz) 1 Mode Setting Continuous Intensity Setting (w/cm2) 1.5 PT-OP-T Assessment and Plan Start: 10/22/17 15:21 Freq: Status: Active Protocol: Document 04/02/19 11:15 AMB (Rec: 04/02/19 11:39 AMB [email or web address]) Physical Therapy Assessment Goals 5 Impairment strength Short Term Goal (STG) Avery will increase his shoulder strength to 4+/5 in all planes. STG Duration 6 weeks Shelter Goal (LTG) Avery will maintain a full plank for 30 seconds with good scapulothoracic position to show improved shoulder and scapular stability. LTG Duration 12 weeks 4 Impairment Sleep Short Term Goal (STG) The patient will sleep for 5 hours using pillow props. STG Duration Intermittently met Shelter Goal (LTG) The patient will be independent with a core and scapular stabilization HEP to reduce his pain overall. Progressing Toward- pt is inconsistent with strengthening LTG Duration 12 weeks 3 Impairment Lifting/carrying Short Term Goal (STG) The patient will lift his youngest child into her carseat with good body mechanics and pain of 2/10 or less. Progressing toward, can do but pain increases with this task. STG Duration 6 weeks Ag Service Manager Goal (LTG) The patient will lift dishes overhead to put them in a tall cabinet without an increase in pain. LTG Duration MET 2 Impairment Posture Short Term Goal (STG) The patient will sit with appropriate posture for 45 minutes with 2/10 pain. NOT MET STG Duration 6 weeks Shelter Goal (LTG) The patient will stand for 10 minutes with good posture without an increase in baseline pain LTG Duration intermittently met 1 Impairment ROM Short Term Goal (STG) The patient will improve his lumbar AROM to Extension: 20 degrees, Flexion 50 derees, Sidebending bilateral: 25 degrees without an increase in pain. MET with the exception of sidebending. STG Duration PROGRESS MADE Shelter Goal (LTG) The patient will increase his left shoulder AROM to 160 degrees of flexion and abduction. 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 However, he is developing intermittent nerve pain down his arm and into his 1st and 2nd digits over the past few treatment sessions. He continues to have poor posture, and poor core and scapular stability. Physical Therapy Plan Frequency and Duration Frequency of Treatment 2x/Week Duration of Treatment 10 weeks Plan of Care Start Date 04/02/19 Plan of Care End Date 06/11/19 Therapeutic Interventions Therapeutic Interventions Aquatic Therapy,Home Exercise Program,Manual Therapy, Neuromuscular Re-education, Self-Care/Home Management,Soft Tissue Mobilization, Therapeutic Activities, Therapeutic Exercises Modalities Electric Stimulation,Hot Packs ,Ultrasound Next Visit Focus/Plan Next Note Type Treatment Note Next Visit Plan Progress scapular stability, progress posture, address radiating symptoms
--- NOTE | 2019-04-07 16:00 | PT.OTN ---
Current Diagnoses Pain in left shoulder (04/07/19) Low back pain (04/07/19) Physical Therapy Treatment Note PT-OP-A Visit Information Start: 10/22/17 15:21 Freq: Status: Active Protocol: Document 04/07/19 11:15 AMB (Rec: 04/07/19 11:23 AMB [email or web address]) Out-Patient Physical Therapy Visit Information Visit Information Visit Type Treatment Note Visit Start Time 11:20 Visit Stop Time 12:00 Total Visit Minutes 40 Visit Number 99 PT-OP-B Current Condition Start: 06/19/18 16:23 Freq: Status: Active Protocol: Document 06/19/18 11:15 AMB (Rec: 06/20/18 07:28 AMB [email or web address]) Current Condition History of Current Condition Onset Date chronic Current Complaints L scapular pain, neck pain, back pain History of Current Condition The patient reports years of pain, worse with caring for his 3 young children. 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 He returns to physical therapy with a new script from his PCP for the above impairments. 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 PT-OP-F Manual Assessment Start: 06/19/18 16:23 Freq: Status: Active Protocol: Document 06/19/18 11:15 AMB (Rec: 06/20/18 07:28 AMB [email or web address]) Manual Assessments Joint Mobility Assessment Joint Mobility Assessment Stiffness with PAs throughout thoracic spine, more mobility in lumbar spine. Stiffness in scapulothoracic joint L>R. Stiffness at GH joint at end range flexion. PT-OP-J Posture/Palpation/Skin Start: 06/19/18 16:23 Freq: Status: Active Protocol: Document 10/16/18 13:00 AMB (Rec: 10/16/18 15:22 AMB [email or web address]) Posture Evaluation Comments Posture Comments Pt stands with excessive lumbar lordosis, increased thoracic kyphosis with forward shoulders, tends to stand on one leg or the other and hang on Y ligaments. PT-OP-K Range of Motion Start: 12/03/17 07:05 Freq: Status: Active Protocol: Document 04/02/19 11:15 AMB (Rec: 04/02/19 15:55 AMB [email or web address]) Shoulder Goniometric Range of Motion Shoulder Left Active Flexion 160 Abduction 170 PT-OP-M Strength Start: 12/03/17 07:05 Freq: Status: Active Protocol: Document 04/02/19 11:39 AMB (Rec: 04/02/19 11:41 AMB [id number]) Shoulder Strength Shoulder Manual Muscle Testing Left Flexion 4+ Good+ Extension 4+ Good+ Abduction (C5) 4- Good- External Rotation 4 Good Internal Rotation 4+ Good+ PT-OP-Q Treatments Start: 10/22/17 15:21 Freq: Status: Active Protocol: Document 04/07/19 11:15 AMB (Rec: 04/08/19 08:41 AMB [email or web address]) Gym Equipment Cable Column (Body Solid) Rows Resistance 20 Reps/Time 2x10 Lat Pull Down Resistance 20 Reps/Time 2x10 Therapeutic Exercises Supine Exercises 3 Supine Exercise Name pec stretch Reps/Minutes 30x2 2 Supine Exercise Name lat stretch Reps/Minutes 30x2 1 Supine Exercise Name shoulder flexion with slight horiz abduction Resistance yellow t band Reps/Minutes 10 Manual Therapy Treatment Soft Tissue Mobilization 3 Body Location Trigger point release Mobilization Type Cross-Friction,Trigger Point Release Intensity/Depth Moderate Body Position Prone Comments infraspinatus, rhomboids, subscapularis, pec minor, subclavius 2 Body Location L UT Intensity/Depth Deep Body Position Supine 1 Body Location L/R Periscapula Mobilization Type Myofascial Release Intensity/Depth Moderate Body Position R Sidelying Comments rhomboids Joint Mobilizations 1 Joint Scapulothoracic mobilization with movement Direction upward rotation Grade III Body Position RSidelying Comments Scapular mobilizations/upward rotation with sidelying L shoulder abd Manual Traction Cervical Body Position Hooklying PT-OP-R Modalities Start: 11/21/17 15:49 Freq: Status: Active Protocol: Document 11/21/17 14:30 AMB (Rec: 11/21/17 15:56 AMB [email or web address]) Ultrasound Therapy Treatment Left Upper Back Treatment Duration (minutes) 7 Patient Position Prone Coupling Medium Ultrasound Gel Frequency Setting (mHz) 1 Mode Setting Continuous Intensity Setting (w/cm2) 1.5 PT-OP-T Assessment and Plan Start: 10/22/17 15:21 Freq: Status: Active Protocol: Document 04/07/19 11:15 AMB (Rec: 04/08/19 08:41 AMB [email or web address]) Physical Therapy Assessment Assessment Summary Assessment Avery tolerated increased resistance exercises, but with increased pain. Physical Therapy Plan Next Visit Focus/Plan Next Note Type Treatment Note Next Visit Plan Progress scapular stability, progress posture, address radiating symptoms
--- NOTE | 2019-04-09 12:43 | PT.OTN ---
Current Diagnoses Pain in left shoulder (04/09/19) Low back pain (04/09/19) Physical Therapy Treatment Note PT-OP-A Visit Information Start: 10/22/17 15:21 Freq: Status: Active Protocol: Document 04/09/19 10:30 AMB (Rec: 04/09/19 15:56 AMB [email or web address]) Out-Patient Physical Therapy Visit Information Visit Information Visit Type Treatment Note Visit Start Time 10:40 Visit Stop Time 11:30 Total Visit Minutes 45 Visit Number 100 PT-OP-B Current Condition Start: 06/19/18 16:23 Freq: Status: Active Protocol: Document 06/19/18 11:15 AMB (Rec: 06/20/18 07:28 AMB [email or web address]) Current Condition History of Current Condition Onset Date chronic Current Complaints L scapular pain, neck pain, back pain History of Current Condition The patient reports years of pain, worse with caring for his 3 young children. 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 He returns to physical therapy with a new script from his PCP for the above impairments. 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 Stiffness in scapulothoracic joint L>R. Stiffness at GH joint at end range flexion. PT-OP-J Posture/Palpation/Skin Start: 06/19/18 16:23 Freq: Status: Active Protocol: Document 10/16/18 13:00 AMB (Rec: 10/16/18 15:22 AMB [email or web address]) Posture Evaluation Comments Posture Comments Pt stands with excessive lumbar lordosis, increased thoracic kyphosis with forward shoulders, tends to stand on one leg or the other and hang on Y ligaments. PT-OP-K Range of Motion Start: 12/03/17 07:05 Freq: Status: Active Protocol: Document 04/02/19 11:15 AMB (Rec: 04/02/19 15:55 AMB [email or web address]) Shoulder Goniometric Range of Motion Shoulder Left Active Flexion 160 Abduction 170 PT-OP-M Strength Start: 12/03/17 07:05 Freq: Status: Active Protocol: Document 04/02/19 11:39 AMB (Rec: 04/02/19 11:41 AMB [id number]) Shoulder Strength Shoulder Manual Muscle Testing Left Flexion 4+ Good+ Extension 4+ Good+ Abduction (C5) 4- Good- External Rotation 4 Good Internal Rotation 4+ Good+ PT-OP-Q Treatments Start: 10/22/17 15:21 Freq: Status: Active Protocol: Document 04/09/19 10:30 AMB (Rec: 04/12/19 12:43 AMB [email or web address]) Gym Equipment Cable Column (Body Solid) Rows Resistance 20 Reps/Time 2x10 Lat Pull Down Resistance 20 Reps/Time 2x10 Therapeutic Exercises Sidelying Exercises 1 Sidelying Exercise Name GH ER Resistance AROM Manual Therapy Treatment Soft Tissue Mobilization 3 Body Location Trigger point release Mobilization Type Cross-Friction,Trigger Point Release Intensity/Depth Moderate Body Position Prone Comments infraspinatus, rhomboids, subscapularis, pec minor, subclavius 2 Body Location L UT Intensity/Depth Deep Body Position Supine 1 Body Location L/R Periscapula Mobilization Type Myofascial Release Intensity/Depth Moderate Body Position R Sidelying Comments rhomboids Manual Traction Cervical Body Position Hooklying PT-OP-R Modalities Start: 11/21/17 15:49 Freq: Status: Active Protocol: Document 11/21/17 14:30 AMB (Rec: 11/21/17 15:56 AMB [email or web address]) Ultrasound Therapy Treatment Left Upper Back Treatment Duration (minutes) 7 Patient Position Prone Coupling Medium Ultrasound Gel Frequency Setting (mHz) 1 Mode Setting Continuous Intensity Setting (w/cm2) 1.5 PT-OP-T Assessment and Plan Start: 10/22/17 15:21 Freq: Status: Active Protocol: Document 04/09/19 10:30 AMB (Rec: 04/12/19 12:43 AMB [email or web address]) Physical Therapy Assessment Assessment Summary Assessment Avery's radiating symptoms are improved, but he continues to have whole left sided body pain and tightness. Physical Therapy Plan Next Visit Focus/Plan Next Note Type Treatment Note Next Visit Plan Progress scapular stability, progress posture,
--- NOTE | 2019-04-14 11:15 | PT.OTN ---
Current Diagnoses Pain in left shoulder (04/14/19) Low back pain (04/14/19) Physical Therapy Treatment Note PT-OP-A Visit Information Start: 10/22/17 15:21 Freq: Status: Active Protocol: Document 04/14/19 11:15 AMB (Rec: 04/15/19 09:45 AMB [email or web address]) Out-Patient Physical Therapy Visit Information Visit Information Visit Type Treatment Note Visit Start Time 11:30 Visit Stop Time 12:00 Total Visit Minutes 30 Visit Number 101 PT-OP-B Current Condition Start: 06/19/18 16:23 Freq: Status: Active Protocol: Document 06/19/18 11:15 AMB (Rec: 06/20/18 07:28 AMB [email or web address]) Current Condition History of Current Condition Onset Date chronic Current Complaints L scapular pain, neck pain, back pain History of Current Condition The patient reports years of pain, worse with caring for his 3 young children. 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 He returns to physical therapy with a new script from his PCP for the above impairments. 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 PT-OP-F Manual Assessment Start: 06/19/18 16:23 Freq: Status: Active Protocol: Document 06/19/18 11:15 AMB (Rec: 06/20/18 07:28 AMB [email or web address]) Manual Assessments Joint Mobility Assessment Joint Mobility Assessment Stiffness with PAs throughout thoracic spine, more mobility in lumbar spine. Stiffness in scapulothoracic joint L>R. Stiffness at GH joint at end range flexion. PT-OP-J Posture/Palpation/Skin Start: 06/19/18 16:23 Freq: Status: Active Protocol: Document 10/16/18 13:00 AMB (Rec: 10/16/18 15:22 AMB [email or web address]) Posture Evaluation Comments Posture Comments Pt stands with excessive lumbar lordosis, increased thoracic kyphosis with forward shoulders, tends to stand on one leg or the other and hang on Y ligaments. PT-OP-K Range of Motion Start: 12/03/17 07:05 Freq: Status: Active Protocol: Document 04/02/19 11:15 AMB (Rec: 04/02/19 15:55 AMB [email or web address]) Shoulder Goniometric Range of Motion Shoulder Left Active Flexion 160 Abduction 170 PT-OP-M Strength Start: 12/03/17 07:05 Freq: Status: Active Protocol: Document 04/02/19 11:39 AMB (Rec: 04/02/19 11:41 AMB [id number]) Shoulder Strength Shoulder Manual Muscle Testing Left Flexion 4+ Good+ Extension 4+ Good+ Abduction (C5) 4- Good- External Rotation 4 Good Internal Rotation 4+ Good+ PT-OP-Q Treatments Start: 10/22/17 15:21 Freq: Status: Active Protocol: Document 04/14/19 11:15 AMB (Rec: 04/15/19 09:45 AMB [email or web address]) Gym Equipment Cable Column (Body Solid) Rows Resistance 20 Reps/Time 2x10 Lat Pull Down Resistance 20 Reps/Time 2x10 Therapeutic Exercises Supine Exercises 1 Supine Exercise Name pec and lat stretch Reps/Minutes 30x2 Manual Therapy Treatment Soft Tissue Mobilization 3 Body Location Trigger point release Mobilization Type Cross-Friction,Trigger Point Release Intensity/Depth Moderate Body Position Prone Comments infraspinatus, rhomboids, subscapularis, pec minor, subclavius 2 Body Location L UT Intensity/Depth Deep Body Position Supine Manual Traction Cervical Body Position Hooklying PT-OP-R Modalities Start: 11/21/17 15:49 Freq: Status: Active Protocol: Document 11/21/17 14:30 AMB (Rec: 11/21/17 15:56 AMB [email or web address]) Ultrasound Therapy Treatment Left Upper Back Treatment Duration (minutes) 7 Patient Position Prone Coupling Medium Ultrasound Gel Frequency Setting (mHz) 1 Mode Setting Continuous Intensity Setting (w/cm2) 1.5 PT-OP-T Assessment and Plan Start: 10/22/17 15:21 Freq: Status: Active Protocol: Document 04/14/19 11:15 AMB (Rec: 04/15/19 09:45 AMB [email or web address]) Physical Therapy Assessment Assessment Summary Assessment Continued to encourage in neck stretching. Physical Therapy Plan Next Visit Focus/Plan Next Note Type Treatment Note Next Visit Plan Progress scapular stability, progress posture,
--- NOTE | 2019-04-16 12:57 | PT.OTN ---
Current Diagnoses Pain in left shoulder (04/16/19) Low back pain (04/16/19) Physical Therapy Treatment Note PT-OP-A Visit Information Start: 10/22/17 15:21 Freq: Status: Active Protocol: Document 04/16/19 11:15 AMB (Rec: 04/16/19 11:57 AMB [id number]) Out-Patient Physical Therapy Visit Information Visit Information Visit Type Treatment Note Visit Start Time 11:35 Visit Stop Time 12:00 Total Visit Minutes 30 Visit Number 102 PT-OP-B Current Condition Start: 06/19/18 16:23 Freq: Status: Active Protocol: Document 06/19/18 11:15 AMB (Rec: 06/20/18 07:28 AMB [email or web address]) Current Condition History of Current Condition Onset Date chronic Current Complaints L scapular pain, neck pain, back pain History of Current Condition The patient reports years of pain, worse with caring for his 3 young children. 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 He returns to physical therapy with a new script from his PCP for the above impairments. 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 PT-OP-F Manual Assessment Start: 06/19/18 16:23 Freq: Status: Active Protocol: Document 06/19/18 11:15 AMB (Rec: 06/20/18 07:28 AMB [email or web address]) Manual Assessments Joint Mobility Assessment Joint Mobility Assessment Stiffness with PAs throughout thoracic spine, more mobility in lumbar spine. Stiffness in scapulothoracic joint L>R. Stiffness at GH joint at end range flexion. PT-OP-J Posture/Palpation/Skin Start: 06/19/18 16:23 Freq: Status: Active Protocol: Document 10/16/18 13:00 AMB (Rec: 10/16/18 15:22 AMB [email or web address]) Posture Evaluation Comments Posture Comments Pt stands with excessive lumbar lordosis, increased thoracic kyphosis with forward shoulders, tends to stand on one leg or the other and hang on Y ligaments. PT-OP-K Range of Motion Start: 12/03/17 07:05 Freq: Status: Active Protocol: Document 04/02/19 11:15 AMB (Rec: 04/02/19 15:55 AMB [email or web address]) Shoulder Goniometric Range of Motion Shoulder Left Active Flexion 160 Abduction 170 PT-OP-M Strength Start: 12/03/17 07:05 Freq: Status: Active Protocol: Document 04/02/19 11:39 AMB (Rec: 04/02/19 11:41 AMB [id number]) Shoulder Strength Shoulder Manual Muscle Testing Left Flexion 4+ Good+ Extension 4+ Good+ Abduction (C5) 4- Good- External Rotation 4 Good Internal Rotation 4+ Good+ PT-OP-Q Treatments Start: 10/22/17 15:21 Freq: Status: Active Protocol: Document 04/16/19 11:15 AMB (Rec: 04/16/19 12:57 AMB [email or web address]) Gym Equipment Cable Column (Body Solid) Rows Resistance 20 Reps/Time 2x10 Lat Pull Down Resistance 20 Reps/Time 2x10 Therapeutic Exercises Supine Exercises 1 Supine Exercise Name pec and lat stretch Reps/Minutes 30x2 Manual Therapy Treatment Soft Tissue Mobilization 3 Body Location Trigger point release Mobilization Type Cross-Friction,Trigger Point Release Intensity/Depth Moderate Body Position Prone Comments infraspinatus, rhomboids, subscapularis, pec minor, subclavius 2 Body Location L UT Intensity/Depth Deep Body Position Supine Manual Traction Cervical Body Position Hooklying PT-OP-R Modalities Start: 11/21/17 15:49 Freq: Status: Active Protocol: Document 11/21/17 14:30 AMB (Rec: 11/21/17 15:56 AMB [email or web address]) Ultrasound Therapy Treatment Left Upper Back Treatment Duration (minutes) 7 Patient Position Prone Coupling Medium Ultrasound Gel Frequency Setting (mHz) 1 Mode Setting Continuous Intensity Setting (w/cm2) 1.5 PT-OP-T Assessment and Plan Start: 10/22/17 15:21 Freq: Status: Active Protocol: Document 04/16/19 11:15 AMB (Rec: 04/16/19 12:57 AMB [email or web address]) Physical Therapy Assessment Assessment Summary Assessment Continued to encourage in doorway stretch for UE sx. Physical Therapy Plan Next Visit Focus/Plan Next Note Type Treatment Note Next Visit Plan Progress scapular stability, progress posture,
--- NOTE | 2019-04-21 14:16 | PT.OTN ---
Current Diagnoses Pain in left shoulder (04/21/19) Low back pain (04/21/19) Physical Therapy Treatment Note PT-OP-A Visit Information Start: 10/22/17 15:21 Freq: Status: Active Protocol: Document 04/21/19 11:15 AMB (Rec: 04/22/19 14:16 AMB [email or web address]) Out-Patient Physical Therapy Visit Information Visit Information Visit Type Treatment Note Visit Start Time 11:20 Visit Stop Time 12:00 Total Visit Minutes 40 Visit Number 103 PT-OP-B Current Condition Start: 06/19/18 16:23 Freq: Status: Active Protocol: Document 06/19/18 11:15 AMB (Rec: 06/20/18 07:28 AMB [email or web address]) Current Condition History of Current Condition Onset Date chronic Current Complaints L scapular pain, neck pain, back pain History of Current Condition The patient reports years of pain, worse with caring for his 3 young children. 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 He returns to physical therapy with a new script from his PCP for the above impairments. 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 PT-OP-F Manual Assessment Start: 06/19/18 16:23 Freq: Status: Active Protocol: Document 06/19/18 11:15 AMB (Rec: 06/20/18 07:28 AMB [email or web address]) Manual Assessments Joint Mobility Assessment Joint Mobility Assessment Stiffness with PAs throughout thoracic spine, more mobility in lumbar spine. Stiffness in scapulothoracic joint L>R. Stiffness at GH joint at end range flexion. PT-OP-J Posture/Palpation/Skin Start: 06/19/18 16:23 Freq: Status: Active Protocol: Document 10/16/18 13:00 AMB (Rec: 10/16/18 15:22 AMB [email or web address]) Posture Evaluation Comments Posture Comments Pt stands with excessive lumbar lordosis, increased thoracic kyphosis with forward shoulders, tends to stand on one leg or the other and hang on Y ligaments. PT-OP-K Range of Motion Start: 12/03/17 07:05 Freq: Status: Active Protocol: Document 04/02/19 11:15 AMB (Rec: 04/02/19 15:55 AMB [email or web address]) Shoulder Goniometric Range of Motion Shoulder Left Active Flexion 160 Abduction 170 PT-OP-M Strength Start: 12/03/17 07:05 Freq: Status: Active Protocol: Document 04/02/19 11:39 AMB (Rec: 04/02/19 11:41 AMB [id number]) Shoulder Strength Shoulder Manual Muscle Testing Left Flexion 4+ Good+ Extension 4+ Good+ Abduction (C5) 4- Good- External Rotation 4 Good Internal Rotation 4+ Good+ PT-OP-Q Treatments Start: 10/22/17 15:21 Freq: Status: Active Protocol: Document 04/21/19 11:15 AMB (Rec: 04/22/19 14:16 AMB [email or web address]) Therapeutic Exercises Supine Exercises 1 Supine Exercise Name pec and lat stretch Reps/Minutes 30x2 Standing Exercises 5 Standing Exercise Name t band rows Resistance #2 t band Reps/Minutes 2x10 4 Standing Exercise Name t band shoulder extension Resistance #2 t band Reps/Minutes 2x10 3 Standing Exercise Name shoulder ER Resistance #1 t band Comments painful 2 Standing Exercise Name shoulder IR Resistance #2 t band Reps/Minutes 2x10 Manual Therapy Treatment Soft Tissue Mobilization 3 Body Location Trigger point release Mobilization Type Cross-Friction,Trigger Point Release Intensity/Depth Moderate Body Position Prone Comments infraspinatus, rhomboids, subscapularis, pec minor, subclavius 2 Body Location L UT Intensity/Depth Deep Body Position Supine Manual Traction Cervical Body Position Hooklying PT-OP-R Modalities Start: 11/21/17 15:49 Freq: Status: Active Protocol: Document 11/21/17 14:30 AMB (Rec: 11/21/17 15:56 AMB [email or web address]) Ultrasound Therapy Treatment Left Upper Back Treatment Duration (minutes) 7 Patient Position Prone Coupling Medium Ultrasound Gel Frequency Setting (mHz) 1 Mode Setting Continuous Intensity Setting (w/cm2) 1.5 PT-OP-T Assessment and Plan Start: 10/22/17 15:21 Freq: Status: Active Protocol: Document 04/21/19 11:15 AMB (Rec: 04/22/19 14:16 AMB [email or web address]) Physical Therapy Assessment Assessment Summary Assessment Reminded pt of self myofascial techniques today, pt can use theracane, foam roll, tennis balls, corner of door frame to work on active trigger points at levator scap. Physical Therapy Plan Next Visit Focus/Plan Next Note Type Treatment Note Next Visit Plan Progress scapular stability, progress posture,
--- NOTE | 2019-05-05 15:54 | PT.OTN ---
Current Diagnoses Pain in left shoulder (05/05/19) Low back pain (05/05/19) Physical Therapy Treatment Note PT-OP-A Visit Information Start: 10/22/17 15:21 Freq: Status: Active Protocol: Document 05/05/19 11:15 AMB (Rec: 05/05/19 12:01 AMB [id number]) Out-Patient Physical Therapy Visit Information Visit Information Visit Type Treatment Note Visit Start Time 11:15 Visit Stop Time 12:00 Total Visit Minutes 40 Visit Number 104 PT-OP-B Current Condition Start: 06/19/18 16:23 Freq: Status: Active Protocol: Document 06/19/18 11:15 AMB (Rec: 06/20/18 07:28 AMB [email or web address]) Current Condition History of Current Condition Onset Date chronic Current Complaints L scapular pain, neck pain, back pain History of Current Condition The patient reports years of pain, worse with caring for his 3 young children. 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 He returns to physical therapy with a new script from his PCP for the above impairments. 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 PT-OP-F Manual Assessment Start: 06/19/18 16:23 Freq: Status: Active Protocol: Document 06/19/18 11:15 AMB (Rec: 06/20/18 07:28 AMB [email or web address]) Manual Assessments Joint Mobility Assessment Joint Mobility Assessment Stiffness with PAs throughout thoracic spine, more mobility in lumbar spine. Stiffness in scapulothoracic joint L>R. Stiffness at GH joint at end range flexion. PT-OP-J Posture/Palpation/Skin Start: 06/19/18 16:23 Freq: Status: Active Protocol: Document 10/16/18 13:00 AMB (Rec: 10/16/18 15:22 AMB [email or web address]) Posture Evaluation Comments Posture Comments Pt stands with excessive lumbar lordosis, increased thoracic kyphosis with forward shoulders, tends to stand on one leg or the other and hang on Y ligaments. PT-OP-K Range of Motion Start: 12/03/17 07:05 Freq: Status: Active Protocol: Document 04/02/19 11:15 AMB (Rec: 04/02/19 15:55 AMB [email or web address]) Shoulder Goniometric Range of Motion Shoulder Left Active Flexion 160 Abduction 170 PT-OP-M Strength Start: 12/03/17 07:05 Freq: Status: Active Protocol: Document 04/02/19 11:39 AMB (Rec: 04/02/19 11:41 AMB [id number]) Shoulder Strength Shoulder Manual Muscle Testing Left Flexion 4+ Good+ Extension 4+ Good+ Abduction (C5) 4- Good- External Rotation 4 Good Internal Rotation 4+ Good+ PT-OP-Q Treatments Start: 10/22/17 15:21 Freq: Status: Active Protocol: Document 05/05/19 15:39 AMB (Rec: 05/05/19 15:50 AMB [email or web address]) Gym Equipment Cable Column (Body Solid) Rows Resistance 20 Reps/Time 2x10 Lat Pull Down Resistance 20 Reps/Time 2x10 Therapeutic Exercises Supine Exercises 2 Supine Exercise Name foam roll pec stretch Reps/Minutes 30x2 1 Supine Exercise Name pec and lat stretch Reps/Minutes 30x2 Manual Therapy Treatment Soft Tissue Mobilization 3 Body Location Trigger point release Mobilization Type Cross-Friction,Trigger Point Release Intensity/Depth Moderate Body Position Prone Comments infraspinatus, rhomboids, subscapularis, pec minor, subclavius 2 Body Location L UT Intensity/Depth Deep Body Position Supine PT-OP-R Modalities Start: 11/21/17 15:49 Freq: Status: Active Protocol: Document 11/21/17 14:30 AMB (Rec: 11/21/17 15:56 AMB [email or web address]) Ultrasound Therapy Treatment Left Upper Back Treatment Duration (minutes) 7 Patient Position Prone Coupling Medium Ultrasound Gel Frequency Setting (mHz) 1 Mode Setting Continuous Intensity Setting (w/cm2) 1.5 PT-OP-T Assessment and Plan Start: 10/22/17 15:21 Freq: Status: Active Protocol: Document 05/05/19 11:15 AMB (Rec: 05/05/19 12:01 AMB [id number]) Physical Therapy Assessment Assessment Summary Assessment Pt doing well today, but does have some new personal goals: Reaching above head height higher weight, throwing overhand on the right, resting baseline pain decreased currently 3/10 kitchen work ( dinner does increase resting pain). Physical Therapy Plan Next Visit Focus/Plan Next Note Type Treatment Note Next Visit Plan Progress scapular stability, progress posture,
--- NOTE | 2019-05-07 13:02 | PT.OTN ---
Current Diagnoses Pain in left shoulder (05/07/19) Low back pain (05/07/19) Physical Therapy Treatment Note PT-OP-A Visit Information Start: 10/22/17 15:21 Freq: Status: Active Protocol: Document 05/07/19 11:15 AMB (Rec: 05/07/19 13:02 AMB [email or web address]) Out-Patient Physical Therapy Visit Information Visit Information Visit Type Treatment Note Visit Start Time 11:15 Visit Stop Time 12:00 Total Visit Minutes 40 Visit Number 105 PT-OP-B Current Condition Start: 06/19/18 16:23 Freq: Status: Active Protocol: Document 06/19/18 11:15 AMB (Rec: 06/20/18 07:28 AMB [email or web address]) Current Condition History of Current Condition Onset Date chronic Current Complaints L scapular pain, neck pain, back pain History of Current Condition The patient reports years of pain, worse with caring for his 3 young children. 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 He returns to physical therapy with a new script from his PCP for the above impairments. 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 PT-OP-F Manual Assessment Start: 06/19/18 16:23 Freq: Status: Active Protocol: Document 06/19/18 11:15 AMB (Rec: 06/20/18 07:28 AMB [email or web address]) Manual Assessments Joint Mobility Assessment Joint Mobility Assessment Stiffness with PAs throughout thoracic spine, more mobility in lumbar spine. Stiffness in scapulothoracic joint L>R. Stiffness at GH joint at end range flexion. PT-OP-J Posture/Palpation/Skin Start: 06/19/18 16:23 Freq: Status: Active Protocol: Document 10/16/18 13:00 AMB (Rec: 10/16/18 15:22 AMB [email or web address]) Posture Evaluation Comments Posture Comments Pt stands with excessive lumbar lordosis, increased thoracic kyphosis with forward shoulders, tends to stand on one leg or the other and hang on Y ligaments. PT-OP-K Range of Motion Start: 12/03/17 07:05 Freq: Status: Active Protocol: Document 04/02/19 11:15 AMB (Rec: 04/02/19 15:55 AMB [email or web address]) Shoulder Goniometric Range of Motion Shoulder Left Active Flexion 160 Abduction 170 PT-OP-M Strength Start: 12/03/17 07:05 Freq: Status: Active Protocol: Document 04/02/19 11:39 AMB (Rec: 04/02/19 11:41 AMB [id number]) Shoulder Strength Shoulder Manual Muscle Testing Left Flexion 4+ Good+ Extension 4+ Good+ Abduction (C5) 4- Good- External Rotation 4 Good Internal Rotation 4+ Good+ PT-OP-Q Treatments Start: 10/22/17 15:21 Freq: Status: Active Protocol: Document 05/07/19 11:15 AMB (Rec: 05/07/19 13:02 AMB [email or web address]) Gym Equipment Cable Column (Body Solid) Rows Resistance 20 Reps/Time 2x10 Lat Pull Down Resistance 20 Reps/Time 2x10 Therapeutic Exercises Supine Exercises 5 Supine Exercise Name shoulder IR Resistance T2 band Reps/Minutes 2x10 Comments at 90 degrees abduction 2 Supine Exercise Name foam roll pec stretch Reps/Minutes 30x2 1 Supine Exercise Name pec and lat stretch Reps/Minutes 30x2 Manual Therapy Treatment Soft Tissue Mobilization 3 Body Location Trigger point release Mobilization Type Cross-Friction,Trigger Point Release Intensity/Depth Moderate Body Position Prone Comments infraspinatus, rhomboids, subscapularis, pec minor, subclavius 2 Body Location L UT Intensity/Depth Deep Body Position Supine Joint Mobilizations 3 Joint scapulothoracic Direction all planes Grade II Comments sidelying PT-OP-R Modalities Start: 11/21/17 15:49 Freq: Status: Active Protocol: Document 11/21/17 14:30 AMB (Rec: 11/21/17 15:56 AMB [email or web address]) Ultrasound Therapy Treatment Left Upper Back Treatment Duration (minutes) 7 Patient Position Prone Coupling Medium Ultrasound Gel Frequency Setting (mHz) 1 Mode Setting Continuous Intensity Setting (w/cm2) 1.5 PT-OP-T Assessment and Plan Start: 10/22/17 15:21 Freq: Status: Active Protocol: Document 05/07/19 11:15 AMB (Rec: 05/07/19 13:02 AMB [email or web address]) Physical Therapy Assessment Goals 5 Impairment strength Short Term Goal (STG) Avery will increase his shoulder strength to 4+/5 in all planes. STG Duration 6 weeks Mat Cutter Goal (LTG) Avery will maintain a full plank for 30 seconds with good scapulothoracic position to show improved shoulder and scapular stability. LTG Duration 12 weeks 4 Impairment Sleep Short Term Goal (STG) The patient will sleep for 5 hours using pillow props. STG Duration Intermittently met Mcfp Goal (LTG) The patient will be independent with a core and scapular stabilization HEP to reduce his pain overall. Progressing Toward- pt is inconsistent with strengthening LTG Duration 12 weeks 3 Impairment Lifting/carrying Short Term Goal (STG) The patient will lift his youngest child into her carseat with good body mechanics and pain of 2/10 or less. Progressing toward, can do but pain increases with this task. STG Duration 6 weeks Mat Cutter Goal (LTG) The patient will lift dishes overhead to put them in a tall cabinet without an increase in pain. LTG Duration MET 2 Impairment Posture Short Term Goal (STG) The patient will sit with appropriate posture for 45 minutes with 2/10 pain. NOT MET STG Duration 6 weeks Mcfp Goal (LTG) The patient will stand for 10 minutes with good posture without an increase in baseline pain LTG Duration intermittently met 1 Impairment ROM Short Term Goal (STG) The patient will improve his lumbar AROM to Extension: 20 degrees, Flexion 50 derees, Sidebending bilateral: 25 degrees without an increase in pain. MET with the exception of sidebending. STG Duration PROGRESS MADE Mat Cutter Goal (LTG) The patient will increase his left shoulder AROM to 160 degrees of flexion and abduction. LTG Duration MET Assessment Summary Assessment Pt tolerated internal rotation at 90 degrees abduction in supine well, but adding that into standing with his postural deficits will be harder. Physical Therapy Plan Next Visit Focus/Plan Next Note Type Treatment Note Next Visit Plan Progress scapular stability, progress posture,
--- NOTE | 2019-05-26 12:00 | PT.OTN ---
Current Diagnoses Pain in left shoulder (05/26/19) Low back pain (05/26/19) Physical Therapy Treatment Note PT-OP-A Visit Information Start: 10/22/17 15:21 Freq: Status: Active Protocol: Document 05/26/19 11:15 AMB (Rec: 05/28/19 10:30 AMB [email or web address]) Out-Patient Physical Therapy Visit Information Visit Information Visit Type Treatment Note Visit Start Time 11:15 Visit Stop Time 12:00 Total Visit Minutes 40 Visit Number 106 PT-OP-B Current Condition Start: 06/19/18 16:23 Freq: Status: Active Protocol: Document 06/19/18 11:15 AMB (Rec: 06/20/18 07:28 AMB [email or web address]) Current Condition History of Current Condition Onset Date chronic Current Complaints L scapular pain, neck pain, back pain History of Current Condition The patient reports years of pain, worse with caring for his 3 young children. 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 He returns to physical therapy with a new script from his PCP for the above impairments. 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 PT-OP-F Manual Assessment Start: 06/19/18 16:23 Freq: Status: Active Protocol: Document 06/19/18 11:15 AMB (Rec: 06/20/18 07:28 AMB [email or web address]) Manual Assessments Joint Mobility Assessment Joint Mobility Assessment Stiffness with PAs throughout thoracic spine, more mobility in lumbar spine. Stiffness in scapulothoracic joint L>R. Stiffness at GH joint at end range flexion. PT-OP-J Posture/Palpation/Skin Start: 06/19/18 16:23 Freq: Status: Active Protocol: Document 10/16/18 13:00 AMB (Rec: 10/16/18 15:22 AMB [email or web address]) Posture Evaluation Comments Posture Comments Pt stands with excessive lumbar lordosis, increased thoracic kyphosis with forward shoulders, tends to stand on one leg or the other and hang on Y ligaments. PT-OP-K Range of Motion Start: 12/03/17 07:05 Freq: Status: Active Protocol: Document 04/02/19 11:15 AMB (Rec: 04/02/19 15:55 AMB [email or web address]) Shoulder Goniometric Range of Motion Shoulder Left Active Flexion 160 Abduction 170 PT-OP-M Strength Start: 12/03/17 07:05 Freq: Status: Active Protocol: Document 04/02/19 11:39 AMB (Rec: 04/02/19 11:41 AMB [id number]) Shoulder Strength Shoulder Manual Muscle Testing Left Flexion 4+ Good+ Extension 4+ Good+ Abduction (C5) 4- Good- External Rotation 4 Good Internal Rotation 4+ Good+ PT-OP-Q Treatments Start: 10/22/17 15:21 Freq: Status: Active Protocol: Document 05/26/19 11:15 AMB (Rec: 05/28/19 11:33 AMB [email or web address]) Therapeutic Exercises Supine Exercises 3 Supine Exercise Name open book on foam roll Resistance AROM 2 Supine Exercise Name foam roll pec stretch Reps/Minutes 30x2 1 Supine Exercise Name pec and lat stretch Reps/Minutes 30x2 Manual Therapy Treatment Soft Tissue Mobilization 3 Body Location Trigger point release Mobilization Type Cross-Friction,Trigger Point Release Intensity/Depth Moderate Body Position Prone Comments infraspinatus, rhomboids, subscapularis, pec minor, subclavius 2 Body Location L UT Intensity/Depth Deep Body Position Supine PT-OP-R Modalities Start: 11/21/17 15:49 Freq: Status: Active Protocol: Document 11/21/17 14:30 AMB (Rec: 11/21/17 15:56 AMB [email or web address]) Ultrasound Therapy Treatment Left Upper Back Treatment Duration (minutes) 7 Patient Position Prone Coupling Medium Ultrasound Gel Frequency Setting (mHz) 1 Mode Setting Continuous Intensity Setting (w/cm2) 1.5 PT-OP-T Assessment and Plan Start: 10/22/17 15:21 Freq: Status: Active Protocol: Document 05/26/19 11:15 AMB (Rec: 05/28/19 11:33 AMB [email or web address]) Physical Therapy Assessment Assessment Summary Assessment Pt with increase in pain after returning from vacation. Pt does feel that historically when he was in warm humid climates his pain has been significantly better. Physical Therapy Plan Next Visit Focus/Plan Next Note Type Treatment Note Next Visit Plan Progress scapular stability, progress posture,
--- NOTE | 2019-06-02 13:35 | PT.OTN ---
Current Diagnoses Pain in left shoulder (06/02/19) Low back pain (06/02/19) Physical Therapy Treatment Note PT-OP-A Visit Information Start: 10/22/17 15:21 Freq: Status: Active Protocol: Document 06/02/19 11:15 AMB (Rec: 06/02/19 13:35 AMB [email or web address]) Out-Patient Physical Therapy Visit Information Visit Information Visit Type Treatment Note Visit Start Time 11:30 Visit Stop Time 12:00 Total Visit Minutes 30 Visit Number 107 PT-OP-B Current Condition Start: 06/19/18 16:23 Freq: Status: Active Protocol: Document 06/19/18 11:15 AMB (Rec: 06/20/18 07:28 AMB [email or web address]) Current Condition History of Current Condition Onset Date chronic Current Complaints L scapular pain, neck pain, back pain History of Current Condition The patient reports years of pain, worse with caring for his 3 young children. 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 He returns to physical therapy with a new script from his PCP for the above impairments. 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 PT-OP-F Manual Assessment Start: 06/19/18 16:23 Freq: Status: Active Protocol: Document 06/19/18 11:15 AMB (Rec: 06/20/18 07:28 AMB [email or web address]) Manual Assessments Joint Mobility Assessment Joint Mobility Assessment Stiffness with PAs throughout thoracic spine, more mobility in lumbar spine. Stiffness in scapulothoracic joint L>R. Stiffness at GH joint at end range flexion. PT-OP-J Posture/Palpation/Skin Start: 06/19/18 16:23 Freq: Status: Active Protocol: Document 10/16/18 13:00 AMB (Rec: 10/16/18 15:22 AMB [email or web address]) Posture Evaluation Comments Posture Comments Pt stands with excessive lumbar lordosis, increased thoracic kyphosis with forward shoulders, tends to stand on one leg or the other and hang on Y ligaments. PT-OP-K Range of Motion Start: 12/03/17 07:05 Freq: Status: Active Protocol: Document 04/02/19 11:15 AMB (Rec: 04/02/19 15:55 AMB [email or web address]) Shoulder Goniometric Range of Motion Shoulder Left Active Flexion 160 Abduction 170 PT-OP-M Strength Start: 12/03/17 07:05 Freq: Status: Active Protocol: Document 04/02/19 11:39 AMB (Rec: 04/02/19 11:41 AMB [id number]) Shoulder Strength Shoulder Manual Muscle Testing Left Flexion 4+ Good+ Extension 4+ Good+ Abduction (C5) 4- Good- External Rotation 4 Good Internal Rotation 4+ Good+ PT-OP-Q Treatments Start: 10/22/17 15:21 Freq: Status: Active Protocol: Document 06/02/19 11:15 AMB (Rec: 06/02/19 13:35 AMB [email or web address]) Therapeutic Exercises Supine Exercises 2 Supine Exercise Name foam roll pec stretch Reps/Minutes 30x2 Sidelying Exercises 4 Sidelying Exercise Name ER at neutral abduction Reps/Minutes 2# Comments 2x10 Standing Exercises 5 Standing Exercise Name standing posture against wall ER stretch Reps/Minutes 30x4 Manual Therapy Treatment Soft Tissue Mobilization 3 Body Location Trigger point release Mobilization Type Cross-Friction,Trigger Point Release Intensity/Depth Moderate Body Position Prone Comments infraspinatus, rhomboids, subscapularis, pec minor, subclavius Joint Mobilizations 3 Joint scapulothoracic Direction all planes Grade II Comments sidelying PT-OP-R Modalities Start: 11/21/17 15:49 Freq: Status: Active Protocol: Document 11/21/17 14:30 AMB (Rec: 11/21/17 15:56 AMB [email or web address]) Ultrasound Therapy Treatment Left Upper Back Treatment Duration (minutes) 7 Patient Position Prone Coupling Medium Ultrasound Gel Frequency Setting (mHz) 1 Mode Setting Continuous Intensity Setting (w/cm2) 1.5 PT-OP-T Assessment and Plan Start: 10/22/17 15:21 Freq: Status: Active Protocol: Document 06/02/19 11:15 AMB (Rec: 06/02/19 13:35 AMB [email or web address]) Physical Therapy Assessment Assessment Summary Assessment Pt tolerated progression of shoulder ER in an abducted position into supported standing (had previously only done supine). Again body mechanics and posture still poor, so form would be poor without support. Pt did feel discomfort stretching into position. Physical Therapy Plan Next Visit Focus/Plan Next Note Type Treatment Note Next Visit Plan Progress scapular stability, progress posture,
--- NOTE | 2019-06-19 15:27 | PT.OTN ---
Current Diagnoses Pain in left shoulder (06/19/19) Low back pain (06/19/19) Physical Therapy Treatment Note PT-OP-A Visit Information Start: 10/22/17 15:21 Freq: Status: Active Protocol: Document 06/19/19 13:45 AMB (Rec: 06/19/19 15:27 AMB [email or web address]) Out-Patient Physical Therapy Visit Information Visit Information Visit Type Progress Note Visit Start Time 13:50 Visit Stop Time 14:30 Total Visit Minutes 40 Visit Number 108 PT-OP-B Current Condition Start: 06/19/18 16:23 Freq: Status: Active Protocol: Document 06/19/18 11:15 AMB (Rec: 06/20/18 07:28 AMB [email or web address]) Current Condition History of Current Condition Onset Date chronic Current Complaints L scapular pain, neck pain, back pain History of Current Condition The patient reports years of pain, worse with caring for his 3 young children. 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 He returns to physical therapy with a new script from his PCP for the above impairments. 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 His kids are home for [employer] and they have been making him very fatigued. PT-OP-F Manual Assessment Start: 06/19/18 16:23 Freq: Status: Active Protocol: Document 06/19/18 11:15 AMB (Rec: 06/20/18 07:28 AMB [email or web address]) Manual Assessments Joint Mobility Assessment Joint Mobility Assessment Stiffness with PAs throughout thoracic spine, more mobility in lumbar spine. Stiffness in scapulothoracic joint L>R. Stiffness at GH joint at end range flexion. PT-OP-J Posture/Palpation/Skin Start: 12/27/18 16:23 Freq: Status: Active Protocol: Document 10/16/18 13:00 AMB (Rec: 10/16/18 15:22 AMB [email or web address]) Posture Evaluation Comments Posture Comments Pt stands with excessive lumbar lordosis, increased thoracic kyphosis with forward shoulders, tends to stand on one leg or the other and hang on Y ligaments. PT-OP-K Range of Motion Start: 12/03/17 07:05 Freq: Status: Active Protocol: Document 04/02/19 11:15 AMB (Rec: 04/02/19 15:55 AMB [email or web address]) Shoulder Goniometric Range of Motion Shoulder Left Active Flexion 160 Abduction 170 PT-OP-M Strength Start: 12/03/17 07:05 Freq: Status: Active Protocol: Document 04/02/19 11:39 AMB (Rec: 04/02/19 11:41 AMB [id number]) Shoulder Strength Shoulder Manual Muscle Testing Left Flexion 4+ Good+ Extension 4+ Good+ Abduction (C5) 4- Good- External Rotation 4 Good Internal Rotation 4+ Good+ PT-OP-Q Treatments Start: 10/22/17 15:21 Freq: Status: Active Protocol: Document 06/19/19 13:45 AMB (Rec: 06/19/19 15:27 AMB [email or web address]) Gym Equipment Cable Column (Body Solid) Rows Resistance 30 Reps/Time 2x10 Lat Pull Down Resistance 30 Reps/Time 2x10 Therapeutic Exercises Supine Exercises 2 Supine Exercise Name foam roll pec stretch Reps/Minutes 30x2 1 Supine Exercise Name pec and lat stretch Reps/Minutes 30x2 Sidelying Exercises 4 Sidelying Exercise Name ER at neutral abduction Reps/Minutes 2# Comments 2x10 Manual Therapy Treatment Soft Tissue Mobilization 3 Body Location Trigger point release Mobilization Type Cross-Friction,Trigger Point Release Intensity/Depth Moderate Body Position Prone Comments infraspinatus, rhomboids, subscapularis, pec minor, subclavius Joint Mobilizations 3 Joint scapulothoracic Direction all planes Grade II Comments sidelying Manual Techniques 1 Type UE distraction Comments with shoulder flexion in supine PT-OP-R Modalities Start: 11/21/17 15:49 Freq: Status: Active Protocol: Document 11/21/17 14:30 AMB (Rec: 11/21/17 15:56 AMB [email or web address]) Ultrasound Therapy Treatment Left Upper Back Treatment Duration (minutes) 7 Patient Position Prone Coupling Medium Ultrasound Gel Frequency Setting (mHz) 1 Mode Setting Continuous Intensity Setting (w/cm2) 1.5 PT-OP-T Assessment and Plan Start: 10/22/17 15:21 Freq: Status: Active Protocol: Document 06/19/19 13:45 AMB (Rec: 06/19/19 15:27 AMB [email or web address]) Physical Therapy Assessment Goals 6 Impairment ADLs Short Term Goal (STG) Pt will lift a suitcase of 20# overhead without an increase in baseline pain. STG Duration 5 weeks Mcc Goal (LTG) Pt will throw a baseball overhead with his right arm without an increase of pain in his left arm. LTG Duration 10 weeks 5 Impairment strength Short Term Goal (STG) Avery will increase his shoulder strength to 4+/5 in all planes. STG Duration 6 weeks Shadow Graph Weight Operator Goal (LTG) Avery will maintain a full plank for 30 seconds with good scapulothoracic position to show improved shoulder and scapular stability. LTG Duration 12 weeks 4 Impairment Sleep Short Term Goal (STG) The patient will sleep for 5 hours using pillow props. STG Duration Intermittently met Mcc Goal (LTG) The patient will be independent with a core and scapular stabilization HEP to reduce his pain overall. Progressing Toward- pt is inconsistent with strengthening LTG Duration 12 weeks 3 Impairment Lifting/carrying Short Term Goal (STG) The patient will lift his youngest child into her carseat with good body mechanics and pain of 2/10 or less. STG Duration MET Shadow Graph Weight Operator Goal (LTG) The patient will lift dishes overhead to put them in a tall cabinet without an increase in pain. LTG Duration MET 2 Impairment Posture Short Term Goal (STG) The patient will sit with appropriate posture for 45 minutes with 2/10 pain. NOT MET STG Duration 6 weeks Shadow Graph Weight Operator Goal (LTG) The patient will stand for 10 minutes with good posture without an increase in baseline pain LTG Duration intermittently met 1 Impairment ROM Short Term Goal (STG) The patient will improve his lumbar AROM to Extension: 20 degrees, Flexion 50 derees, Sidebending bilateral: 25 degrees without an increase in pain. MET with the exception of sidebending. STG Duration PROGRESS MADE Mcc Goal (LTG) The patient will increase his left shoulder AROM to 160 degrees of flexion and abduction. LTG Duration MET Assessment Summary Assessment Adrien has overall improved his baseline pain since last progress note. His range of motion and strength were limited today since he has not been seen in 2 weeks, and has not been keeping up with his HEP as his children are home from school for winter break. Continued to encourage pt in gentle strengthening. 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 Physical Therapy Plan Frequency and Duration Frequency of Treatment 2x/Week Duration of Treatment 10 weeks Plan of Care Start Date 06/19/19 Plan of Care End Date 08/28/19 Therapeutic Interventions Therapeutic Interventions Aquatic Therapy,Home Exercise Program,Manual Therapy, Neuromuscular Re-education, Self-Care/Home Management,Soft Tissue Mobilization, Therapeutic Activities, Therapeutic Exercises Modalities Electric Stimulation,Hot Packs ,Ultrasound Next Visit Focus/Plan Next Note Type Treatment Note Next Visit Plan Progress scapular stability, progress posture, encourage strengthening HEP
--- NOTE | 2019-06-23 15:00 | PT.OTN ---
Current Diagnoses Pain in left shoulder (06/23/19) Low back pain (06/23/19) Physical Therapy Treatment Note PT-OP-A Visit Information Start: 10/22/17 15:21 Freq: Status: Active Protocol: Document 06/23/19 13:00 AMB (Rec: 06/23/19 13:46 AMB [id number]) Out-Patient Physical Therapy Visit Information Visit Information Visit Type Treatment Note Visit Start Time 13:00 Visit Stop Time 13:45 Total Visit Minutes 40 Visit Number 109 PT-OP-B Current Condition Start: 06/19/18 16:23 Freq: Status: Active Protocol: Document 06/19/18 11:15 AMB (Rec: 06/20/18 07:28 AMB [email or web address]) Current Condition History of Current Condition Onset Date chronic Current Complaints L scapular pain, neck pain, back pain History of Current Condition The patient reports years of pain, worse with caring for his 3 young children. 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 He returns to physical therapy with a new script from his PCP for the above impairments. 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 PT-OP-F Manual Assessment Start: 06/19/18 16:23 Freq: Status: Active Protocol: Document 06/19/18 11:15 AMB (Rec: 06/20/18 07:28 AMB [email or web address]) Manual Assessments Joint Mobility Assessment Joint Mobility Assessment Stiffness with PAs throughout thoracic spine, more mobility in lumbar spine. Stiffness in scapulothoracic joint L>R. Stiffness at GH joint at end range flexion. PT-OP-J Posture/Palpation/Skin Start: 06/19/18 16:23 Freq: Status: Active Protocol: Document 10/16/18 13:00 AMB (Rec: 10/16/18 15:22 AMB [email or web address]) Posture Evaluation Comments Posture Comments Pt stands with excessive lumbar lordosis, increased thoracic kyphosis with forward shoulders, tends to stand on one leg or the other and hang on Y ligaments. PT-OP-K Range of Motion Start: 12/03/17 07:05 Freq: Status: Active Protocol: Document 04/02/19 11:15 AMB (Rec: 04/02/19 15:55 AMB [email or web address]) Shoulder Goniometric Range of Motion Shoulder Left Active Flexion 160 Abduction 170 PT-OP-M Strength Start: 12/03/17 07:05 Freq: Status: Active Protocol: Document 04/02/19 11:39 AMB (Rec: 04/02/19 11:41 AMB [id number]) Shoulder Strength Shoulder Manual Muscle Testing Left Flexion 4+ Good+ Extension 4+ Good+ Abduction (C5) 4- Good- External Rotation 4 Good Internal Rotation 4+ Good+ PT-OP-Q Treatments Start: 10/22/17 15:21 Freq: Status: Active Protocol: Document 06/23/19 13:00 AMB (Rec: 06/23/19 14:59 AMB [email or web address]) Gym Equipment Cable Column (Body Solid) Rows Resistance 30 Reps/Time 2x10 Lat Pull Down Resistance 30 Reps/Time 2x10 Therapeutic Exercises Supine Exercises 6 Supine Exercise Name horizontal adduction Resistance 2# Comments 2x10 3 Supine Exercise Name IR at 90 degrees abduction Resistance 2# Reps/Minutes 2x10 2 Supine Exercise Name foam roll pec stretch Reps/Minutes 30x2 1 Supine Exercise Name pec and lat stretch Reps/Minutes 30x2 Manual Therapy Treatment Soft Tissue Mobilization 3 Body Location Trigger point release Mobilization Type Cross-Friction,Trigger Point Release Intensity/Depth Moderate Body Position Prone Comments infraspinatus, rhomboids, subscapularis, pec minor, subclavius Joint Mobilizations 3 Joint scapulothoracic Direction all planes Grade III Comments sidelying Manual Techniques 1 Type UE distraction Comments with shoulder flexion in supine PT-OP-R Modalities Start: 11/21/17 15:49 Freq: Status: Active Protocol: Document 11/21/17 14:30 AMB (Rec: 11/21/17 15:56 AMB [email or web address]) Ultrasound Therapy Treatment Left Upper Back Treatment Duration (minutes) 7 Patient Position Prone Coupling Medium Ultrasound Gel Frequency Setting (mHz) 1 Mode Setting Continuous Intensity Setting (w/cm2) 1.5 PT-OP-T Assessment and Plan Start: 10/22/17 15:21 Freq: Status: Active Protocol: Document 06/23/19 13:00 AMB (Rec: 06/23/19 13:46 AMB [id number]) Physical Therapy Assessment Assessment Summary Assessment Adrien continues to have scapular weakness and pain at infraspinatus today. Physical Therapy Plan Next Visit Focus/Plan Next Note Type Treatment Note Next Visit Plan Progress scapular stability, progress posture, encourage strengthening HEP. Continue to work towards overhead throwing.
--- NOTE | 2019-06-25 16:08 | PT.OTN ---
Current Diagnoses Pain in left shoulder (06/25/19) Low back pain (06/25/19) Physical Therapy Treatment Note PT-OP-A Visit Information Start: 10/22/17 15:21 Freq: Status: Active Protocol: Document 06/25/19 14:30 AMB (Rec: 06/25/19 16:07 AMB [id number]) Out-Patient Physical Therapy Visit Information Visit Information Visit Type Treatment Note Visit Start Time 14:30 Visit Stop Time 15:15 Total Visit Minutes 40 Visit Number 110 PT-OP-B Current Condition Start: 06/19/18 16:23 Freq: Status: Active Protocol: Document 06/19/18 11:15 AMB (Rec: 06/20/18 07:28 AMB [email or web address]) Current Condition History of Current Condition Onset Date chronic Current Complaints L scapular pain, neck pain, back pain History of Current Condition The patient reports years of pain, worse with caring for his 3 young children. 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 He returns to physical therapy with a new script from his PCP for the above impairments. 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 PT-OP-F Manual Assessment Start: 06/19/18 16:23 Freq: Status: Active Protocol: Document 06/19/18 11:15 AMB (Rec: 06/20/18 07:28 AMB [email or web address]) Manual Assessments Joint Mobility Assessment Joint Mobility Assessment Stiffness with PAs throughout thoracic spine, more mobility in lumbar spine. Stiffness in scapulothoracic joint L>R. Stiffness at GH joint at end range flexion. PT-OP-J Posture/Palpation/Skin Start: 06/19/18 16:23 Freq: Status: Active Protocol: Document 10/16/18 13:00 AMB (Rec: 10/16/18 15:22 AMB [email or web address]) Posture Evaluation Comments Posture Comments Pt stands with excessive lumbar lordosis, increased thoracic kyphosis with forward shoulders, tends to stand on one leg or the other and hang on Y ligaments. PT-OP-K Range of Motion Start: 12/03/17 07:05 Freq: Status: Active Protocol: Document 04/02/19 11:15 AMB (Rec: 04/02/19 15:55 AMB [email or web address]) Shoulder Goniometric Range of Motion Shoulder Left Active Flexion 160 Abduction 170 PT-OP-M Strength Start: 12/03/17 07:05 Freq: Status: Active Protocol: Document 04/02/19 11:39 AMB (Rec: 04/02/19 11:41 AMB [id number]) Shoulder Strength Shoulder Manual Muscle Testing Left Flexion 4+ Good+ Extension 4+ Good+ Abduction (C5) 4- Good- External Rotation 4 Good Internal Rotation 4+ Good+ PT-OP-Q Treatments Start: 10/22/17 15:21 Freq: Status: Active Protocol: Document 06/25/19 14:30 AMB (Rec: 06/25/19 16:07 AMB [id number]) Gym Equipment Cable Column (Body Solid) Rows Resistance 30 Reps/Time 2x10 Lat Pull Down Resistance 30 Reps/Time 2x10 Therapeutic Exercises Supine Exercises 6 Supine Exercise Name horizontal adduction Resistance 2# Comments 2x10 3 Supine Exercise Name IR at 90 degrees abduction Resistance 2# Reps/Minutes 2x10 2 Supine Exercise Name foam roll pec stretch Reps/Minutes 30x2 1 Supine Exercise Name pec and lat stretch Reps/Minutes 30x2 Sidelying Exercises 4 Sidelying Exercise Name ER at neutral abduction Reps/Minutes 2# Comments 2x10 Manual Therapy Treatment Soft Tissue Mobilization 3 Body Location Trigger point release Mobilization Type Cross-Friction,Trigger Point Release Intensity/Depth Moderate Body Position Prone Comments infraspinatus, rhomboids, subscapularis, pec minor, Joint Mobilizations 3 Joint scapulothoracic Direction all planes Grade III Comments sidelying Manual Techniques 1 Type UE distraction Comments with shoulder flexion in supine PT-OP-R Modalities Start: 11/21/17 15:49 Freq: Status: Active Protocol: Document 11/21/17 14:30 AMB (Rec: 11/21/17 15:56 AMB [email or web address]) Ultrasound Therapy Treatment Left Upper Back Treatment Duration (minutes) 7 Patient Position Prone Coupling Medium Ultrasound Gel Frequency Setting (mHz) 1 Mode Setting Continuous Intensity Setting (w/cm2) 1.5 PT-OP-T Assessment and Plan Start: 10/22/17 15:21 Freq: Status: Active Protocol: Document 06/25/19 14:30 AMB (Rec: 06/25/19 16:07 AMB [id number]) Physical Therapy Assessment Goals 6 Impairment ADLs Short Term Goal (STG) Pt will lift a suitcase of 20# overhead without an increase in baseline pain. STG Duration 5 weeks Correction Goal (LTG) Pt will throw a baseball overhead with his right arm without an increase of pain in his left arm. LTG Duration 10 weeks 5 Impairment strength Short Term Goal (STG) Avery will increase his shoulder strength to 4+/5 in all planes. STG Duration 6 weeks Correction Goal (LTG) Avery will maintain a full plank for 30 seconds with good scapulothoracic position to show improved shoulder and scapular stability. LTG Duration 12 weeks 4 Impairment Sleep Short Term Goal (STG) The patient will sleep for 5 hours using pillow props. STG Duration Intermittently met Neurosurgical Nurse Goal (LTG) The patient will be independent with a core and scapular stabilization HEP to reduce his pain overall. Progressing Toward- pt is inconsistent with strengthening LTG Duration 12 weeks 3 Impairment Lifting/carrying Short Term Goal (STG) The patient will lift his youngest child into her carseat with good body mechanics and pain of 2/10 or less. STG Duration MET Correction Goal (LTG) The patient will lift dishes overhead to put them in a tall cabinet without an increase in pain. LTG Duration MET 2 Impairment Posture Short Term Goal (STG) The patient will sit with appropriate posture for 45 minutes with 2/10 pain. NOT MET STG Duration 6 weeks Neurosurgical Nurse Goal (LTG) The patient will stand for 10 minutes with good posture without an increase in baseline pain LTG Duration intermittently met 1 Impairment ROM Short Term Goal (STG) The patient will improve his lumbar AROM to Extension: 20 degrees, Flexion 50 derees, Sidebending bilateral: 25 degrees without an increase in pain. MET with the exception of sidebending. STG Duration PROGRESS MADE Neurosurgical Nurse Goal (LTG) The patient will increase his left shoulder AROM to 160 degrees of flexion and abduction. LTG Duration MET Assessment Summary Assessment Continued active trigger point at infraspinatus today. Improved after treatment, but not fully resolved. Physical Therapy Plan Frequency and Duration Frequency of Treatment 2x/Week Duration of Treatment 10 weeks Plan of Care Start Date 06/19/19 Plan of Care End Date 08/28/19 Therapeutic Interventions Therapeutic Interventions Aquatic Therapy,Home Exercise Program,Manual Therapy, Neuromuscular Re-education, Self-Care/Home Management,Soft Tissue Mobilization, Therapeutic Activities, Therapeutic Exercises Modalities Electric Stimulation,Hot Packs ,Ultrasound Next Visit Focus/Plan Next Note Type Treatment Note Next Visit Plan Progress scapular stability, progress posture, encourage strengthening HEP. Continue to work towards overhead throwing.
--- NOTE | 2019-06-30 16:00 | PT.OTN ---
Current Diagnoses Pain in left shoulder (06/30/19) Low back pain (06/30/19) Physical Therapy Treatment Note PT-OP-A Visit Information Start: 10/22/17 15:21 Freq: Status: Active Protocol: Document 06/30/19 11:15 AMB (Rec: 07/01/19 09:25 AMB [id number]) Out-Patient Physical Therapy Visit Information Visit Information Visit Type Treatment Note Visit Start Time 11:20 Visit Stop Time 12:00 Total Visit Minutes 40 Visit Number 111 PT-OP-B Current Condition Start: 06/19/18 16:23 Freq: Status: Active Protocol: Document 06/19/18 11:15 AMB (Rec: 06/20/18 07:28 AMB [email or web address]) Current Condition History of Current Condition Onset Date chronic Current Complaints L scapular pain, neck pain, back pain History of Current Condition The patient reports years of pain, worse with caring for his 3 young children. 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 He returns to physical therapy with a new script from his PCP for the above impairments. 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 Stiffness in scapulothoracic joint L>R. Stiffness at GH joint at end range flexion. PT-OP-J Posture/Palpation/Skin Start: 06/19/18 16:23 Freq: Status: Active Protocol: Document 10/16/18 13:00 AMB (Rec: 10/16/18 15:22 AMB [email or web address]) Posture Evaluation Comments Posture Comments Pt stands with excessive lumbar lordosis, increased thoracic kyphosis with forward shoulders, tends to stand on one leg or the other and hang on Y ligaments. PT-OP-K Range of Motion Start: 12/03/17 07:05 Freq: Status: Active Protocol: Document 04/02/19 11:15 AMB (Rec: 04/02/19 15:55 AMB [email or web address]) Shoulder Goniometric Range of Motion Shoulder Left Active Flexion 160 Abduction 170 PT-OP-M Strength Start: 12/03/17 07:05 Freq: Status: Active Protocol: Document 04/02/19 11:39 AMB (Rec: 04/02/19 11:41 AMB [id number]) Shoulder Strength Shoulder Manual Muscle Testing Left Flexion 4+ Good+ Extension 4+ Good+ Abduction (C5) 4- Good- External Rotation 4 Good Internal Rotation 4+ Good+ PT-OP-Q Treatments Start: 10/22/17 15:21 Freq: Status: Active Protocol: Document 06/30/19 11:15 AMB (Rec: 07/01/19 09:40 AMB [id number]) Gym Equipment Cable Column (Body Solid) Rows Resistance 30 Reps/Time 2x10 Lat Pull Down Resistance 30 Reps/Time 2x10 Therapeutic Exercises Supine Exercises 3 Supine Exercise Name IR at 90 degrees abduction Resistance 2# Reps/Minutes 2x10 2 Supine Exercise Name foam roll pec stretch Reps/Minutes 30x2 1 Supine Exercise Name pec and lat stretch Reps/Minutes 30x2 Sidelying Exercises 4 Sidelying Exercise Name ER at neutral abduction Reps/Minutes 2# Comments 2x10 Manual Therapy Treatment Soft Tissue Mobilization 3 Body Location Trigger point release Mobilization Type Cross-Friction,Trigger Point Release Intensity/Depth Moderate Body Position Prone Comments infraspinatus, rhomboids, subscapularis, pec minor, Joint Mobilizations 3 Joint scapulothoracic Direction all planes Grade III Comments sidelying Manual Techniques 1 Type UE distraction Comments with shoulder flexion in supine Other Other Manual Treatments alternating isometrics at 90 degrees abduction PT-OP-R Modalities Start: 11/21/17 15:49 Freq: Status: Active Protocol: Document 11/21/17 14:30 AMB (Rec: 11/21/17 15:56 AMB [email or web address]) Ultrasound Therapy Treatment Left Upper Back Treatment Duration (minutes) 7 Patient Position Prone Coupling Medium Ultrasound Gel Frequency Setting (mHz) 1 Mode Setting Continuous Intensity Setting (w/cm2) 1.5 PT-OP-T Assessment and Plan Start: 10/22/17 15:21 Freq: Status: Active Protocol: Document 06/30/19 11:15 AMB (Rec: 07/01/19 09:25 AMB [id number]) Physical Therapy Assessment Assessment Summary Assessment Pt is continuing to tolerate some strengthening, but fatigues very quickly, and form, while ok in supine, is poor in standing. Physical Therapy Plan Next Visit Focus/Plan Next Note Type Treatment Note Next Visit Plan Progress scapular stability, progress posture, encourage strengthening HEP. Continue to work towards overhead throwing.
--- NOTE | 2019-07-14 13:06 | PT.OTN ---
Current Diagnoses Pain in left shoulder (07/14/19) Low back pain (07/14/19) Physical Therapy Treatment Note PT-OP-A Visit Information Start: 10/22/17 15:21 Freq: Status: Active Protocol: Document 07/14/19 12:23 EG (Rec: 07/14/19 12:55 EG [email or web address]) Out-Patient Physical Therapy Visit Information Visit Information Visit Type Treatment Note Visit Start Time 11:20 Visit Stop Time 12:00 Total Visit Minutes 40 Visit Number 112 PT-OP-B Current Condition Start: 06/19/18 16:23 Freq: Status: Active Protocol: Document 06/19/18 11:15 AMB (Rec: 06/20/18 07:28 AMB [email or web address]) Current Condition History of Current Condition Onset Date chronic Current Complaints L scapular pain, neck pain, back pain History of Current Condition The patient reports years of pain, worse with caring for his 3 young children. 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 He returns to physical therapy with a new script from his PCP for the above impairments. 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 He was only able to do his exercises about 2x/week and said that when his back did start bothering him, he would do some of his stretches . Patient reported that the pain was not as bad today but did report a 5/10 pain in left shoulder while on the arm bike. PT-OP-F Manual Assessment Start: 06/19/18 16:23 Freq: Status: Active Protocol: Document 06/19/18 11:15 AMB (Rec: 06/20/18 07:28 AMB [email or web address]) Manual Assessments Joint Mobility Assessment Joint Mobility Assessment Stiffness with PAs throughout thoracic spine, more mobility in lumbar spine. Stiffness in scapulothoracic joint L>R. Stiffness at GH joint at end range flexion. PT-OP-J Posture/Palpation/Skin Start: 06/19/18 16:23 Freq: Status: Active Protocol: Document 10/16/18 13:00 AMB (Rec: 10/16/18 15:22 AMB [email or web address]) Posture Evaluation Comments Posture Comments Pt stands with excessive lumbar lordosis, increased thoracic kyphosis with forward shoulders, tends to stand on one leg or the other and hang on Y ligaments. PT-OP-K Range of Motion Start: 12/03/17 07:05 Freq: Status: Active Protocol: Document 04/02/19 11:15 AMB (Rec: 04/02/19 15:55 AMB [email or web address]) Shoulder Goniometric Range of Motion Shoulder Left Active Flexion 160 Abduction 170 PT-OP-M Strength Start: 12/03/17 07:05 Freq: Status: Active Protocol: Document 04/02/19 11:39 AMB (Rec: 04/02/19 11:41 AMB [id number]) Shoulder Strength Shoulder Manual Muscle Testing Left Flexion 4+ Good+ Extension 4+ Good+ Abduction (C5) 4- Good- External Rotation 4 Good Internal Rotation 4+ Good+ PT-OP-Q Treatments Start: 10/22/17 15:21 Freq: Status: Active Protocol: Document 07/14/19 12:23 EG (Rec: 07/14/19 12:55 EG [email or web address]) Cardio Equipment Upper Body Ergometer (UBE) Duration (Minutes) 4 Other 2 min fwd. 2 min bkwd Gym Equipment Cable Column (Body Solid) Lat Pull Down Resistance level 3 Reps/Time 2x10 Therapeutic Exercises Prone Exercises 5 Prone Exercise Name Quadraped Thread the Kneedle with Foam Roll Side bilateral Equipment Used 1/2 FR Reps/Minutes 10x with L arm, 10x with R arm Comments Thoracic rotation with foam roll. Not tolerated with L arm WB Standing Exercises 5 Standing Exercise Name TB Scapular rows Side bilateral Resistance Level 3 Equipment Used TB Reps/Minutes 2x10 Comments Need tactile cues for scapular retraction and decrease tension un uppertrap 4 Standing Exercise Name TB shoulder ER Side bilateral Resistance level 2 Equipment Used TB Reps/Minutes 10x Comments towel roll under armpit 3 Standing Exercise Name Bilateral flexion on wall with Y lift Side bilateral Reps/Minutes 8x Comments tactile cues for scapular upward rotation Manual Therapy Treatment Soft Tissue Mobilization 3 Body Location Trigger point release Mobilization Type Cross-Friction,Trigger Point Release Intensity/Depth Moderate Body Position Prone Comments infraspinatus, rhomboids, subscapularis Joint Mobilizations 3 Joint scapulothoracic Direction all planes Grade II Comments sidelying PT-OP-R Modalities Start: 11/21/17 15:49 Freq: Status: Active Protocol: Document 11/21/17 14:30 AMB (Rec: 11/21/17 15:56 AMB [email or web address]) Ultrasound Therapy Treatment Left Upper Back Treatment Duration (minutes) 7 Patient Position Prone Coupling Medium Ultrasound Gel Frequency Setting (mHz) 1 Mode Setting Continuous Intensity Setting (w/cm2) 1.5 PT-OP-T Assessment and Plan Start: 10/22/17 15:21 Freq: Status: Active Protocol: Document 07/14/19 12:23 EG (Rec: 07/14/19 12:55 EG [email or web address]) Physical Therapy Assessment Assessment Summary Assessment Patient tolerated increase scapular and postural strengthening exercises today. He falls in to pattern of anterior rotated and protracted scapular posture but is able to correct with verbal cueing. Patient was instructed to be more aware of this while at home because this will encourage decreased muscle scapular tension from being put on increased tension . Patient should continue postural muscle strengthening as well as thoracic mobility especially in to extension and rotation to encourage regular every day movements with a decrease in pain. Physical Therapy Plan Next Visit Focus/Plan Next Visit Plan Continue scapular and postural strengthening exercises. Increase thoracic mobility. Do cobra exercise for thoracic strengthening. 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 Guadalupe Rios, WHITT, supervised all treatment performed by, and agreed with the plan of care, as performed by Therese Alfredo, LEYDI.
--- NOTE | 2019-07-17 16:05 | PT.OTN ---
Current Diagnoses Pain in left shoulder (07/17/19) Low back pain (07/17/19) Physical Therapy Treatment Note PT-OP-A Visit Information Start: 10/22/17 15:21 Freq: Status: Active Protocol: Document 07/17/19 15:29 EG (Rec: 07/17/19 15:44 EG [email or web address]) Out-Patient Physical Therapy Visit Information Visit Information Visit Type Treatment Note Visit Start Time 13:45 Visit Stop Time 14:30 Total Visit Minutes 45 Visit Number 113 PT-OP-B Current Condition Start: 06/19/18 16:23 Freq: Status: Active Protocol: Document 06/19/18 11:15 AMB (Rec: 06/20/18 07:28 AMB [email or web address]) Current Condition History of Current Condition Onset Date chronic Current Complaints L scapular pain, neck pain, back pain History of Current Condition The patient reports years of pain, worse with caring for his 3 young children. 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 He returns to physical therapy with a new script from his PCP for the above impairments. 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 He was sore after last visit but it was nothing out of the ordinary. PT-OP-F Manual Assessment Start: 06/19/18 16:23 Freq: Status: Active Protocol: Document 06/19/18 11:15 AMB (Rec: 06/20/18 07:28 AMB [email or web address]) Manual Assessments Joint Mobility Assessment Joint Mobility Assessment Stiffness with PAs throughout thoracic spine, more mobility in lumbar spine. Stiffness in scapulothoracic joint L>R. Stiffness at GH joint at end range flexion. PT-OP-J Posture/Palpation/Skin Start: 06/19/18 16:23 Freq: Status: Active Protocol: Document 10/16/18 13:00 AMB (Rec: 10/16/18 15:22 AMB [email or web address]) Posture Evaluation Comments Posture Comments Pt stands with excessive lumbar lordosis, increased thoracic kyphosis with forward shoulders, tends to stand on one leg or the other and hang on Y ligaments. PT-OP-K Range of Motion Start: 12/03/17 07:05 Freq: Status: Active Protocol: Document 04/02/19 11:15 AMB (Rec: 04/02/19 15:55 AMB [email or web address]) Shoulder Goniometric Range of Motion Shoulder Left Active Flexion 160 Abduction 170 PT-OP-M Strength Start: 12/03/17 07:05 Freq: Status: Active Protocol: Document 04/02/19 11:39 AMB (Rec: 04/02/19 11:41 AMB [id number]) Shoulder Strength Shoulder Manual Muscle Testing Left Flexion 4+ Good+ Extension 4+ Good+ Abduction (C5) 4- Good- External Rotation 4 Good Internal Rotation 4+ Good+ PT-OP-Q Treatments Start: 10/22/17 15:21 Freq: Status: Active Protocol: Document 07/17/19 15:29 EG (Rec: 07/17/19 15:44 EG [email or web address]) Cardio Equipment Upper Body Ergometer (UBE) Duration (Minutes) 4 Other 2 min fwd. 2 min bkwd Gym Equipment Cable Column (Body Solid) Lat Pull Down Resistance level 3 Reps/Time 2x10 Therapeutic Exercises Supine Exercises 6 Supine Exercise Name Chest fbi profiler on foam roll Reps/Minutes 5 x thoracic extension Sitting Exercises chest fbi profiler Sitting Exercise Name arms behind back with fingers interlocked Reps/Minutes 2 x 30 sec Comments done with shoulder rolls intermittent Standing Exercises shoulder stabilizer on wall Standing Exercise Name Circles with weighted ball Side bilateral Equipment Used 3.3# ball Reps/Minutes 10x each way Comments clockwise, counter-clockwise, up/down, side/side 5 Standing Exercise Name TB Scapular rows Side bilateral Resistance Level 3 Equipment Used TB Reps/Minutes 2x10 Comments Need tactile cues for scapular retraction and decrease tension un uppertrap 4 Standing Exercise Name TB serratus anterior punch Side bilateral Resistance level 2 Equipment Used TB Reps/Minutes 2x10 Manual Therapy Treatment Soft Tissue Mobilization 3 Body Location Trigger point release Mobilization Type Cross-Friction,Trigger Point Release Intensity/Depth Moderate Body Position Prone Comments infraspinatus, rhomboids, subscapularis, levator scapularis PT-OP-R Modalities Start: 11/21/17 15:49 Freq: Status: Active Protocol: Document 11/21/17 14:30 AMB (Rec: 11/21/17 15:56 AMB [email or web address]) Ultrasound Therapy Treatment Left Upper Back Treatment Duration (minutes) 7 Patient Position Prone Coupling Medium Ultrasound Gel Frequency Setting (mHz) 1 Mode Setting Continuous Intensity Setting (w/cm2) 1.5 PT-OP-T Assessment and Plan Start: 10/22/17 15:21 Freq: Status: Active Protocol: Document 07/17/19 15:29 EG (Rec: 07/17/19 15:44 EG [email or web address]) Physical Therapy Assessment Assessment Summary Assessment Patient has been tolerating exercises but needs continual cueing to maintain scapular posture as he is standing, seated, or walking. He will continue to benefit from scapular and postural musculature strengthening. Patient is always starting to get ready to play baseball and will benefit from continual shoulder stabiler strengthening. Physical Therapy Plan Next Visit Focus/Plan Next Note Type Treatment Note Next Visit Plan Continue scapular and postural strengthening exercises. Increase thoracic mobility. Do cobra exercise for thoracic strengthening. 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 Guadalupe Rios DPT, supervised all treatment performed by, and agreed with the plan of care, as performed by LEYDI Pérez.
--- NOTE | 2019-07-21 13:43 | PT.OTN ---
Current Diagnoses Pain in left shoulder (07/21/19) Low back pain (07/21/19) Physical Therapy Treatment Note PT-OP-A Visit Information Start: 10/22/17 15:21 Freq: Status: Active Protocol: Document 07/21/19 13:22 EG (Rec: 07/21/19 13:38 EG [email or web address]) Out-Patient Physical Therapy Visit Information Visit Information Visit Type Treatment Note Visit Start Time 11:30 Visit Stop Time 12:00 Total Visit Minutes 30 Visit Number 114 PT-OP-B Current Condition Start: 06/19/18 16:23 Freq: Status: Active Protocol: Document 06/19/18 11:15 AMB (Rec: 06/20/18 07:28 AMB [email or web address]) Current Condition History of Current Condition Onset Date chronic Current Complaints L scapular pain, neck pain, back pain History of Current Condition The patient reports years of pain, worse with caring for his 3 young children. 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 He returns to physical therapy with a new script from his PCP for the above impairments. 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 PT-OP-F Manual Assessment Start: 06/19/18 16:23 Freq: Status: Active Protocol: Document 06/19/18 11:15 AMB (Rec: 06/20/18 07:28 AMB [email or web address]) Manual Assessments Joint Mobility Assessment Joint Mobility Assessment Stiffness with PAs throughout thoracic spine, more mobility in lumbar spine. Stiffness in scapulothoracic joint L>R. Stiffness at GH joint at end range flexion. PT-OP-J Posture/Palpation/Skin Start: 06/19/18 16:23 Freq: Status: Active Protocol: Document 10/16/18 13:00 AMB (Rec: 10/16/18 15:22 AMB [email or web address]) Posture Evaluation Comments Posture Comments Pt stands with excessive lumbar lordosis, increased thoracic kyphosis with forward shoulders, tends to stand on one leg or the other and hang on Y ligaments. PT-OP-K Range of Motion Start: 12/03/17 07:05 Freq: Status: Active Protocol: Document 04/02/19 11:15 AMB (Rec: 04/02/19 15:55 AMB [email or web address]) Shoulder Goniometric Range of Motion Shoulder Left Active Flexion 160 Abduction 170 PT-OP-M Strength Start: 12/03/17 07:05 Freq: Status: Active Protocol: Document 04/02/19 11:39 AMB (Rec: 04/02/19 11:41 AMB [id number]) Shoulder Strength Shoulder Manual Muscle Testing Left Flexion 4+ Good+ Extension 4+ Good+ Abduction (C5) 4- Good- External Rotation 4 Good Internal Rotation 4+ Good+ PT-OP-Q Treatments Start: 10/22/17 15:21 Freq: Status: Active Protocol: Document 07/21/19 13:22 EG (Rec: 07/21/19 13:38 EG [email or web address]) Therapeutic Exercises Supine Exercises 6 Supine Exercise Name Chest farm operator on foam roll Equipment Used long black foam roller tunred horizonal Reps/Minutes hold for 2 min Comments foam roll inferior to shoulder blades, head resting on elevated surface 5 Supine Exercise Name Open Books while on foam roller Side bilateral Equipment Used 1/2 foam roll turned long ways Comments head and sacrum resting on foam roll Prone Exercises 4 Prone Exercise Name Cobra working on thoracic extension Reps/Minutes 10x Comments hands next to chest 3 Prone Exercise Name jerry pose Reps/Minutes 8x Comments moving from hands and knees to child's pose Sidelying Exercises 4 Sidelying Exercise Name Open Books Side bilateral Reps/Minutes 8x Comments emphasize protraction and retraction. Move slowly and with breath Manual Therapy Treatment Soft Tissue Mobilization 3 Body Location Trigger point release Mobilization Type Cross-Friction,Trigger Point Release Intensity/Depth Moderate Body Position Sidelying Comments infraspinatus, rhomboids, subscapularis, levator scapularis PT-OP-R Modalities Start: 11/21/17 15:49 Freq: Status: Active Protocol: Document 11/21/17 14:30 AMB (Rec: 11/21/17 15:56 AMB [email or web address]) Ultrasound Therapy Treatment Left Upper Back Treatment Duration (minutes) 7 Patient Position Prone Coupling Medium Ultrasound Gel Frequency Setting (mHz) 1 Mode Setting Continuous Intensity Setting (w/cm2) 1.5 PT-OP-T Assessment and Plan Start: 10/22/17 15:21 Freq: Status: Active Protocol: Document 07/21/19 13:22 EG (Rec: 07/21/19 13:38 EG [email or web address]) Physical Therapy Assessment Assessment Summary Assessment Patient refued strength training today so therapeutic exercise focused on lengthening scapular soft tissue. Patient was educated on importance of strengthening for full recovery. Patient was also introduced to theracane and was encouraged to try this at home. He verbalized wanting to buy this to work on trigger points. Patient should continue strengthening as tolerated and encouraged to follow protocol for fdc strengthening. Physical Therapy Plan Next Visit Focus/Plan Next Visit Plan Continue scapular and postural strengthening as tolerated. Ask patient about theracane. Guadalupe Rios DPT, supervised all treatment performed by, and agreed with the plan of care, as performed by Therese Alfredo, LEYDI.
--- NOTE | 2019-07-24 16:00 | PT.OTN ---
Current Diagnoses Pain in left shoulder (07/24/19) Low back pain (07/24/19) Physical Therapy Treatment Note PT-OP-A Visit Information Start: 10/22/17 15:21 Freq: Status: Active Protocol: Document 07/24/19 13:45 AMB (Rec: 07/26/19 11:06 AMB [email or web address]) Out-Patient Physical Therapy Visit Information Visit Information Visit Type Treatment Note Visit Note pt arrived 10 minutes late with his 3 children Visit Start Time 13:55 Visit Stop Time 14:30 Total Visit Minutes 35 Visit Number 115 PT-OP-B Current Condition Start: 06/19/18 16:23 Freq: Status: Active Protocol: Document 06/19/18 11:15 AMB (Rec: 06/20/18 07:28 AMB [email or web address]) Current Condition History of Current Condition Onset Date chronic Current Complaints L scapular pain, neck pain, back pain History of Current Condition The patient reports years of pain, worse with caring for his 3 young children. 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 He returns to physical therapy with a new script from his PCP for the above impairments. 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 He felt fine during PT, but a few hours later the right side started really hurting, it is better now but not back to normal yet. PT-OP-F Manual Assessment Start: 06/19/18 16:23 Freq: Status: Active Protocol: Document 06/19/18 11:15 AMB (Rec: 06/20/18 07:28 AMB [email or web address]) Manual Assessments Joint Mobility Assessment Joint Mobility Assessment Stiffness with PAs throughout thoracic spine, more mobility in lumbar spine. Stiffness in scapulothoracic joint L>R. Stiffness at GH joint at end range flexion. PT-OP-J Posture/Palpation/Skin Start: 06/19/18 16:23 Freq: Status: Active Protocol: Document 10/16/18 13:00 AMB (Rec: 10/16/18 15:22 AMB [email or web address]) Posture Evaluation Comments Posture Comments Pt stands with excessive lumbar lordosis, increased thoracic kyphosis with forward shoulders, tends to stand on one leg or the other and hang on Y ligaments. PT-OP-K Range of Motion Start: 12/03/17 07:05 Freq: Status: Active Protocol: Document 04/02/19 11:15 AMB (Rec: 04/02/19 15:55 AMB [email or web address]) Shoulder Goniometric Range of Motion Shoulder Left Active Flexion 160 Abduction 170 PT-OP-M Strength Start: 12/03/17 07:05 Freq: Status: Active Protocol: Document 04/02/19 11:39 AMB (Rec: 04/02/19 11:41 AMB [id number]) Shoulder Strength Shoulder Manual Muscle Testing Left Flexion 4+ Good+ Extension 4+ Good+ Abduction (C5) 4- Good- External Rotation 4 Good Internal Rotation 4+ Good+ PT-OP-Q Treatments Start: 10/22/17 15:21 Freq: Status: Active Protocol: Document 07/24/19 13:45 AMB (Rec: 07/26/19 11:06 AMB [email or web address]) Gym Equipment Cable Column (Body Solid) Rows Resistance level 2 Reps/Time 2x10 Lat Pull Down Resistance level 2 Reps/Time 2x10 Therapeutic Exercises Supine Exercises 4 Supine Exercise Name pec stretch on foam roll Reps/Minutes 30x2 3 Supine Exercise Name serratus punch on foam roll Resistance 3# Reps/Minutes 10 Standing Exercises 3 Standing Exercise Name ER/IR Equipment Used #2 t band Reps/Minutes 2x10 Manual Therapy Treatment Soft Tissue Mobilization 3 Body Location Trigger point release Mobilization Type Cross-Friction,Trigger Point Release Intensity/Depth Moderate Body Position Sidelying Comments infraspinatus, rhomboids, subscapularis, levator scapularis R and L today PT-OP-R Modalities Start: 11/21/17 15:49 Freq: Status: Active Protocol: Document 11/21/17 14:30 AMB (Rec: 11/21/17 15:56 AMB [email or web address]) Ultrasound Therapy Treatment Left Upper Back Treatment Duration (minutes) 7 Patient Position Prone Coupling Medium Ultrasound Gel Frequency Setting (mHz) 1 Mode Setting Continuous Intensity Setting (w/cm2) 1.5 PT-OP-T Assessment and Plan Start: 10/22/17 15:21 Freq: Status: Active Protocol: Document 07/24/19 13:45 AMB (Rec: 07/26/19 11:06 AMB [email or web address]) Physical Therapy Assessment Goals 6 Impairment ADLs Short Term Goal (STG) Pt will lift a suitcase of 20# overhead without an increase in baseline pain. STG Duration 5 weeks Production Manager Goal (LTG) Pt will throw a baseball overhead with his right arm without an increase of pain in his left arm. LTG Duration 10 weeks 5 Impairment strength Short Term Goal (STG) Avery will increase his shoulder strength to 4+/5 in all planes. STG Duration 6 weeks Production Manager Goal (LTG) Avery will maintain a full plank for 30 seconds with good scapulothoracic position to show improved shoulder and scapular stability. LTG Duration 12 weeks 4 Impairment Sleep Short Term Goal (STG) The patient will sleep for 5 hours using pillow props. STG Duration Intermittently met Production Manager Goal (LTG) The patient will be independent with a core and scapular stabilization HEP to reduce his pain overall. Progressing Toward- pt is inconsistent with strengthening LTG Duration 12 weeks 3 Impairment Lifting/carrying Short Term Goal (STG) The patient will lift his youngest child into her carseat with good body mechanics and pain of 2/10 or less. STG Duration MET Care Home Goal (LTG) The patient will lift dishes overhead to put them in a tall cabinet without an increase in pain. LTG Duration MET 2 Impairment Posture Short Term Goal (STG) The patient will sit with appropriate posture for 45 minutes with 2/10 pain. NOT MET STG Duration 6 weeks Production Manager Goal (LTG) The patient will stand for 10 minutes with good posture without an increase in baseline pain LTG Duration intermittently met 1 Impairment ROM Short Term Goal (STG) The patient will improve his lumbar AROM to Extension: 20 degrees, Flexion 50 derees, Sidebending bilateral: 25 degrees without an increase in pain. MET with the exception of sidebending. STG Duration PROGRESS MADE Care Home Goal (LTG) The patient will increase his left shoulder AROM to 160 degrees of flexion and abduction. LTG Duration MET Assessment Summary Assessment Pt wanted to return to regular exercises today due to pain flare up on Saturday. Pt appeared to tolerate all exercises well, but did have increased pain throughout R upper trap and rhomboids. Physical Therapy Plan Next Visit Focus/Plan Next Visit Plan Continue scapular and postural strengthening as tolerated. Ask patient about theracane.
--- NOTE | 2019-07-28 16:39 | PT.OTN ---
Current Diagnoses Pain in left shoulder (07/28/19) Low back pain (07/28/19) Physical Therapy Treatment Note PT-OP-A Visit Information Start: 10/22/17 15:21 Freq: Status: Active Protocol: Document 07/28/19 11:15 AMB (Rec: 07/28/19 16:39 AMB [email or web address]) Out-Patient Physical Therapy Visit Information Visit Information Visit Type Treatment Note Visit Note pt arrived 15 minutes late with one child Visit Start Time 11:15 Visit Stop Time 12:00 Total Visit Minutes 30 Visit Number 116 PT-OP-B Current Condition Start: 06/19/18 16:23 Freq: Status: Active Protocol: Document 06/19/18 11:15 AMB (Rec: 06/20/18 07:28 AMB [email or web address]) Current Condition History of Current Condition Onset Date chronic Current Complaints L scapular pain, neck pain, back pain History of Current Condition The patient reports years of pain, worse with caring for his 3 young children. 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 He returns to physical therapy with a new script from his PCP for the above impairments. 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 He is going to be on vacation for the next week and a half. PT-OP-F Manual Assessment Start: 06/19/18 16:23 Freq: Status: Active Protocol: Document 06/19/18 11:15 AMB (Rec: 06/20/18 07:28 AMB [email or web address]) Manual Assessments Joint Mobility Assessment Joint Mobility Assessment Stiffness with PAs throughout thoracic spine, more mobility in lumbar spine. Stiffness in scapulothoracic joint L>R. Stiffness at GH joint at end range flexion. PT-OP-J Posture/Palpation/Skin Start: 06/19/18 16:23 Freq: Status: Active Protocol: Document 10/16/18 13:00 AMB (Rec: 10/16/18 15:22 AMB [email or web address]) Posture Evaluation Comments Posture Comments Pt stands with excessive lumbar lordosis, increased thoracic kyphosis with forward shoulders, tends to stand on one leg or the other and hang on Y ligaments. PT-OP-K Range of Motion Start: 12/03/17 07:05 Freq: Status: Active Protocol: Document 04/02/19 11:15 AMB (Rec: 04/02/19 15:55 AMB [email or web address]) Shoulder Goniometric Range of Motion Shoulder Left Active Flexion 160 Abduction 170 PT-OP-M Strength Start: 12/03/17 07:05 Freq: Status: Active Protocol: Document 04/02/19 11:39 AMB (Rec: 04/02/19 11:41 AMB [id number]) Shoulder Strength Shoulder Manual Muscle Testing Left Flexion 4+ Good+ Extension 4+ Good+ Abduction (C5) 4- Good- External Rotation 4 Good Internal Rotation 4+ Good+ PT-OP-Q Treatments Start: 10/22/17 15:21 Freq: Status: Active Protocol: Document 07/28/19 11:15 AMB (Rec: 07/28/19 16:39 AMB [email or web address]) Gym Equipment Cable Column (Body Solid) Rows Resistance level 3 Reps/Time 2x10 Lat Pull Down Resistance level 3 Reps/Time 1x10 Therapeutic Exercises Supine Exercises 4 Supine Exercise Name pec stretch on foam roll Reps/Minutes 30x2 Standing Exercises 3 Standing Exercise Name ER/IR Equipment Used #2 t band Reps/Minutes 2x10 2 Standing Exercise Name serratus punch Resistance #2 t band Reps/Minutes 2x10 PT-OP-R Modalities Start: 11/21/17 15:49 Freq: Status: Active Protocol: Document 11/21/17 14:30 AMB (Rec: 11/21/17 15:56 AMB [email or web address]) Ultrasound Therapy Treatment Left Upper Back Treatment Duration (minutes) 7 Patient Position Prone Coupling Medium Ultrasound Gel Frequency Setting (mHz) 1 Mode Setting Continuous Intensity Setting (w/cm2) 1.5 PT-OP-T Assessment and Plan Start: 10/22/17 15:21 Freq: Status: Active Protocol: Document 07/28/19 11:15 AMB (Rec: 07/28/19 16:39 [email or web address]) Physical Therapy Assessment Assessment Summary Assessment Pt tolerated exercises, but continues to have increased pain on his right side. Pt tolerated more standing exercises today, but continues to need to be cued on appropriate posture with standing exercises. Physical Therapy Plan Next Visit Focus/Plan Next Visit Plan Continue scapular and postural strengthening as tolerated. Ask patient about theracane.
--- NOTE | 2019-08-11 16:00 | PT.OTN ---
Current Diagnoses Pain in left shoulder (08/11/19) Low back pain (08/11/19) Physical Therapy Treatment Note PT-OP-A Visit Information Start: 10/22/17 15:21 Freq: Status: Active Protocol: Document 08/11/19 11:15 AMB (Rec: 08/11/19 14:30 AMB [id number]) Out-Patient Physical Therapy Visit Information Visit Information Visit Type Treatment Note Visit Note pt arrived 10 minutes late Visit Start Time 11:22 Visit Stop Time 12:05 Total Visit Minutes 38 Visit Number [id number] PT-OP-B Current Condition Start: 06/19/18 16:23 Freq: Status: Active Protocol: Document 06/19/18 11:15 AMB (Rec: 06/20/18 07:28 AMB [email or web address]) Current Condition History of Current Condition Onset Date chronic Current Complaints L scapular pain, neck pain, back pain History of Current Condition The patient reports years of pain, worse with caring for his 3 young children. 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 He returns to physical therapy with a new script from his PCP for the above impairments. 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 PT-OP-F Manual Assessment Start: 06/19/18 16:23 Freq: Status: Active Protocol: Document 06/19/18 11:15 AMB (Rec: 06/20/18 07:28 AMB [email or web address]) Manual Assessments Joint Mobility Assessment Joint Mobility Assessment Stiffness with PAs throughout thoracic spine, more mobility in lumbar spine. Stiffness in scapulothoracic joint L>R. Stiffness at GH joint at end range flexion. PT-OP-J Posture/Palpation/Skin Start: 06/19/18 16:23 Freq: Status: Active Protocol: Document 10/16/18 13:00 AMB (Rec: 10/16/18 15:22 AMB [email or web address]) Posture Evaluation Comments Posture Comments Pt stands with excessive lumbar lordosis, increased thoracic kyphosis with forward shoulders, tends to stand on one leg or the other and hang on Y ligaments. PT-OP-K Range of Motion Start: 12/03/17 07:05 Freq: Status: Active Protocol: Document 04/02/19 11:15 AMB (Rec: 04/02/19 15:55 AMB [email or web address]) Shoulder Goniometric Range of Motion Shoulder Left Active Flexion 160 Abduction 170 PT-OP-M Strength Start: 12/03/17 07:05 Freq: Status: Active Protocol: Document 04/02/19 11:39 AMB (Rec: 04/02/19 11:41 AMB [id number]) Shoulder Strength Shoulder Manual Muscle Testing Left Flexion 4+ Good+ Extension 4+ Good+ Abduction (C5) 4- Good- External Rotation 4 Good Internal Rotation 4+ Good+ PT-OP-Q Treatments Start: 10/22/17 15:21 Freq: Status: Active Protocol: Document 08/11/19 11:15 AMB (Rec: 08/12/19 07:57 AMB [id number]) Gym Equipment Cable Column (Body Solid) Rows Resistance level 3 Reps/Time 2x10 Lat Pull Down Resistance level 3 Reps/Time 1x10 Therapeutic Exercises Supine Exercises 4 Supine Exercise Name pec stretch on foam roll Reps/Minutes 30x2 2 Supine Exercise Name thoracic extension over foam roll Reps/Minutes 1 min, working into lowering hips down Sidelying Exercises 4 Sidelying Exercise Name open book Reps/Minutes 10x2 Standing Exercises 3 Standing Exercise Name ER Equipment Used #2 t band Reps/Minutes 2x10 Comments bilat Manual Therapy Treatment Soft Tissue Mobilization 3 Body Location Trigger point release Mobilization Type Cross-Friction,Trigger Point Release Intensity/Depth Moderate Body Position Sidelying Comments infraspinatus, rhomboids, subscapularis, levator scapularis R PT-OP-R Modalities Start: 11/21/17 15:49 Freq: Status: Active Protocol: Document 11/21/17 14:30 AMB (Rec: 11/21/17 15:56 AMB [email or web address]) Ultrasound Therapy Treatment Left Upper Back Treatment Duration (minutes) 7 Patient Position Prone Coupling Medium Ultrasound Gel Frequency Setting (mHz) 1 Mode Setting Continuous Intensity Setting (w/cm2) 1.5 PT-OP-T Assessment and Plan Start: 10/22/17 15:21 Freq: Status: Active Protocol: Document 08/11/19 11:15 AMB (Rec: 08/11/19 14:30 AMB [id number]) Physical Therapy Assessment Assessment Summary Assessment Pt continues to have right sided pain, better today, continued to explain importance of posture, strengthening with role in pain control in the chcf. Physical Therapy Plan Frequency and Duration Frequency of Treatment 2x/Week Duration of Treatment 10 weeks Plan of Care Start Date 06/19/19 Plan of Care End Date 08/28/19 Next Visit Focus/Plan Next Visit Plan Continue scapular and postural strengthening as tolerated. Ask patient about theracane.
--- NOTE | 2019-08-13 13:00 | PT.OTN ---
Current Diagnoses Pain in left shoulder (08/13/19) Low back pain (08/13/19) Physical Therapy Treatment Note PT-OP-A Visit Information Start: 10/22/17 15:21 Freq: Status: Active Protocol: Document 08/13/19 13:00 AMB (Rec: 08/14/19 08:41 AMB [id number]) Out-Patient Physical Therapy Visit Information Visit Information Visit Type Treatment Note Visit Note pt arrived 10 minutes late Visit Start Time 13:00 Visit Stop Time 13:45 Total Visit Minutes 45 Visit Number [id number] PT-OP-B Current Condition Start: 06/19/18 16:23 Freq: Status: Active Protocol: Document 06/19/18 11:15 AMB (Rec: 06/20/18 07:28 AMB [email or web address]) Current Condition History of Current Condition Onset Date chronic Current Complaints L scapular pain, neck pain, back pain History of Current Condition The patient reports years of pain, worse with caring for his 3 young children. 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 He returns to physical therapy with a new script from his PCP for the above impairments. 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 Discussed this in depth during the session. Pt does not feel he is getting better over the last month or so because it has been difficult for him to attend more than 1x/week due to this therapists schedule and his children's school schedule. PT-OP-F Manual Assessment Start: 06/19/18 16:23 Freq: Status: Active Protocol: Document 06/19/18 11:15 AMB (Rec: 06/20/18 07:28 AMB [email or web address]) Manual Assessments Joint Mobility Assessment Joint Mobility Assessment Stiffness with PAs throughout thoracic spine, more mobility in lumbar spine. Stiffness in scapulothoracic joint L>R. Stiffness at GH joint at end range flexion. PT-OP-J Posture/Palpation/Skin Start: 06/19/18 16:23 Freq: Status: Active Protocol: Document 10/16/18 13:00 AMB (Rec: 10/16/18 15:22 AMB [email or web address]) Posture Evaluation Comments Posture Comments Pt stands with excessive lumbar lordosis, increased thoracic kyphosis with forward shoulders, tends to stand on one leg or the other and hang on Y ligaments. PT-OP-K Range of Motion Start: 12/03/17 07:05 Freq: Status: Active Protocol: Document 04/02/19 11:15 AMB (Rec: 04/02/19 15:55 AMB [email or web address]) Shoulder Goniometric Range of Motion Shoulder Left Active Flexion 160 Abduction 170 PT-OP-M Strength Start: 12/03/17 07:05 Freq: Status: Active Protocol: Document 04/02/19 11:39 AMB (Rec: 04/02/19 11:41 AMB [id number]) Shoulder Strength Shoulder Manual Muscle Testing Left Flexion 4+ Good+ Extension 4+ Good+ Abduction (C5) 4- Good- External Rotation 4 Good Internal Rotation 4+ Good+ PT-OP-Q Treatments Start: 10/22/17 15:21 Freq: Status: Active Protocol: Document 08/13/19 13:00 AMB (Rec: 08/14/19 09:37 AMB [id number]) Gym Equipment Cable Column (Body Solid) Rows Resistance level 3 Reps/Time 1x10 Lat Pull Down Resistance level 3 Reps/Time 1x10 Therapeutic Exercises Standing Exercises 3 Standing Exercise Name ER Equipment Used #2 t band Reps/Minutes 2x10 Comments bilat Manual Therapy Treatment Soft Tissue Mobilization 3 Body Location Trigger point release Mobilization Type Cross-Friction,Trigger Point Release Intensity/Depth Moderate Body Position Sidelying Comments infraspinatus, rhomboids, subscapularis, levator scapularis R and L PT-OP-R Modalities Start: 11/21/17 15:49 Freq: Status: Active Protocol: Document 11/21/17 14:30 AMB (Rec: 11/21/17 15:56 AMB [email or web address]) Ultrasound Therapy Treatment Left Upper Back Treatment Duration (minutes) 7 Patient Position Prone Coupling Medium Ultrasound Gel Frequency Setting (mHz) 1 Mode Setting Continuous Intensity Setting (w/cm2) 1.5 PT-OP-T Assessment and Plan Start: 10/22/17 15:21 Freq: Status: Active Protocol: Document 08/13/19 13:00 AMB (Rec: 08/14/19 08:41 AMB [id number]) Physical Therapy Assessment Assessment Summary Assessment Pt really wants to be able to come 2x/week, however with the amount of visits the patient has had, this therapist feels that if the patient was more consistent with his strengthening HEP, theracane, and all of his self care techniques that he has been taught he would still be able to see improvement. So, agreed to go up to 2x/week at the time that works best for the patient, but if that doesn 't show good improvement after the next month or two will have to consider d/c. Physical Therapy Plan Next Visit Focus/Plan Next Visit Plan Continue scapular and postural strengthening as tolerated. Ask patient about theracane.
--- NOTE | 2019-08-25 12:00 | PT.OTN ---
Current Diagnoses Pain in left shoulder (08/25/19) Low back pain (08/25/19) Physical Therapy Treatment Note PT-OP-A Visit Information Start: 10/22/17 15:21 Freq: Status: Active Protocol: Document 08/25/19 11:15 AMB (Rec: 08/26/19 08:58 AMB [email or web address]) Out-Patient Physical Therapy Visit Information Visit Information Visit Type Treatment Note Visit Start Time 11:15 Visit Stop Time 12:00 Total Visit Minutes 45 Visit Number 119 PT-OP-B Current Condition Start: 06/19/18 16:23 Freq: Status: Active Protocol: Document 06/19/18 11:15 AMB (Rec: 06/20/18 07:28 AMB [email or web address]) Current Condition History of Current Condition Onset Date chronic Current Complaints L scapular pain, neck pain, back pain History of Current Condition The patient reports years of pain, worse with caring for his 3 young children. 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 He returns to physical therapy with a new script from his PCP for the above impairments. 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 Right side is feeling ok, L side is about 5/10 pain. PT-OP-F Manual Assessment Start: 06/19/18 16:23 Freq: Status: Active Protocol: Document 06/19/18 11:15 AMB (Rec: 06/20/18 07:28 AMB [email or web address]) Manual Assessments Joint Mobility Assessment Joint Mobility Assessment Stiffness with PAs throughout thoracic spine, more mobility in lumbar spine. Stiffness in scapulothoracic joint L>R. Stiffness at GH joint at end range flexion. PT-OP-J Posture/Palpation/Skin Start: 06/19/18 16:23 Freq: Status: Active Protocol: Document 10/16/18 13:00 AMB (Rec: 10/16/18 15:22 AMB [email or web address]) Posture Evaluation Comments Posture Comments Pt stands with excessive lumbar lordosis, increased thoracic kyphosis with forward shoulders, tends to stand on one leg or the other and hang on Y ligaments. PT-OP-K Range of Motion Start: 12/03/17 07:05 Freq: Status: Active Protocol: Document 08/25/19 11:15 AMB (Rec: 08/25/19 16:07 AMB [email or web address]) Shoulder Goniometric Range of Motion Shoulder Right Testing Position Supine Flexion 164 Left Active Flexion 168 Abduction 170 PT-OP-M Strength Start: 12/03/17 07:05 Freq: Status: Active Protocol: Document 04/02/19 11:39 AMB (Rec: 04/02/19 11:41 AMB [id number]) Shoulder Strength Shoulder Manual Muscle Testing Left Flexion 4+ Good+ Extension 4+ Good+ Abduction (C5) 4- Good- External Rotation 4 Good Internal Rotation 4+ Good+ PT-OP-Q Treatments Start: 10/22/17 15:21 Freq: Status: Active Protocol: Document 08/25/19 11:15 AMB (Rec: 08/26/19 10:41 AMB [id number]) Gym Equipment Cable Column (Body Solid) Rows Resistance level 3 Reps/Time 1x10 Lat Pull Down Resistance level 3 Reps/Time 1x10 Therapeutic Exercises Supine Exercises 4 Supine Exercise Name pec stretch on foam roll Reps/Minutes 30x2 Sidelying Exercises 3 Sidelying Exercise Name ER at 0 degrees abduction Resistance manual resistance Reps/Minutes 10x2 Manual Therapy Treatment Soft Tissue Mobilization 3 Body Location Trigger point release Mobilization Type Cross-Friction,Trigger Point Release Intensity/Depth Moderate Body Position Sidelying Comments infraspinatus, rhomboids, subscapularis, levator scapularis R and L PT-OP-R Modalities Start: 11/21/17 15:49 Freq: Status: Active Protocol: Document 11/21/17 14:30 AMB (Rec: 11/21/17 15:56 AMB [email or web address]) Ultrasound Therapy Treatment Left Upper Back Treatment Duration (minutes) 7 Patient Position Prone Coupling Medium Ultrasound Gel Frequency Setting (mHz) 1 Mode Setting Continuous Intensity Setting (w/cm2) 1.5 PT-OP-T Assessment and Plan Start: 10/22/17 15:21 Freq: Status: Active Protocol: Document 08/25/19 11:15 AMB (Rec: 08/26/19 10:11 AMB [email or web address]) Physical Therapy Assessment Goals 6 Impairment ADLs Short Term Goal (STG) Pt will lift a suitcase of 20# overhead without an increase in baseline pain. 3/3: 10# increases pain mildly, pt with continued poor scapular form with overhead lifting. STG Duration 5 weeks Intermediate Goal (LTG) Pt will throw a baseball overhead with his right arm without an increase of pain in his left arm. NOT MET LTG Duration 10 weeks 5 Impairment strength Short Term Goal (STG) Avery will increase his shoulder strength to 4+/5 in all planes. NOT MET STG Duration 6 weeks Manpower Development Advisor Goal (LTG) Avery will maintain a full plank for 30 seconds with good scapulothoracic position to show improved shoulder and scapular stability. NOT MET LTG Duration 12 weeks 4 Impairment Sleep Short Term Goal (STG) The patient will sleep for 5 hours using pillow props. STG Duration Intermittently met Manpower Development Advisor Goal (LTG) The patient will be independent with a core and scapular stabilization HEP to reduce his pain overall. Progressing Toward- pt is inconsistent with strengthening LTG Duration 12 weeks 3 Impairment Lifting/carrying Short Term Goal (STG) The patient will lift his youngest child into her carseat with good body mechanics and pain of 2/10 or less. STG Duration MET Manpower Development Advisor Goal (LTG) The patient will lift dishes overhead to put them in a tall cabinet without an increase in pain. LTG Duration MET 2 Impairment Posture Short Term Goal (STG) The patient will sit with appropriate posture for 45 minutes with 2/10 pain. NOT MET STG Duration 6 weeks Intermediate Goal (LTG) The patient will stand for 10 minutes with good posture without an increase in baseline pain LTG Duration intermittently met 1 Impairment ROM Short Term Goal (STG) The patient will improve his lumbar AROM to Extension: 20 degrees, Flexion 50 derees, Sidebending bilateral: 25 degrees without an increase in pain. MET with the exception of sidebending. STG Duration PROGRESS MADE Manpower Development Advisor Goal (LTG) The patient will increase his left shoulder AROM to 160 degrees of flexion and abduction. LTG Duration MET Assessment Summary Assessment Discussed treatment and plan with patient. Explained that considering the length of treatment he has had, one would expect him to be able to improve without having to have 2x/week appointments, if he is using all of the tools he has been educated in. Unfortunately he is not using all of his tools at home, as he finds it hard to make the time when caring for his kids. He has not bought a theracane yet. He has not improved significantly since May, but the pt feels that this is mostly due to inconsistent scheduling, he can only come at one specific time and cancels frequently. Pt is hopeful he will be able to come more consistently to PT, and this PT is hopeful that the pt will be more consistent with his strengthening, but if he does not show good improvement in the next 2 months, we will have to consider discharge. Physical Therapy Plan Frequency and Duration Frequency of Treatment 2x/Week Duration of Treatment 8 weeks Plan of Care Start Date 08/26/19 Plan of Care End Date 10/21/19 Therapeutic Interventions Therapeutic Interventions Aquatic Therapy,Home Exercise Program,Manual Therapy, Neuromuscular Re-education, Self-Care/Home Management,Soft Tissue Mobilization, Therapeutic Activities, Therapeutic Exercises Modalities Electric Stimulation,Hot Packs ,Ultrasound Next Visit Focus/Plan Next Note Type Treatment Note Next Visit Plan Push pt to really improve his scapular strengthening.
--- NOTE | 2019-09-04 13:43 | PT.OPDS ---
Current Diagnoses Pain in left shoulder (08/25/19) Low back pain (08/25/19) Visit Care Team Role Provider Type Dorina Jin MD Attending Provider Physician Family Provider Primary Care Provider Specialty: Family Practice Address: [address] [place] [address], [facility] Email: [email or web address] Visit Number Visit Number [id number] Discharge Summary PT-OP-B Current Condition Start: 06/19/18 16:23 Freq: Status: Active Protocol: Document 06/19/18 11:15 AMB (Rec: 06/20/18 07:28 AMB [email or web address]) Current Condition History of Current Condition Onset Date chronic Current Complaints L scapular pain, neck pain, back pain History of Current Condition The patient reports years of pain, worse with caring for his 3 young children. 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 He returns to physical therapy with a new script from his PCP for the above impairments. 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 Right side is feeling ok, L side is about 5/10 pain. PT-OP-F Manual Assessment Start: 06/19/18 16:23 Freq: Status: Active Protocol: Document 06/19/18 11:15 AMB (Rec: 06/20/18 07:28 AMB [email or web address]) Manual Assessments Joint Mobility Assessment Joint Mobility Assessment Stiffness with PAs throughout thoracic spine, more mobility in lumbar spine. Stiffness in scapulothoracic joint L>R. Stiffness at GH joint at end range flexion. PT-OP-J Posture/Palpation/Skin Start: 06/19/18 16:23 Freq: Status: Active Protocol: Document 10/16/18 13:00 AMB (Rec: 10/16/18 15:22 AMB [email or web address]) Posture Evaluation Comments Posture Comments Pt stands with excessive lumbar lordosis, increased thoracic kyphosis with forward shoulders, tends to stand on one leg or the other and hang on Y ligaments. PT-OP-K Range of Motion Start: 12/03/17 07:05 Freq: Status: Active Protocol: Document 08/25/19 11:15 AMB (Rec: 08/25/19 16:07 AMB [email or web address]) Shoulder Goniometric Range of Motion Shoulder Right Testing Position Supine Flexion 164 Left Active Flexion 168 Abduction 170 PT-OP-M Strength Start: 12/03/17 07:05 Freq: Status: Active Protocol: Document 04/02/19 11:39 AMB (Rec: 04/02/19 11:41 AMB [id number]) Shoulder Strength Shoulder Manual Muscle Testing Left Flexion 4+ Good+ Extension 4+ Good+ Abduction (C5) 4- Good- External Rotation 4 Good Internal Rotation 4+ Good+ PT-OP-T Assessment and Plan Start: 10/22/17 15:21 Freq: Status: Active Protocol: Document 09/04/19 13:36 AMB (Rec: 09/04/19 13:43 AMB [id number]) Physical Therapy Assessment Goals 6 Impairment ADLs Short Term Goal (STG) Pt will lift a suitcase of 20# overhead without an increase in baseline pain. 3/3: 10# increases pain mildly, pt with continued poor scapular form with overhead lifting. STG Duration 5 weeks Custodial Goal (LTG) Pt will throw a baseball overhead with his right arm without an increase of pain in his left arm. NOT MET LTG Duration 10 weeks 5 Impairment strength Short Term Goal (STG) Avery will increase his shoulder strength to 4+/5 in all planes. NOT MET STG Duration 6 weeks Custodial Goal (LTG) Avery will maintain a full plank for 30 seconds with good scapulothoracic position to show improved shoulder and scapular stability. NOT MET LTG Duration 12 weeks 4 Impairment Sleep Short Term Goal (STG) The patient will sleep for 5 hours using pillow props. STG Duration Intermittently met Hot Top Liner Helper Goal (LTG) The patient will be independent with a core and scapular stabilization HEP to reduce his pain overall. Progressing Toward- pt is inconsistent with strengthening LTG Duration 12 weeks 3 Impairment Lifting/carrying Short Term Goal (STG) The patient will lift his youngest child into her carseat with good body mechanics and pain of 2/10 or less. STG Duration MET Hot Top Liner Helper Goal (LTG) The patient will lift dishes overhead to put them in a tall cabinet without an increase in pain. LTG Duration MET 2 Impairment Posture Short Term Goal (STG) The patient will sit with appropriate posture for 45 minutes with 2/10 pain. NOT MET STG Duration 6 weeks Custodial Goal (LTG) The patient will stand for 10 minutes with good posture without an increase in baseline pain LTG Duration intermittently met 1 Impairment ROM Short Term Goal (STG) The patient will improve his lumbar AROM to Extension: 20 degrees, Flexion 50 derees, Sidebending bilateral: 25 degrees without an increase in pain. MET with the exception of sidebending. STG Duration PROGRESS MADE Hot Top Liner Helper Goal (LTG) The patient will increase his left shoulder AROM to 160 degrees of flexion and abduction. LTG Duration MET Assessment Summary Assessment The patient is canceling his remaining appointments due to the coronavirus. Over the past 30 days he has attended 3 appointments and canceled 5. While some of this was due to the coronavirus, he has not been especially consistent with appointments, and has not been consistent with his strengthening HEP. He does do his stretches, but really does need to strengthen and this has been explained to him extensively. At this time he is discharged due to his request, but he had plateaued recently due to his poor attendence and poor compliance with his HEP. Please see his last progress note on August 24 for more details. Physical Therapy Plan Discharge Physical Therapy Discharge Reasons Patient Request Discharge Comments Coronavirus concerns
== END 2019-09-09 08:39 ==
LOC: PHYS 11:15
PROVIDERS: Family Provider Family Medicine; PCP Family Medicine; Visit Provider Family Medicine
DX: M54.5 Low back pain (principal); M25.512 Pain in left shoulder
CPT/HCPCS: 97010; 97035; 97110; 97112; 97140; 97164; 97530